=== PATIENT | female | born 1980 | race Caucasian/White ===

== ENCOUNTER 2017-03-21 09:41 | Inpatient (IN) | payer OTHER ==
[~2017-03-21] VITALS: Ht 165.1 cm; Wt 98.9 kg
[2017-03-21] VITALS (15 sets, daily range): BP systolic 80–113; BP diastolic 53–75; PULSE 73–106; TEMP 36.6–37.2; O2SAT 98–100; Ht 165.1 cm; Wt 98.9 kg
[2017-03-21] MEDS ORDERED: SODIUM CHLORIDE 0.9% 1000ML 1,000 ML IV STA (10:09)
--- NOTE | 2017-03-21 10:10 | EMERGENCY ROOM VISIT NOTE ---
History Report prepared by Jareth: Sharri Hardy Under the Supervision of: Dr. Carroll Jackson M.D. First contact with patient: 09:55 Chief Complaint: DIZZY Stated Complaint: SEVERE DIZZINESS, MENSES X 9 DAYS, CUTS Nursing Triage Summary: pt reports hx of dizziness X 1 year has had "crystals put in ear to help this " but over last week has become worse , pt reports " usually after standing and waiting it will pass then I cont with walking I am unable to do this now" History of Present Illness The patient is a 36 year old white female with a past medical history of anemia , iron deficiency, bipolar disorder, and gastric bypass. She presents to the ED with a cc of intermittent dizziness beginning 2 days ago. Pt states that she has had a history of dizziness over the last year but in the last week it has become increasingly worse. She notes that her dizziness is worse with standing and while she is usually able to continue walking after her dizziness resolves, she is no longer able to do this. She states that she almost fell forward today after an episode of dizziness before deciding to come in to the ED. Positive lightheadedness, diaphoresis and shortness of breath. Negative chest pain, urinary symptoms, chills, fever. Pt notes she has had her menses for 9 days and has been changing her pad every 45 minutes. Pt previously had prolonged menstrual bleeding and had a dirk to control it that has since been taken out. She notes that she changes her pad every 45 minutes and is frequently passing clots. Source of History: patient Onset: 2 days ago Position: other (global) Quality: other (dizziness) Timing: intermittent Modifying Factors (Worsening): other (standing) Associated Symptoms: + diaphoresis, + SOB Note: Positive prolonged menstrual bleeding and lightheadedness. Negative chest pain, urinary symptoms, chills, fever Review of Systems See HPI for pertinent positives and negatives. A total of ten systems were reviewed and were otherwise negative. Past Medical & Surgical Medical Problems: (1) Bipolar disorder (2) Leukemia (3) Symptomatic anemia Surgical Problems: (1) H/O gastric bypass Family History No pertinent family history stated. Social History Smoking Status: Never Smoker Marital Status: Housing Status: lives with family Occupation Status: employed Current/Historical Medications Scheduled Fluticasone Propionate (Nasal) (Flonase Allergy Relief), 1 SPRAY RODRICK BID Levothyroxine Sodium (Tirosint), 350 MCG PO QAM Norethindrone Acetate (Norethindrone Acetate), 5 MG PO Q6 Sertraline (Zoloft), 50 MG PO DAILY Allergies Coded Allergies: Diclofenac (Unverified Allergy, Unknown, ALTERED MENTAL STATUS, 03/25/17) Ketorolac Tromethamine (Unverified Allergy, Unknown, ALTERED MENTAL STATUS , 03/25/17) Latex (Unverified Allergy, Unknown, RASH, 03/25/17) Sulfa Antibiotics (Unverified Allergy, Unknown, HIVES, 03/25/17) Uncoded Allergies: ANTIBIOTICS (Allergy, Unknown, ANAPHYLAXIS, 03/21/17) ALLERGIC TO ALL ANTIBIOTICS EXCEPT KEFLEX, CIPRO IV ONLY, LEVOFLOXACIN, AND FLAGYL Physical Exam Vital Signs Date Time Temp Pulse Resp B/P (MAP) Pulse Ox O2 Delivery O2 Flow Rate FiO2 03/21/17 13:22 87 18 113/65 99 03/21/17 13:10 99 Room Air 03/21/17 13:03 37.0 83 20 99/60 99 03/21/17 12:49 37.1 74 20 107/69 100 03/21/17 11:19 82 18 103/61 100 Room Air 03/21/17 10:15 83 03/21/17 10:08 94 Room Air 03/21/17 10:08 81 94/56 93 117/61 107 92/59 03/21/17 09:52 36.7 90 20 114/64 100 Room Air Physical Exam GENERAL: Awake, alert, well-appearing, pale, NAD HENT: Normocephalic, atraumatic. EYES: Normal conjunctiva. Sclera non-icteric. NECK: Supple. No nuchal rigidity. FROM. RESPIRATORY: CTAB, no rhonchi, wheezing, crackles CARDIAC: RRR, no MRG ABDOMEN: Soft, NTND, BS+ MSK: No chest wall TTP, no LE edema NEURO: GCS 15, CN 2-12 intact, moves all 4s on command SKIN: Pale. No rash or jaundice noted. Scar in right upper chest consistent with port. Trace areas of small bruising over the anterior shins, no petechiae noted. PELVIC: Fluid within the vault. Large blood clot noted which was removed. Enlarged cervix, mildly irritated cervical os which appears open. No tenderness to palpation, no CNT no adnexal tenderness to palpation. Medical Decision & Procedures ER Provider Diagnostic Interpretation: Radiology results as stated below per my review and radiologist interpretation: PELVIC ULTRASOUND, TRANSABDOMINAL AND TRANSVAGINAL FINDINGS: Uterus: 9.3 x 5.2 x 5.6 cm. No masses. A few small nabothian cysts. Endometrial stripe: 5 mm. Right ovary: Normal in size and demonstrates normal color flow. A few small follicles/cysts. Left ovary: Normal in size and demonstrates normal color flow. A few small follicles/cysts. Miscellaneous:Trace pelvic free fluid. IMPRESSION: Trace pelvic free fluid which is likely physiologic. The uterus and ovaries are within normal limits. Electronically signed by: Dinh Sandy M.D. 03/21/2017 12:14 PM Dictated Date/Time: 03/21/2017 12:12 PM Laboratory Results Test 03/21/17 10:20 03/21/17 10:35 Immature Granulocyte % (Auto) 0.2 % White Blood Count 5.48 K/uL (4.8-10.8) Red Blood Count 1.42 M/uL (4.2-5.4) Hemoglobin 4.7 g/dL (12.0-16.0) Hematocrit 14.1 % (37-47) Mean Corpuscular Volume 99.3 fL (80-100) Mean Corpuscular Hemoglobin 33.1 pg (25-34) Mean Corpuscular Hemoglobin Concent 33.3 g/dl (32-36) Platelet Count 263 K/uL (130-400) Mean Platelet Volume 9.2 fL (7.4-10.4) Neutrophils (%) (Auto) 73.8 % Lymphocytes (%) (Auto) 19.5 % Monocytes (%) (Auto) 4.9 % Eosinophils (%) (Auto) 0.5 % Basophils (%) (Auto) 1.1 % Neutrophils # (Auto) 4.04 K/uL (1.4-6.5) Lymphocytes # (Auto) 1.07 K/uL (1.2-3.4) Monocytes # (Auto) 0.27 K/uL (0.11-0.59) Eosinophils # (Auto) 0.03 K/uL (0-0.5) Basophils # (Auto) 0.06 K/uL (0-0.2) Immature Granulocyte # (Auto) 0.01 K/uL (0.00-0.02) Red Blood Cell Morphology Unremarkable Prothrombin Time 11.2 SECONDS (9.0-12.0) Prothromb Time International Ratio 1.0 (0.9-1.1) Activated Partial Thromboplast Time 26.1 SECONDS (21.0-31.0) Partial Thromboplastin Ratio 1.0 Direct Bilirubin < 0.1 mg/dl (0-0.2) Urine Color RED Urine Appearance TURBID (CLEAR) Urine pH 6.5 (4.5-7.5) Urine Specific [place] >= 1.030 (1.000-1.030) Urine Protein 3+ (NEG) Urine Glucose (UA) TRACE (NEG) Urine Ketones NEG (NEG) Urine Occult Blood 2+ (NEG) Urine Nitrite NEG (NEG) Urine Bilirubin NEG (NEG) Urine Urobilinogen NEG (NEG) Urine Leukocyte Esterase NEG (NEG) Urine RBC >30 /hpf (0-4) Urine WBC >30 /hpf (0-5) Urine Epithelial Cells 0-5 /lpf (0-5) Urine Bacteria NEG (NEG) Urine Test NEG (NEG) Date/Time Source Procedure Growth Status 03/21/17 10:35 Urine , Clean Catch Urine Culture - Final MORE THAN THREE TYPES OF ORGANISMS WV... Complete Laboratory results reviewed by me Medications Administered Medications (Trade) Dose Ordered Sig/Bessy Route Start Time Stop Time Status Last Admin Dose Admin Sodium Chloride 1,000 ml @ 999 mls/hr Q1H1M STAT IV 03/21/17 10:09 03/21/17 11:09 DC 03/21/17 10:09 999 MLS/HR ECG Indication: SOB/dyspnea Rate (beats per minute): 80 Rhythm: normal sinus Findings: other (t wave flattening in inferior and lateral leads, normal [place] and QRS intervals, normal QTC) Comparison ECG Date: no prior available ED Course 0955: The patient was evaluated in room C9. A complete history and physical exam was performed. 1051: The patients hemoglobin is 4.0. 1054: I reevaluated and updated the patient. I performed a pelvic exam. 1223: I reevaluated the patient and updated her. 1227: I spoke to Dr. Simmons of [facility] he has agreed to evaluate the patient. 1230: Discussed the patient's case with Dr. Sandy of [facility]. The patient will be evaluated for further treatment and disposition. 1243: Upon reexamination, the patient was doing well. I discussed the test results and treatment plan with the patient. The patient will be evaluated for further management. Medical Decision Differential diagnosis includes blood loss anemia, iron deficiency, menorrhagia , blood clotting disorder, arrhythmia. The patient is a 36 year old white female with a past medical history of anemia , iron deficiency, bipolar disorder, and gastric bypass. She presents to the ED with a cc of intermittent dizziness beginning 2 days ago. Patient noted to have significant pallor on exam, and on lab results with a hemoglobin of less than 5. Patient is symptomatic as she has dizziness and lightheadedness that almost caused her to syncopized earlier today. Vaginal exam did show some dark clot as well as fluid within the vaginal vault but no active bleeding. 3 units of PRBCs were ordered patient was consented for transfusion. Of note patient did say that she had a negative heart cath several years ago. EKG did show some T-wave flattening. She changes and there were no other EKGs completed prior to compare. I spoke with the [facility] [employer] [facility] physician who evaluated the patient. Patient was discussed with the hospitalist who also agreed to admit the patient for further medical management and workup. Medication Reconcilliation Current Medication List: was personally reviewed by me Blood Pressure Screening Patient's blood pressure: Normal blood pressure Blood pressure disposition: Did not require urgent referral Consults Time Called: 1220 Consulting Physician: Dr. Simmons - [facility] Returned Call: [address] Simmons of [facility] he has agreed to evaluate the patient. Additional Consults: Time Called: 1225 Consulted Physician: Dr. Sandy - [facility] Returned Call: 1230 Additional Comments: Discussed the patient's case with Dr. Sandy of [facility]. The patient will be evaluated for further treatment and disposition. Impression Primary Impression: Menorrhagia Additional Impressions: Metrorrhagia Blood loss anemia Dizziness Lightheadedness Critical Care I have personally spent greater than 45 minutes of critical care time in the direct management of this patient. This includes bedside care, interpretation of diagnostic studies, and testing, discussion with consultants, patient, and family members, and other required patient management activities. This 45 minutes is in excess of all separately billable procedures. Scribe Attestation The scribe's documentation has been prepared under my direction and personally reviewed by me in its entirety. I confirm that the note above accurately reflects all work, treatment, procedures, and medical decision making performed by me. Departure Information Dispostion Being Evaluated By Hospitalist Prescriptions Norethindrone Acetate (Norethindrone Acetate) 5 Mg Tab 5 MG PO Q6, #50 TAB Prov: Kelli Vu M.D. 03/23/17 Referrals Soraya Richard D.O. (PCP) Patient Instructions My [facility] Problem Qualifiers
[2017-03-21] MEDS ORDERED: FLUT0.15 NAE (10:30)
[2017-03-21] MEDS ORDERED: LEVO150C2 PO (10:30)
[2017-03-21] MEDS ORDERED: SERT50TA PO (10:30)
[2017-03-21 10:44] LABS: PROTHROMBIN TIME (PATIENT) 11.2 SECONDS (9.0-12.0)
[2017-03-21 10:47] LABS: MANUAL MICROSCOPIC REQUIRED? YES; URINE APPEARANCE TURBID (CLEAR); URINE BILIRUBIN NEG (NEG); URINE COLOR RED; URINE NITRITE NEG (NEG); URINE PH 6.5 (4.5-7.5); URINE SPECIFIC GRAVITY >= 1.030 (1.000-1.030); UROBILINOGEN NEG (NEG)
[2017-03-21 10:48] LABS: ALT/SGPT 30 U/L (12-78); BLOOD UREA NITROGEN 11 mg/dl (7-18); BUN/CREATININE RATIO 9.9 (10-20); CALCIUM 7.8 mg/dl (8.5-10.1); CARBON DIOXIDE 28 mmol/L (21-32); CHLORIDE 111 mmol/L (98-107); GLUCOSE 83 mg/dl (70-99); POTASSIUM 3.5 mmol/L (3.5-5.1); SODIUM 143 mmol/L (136-145)
[2017-03-21 10:48] LABS: PREG INTERNAL NEGATIVE QC NEG CLEAR BACKGROUND; PREG INTERNAL POSITIVE QC POS CONTROL LINE
[2017-03-21 10:51] LABS: ALKALINE PHOSPHATASE 49 U/L (45-117); AST/SGOT 54 U/L (15-37)
[2017-03-21 10:51] LABS: URINE BACTERIA NEG (NEG); URINE RBC >30 /hpf (0-4); URINE WBC >30 /hpf (0-5)
[2017-03-21 10:52] LABS: REVIEW REQ? NO; ZZUR CULT IF INDIC CLEAN CATCH YES
[2017-03-21 11:13] LABS: HEMATOCRIT 14.1 % (37-47); MEAN CELL VOLUME 99.3 fL (80-100); MEAN CORPUSCULAR HEMOGLOBIN 33.1 pg (25-34); MEAN CORPUSCULAR HGB CONC 33.3 g/dl (32-36); MEAN PLATELET VOLUME 9.2 fL (7.4-10.4); PLATELET COUNT 263 K/uL (130-400); RED BLOOD COUNT 1.42 M/uL (4.2-5.4); WHITE BLOOD COUNT 5.48 K/uL (4.8-10.8)
[2017-03-21 11:14] LABS: BASO % 1.1 %; BASO ABS # 0.06 K/uL (0-0.2); COMPLETE YES; EOS % 0.5 %; IG% 0.2 %; LYMPH % 19.5 %; LYMPH ABS # 1.07 K/uL (1.2-3.4); MONO % 4.9 %; NEUT % 73.8 %
--- NOTE | 2017-03-21 12:15 | DIAGNOSTIC IMAGING REPORT ---
PELVIC ULTRASOUND, TRANSABDOMINAL AND TRANSVAGINAL HISTORY: prolonged vaginal bleeding COMPARISON: None. FINDINGS: Uterus: 9.3 x 5.2 x 5.6 cm. No masses. A few small nabothian cysts. Endometrial stripe: 5 mm. Right ovary: Normal in size and demonstrates normal color flow. A few small follicles/cysts. Left ovary: Normal in size and demonstrates normal color flow. A few small follicles/cysts. Miscellaneous:Trace pelvic free fluid. IMPRESSION: Trace pelvic free fluid which is likely physiologic. The uterus and ovaries are within normal limits. Electronically signed by: Dinh Sandy M.D. 03/21/2017 12:14 PM Dictated Date/Time: 03/21/2017 12:12 PM
--- NOTE | 2017-03-21 13:29 | GYNECOLOGICAL CONSULTATION ---
DATE OF CONSULTATION: 03/21/2017 HISTORY OF PRESENT ILLNESS: Margarita presented to the Emergency Room, she had previous [facility]ACH[facility] care in a different area. She came initially lightheaded and having heavy period, although she did state her period was tapering off. Her periods are normally heavy and in fact she has wished a hysterectomy for some time with her previous doctor. She has failed Mirena in the past and had her Mirena removed in July of 2016. Describes her periods occurring every month, lasting for 5-7 days, of which 3-4 days are extremely heavy with clot. Recently this period has lasted up to 9 days, as she mentioned is tapering down. Her periods are not overly painful. 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 Has no history of STDs or abnormal Paps, 1 prior vaginal delivery and 1 prior miscarriage. PAST MEDICAL HISTORY: She has a history of anemia related to bypass surgery in the past, this was 4 years ago and also a history of bipolar disease. She has also a history of hyperthyroidism. FAMILY HISTORY: Noncontributory. REVIEW OF SYSTEMS: Negative. PHYSICAL EXAMINATION: VITAL SIGNS: Stable. She is afebrile. ABDOMEN: Benign. No masses palpated. No hernias palpated. PELVIC: Done with nursing reveals normal external genitalia, vulva, vagina, urethra, urethral meatus, and anus. Cervix palpated, smooth and somewhat dilated. Uterus is to a degree enlarged and anteverted, I would say possibly 6 weeks to 5 weeks size. It is mobile. Adnexa are normal. IMPRESSION AND PLAN: Hemoglobin 4.7. The patient requires transfusion. She is not actively bleeding at this time and the blood noticed is dark. She will be admitted onto the hospitalist service and we will follow along. Discussed if her bleeding were to increase, we can consider IV Premarin to further stop the bleeding. At this stage, I think it is unnecessary, as her period is tapering off. We talked about long-term therapy including the possibility of hysterectomy, which would be set up as an outpatient basis. I reviewed her ultrasound which essentially reveals a normal sized uterus and no obvious fibroid. Adnexa within normal limits.
[2017-03-21] MEDS ORDERED: ACETAMINOPHEN 325 MG TAB PO PRN (13:30)
[2017-03-21] MEDS ORDERED: ZOLPIDEM TARTRATE 5 MG TAB PO PRN (13:30)
--- NOTE | 2017-03-21 15:00 | History and Physical ---
History & Physical Date & Time of Service: Mar 21, 2017 at 14:49 Chief Complaint: Blood Loss Anemia,Symptomatic Anemia Primary Care Physician: Soraya Richard D.O. History of Present Illness Source: patient The patient is a 26-year-old female with a past history significant for blood loss anemia, iron deficiency, bipolar disorder and gastric bypass, who presents to the emergency department with 2 days of intermittent dizziness, fatigue and shortness of breath. She reports that she presently has had her menses for 9 days with very heavy bleeding. She had a similar episode in 2013 requiring transfusions. She reports that she is frequently passing clots, and is changing her pad every 45 minutes. She was seen by Dr. Simmons, from [facility], who reviewed her pelvic ultrasound, which revealed a normal-size uterus and no obvious fibroids, with normal adnexa, and he felt the patient could be admitted for transfusions, and he did discuss long-term therapy with her including the possibility of hysterectomy, which she has been in favor of for a number of months to years. Past Medical/Surgical History Medical Problems: (1) Bipolar disorder Status: Chronic (2) Leukemia Status: Resolved Surgical Problems: (1) H/O gastric bypass Status: Chronic Family History Noncontributory Social History Smoking Status: Former Smoker Smokeless Tobacco Use: No Alcohol Use: none Drug Use: none Marital Status: Housing status: lives with significant other Occupational Status: employed Immunizations History of Influenza Vaccine: Unknown History of Tetanus Vaccine?: Unknown History of Pneumococcal: No History of Hepatitis B Vaccine: Unknown Multi-Drug Resistant Organisms History of MDRO: No Allergies Coded Allergies: Diclofenac (Unverified Allergy, Unknown, ALTERED MENTAL STATUS, 03/21/17) Ketorolac Tromethamine (Unverified Allergy, Unknown, ALTERED MENTAL STATUS , 03/21/17) Latex (Unverified Allergy, Unknown, RASH, 03/21/17) Sulfa Antibiotics (Unverified Allergy, Unknown, HIVES, 03/21/17) Uncoded Allergies: ANTIBIOTICS (Allergy, Unknown, ANAPHYLAXIS, 03/21/17) ALLERGIC TO ALL ANTIBIOTICS EXCEPT KEFLEX, CIPRO IV ONLY, LEVOFLOXACIN, AND FLAGYL Home Medications Scheduled Fluticasone Propionate (Nasal) (Flonase Allergy Relief), 1 SPRAY RODRICK BID Levothyroxine Sodium (Tirosint), 350 MCG PO QAM Sertraline (Zoloft), 50 MG PO DAILY Review of Systems The patient denies chest pain, palpitations, shortness of breath, cough, lower extremity swelling, vision change, hearing change, sore throat, fevers, chills, sweats, nausea, vomiting, abdominal pain, blood in urine or stool, dysuria, urinary frequency or urgency, headache, memory loss, rash, abnormal bruising , imbalance, focal or generalized weakness, numbness or tingling in arms or legs, arthralgias or myalgias, back or neck pain, night sweats, or allergy symptoms. The review of systems is otherwise negative other than for that already noted above, and at least 10 systems have been reviewed. Physical Exam Vital Signs Date Time Temp Pulse Resp B/P (MAP) Pulse Ox O2 Delivery O2 Flow Rate FiO2 03/21/17 14:24 36.7 91 17 91/57 100 03/21/17 13:49 93 20 110/75 100 03/21/17 13:22 87 18 113/65 99 03/21/17 13:10 99 Room Air 03/21/17 13:03 37.0 83 20 99/60 99 03/21/17 12:49 37.1 74 20 107/69 100 03/21/17 11:19 82 18 103/61 100 Room Air 03/21/17 10:15 83 03/21/17 10:08 94 Room Air 03/21/17 10:08 81 94/56 93 117/61 107 92/59 03/21/17 09:52 36.7 90 20 114/64 100 Room Air The patient is awake, alert and oriented 3, normocephalic and atraumatic, looks very pale, lying in bed and in no acute distress. HEENT--PERRL, EOMI, mucous membranes and oropharynx dry. Neck--supple, no JVD or bruits, thyroid normal, trachea midline, no adenopathy. Heart--normal S1 and S2, no extra beats, no murmurs, rubs or gallops. Lungs--clear bilaterally with good air movement, no respiratory distress, no accessory muscle use. Abdomen--normal bowel sounds and soft, nontender and nondistended, no hernias or masses, no organomegaly. Extremities--no cyanosis, clubbing or edema. There are good distal pulses b/l. Dermatologic--normal skin turgor, very pale, warm and dry, no abnormal lymph nodes, no rash. Neurologic--cranial nerves II through XII grossly intact, motor and sensory examination normal. Rheumatologic--normal range of motion, nontender, muscles and joints. Psychiatric--normal affect. Diagnostics Laboratory Results Results Past 24 Hours Test 03/21/17 10:20 03/21/17 10:35 Range/Units White Blood Count 5.48 4.8-10.8 K/uL Red Blood Count 1.42 4.2-5.4 M/uL Hemoglobin 4.7 12.0-16.0 g/dL Hematocrit 14.1 37-47 % Mean Corpuscular Volume 99.3 80-100 fL Mean Corpuscular Hemoglobin 33.1 25-34 pg Mean Corpuscular Hemoglobin Concent 33.3 32-36 g/dl Platelet Count 263 130-400 K/uL Mean Platelet Volume 9.2 7.4-10.4 fL Neutrophils (%) (Auto) 73.8 % Lymphocytes (%) (Auto) 19.5 % Monocytes (%) (Auto) 4.9 % Eosinophils (%) (Auto) 0.5 % Basophils (%) (Auto) 1.1 % Neutrophils # (Auto) 4.04 1.4-6.5 K/uL Lymphocytes # (Auto) 1.07 1.2-3.4 K/uL Monocytes # (Auto) 0.27 0.11-0.59 K/uL Eosinophils # (Auto) 0.03 0-0.5 K/uL Basophils # (Auto) 0.06 0-0.2 K/uL RDW Standard Deviation 52.8 36.4-46.3 fL RDW Coefficient of Variation 15.3 11.5-14.5 % Immature Granulocyte % (Auto) 0.2 % Immature Granulocyte # (Auto) 0.01 0.00-0.02 K/uL Red Blood Cell Morphology Unremarkable Prothrombin Time 11.2 9.0-12.0 SECONDS Prothromb Time International Ratio 1.0 0.9-1.1 Activated Partial Thromboplast Time 26.1 21.0-31.0 SECONDS Partial Thromboplastin Ratio 1.0 Sodium Level 143 136-145 mmol/L Potassium Level 3.5 3.5-5.1 mmol/L Chloride Level 111 98-107 mmol/L Carbon Dioxide Level 28 21-32 mmol/L Anion Gap 4.0 3-11 mmol/L Blood Urea Nitrogen 11 7-18 mg/dl Creatinine 1.10 0.60-1.20 mg/dl Est Creatinine Clear Calc Drug Dose 81.1 ml/min Estimated GFR () 74.3 Estimated GFR (Non- 64.1 BUN/Creatinine Ratio 9.9 10-20 Random Glucose 83 70-99 mg/dl Calcium Level 7.8 8.5-10.1 mg/dl Total Bilirubin 0.2 0.2-1 mg/dl Direct Bilirubin < 0.1 0-0.2 mg/dl Aspartate Amino Transf (AST/SGOT) 54 15-37 U/L Alanine Aminotransferase (ALT/SGPT) 30 12-78 U/L Alkaline Phosphatase 49 45-117 U/L Total Protein 5.7 6.4-8.2 gm/dl Albumin 3.2 3.4-5.0 gm/dl Urine Color RED Urine Appearance TURBID CLEAR Urine pH 6.5 4.5-7.5 Urine Specific [place] >= 1.030 1.000-1.030 Urine Protein 3+ NEG Urine Glucose (UA) TRACE NEG Urine Ketones NEG NEG Urine Occult Blood 2+ NEG Urine Nitrite NEG NEG Urine Bilirubin NEG NEG Urine Urobilinogen NEG NEG Urine Leukocyte Esterase NEG NEG Urine RBC >30 0-4 /hpf Urine WBC >30 0-5 /hpf Urine Epithelial Cells 0-5 0-5 /lpf Urine Bacteria NEG NEG Urine Test NEG NEG Microbiology Results 03/21/17 Urine Culture, Received Pending Diagnostic Radiology Patient Name: RAHEEM LITTLE Unit Number: [id number] Dictated: 03/21/171211 Transcribed: 03/21/171211 [employer] Printed Date/Time: [~ rep prt dt]/[~ rep prt tm] [~ rep ct labl] - [~ rep ct ivnm] [facility] [place] [address] Dictated: 03/21/171211 Transcribed: 03/21/171211 PA Printed Date/Time: [~ rep prt dt]/[~ rep prt tm] [~ rep ct labl] - [~ rep ct ivnm] [~ rep ct add3]] PELVIC ULTRASOUND, TRANSABDOMINAL AND TRANSVAGINAL HISTORY: prolonged vaginal bleeding COMPARISON: None. FINDINGS: Uterus: 9.3 x 5.2 x 5.6 cm. No masses. A few small nabothian cysts. Endometrial stripe: 5 mm. Right ovary: Normal in size and demonstrates normal color flow. A few small follicles/cysts. Left ovary: Normal in size and demonstrates normal color flow. A few small follicles/cysts. Miscellaneous:Trace pelvic free fluid. IMPRESSION: Trace pelvic free fluid which is likely physiologic. The uterus and ovaries are within normal limits. Electronically signed by: Dinh Sandy M.D. 03/21/2017 12:14 PM Dictated Date/Time: 03/21/2017 12:12 PM The status of this report is Signed. Draft = Not yet reviewed or approved by Radiologist. Signed = Reviewed and approved by Radiologist. <AttendingPhy></AttendingPhy> <FamilyPhy>Soraya Richard D.O.</FamilyPhy> < PrimaryPhy>Soraya Richard D.O.</PrimaryPhy> <UnitNumber>[id number]</UnitNumber> <VisitNumber>[id number]</VisitNumber> <PatientName>RAHEEM LITTLE</PatientName > <DateOfBirth>1980</DateOfBirth> <Location>[facility]</Location> <ServiceDate> 03/21/17</ServiceDate> <MNE>ESINDI</MNE> <OrderingPhy>Carroll Jackson M.D.</ OrderingPhy> <OrderingPhyMNE>f rep ord dr bowens</OrderingPhyMNE> <DictatingPhyMNE> f rep dict dr bowens</DictatingPhyMNE> <CCListMNE>f rep ct ramanae</CCListMNE> < AdmittingPhyMNE>f pt admit dr bowens</AdmittingPhyMNE> <AttendingPhyMNE>f pt attend dr bowens</AttendingPhyMNE> <ConsultingPhyMNE>f pt consult dr bowens</ConsultingPhyMNE> <FamilyPhyMNE>f pt fam dr bowens</FamilyPhyMNE> <OtherPhyMNE>f pt other dr bowens</OtherPhyMNE> < PrimaryPhyMNE>f pt prim care dr bowens</PrimaryPhyMNE> <ReferringPhyMNE>f pt referring dr bowens</ReferringPhyMNE> Impression Assessment and Plan Symptomatic anemia secondary to excessive vaginal bleeding--the patient will be admitted to the telemetry unit for close monitoring while getting transfusions. The patient is presently receiving her first unit of PRBCs in the ED, and will receive 2 additional units by my orders, and we'll get an H&H after that. We'll consult Dr. Simmons from [facility], who was already seen the patient in the emergency department. Hypothyroidism--continue levothyroxine at 350 g every morning. Added TSH to the ED labs. The patient reports that she can only take the brand Tirosint, and she has been informed by staff that she'll need to bring her own meds in from home. Bipolar disorder--continue sertraline 50 mg by mouth daily. Seasonal allergy--continue Flonase 1 spray to nostril twice a day. Level of Care Telemetry Advanced Directives Existing Advance Directive: No Existing Living Will: Yes Existing Power of Study Assistant: Yes Resuscitation Status FULL RESUSCITATION VTE Prophylaxis VTE Risk Assessment Done? Y/N: Yes Risk Level: Moderate Given or contraindicated: SCD's Social Service Consult None Apply
[2017-03-21] MEDS: [UNRECOGNIZED DRUG - REMARK] SCH ×2 (16:00→20:51)
[2017-03-21] MEDS: NSS + 20MEQ KCL 1000ML 1,000 ML IV SCH (20:50)
[2017-03-21] MEDS: FLUTICASONE PROPIONATE NA SPR 16 GM BTL NAE SCH (20:50)
[2017-03-21 21:04] LABS: HEMATOCRIT 22.6 % (37-47)
[2017-03-22] VITALS (19 sets, daily range): BP systolic 83–149; BP diastolic 57–88; PULSE 74–94; TEMP 36.7–37.1; O2SAT 96–100
[2017-03-22] MEDS: NSS + 20MEQ KCL 1000ML 1,000 ML IV SCH (03:30)
[2017-03-22] MEDS: SERTRALINE HCL 50 MG TAB PO SCH (07:41)
[2017-03-22] MEDS: FLUTICASONE PROPIONATE NA SPR 16 GM BTL NAE SCH ×2 (07:41→20:14)
--- NOTE | 2017-03-22 07:54 | Progress Note ---
Progress Note Date of Service Mar 22, 2017. Progress Note Received sig transfusion, Hb still low, however improved. Bleeding had been better in the ER, but seems to be still occurying. Still passing a few clots. Will Start IV premarin to stabilize lining. LUIS ARMANDO
[2017-03-22 08:19] LABS: HEMATOCRIT 21.1 % (37-47); MEAN CELL VOLUME 91.3 fL (80-100); MEAN CORPUSCULAR HEMOGLOBIN 30.7 pg (25-34); MEAN CORPUSCULAR HGB CONC 33.6 g/dl (32-36); MEAN PLATELET VOLUME 9.4 fL (7.4-10.4); PLATELET COUNT 239 K/uL (130-400); RED BLOOD COUNT 2.31 M/uL (4.2-5.4); WHITE BLOOD COUNT 4.88 K/uL (4.8-10.8)
[2017-03-22] MEDS: ESTROGENS, CONJUGATED INJ 25 MG in SYRINGE 0 ML IV SCH ×4 (08:22→20:14)
[2017-03-22 08:49] LABS: BUN/CREATININE RATIO 8.8 (10-20); CALCIUM 7.6 mg/dl (8.5-10.1); CREATININE 1.1 mg/dl (0.60-1.20); POTASSIUM 3.7 mmol/L (3.5-5.1)
--- NOTE | 2017-03-22 12:31 | Hospitalist Progress Note ---
Hospitalist Progress Note Date of Service Mar 22, 2017. Subjective Pt evaluation today including: conversation w/ patient, physical exam, chart review, lab review, review of studies, review of inpatient medication list Patient seen and evaluated. Hgb improved to 7.1 from 4.7 but will transfuse 1 unit PRBC today. Patient reports marked improvement but states she still has some weakness but no lightheadedness/dizziness. Reports her BP normally runs low. She states her menses normally last 7 days and is commonly heavy. Still reporting continued vaginal bleeding with significant clots. Denies abdominal pain or cramping. She recently moved from [facility] so is just now getting established in the area. She is scheduled to see [facility] PCP in March. She was previously on Mirena but was D/C'd after she had her GB removed. She reports she does not need contraceptives for prevention as she is in a homosexual relationship. She would like to pursue hysterectomy but reports her previous [facility] doctor didn' t want to do that. Constitutional: + fatigue (improving), No fever, No chills Respiratory: No cough, No shortness of breath Cardiovascular: No chest pain, No palpitations Abdomen: No pain, No nausea, No vomiting, No diarrhea, No constipation, No GI bleeding Musculoskeletal: No swelling, No calf pain Female : + abnormal vaginal bleeding (heavy; prolonged; associated large clots), No dysuria Medications Current Inpatient Medications Medications (Trade) Dose Ordered Sig/Bessy Route Start Time Stop Time Status Last Admin Dose Admin Potassium Chloride/Sodium Chloride 1,000 ml @ 80 mls/hr [id number] IV 03/21/17 15:00 04/20/17 13:23 03/21/17 20:50 80 MLS/HR Acetaminophen (Tylenol Tab) 650 mg Q4H PRN PO 03/21/17 13:30 04/20/17 13:29 Zolpidem Tartrate (Ambien Tab) 5 mg HSZ PRN PO 03/21/17 13:30 04/20/17 13:29 Fluticasone Propionate (Flonase Nasal [place]) 1 sprays BID RODRICK 03/21/17 21:00 04/20/17 20:59 03/22/17 07:41 1 SPRAYS Sertraline HCl (Zoloft Tab) 50 mg DAILY PO 03/22/17 09:00 04/21/17 08:59 03/22/17 07:41 50 MG Miscellaneous Information (Order Awaiting Action) 1 ea QS N/A 03/21/17 16:00 04/20/17 15:59 Heparin Sodium (Porcine) (Heparin 100 Unit/ml 5ml Flush) 5 ml PRN PRN IV 03/22/17 00:45 04/21/17 00:44 Estrogens Conjugated 25 mg/ Syringe 5 ml @ 1 mls/min Q4 IV 03/22/17 08:00 04/21/17 07:59 03/22/17 08:22 1 MLS/MIN Norethindrone Acetate (Aygestin Tab) 5 mg Q6 PO 03/22/17 12:00 04/21/17 11:59 UNV Objective Vital Signs Date Time Temp Pulse Resp B/P (MAP) Pulse Ox O2 Delivery O2 Flow Rate FiO2 03/22/17 11:44 36.9 74 18 104/76 (85) 100 Room Air 03/22/17 11:05 36.9 84 16 95/61 99 03/22/17 10:35 36.9 83 16 99/65 99 03/22/17 10:20 37.0 94 16 98/66 99 03/22/17 10:05 36.7 94 96/64 98 03/22/17 08:04 36.8 84 18 90/64 (73) 100 Room Air 03/22/17 08:00 Room Air 03/22/17 04:00 Room Air 03/22/17 04:00 36.7 90 18 149/88 (108) 96 03/21/17 23:59 Room Air 03/21/17 23:53 37.0 77 18 91/59 (70) 99 Room Air 03/21/17 20:00 Room Air 03/21/17 19:10 37.2 80 20 80/57 (65) 98 Room Air 03/21/17 18:50 36.8 91 18 80/53 99 03/21/17 17:50 36.8 86 17 86/56 100 03/21/17 17:20 37.0 87 17 90/54 100 03/21/17 16:03 36.6 73 17 96/60 100 03/21/17 16:00 98 Room Air 03/21/17 15:33 36.9 106 17 98/66 99 03/21/17 14:58 36.8 73 16 92/64 100 03/21/17 14:24 36.7 91 17 91/57 100 03/21/17 13:49 93 20 110/75 100 03/21/17 13:22 87 18 113/65 99 03/21/17 13:10 99 Room Air 03/21/17 13:03 37.0 83 20 99/60 99 03/21/17 12:49 37.1 74 20 107/69 100 Physical Exam General Appearance: WD/WN, no apparent distress Eyes: sclerae normal ENT: hearing grossly normal Neck: supple, no JVD, trachea midline Respiratory/Chest: lungs clear, normal breath sounds, no respiratory distress, no accessory muscle use, + pertinent finding (R upper chest port) Cardiovascular: regular rate, rhythm, no gallop, no murmur Abdomen: normal bowel sounds, non tender, soft Extremities: no pedal edema, no calf tenderness Neurologic/Psychiatric: alert, oriented x 3, + pertinent finding (gait steady) Skin: normal color, warm/dry Laboratory Results Last 24 Hours Test 03/21/17 16:23 03/21/17 20:27 03/21/17 20:40 03/22/17 07:33 Bedside Glucose 96 mg/dl 87 mg/dl Hemoglobin 7.5 g/dL 7.1 g/dL Hematocrit 22.6 % 21.1 % White Blood Count 4.88 K/uL Red Blood Count 2.31 M/uL Mean Corpuscular Volume 91.3 fL Mean Corpuscular Hemoglobin 30.7 pg Mean Corpuscular Hemoglobin Concent 33.6 g/dl RDW Standard Deviation 60.2 fL RDW Coefficient of Variation 18.6 % Platelet Count 239 K/uL Mean Platelet Volume 9.4 fL Sodium Level 144 mmol/L Potassium Level 3.7 mmol/L Chloride Level 110 mmol/L Carbon Dioxide Level 27 mmol/L Anion Gap 7.0 mmol/L Blood Urea Nitrogen 10 mg/dl Creatinine 1.10 mg/dl Est Creatinine Clear Calc Drug Dose 81.5 ml/min Estimated GFR () 74.3 Estimated GFR (Non- 64.1 BUN/Creatinine Ratio 8.8 Random Glucose 80 mg/dl Calcium Level 7.6 mg/dl Assessment and Plan Symptomatic Anemia/Acute Blood Loss Anemia 2/2 Menorrhagia: - Transfused 3 units on 03/21 and 1 unit PRBCs this AM - Hgb improved from 4.7 to 7.1 - await repeat after today's transfusion - NSS + 20 mEq at 80 mL/hr - 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 will repeat TSH in AM and recommend follow-up with PCP for monitoring Bipolar Disorder: - Sertraline 50 mg daily DVT Prophylaxis: SCDs; no chemical means due to bleeding Code Status: FULL RESUSCITATION Disposition: - Await blood counts and any intervention by [facility] - possible D/C tomorrow - Will need outpatient follow-up with PCP in 7-10 days - will follow with [facility] PCP Continued [facility] stay due to: multiple IV medications needed Discharge planning: home
[2017-03-22] MEDS: NORETHINDRONE ACETATE 5 MG TAB PO SCH ×2 (14:15→20:16)
[2017-03-22 14:36] LABS: HEMATOCRIT 22.3 % (37-47); MEAN CELL VOLUME 90.7 fL (80-100); MEAN CORPUSCULAR HEMOGLOBIN 30.1 pg (25-34); MEAN PLATELET VOLUME 9.2 fL (7.4-10.4); PLATELET COUNT 237 K/uL (130-400); RED BLOOD COUNT 2.46 M/uL (4.2-5.4); WHITE BLOOD COUNT 6.29 K/uL (4.8-10.8)
[2017-03-22] MEDS ORDERED: ONDANSETRON INJ 2 MG/ML 2 ML VIAL ONE (14:39)
[2017-03-22] MEDS ORDERED: ONDANSETRON INJ 2 MG/ML 2 ML VIAL IV PRN (14:45)
[2017-03-22] MEDS ORDERED: NURSING VERBAL MED ORDER ONE (14:45)
[2017-03-22 14:47] LABS: MEAN CORPUSCULAR HGB CONC 33.2 g/dl (32-36)
[2017-03-22] MEDS: [UNRECOGNIZED DRUG - REMARK] SCH (15:13)
[2017-03-22 22:49] LABS: HEMATOCRIT 24.1 % (37-47); MEAN CELL VOLUME 88.3 fL (80-100); MEAN CORPUSCULAR HEMOGLOBIN 28.9 pg (25-34); MEAN CORPUSCULAR HGB CONC 32.8 g/dl (32-36); PLATELET COUNT 202 K/uL (130-400); RED BLOOD COUNT 2.73 M/uL (4.2-5.4); WHITE BLOOD COUNT 6.83 K/uL (4.8-10.8)
[2017-03-23] VITALS (17 sets, daily range): BP systolic 84–111; BP diastolic 50–72; PULSE 56–91; TEMP 36.8–37.2; O2SAT 98–100
[2017-03-23] MEDS: [UNRECOGNIZED DRUG - REMARK] SCH
[2017-03-23] MEDS: ESTROGENS, CONJUGATED INJ 25 MG in SYRINGE 0 ML IV SCH ×2 (00:03→04:16)
[2017-03-23] MEDS: NORETHINDRONE ACETATE 5 MG TAB PO SCH ×3 (00:03→11:54)
[2017-03-23 04:41] LABS: HEMATOCRIT 23.4 % (37-47); MEAN CELL VOLUME 88.3 fL (80-100); MEAN CORPUSCULAR HEMOGLOBIN 30.2 pg (25-34); MEAN CORPUSCULAR HGB CONC 34.2 g/dl (32-36); MEAN PLATELET VOLUME 9.2 fL (7.4-10.4); PLATELET COUNT 198 K/uL (130-400); RED BLOOD COUNT 2.65 M/uL (4.2-5.4); WHITE BLOOD COUNT 7.44 K/uL (4.8-10.8)
[2017-03-23 04:58] LABS: BUN/CREATININE RATIO 11.8 (10-20); CALCIUM 7.1 mg/dl (8.5-10.1); CREATININE 1.1 mg/dl (0.60-1.20); POTASSIUM 3.5 mmol/L (3.5-5.1)
--- NOTE | 2017-03-23 08:23 | OB/GYN Progress Note ---
BRANDS EDITOR Progress Note Date of Service Mar 23, 2017. Subjective conversation w/ patient Voiding: no voiding problems Passing Gas: Yes Diet Tolerance: Regular Diet Notes: bleeding has now down to a light flow with much smaller clotty episodes. feels better and less fatigued. Review of Systems Constitutional: No fever, No chills, No sweats, No weight loss, No weakness, No fatigue, No problem reported Respiratory: No cough, No sputum, No wheezing, No shortness of breath, No dyspnea on exertion, No dyspnea at rest, No hemoptysis, No problem reported Abdomen: No pain, No nausea, No vomiting, No diarrhea, No constipation, No GI bleeding, No problem reported Female : + see HPI Objective Vital Signs Date Time Temp Pulse Resp B/P (MAP) Pulse Ox O2 Delivery O2 Flow Rate FiO2 03/23/17 07:45 37.0 83 18 106/68 (81) 100 Room Air 03/23/17 04:40 36.9 79 16 87/54 (65) 100 Room Air 03/23/17 04:00 Room Air 03/23/17 00:14 36.8 56 18 84/50 (61) 99 Room Air 03/22/17 23:59 Room Air 03/22/17 21:27 37.1 77 17 87/58 98 03/22/17 20:27 37.1 75 17 91/66 97 03/22/17 20:00 97 Room Air 03/22/17 19:37 37.0 82 19 93/62 (72) 99 Room Air 03/22/17 19:27 37.1 80 17 83/59 98 03/22/17 18:57 37.0 84 18 94/59 100 03/22/17 17:20 36.8 80 17 100/61 99 03/22/17 16:20 37.1 84 18 90/57 100 03/22/17 16:00 97 Room Air 03/22/17 15:50 36.9 91 17 102/67 97 03/22/17 12:35 36.7 84 16 107/70 99 03/22/17 12:00 Room Air 03/22/17 11:44 36.9 74 18 104/76 (85) 100 Room Air 03/22/17 11:35 36.7 83 16 116/70 99 03/22/17 11:05 36.9 84 16 95/61 99 03/22/17 10:35 36.9 83 16 99/65 99 03/22/17 10:20 37.0 94 16 98/66 99 03/22/17 10:05 36.7 94 96/64 98 Physical Exam General Appearance: WELL-APPEARING, NO APPARENT DISTRESS Laboratory Results Last 24 Hours Test 03/22/17 14:05 03/22/17 16:34 03/22/17 22:33 03/23/17 04:31 White Blood Count 6.29 K/uL 6.83 K/uL 7.44 K/uL Red Blood Count 2.46 M/uL 2.73 M/uL 2.65 M/uL Hemoglobin 7.4 g/dL 7.9 g/dL 8.0 g/dL Hematocrit 22.3 % 24.1 % 23.4 % Mean Corpuscular Volume 90.7 fL 88.3 fL 88.3 fL Mean Corpuscular Hemoglobin 30.1 pg 28.9 pg 30.2 pg Mean Corpuscular Hemoglobin Concent 33.2 g/dl 32.8 g/dl 34.2 g/dl RDW Standard Deviation 58.6 fL 53.8 fL 54.5 fL RDW Coefficient of Variation 18.3 % 17.4 % 17.6 % Platelet Count 237 K/uL 202 K/uL 198 K/uL Mean Platelet Volume 9.2 fL 9.0 fL 9.2 fL Bedside Glucose 120 mg/dl Sodium Level 144 mmol/L Potassium Level 3.5 mmol/L Chloride Level 112 mmol/L Carbon Dioxide Level 28 mmol/L Anion Gap 4.0 mmol/L Blood Urea Nitrogen 13 mg/dl Creatinine 1.10 mg/dl Est Creatinine Clear Calc Drug Dose 81.5 ml/min Estimated GFR () 74.3 Estimated GFR (Non- 64.1 BUN/Creatinine Ratio 11.8 Random Glucose 83 mg/dl Calcium Level 7.1 mg/dl Thyroid Stimulating Hormone (TSH) 349.000 uIu/ml Assessment and Plan Day Number: 1 Continue Routine Care: bleeding has slowed dramatically at this time. would continue aygestin taper , I will write script for this med .We will attempt to taper to 5mg Aygestin daily & maintain this regimen until surgery can be done. I would recommend hematology follow up for possible iron infusions in preparation for surgery. Our office will call her to set up follow up appointment to discuss surgery and monitor the bleeding. 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
[2017-03-23] MEDS ORDERED: AYG5 PO (08:25)
[2017-03-23] MEDS: SERTRALINE HCL 50 MG TAB PO SCH (08:26)
[2017-03-23] MEDS: FLUTICASONE PROPIONATE NA SPR 16 GM BTL NAE SCH (08:26)
--- NOTE | 2017-03-23 16:23 | Discharge Instructions ---
Discharge Instructions Date of Service Mar 23, 2017. Admission Reason for Admission: Blood Loss Anemia,Symptomatic Anemia Discharge Discharge Diagnosis / Problem: Menorrhagia, symptomatic anemia Discharge Goals Goal(s): Improve function, Diagnostic testing (CBC on 03/25), Therapeutic intervention (hysterectomy) Activity Recommendations Activity Limitations: resume your previous activity Lifting Limitations: none Exercise/Sports Limitations: as tolerated May Resume Sexual Activity: after follow-up appointment Shower/Bathe: no limitations Driving or Machine Use: no limitations . Instructions / Follow-Up Instructions / Follow-Up Medications: - Norethindrone: take as prescribed by gynecology Anemia: transfused 7 units total, Hb up to 9.0, want to repeat CBC on 03/25, take script to front of hospital (main entrance) and they will page me with results and I will call you Menorrhagia: follow up with Dr. Mcdowell as scheduled FOLLOW UP - new PCP on 03/31 as previously scheduled - gynecology as scheduled, plan for hysterectomy in several weeks after taking Norethindrone Current Hospital Diet Patient's current hospital diet: Diabetes Type 2 Diet Discharge Diet Recommended Diet: Diabetes Type 2 Diet Pending Studies Studies pending at discharge: no Medical Emergencies . Who to Call and When: Medical Emergencies: If at any time you feel your situation is an emergency, please call 911 immediately. . Non-Emergent Contact Non-Emergency issues call your: Primary Care Provider, Supervisor Sulfuric Acid Plant Call Non-Emergent contact if: you have any medication questions . . "Provider Documentation" section prepared by Quinton Chen. . VTE Core Measure Inpt VTE Proph given/why not?: SCD's [place] Drug Monitoring Program Search Results: no issues identified
[2017-03-23 17:47] LABS: HEMATOCRIT 25.4 % (37-47)
[2017-03-23 18:11] LABS: BUN/CREATININE RATIO 10.9 (10-20); CALCIUM 7.3 mg/dl (8.5-10.1); CREATININE 1.4 mg/dl (0.60-1.20); POTASSIUM 3.6 mmol/L (3.5-5.1)
[2017-03-23 18:13] LABS: ALB/GLOB RATIO 1.2 (0.9-2)
--- NOTE | 2017-03-24 09:20 | Discharge Summary ---
Discharge Summary Date of Service Mar 24, 2017. Discharge Summary Admission Date: Mar 21, 2017 at 13:24 Discharge Date: Mar 23, 2017 Discharge Disposition: Home Principal Diagnosis: Acute blood loss anemia Problems/Secondary Diagnoses: Menorrhagia Iron deficiency Hypothyroidism Immunizations: Have You Had Influenza Vaccine: Unknown History of Tetanus Vaccine?: Unknown History of Pneumococcal: No History of Hepatitis B Vaccine: Unknown Procedures: none Consultations: Gynecology Medication Reconciliation New Medications: Norethindrone Acetate (Norethindrone Acetate) 5 Mg Tab 5 MG PO Q6, #50 TAB Continued Medications: Fluticasone Propionate (Nasal) (Flonase Allergy Relief) 50 Mcg/Act Spr 1 SPRAY RODRICK BID Levothyroxine Sodium (Tirosint) 150 Mcg Cap 350 MCG PO QAM Sertraline (Zoloft) 50 Mg Tab 50 MG PO DAILY, TAB Discharge Exam Patient feeling much better, BP in the 90's systolic and 100's, she states that this is normal for her. No dyspnea, no fatigue. Says she feels a lot better compared to admission. She has far less bleeding, minimal clots on day of discharge. discussed plans for follow up with gynecology, going to have surgery with Dr. Dubois in several weeks once her bleeding resolves, hemoglobin improves and her insurance issues are figured out. Hb was 8.0 in the morning, explained that she would need an additional unit of PRBC. repeat Hb was 8.8 and she was d/c to home. planned for her to have repeat H/H on 03/25 and plan for INFeD infusion at the [facility]. Review of Systems: Constitutional: No fever, No chills, No sweats, No weight loss, No weakness , No fatigue, No problem reported Eyes: No worsening of vision, No eye pain, No redness, No discharge, No diplopia, No problem reported ENT: No hearing loss, No unusual epistaxis, No nasal symptoms, No sore throat, No tinnitus, No dental problems, No trouble swallowing, No problem reported Respiratory: No cough, No sputum, No wheezing, No shortness of breath, No dyspnea on exertion, No dyspnea at rest, No hemoptysis, No problem reported Cardiovascular: No chest pain, No orthopnea, No PND, No edema, No claudication, No palpitations, No problem reported Abdomen: No pain, No nausea, No vomiting, No diarrhea, No constipation, No GI bleeding, No problem reported Musculoskeletal: No joint pain, No muscle pain, No swelling, No calf pain, No problem reported Genitourinary - Female: + menorrhagia (much less bleeding, really just passing some small clots), No dysuria, No urinary frequency, No urinary urgency , No urinary incontinence, No urinary retention, No hematuria Neurologic: No memory loss, No paralysis, No weakness, No numbness/tingling , No vertigo, No balance problems, No problem reported Psychiatric: No depression symptoms, No anhedonism, No anxiety, No insomnia , No substance abuse, No problem reported Endocrine: No fatigue, No excessive thirst, No excessive urination, No problem reported Hematologic / Lymphatic: No abnormal bleeding/bruising, No clotting problems , No swollen lymph nodes, No night sweats, No problem reported Integumentary: No rash, No itch, No new/changing skin lesions, No color change, No bleeding, No problem reported Physical Exam: General Appearance: no apparent distress, + obese Eyes: normal inspection, EOMI, sclerae normal ENT: normal ENT inspection, hearing grossly normal, pharynx normal Neck: supple, no adenopathy, no JVD, trachea midline Respiratory/Chest: chest non-tender, lungs clear, normal breath sounds, no respiratory distress, no accessory muscle use Cardiovascular: regular rate, rhythm, no edema, no gallop, no JVD, no murmur , normal peripheral pulses Abdomen / GI: normal bowel sounds, non tender, soft, no organomegaly Extremities: normal inspection, no calf tenderness, normal capillary refill , no pedal edema, normal range of motion, pelvis stable Neurologic/Psychiatric: 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 tested, no motor/sensory deficits , alert, normal mood/affect, normal reflexes, oriented x 3 Skin: normal color, warm/dry, no rash, + pertinent finding (hirsuitism) Lymphatic: no adenopathy Hospital Course Symptomatic Anemia/Acute Blood Loss Anemia 2/2 Menorrhagia: - Transfused a total of 7 units of PRBC during admission, Hb up to 8.8 and has been trending upward - BP in the 90-100's systolic which is normal for her, no dizziness, no light headedness, no dyspnea - 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 Dubois for hysterectomy in several weeks once bleeding stopped, several weeks on Norethindrone will repeat H/H on 03/[address] Chen since she does not have a PCP yet H/o iron deficiency: Ferritin was not checked on admission and would have been inaccurate due to multiple infusions will arrange for [facility]D infusion [facility]mg at the [facility] can follow up with new PCP in the [facility] Hypothyroidism: - Can only take Tirosint - will allow to take her own medication - TSH in the 300's, she says this is typical for her, has been in the 800's before - denies any hypothyroid symptoms although she does have obesity, tongue slightly enlarged, hirsutism - needs to establish care with radiator specialist in the area now that she is living here, can be arranged through PCP Bipolar Disorder: - Sertraline 50 mg daily DVT Prophylaxis: SCDs; no chemical means due to bleeding Code Status: FULL RESUSCITATION Disposition: d/c to home - repeat H/H on 03/25 - INFeD infusion within the next week - follow up with Dr. Dubois in several weeks - follow up with Dr. Richard on 03/31 as previously scheduled Total Time Spent: Greater than 30 minutes This includes examination of the patient, discharge planning, medication reconciliation, and communication with other providers. Discharge Instructions Please refer to the electronic Patient Visit Report (Discharge Instructions) for additional information. Follow-Up Dr. Richard on 03/31 Dr. Dubois in several weeks, discuss plans for hysterectomy Additional Copies To Soraya Richard D.O.; Debi Dubois MD
[2017-04-21] MEDS ORDERED: LEVO100C2 PO (12:03)
[2017-04-21] MEDS ORDERED: LEVO50CA2 PO (12:03)
[2017-04-21] MEDS ORDERED: NORE5TAB5 PO (12:03)
[2017-05-04] MEDS ORDERED: OXYC-57 PO (07:30)
== END 2017-03-23 19:03 | disposition home or self-care (01) | DRG 760 ==
LOC: C.EDB 09:46 → C.2T 13:24 → ENRESERV 13:42
PROVIDERS: ADMIT Hospitalist; ATTEND Internal Medicine
DX: N92.0 Excessive and frequent menstruation with regular cycle (principal); D62 Acute posthemorrhagic anemia; I95.9 Hypotension, unspecified; E03.9 Hypothyroidism, unspecified; J30.2 Other seasonal allergic rhinitis; F31.9 Bipolar disorder, unspecified; Z98.84 Bariatric surgery status; Z87.891 Personal history of nicotine dependence; Z79.899 Other long term (current) drug therapy

== ENCOUNTER → 2017-03-25 | Outpatient (CLI) | payer OTHER ==
[~2017-03-25] MED LIST: AYG5 PO; FLUT0.15 NAE; LEVO100C2 PO; LEVO150C2 PO; LEVO50CA2 PO; NORE5TAB5 PO; OXYC-57 PO; SERT50TA PO
[2017-03-25 12:15] LABS: HEMATOCRIT 25.8 % (37-47)
--- NOTE | 2017-04-15 10:42 | CODING QUERY NO DIAGNOSIS ---
TREATMENT RENDERED WITHOUT A DIAGNOSIS To promote full compliance with coding requirements relating to patient care, physician participation is requested in all cases of section weaver uncertainty. Please assist us with providing a diagnosis/symptom for the test(s) below: A diagnosis/symptom was not documented on your Order. A valid diagnosis/symptom is required to bill all insurances. Please remember that we are unable to code a diagnosis of rule out, probable, possible, questionable, or suspected. Tests that require a diagnosis from 03/25/17: * H&H DIAGNOSIS: Provider Signature: Date: Thank you Jana Zaman Oppten Information Management Once completed, please kindly fax back to [phone] For questions please call [phone]
== END ==
LOC: C.LAB 11:39
PROVIDERS: ATTEND Internal Medicine
DX: D64.9 Anemia, unspecified (principal)

== ENCOUNTER → 2017-04-08 | Outpatient (CLI) | payer OTHER ==
[2017-04-08 18:00] LABS: HEMATOCRIT 30.4 % (37-47)
== END | disposition home or self-care (01) ==
LOC: C.LAB 16:23 → EDSTATUS 04-23 12:03
PROVIDERS: ATTEND Student in an Organized Health Care Education/Training Program
DX: D64.9 Anemia, unspecified (principal)

== ENCOUNTER 2017-05-03 09:49 | Observation (INO) | payer OTHER ==
[2017-04-21 12:04] VITALS: BMI 36.0
--- NOTE | 2017-04-28 10:06 | PAT Medication Instructions ---
Service Date Apr 28, 2017. Current Home Medication List Fluticasone Propionate (Nasal) (Flonase Allergy Relief), 1 SPRAY RODRICK BID Levothyroxine Sodium (Tirosint), 50 MCG PO HS Levothyroxine Sodium (Tirosint), 100 MCG PO HS Norethindrone (Aygestin), 5 MG PO BID Sertraline (Zoloft), 50 MG PO HS Medication Instructions For Your Scheduled Surgery - Check with surgeon for instructions: Norethindrone (Aygestin), 5 MG PO BID - Take the following medications the morning of surgery with a sip of water: Fluticasone Propionate (Nasal) (Flonase Allergy Relief), 1 SPRAY RODRICK BID - Take the following medications as scheduled the night before surgery: Levothyroxine Sodium (Tirosint), 50 MCG PO HS Levothyroxine Sodium (Tirosint), 100 MCG PO HS Sertraline (Zoloft), 50 MG PO HS Fluticasone Propionate (Nasal) (Flonase Allergy Relief), 1 SPRAY RODRICK BID If you have any questions please call us at [phone] or [phone] or [phone]
[2017-04-28 10:51] LABS: BASO ABS # 0.08 K/uL (0-0.2); COMPLETE YES; EOS % 1.2 %; HEMATOCRIT 31.5 % (37-47); IG% 0.2 %; LYMPH % 30.6 %; LYMPH ABS # 1.25 K/uL (1.2-3.4); MEAN CELL VOLUME 95.7 fL (80-100); MEAN CORPUSCULAR HEMOGLOBIN 31.6 pg (25-34); MEAN PLATELET VOLUME 9.7 fL (7.4-10.4); MONO % 5.6 %; NEUT % 60.4 %; PLATELET COUNT 235 K/uL (130-400); RED BLOOD COUNT 3.29 M/uL (4.2-5.4); WHITE BLOOD COUNT 4.09 K/uL (4.8-10.8)
[2017-04-28 11:22] LABS: BUN/CREATININE RATIO 14.8 (10-20); CALCIUM 8.6 mg/dl (8.5-10.1); CREATININE 0.83 mg/dl (0.60-1.20); POTASSIUM 3.9 mmol/L (3.5-5.1)
[~2017-05-03] VITALS: Ht 165.1 cm; Wt 100.0 kg
[~2017-05-03 09:49] MED LIST changes: -AYG5 PO; +CIPROFLOXACIN / D5W 400 MG IV SCH; +LACTATED RINGER'S 1000ML 1,000 ML IV SCH; -LEVO150C2 PO; +METRONIDAZOLE / NSS 500 MG in PREMIXED NSS 100 ML IV SCH; -OXYC-57 PO
[2017-05-03 10:25] VITALS: Ht 165.1 cm; Wt 100.0 kg
[2017-05-03] MEDS ORDERED: NURSING VERBAL MED ORDER ONE (11:30)
[2017-05-03] MEDS ORDERED: ROCURONIUM BROMIDE 10 MG/ML 5 ML VIAL IV ONE (11:55)
[2017-05-03] MEDS ORDERED: FENTANYL CITRATE INJ 50 MCG/1 ML 2 ML VIAL ONE ×2 (11:55→14:58)
[2017-05-03] MEDS ORDERED: PROPOFOL IV EMULSION 10 MG/ML 20 ML VIAL IV ONE (11:55)
[2017-05-03] MEDS ORDERED: LIDOCAINE HCL 2% 2 ML VIAL (20MG/ML) ONE (11:55)
[2017-05-03] MEDS ORDERED: MIDAZOLAM HCL 1 MG/ML 2ML VIAL ONE (11:55)
--- NOTE | 2017-05-03 12:29 | History & Physical Bridge Note ---
H&P Re-Evaluation Bridge Note: I have examined the patient, reviewed the History & Physical and in the interval since the performance of the History & Physical I have noted the following changes of clinical significance: No changes noted
[2017-05-03] MEDS ORDERED: METHYLENE BLUE 0.5% 10 ML VIAL ONE (12:39)
[2017-05-03] MEDS ORDERED: BUPIVACAINE 0.5 % 5 MG/1 ML MPF 30ML VIAL ONE (12:39)
[2017-05-03] MEDS ORDERED: ATROPINE SULFATE 0.1 MG/ML 5ML SYR IV PRN (12:45)
[2017-05-03] MEDS ORDERED: LABETALOL HCL IV 5 MG/ML 20ML IV PRN (12:45)
[2017-05-03] MEDS ORDERED: EpHEDrine SULFATE INJ 50 MG/ML AMP IV PRN (12:45)
[2017-05-03] MEDS ORDERED: ONDANSETRON INJ 2 MG/ML 2 ML VIAL IV PRN ×2 (12:45→15:15)
[2017-05-03] MEDS ORDERED: MEPERIDINE HCL 25 MG/ML CARP IV PRN (12:45)
[2017-05-03 13:32] LABS: HEMATOCRIT 30.4 % (37-47); MEAN CORPUSCULAR HEMOGLOBIN 31.9 pg (25-34); MEAN CORPUSCULAR HGB CONC 33.6 g/dl (32-36); MEAN PLATELET VOLUME 9.8 fL (7.4-10.4); PLATELET COUNT 214 K/uL (130-400); WHITE BLOOD COUNT 4.62 K/uL (4.8-10.8)
[2017-05-03] MEDS ORDERED: ONDANSETRON INJ 2 MG/ML 2 ML VIAL ONE ×2 (13:49→14:48)
[2017-05-03] MEDS ORDERED: DEXAMETHASONE SOD INJ 4 MG/ML VIAL ONE (13:49)
[2017-05-03] MEDS ORDERED: NEOSTIGMINE METHYLSULFATE 5 MG/5 ML SYR ONE (14:48)
[2017-05-03] MEDS ORDERED: EpHEDrine SULFATE INJ 50 MG/ML AMP ONE (14:48)
[2017-05-03] MEDS ORDERED: GLYCOPYRROLATE INJ 0.2 MG/ML VIAL ONE (14:48)
[2017-05-03] MEDS ORDERED: TISSEEL FIBRIN SEALANT 4ML TOP ONE (15:00)
[2017-05-03] MEDS ORDERED: LACTATED RINGER'S 1000ML 1,000 ML IV SCH (15:14)
[2017-05-03] MEDS ORDERED: OXYCODONE/ACETAMINOPHEN 5-325 TAB PO PRN (15:15)
[2017-05-03] MEDS ORDERED: BISACODYL 10 MG SUPP PR PRN (15:15)
[2017-05-03] MEDS ORDERED: MEPERIDINE HCL 50 MG/ML CARP IV PRN ×2 (15:15)
[2017-05-03] MEDS ORDERED: PROMETHAZINE HCL INJ 25 MG in SODIUM CHLORIDE 0.9% 50ML 50 ML IV PRN (15:15)
[2017-05-03] MEDS ORDERED: SIMETHICONE 80 MG CHEW PO PRN (15:15)
[2017-05-03] MEDS ORDERED: ZOLPIDEM TARTRATE 5 MG TAB PO PRN (15:15)
[2017-05-03] MEDS ORDERED: MAGNESIUM HYDROXIDE SUSP 30 ML UDC PO PRN (15:15)
[2017-05-03] MEDS ORDERED: ACETAMINOPHEN 325 MG TAB PO PRN (15:15)
[2017-05-03] MEDS ORDERED: PROMETHAZINE HCL INJ 12.5 MG in SODIUM CHLORIDE 0.9% 50ML 50 ML IV PRN (15:15)
--- NOTE | 2017-05-03 15:17 | [facility] Post Operative Brief Note ---
Immediate Operative Summary Operative Date May 03, 2017. Pre-Operative Diagnosis Anemia; Menorrhagia Post-Operative Diagnosis Same as preop Procedure(s) Performed Robot-Assisted Total Laparoscopic Hysterectomy Bilateral Salpingectomy; Cystoscopy Surgeon Dr. Simmons Bakery Demonstrator Surgeon(s) Dr. Dubois Estimated Blood Loss 10ml Findings Normal anatomy Specimens A. Cervix, Uterus, Bilateral Fallopian Tubes Drains Goode Anesthesia General Complication(s) None Disposition Recovery Room / PACU
--- NOTE | 2017-05-03 15:18 | Discharge Instructions ---
Discharge Instructions Date of Service May 03, 2017. Admission Reason for Admission: Menorrhagia, Anemia Discharge Discharge Diagnosis / Problem: menorrhagia Discharge Goals Goal(s): Routine recovery after surgery Activity Recommendations Activity Limitations: per Instructions/Follow-up section . Instructions / Follow-Up Instructions / Follow-Up POST OPERATIVE: BOWEL FUNCTION/MEDICATIONS: 1. Constipation pain and discomfort are the most common complaints 5-7 days after surgery. Points 2-6 address the things that can help. 2. Chewing gum can help stimulate the gut and help improve digestion and motility. 3. Milk of Magnesia 1-2 times per day until return of bowel function. 4. Colace is a stool softener that helps. Taking this 2-3 times per day until bowel function returns to normal is highly recommended. 5. Dulcolax is a laxative that may be used if several days have passed without a bowel movement. Alternatively Miralax may be used daily instead. 6. Drink plenty of fluids as this will also reduce constipation. 7. Narcotic pain medications will be prescribed by your physician. They are safe to use and we encourage you to use them. If you are not allergic, ibuprofen will also be prescribed. Many patients will be able to transition off of the narcotic medications to ibuprofen by postoperative day 3. ACTIVITY RECOMMENDATIONS: 1. Get plenty of rest and listen to your body. If you are tired, take a nap. 2. You may shower, but do not take a tub bath until you see your doctor at the 2 week post operative visit. 3. Absolutely NO intercourse and nothing in the vagina until you are examined by your doctor at the 6 week visit. At that visit it will be determined when such activities can be resumed. This can range from 6-12 weeks after your surgery depending on healing time. 4. The main physical activity in the first week should be walking. By the second week you can slowly increase activity. There are no limits on walking up and down stairs. 5. Do not lift more than 5-10 lbs for 4 weeks. Remember the "one-handed rule", i.e. if you can lift something with only one hand it's likely okay. 6. Minimize dub room engineer like vacuuming and exercising for 4 weeks. "Overdoing it" can lead to incisions not healing, pain and vaginal bleeding , so again, listen to your body. 7. Driving can be resumed when you feel able. Do not drive within 24 hours of taking a narcotic medication. EXPECTATIONS: 1. Vaginal spotting, bleeding and discharge are common after surgery. There may even be an odor to the discharge which is often related to sutures used in the vagina. If you experience heavy vaginal bleeding, call the office number day or night [phone]. 2. Bladder discomfort is common after surgery from the catheter. This usually resolves in 1-2 weeks. 3. By the end of the 3rd or 4th week you should be feeling much better. It may take up to 6 weeks for your energy levels to return to normal. 4. Narcotic medications have side effects such as: dizziness, headache, nausea and/or vomiting. If you suspect your pain medication is causing problems, call our office and we may be able to prescribe an alternate medication. 5. The skin incisions are often covered with a liquid bandage. This will gradually peel off over time. CALL THE OFFICE IF YOU HAVE ANY OF THE FOLLOWIN. Temperature of 101 degrees or higher. 2. Severe abdominal or pelvic pain not relieved by pain medication. 3. Persistent nausea or vomiting. 4. Increased pain with urination or difficulty urinating. 5. Bright red bleeding that soaks more than 1 pad per hour. CONTACT PHONE NUMBERS: Main Office: [phone] Surgical Nurse: [phone] extension [phone] Avoid all tobacco products. If you need help to stop smoking, call [place]'s FREE QUITLINE at . This is a free call. Current Hospital Diet Patient's current hospital diet: Discharge Diet Recommended Diet: Regular Diet Procedures Procedures Performed: Robot-Assisted Total Laparoscopic Hysterectomy Bilateral Salpingectomy; Cystoscopy Pending Studies Studies pending at discharge: no Medical Emergencies . Who to Call and When: Medical Emergencies: If at any time you feel your situation is an emergency, please call 911 immediately. . Non-Emergent Contact Non-Emergency issues call your: Refrigeration Tech . . "Provider Documentation" section prepared by Dweayne Simmons. . VTE Core Measure Inpt VTE Proph given/why not?: Clifton Eaton, MEETA's
[2017-05-03] MEDS: FENTANYL CITRATE INJ 50 MCG/1 ML 2 ML VIAL IV PRN ×4 (15:29→15:45)
[2017-05-03] MEDS ORDERED: IV FLUIDS COMPLETED PRN (15:30)
[2017-05-03] MEDS: HYDROmorphone INJ 1 MG/ML SYR IV PRN ×2 (15:51→15:56)
--- NOTE | 2017-05-03 16:02 | Anesthesiology Progress Note ---
Anesthesia Post Op Note Date & Time May 03, 2017 at 16:02 Vital Signs Pain Intensity: 4 Vital Signs Past 12 Hours Date Time Temp Pulse Resp B/P (MAP) Pulse Ox O2 Delivery O2 Flow Rate FiO2 05/03/17 15:50 55 16 108/66 100 Oxymask 5 05/03/17 15:40 65 16 108/74 100 Oxymask 5 05/03/17 15:30 64 16 107/52 100 Oxymask 5 05/03/17 15:23 36.4 74 16 118/50 100 Oxymask 10 Notes Mental Status: alert / awake / arousable, participated in evaluation Pt Amnestic to Procedure: Yes Nausea / Vomiting: adequately controlled Pain: adequately controlled Airway Patency, RR, SpO2: stable & adequate BP & HR: stable & adequate Hydration State: stable & adequate Anesthetic Complications: no major complications apparent
[2017-05-03 16:25] VITALS: BP 100/66; PULSE 58; TEMP 36.5; O2SAT 100; O2SAT 99
[2017-05-03 16:55] VITALS: BP 90/45; PULSE 67; TEMP 36.4; O2SAT 97
[2017-05-03 17:25] VITALS: BP 103/70; PULSE 89; TEMP 36.3; O2SAT 100
[2017-05-03] MEDS: OXYCODONE/ACETAMINOPHEN 5-325 TAB PO PRN (18:18)
[2017-05-03 19:25] VITALS: BP 99/66; PULSE 67; TEMP 36.5; O2SAT 100
[2017-05-03] MEDS ORDERED: COUGH DROP (SUGAR FREE) LOZ 24 LOZ/1 BOX ONE (19:36)
[2017-05-03 20:36] LABS: HEMATOCRIT 31.4 % (37-47)
[2017-05-03] MEDS: DOCUSATE SODIUM 100 MG CAP PO SCH (21:00)
[2017-05-03 23:45] VITALS: BP 99/55; PULSE 63; TEMP 37; O2SAT 100
[2017-05-04] MEDS: OXYCODONE/ACETAMINOPHEN 5-325 TAB PO PRN (01:29)
[2017-05-04 04:25] VITALS: BP 106/63; PULSE 66; TEMP 37.1
[2017-05-04 06:13] LABS: BASO % 0.3 %; BASO ABS # 0.02 K/uL (0-0.2); COMPLETE YES; HEMATOCRIT 30.7 % (37-47); IG% 0.1 %; LYMPH ABS # 0.96 K/uL (1.2-3.4); MEAN CELL VOLUME 95.3 fL (80-100); MEAN CORPUSCULAR HEMOGLOBIN 31.1 pg (25-34); MEAN CORPUSCULAR HGB CONC 32.6 g/dl (32-36); MEAN PLATELET VOLUME 9.9 fL (7.4-10.4); MONO % 5.1 %; NEUT % 81.5 %; PLATELET COUNT 225 K/uL (130-400); RED BLOOD COUNT 3.22 M/uL (4.2-5.4); WHITE BLOOD COUNT 7.39 K/uL (4.8-10.8)
[2017-05-04] MEDS ORDERED: OXYC-57 PO (07:30)
--- NOTE | 2017-05-04 07:50 | Progress Note ---
Progress Note Date of Service May 04, 2017. Progress Note Postop day #1 Patient well ambulating tolerating oral diet no vaginal bleeding no extremity pain pain well controlled Physical exam vital signs stable afebrile chest clear abdomen soft nontender incisions clean dry and intact stromata exam negative Impression and plan postop day #1 Meets criteria discharged home prescriptions given discharge instructions reviewed
[2017-05-04 08:00] VITALS: BP 98/61; PULSE 54; TEMP 37.2; O2SAT 100
--- NOTE | 2017-05-04 08:50 | Anesthesiology Progress Note ---
Anesthesia Post Op Note Date & Time May 04, 2017 at 08:50 Vital Signs Pain Intensity: 0.0 Vital Signs Past 12 Hours Date Time Temp Pulse Resp B/P (MAP) Pulse Ox O2 Delivery O2 Flow Rate FiO2 05/04/17 08:00 100 Room Air 05/04/17 08:00 37.2 54 18 98/61 (73) 100 Room Air 05/04/17 04:25 37.1 66 18 106/63 (77) Room Air 05/03/17 23:45 Room Air 05/03/17 23:45 37.0 63 18 99/55 (70) 100 Room Air Notes Mental Status: alert / awake / arousable, participated in evaluation Pt Amnestic to Procedure: Yes Nausea / Vomiting: adequately controlled Pain: adequately controlled Airway Patency, RR, SpO2: stable & adequate BP & HR: stable & adequate Hydration State: stable & adequate Anesthetic Complications: no major complications apparent
[2017-05-04] MEDS: DOCUSATE SODIUM 100 MG CAP PO SCH (09:31)
[2017-05-04 13:15] VITALS: BP 96/61; PULSE 72; TEMP 37; O2SAT 98
[2017-05-04 15:00] VITALS: BP 96/61; PULSE 72; TEMP 37; O2SAT 98
--- NOTE | 2017-05-07 08:46 | DISCHARGE SUMMARY ---
HOSPITAL COURSE: Margarita had a total laparoscopic hysterectomy on 05/03/2017. Operative note dictated. The procedure was uncomplicated. Postop day #1, she met criteria. At that time, she was ambulating, passing flatus, voiding well, pain was well controlled, tolerating an oral diet, and had no extremity pain. PHYSICAL EXAMINATION: VITAL SIGNS: Stable. She was afebrile. CHEST: Clear. ABDOMEN: Benign. Bowel sounds positive, nontender. IMPRESSION AND PLAN: Hemoglobin 10.0. She had been 10.2 preoperatively. The patient discharged home on appropriate pain medication and discharge instructions carefully reviewed. Told to follow up in the office.
--- NOTE | 2017-05-10 09:05 | OPERATIVE REPORT ---
DATE OF OPERATION: 05/03/2017 PREOPERATIVE DIAGNOSES: Severe menorrhagia and anemia. POSTOPERATIVE DIAGNOSES: Same. PROCEDURE: Robotically assisted total laparoscopic hysterectomy and bilateral salpingectomy and cystoscopy. SURGEON: Dr. Simmons. NEWBORN HEARING SCREENER: Dr. Dubois. ESTIMATED BLOOD LOSS: 10 mL. FINDINGS: Normal anatomy. SPECIMENS: Cervix, uterus and bilateral fallopian tubes. DRAINS: Goode catheter. ANESTHETIC: General. COMPLICATIONS: None. DISPOSITION: Recovery. DESCRIPTION OF PROCEDURE: The patient was given a general anesthetic, prepped and draped in dorsal [facility]ine [facility] and IV antibiotics were given. Goode catheter inserted into her bladder and VCare attached to her cervix in the usual fashion. Gloves changed and a supraumbilical incision was made with scalpel dissecting down through open Narinder technique, we did a cut down entering the peritoneal cavity without difficulty. Blunt-tipped Narinder trocar then placed. Balloon inflated to secure the trocar port and CO2 gas to insufflate the abdomen. FINDINGS: Upper abdomen normal, no sign of visceral organ injury. Deep Trendelenburg position obtained. Uterus appeared normal as did the adnexa. Two robotic ports, 1 on the left, 1 on the right placed. Arm #1 was monopolar rosalie. Arm #2 was bipolar [place]. The left upper quadrant accessory 11 mm bladeless placed under direct visualization. This was accessory port. The procedure was begun by identifying the course of the ureters which seemed to follow normal patterns. The VCare was used to manipulate the uterus, I was able to access the left side, identified the fallopian tube removed this and then removed it through the accessory port. Blood supply distal to the left ovary was then coagulated with the bipolar [place] and then cut with monopolar rosalie. Same process with the round ligament. Uterine vessels skeletonized. Bladder flap sharply dissected away, identified the ureter was well away from the site and then coagulated uterine artery and vein with the bipolar [place] cut with monopolar rosalie. Same exact process on the right side where we fully able to dissect away the bladder flap and then made an anterior colpotomy with the monopolar rosalie. Colpotomy was then completed, staying medial of our uterine vessel ligations. Uterus was pulled into the vagina and removed and sponge and a glove were placed for adequate pneumoperitoneum maintenance. Instruments were exchanged, arm #1 became the cesilia needle local flatbed driver, arm #2 the cobra grasper. Methylene blue was given by anesthesia at this time. The cuff was then closed using a 2-0 V-Loc 90 day suture closing the cuff from left to right back right to left ensuring at least 1 cm full thickness bites of vaginal mucosa. Suture was then cut so there was no tail and needle removed through the accessory port. After generous irrigation and suction, we did apply Tisseel to the pedicles and hemostasis was excellent. Cystoscopy was performed by removing the Goode catheter. Bladder appeared normal. Good strong jets of bluish dye from both left and right ureter openings. No sutures seen and no other problems. Cystoscope removed and a new Goode catheter placed. The sponge had been removed within the glove from the vagina. Arms removed. Robot undocked, and posterior removed, gas allowed to escape. Incisions injected with 0.5% Marcaine. Fascia closed with 0 Vicryl. Several [id number] sutures and then same process with the left upper quadrant port incisions closed with 4-0 subcuticular Monocryl and Dermabond applied. Sponge and instrument counts correct. Urine clearish blue at the end of the procedure. I attest to the content of the Intraoperative Record and any orders documented therein. Any exception s are noted below.
== END 2017-05-04 15:41 | disposition home or self-care (01) ==
LOC: C.ACU 09:49 → C.MS4N 15:16
PROVIDERS: ADMIT Obstetrics & Gynecology; ATTEND Obstetrics & Gynecology
DX: N92.0 Excessive and frequent menstruation with regular cycle (principal); D64.9 Anemia, unspecified
CPT/HCPCS: 58571; S2900

== ENCOUNTER → 2017-06-02 | Outpatient (CLI) | payer OTHER ==
[~2017-06-02] MED LIST changes: -CIPROFLOXACIN / D5W 400 MG IV SCH; -LACTATED RINGER'S 1000ML 1,000 ML IV SCH; -METRONIDAZOLE / NSS 500 MG in PREMIXED NSS 100 ML IV SCH; +OXYC-57 PO
[2017-06-02 09:38] LABS: HEMATOCRIT 33.5 % (37-47); MEAN CELL VOLUME 95.4 fL (80-100); MEAN CORPUSCULAR HEMOGLOBIN 31.3 pg (25-34); MEAN PLATELET VOLUME 9.9 fL (7.4-10.4); PLATELET COUNT 214 K/uL (130-400); RED BLOOD COUNT 3.51 M/uL (4.2-5.4); WHITE BLOOD COUNT 4.22 K/uL (4.8-10.8)
[2017-06-02 09:45] LABS: MEAN CORPUSCULAR HGB CONC 32.8 g/dl (32-36)
[2017-06-02 10:03] LABS: CREATININE 1.49 mg/dl (0.60-1.20)
== END | disposition home or self-care (01) ==
LOC: C.LAB1850 09:14
PROVIDERS: ATTEND Obstetrics & Gynecology
DX: N93.9 Abnormal uterine and vaginal bleeding, unspecified (principal)

== ENCOUNTER → 2017-06-02 | Outpatient (CLI) | payer OTHER ==
[~2017-06-02] MED LIST changes: +OPTIRAY 320 IV PRN
--- NOTE | 2017-06-02 16:01 | DIAGNOSTIC IMAGING REPORT ---
ABD/PELVIS COMBO HISTORY: 36 years-old Female N93.[address] Sanchez shields the hematuria protoco acute vaginal bleeding COMPARISON: Pelvic ultrasound 03/21/2017 TECHNIQUE: Multiple axial CT images of the abdomen and pelvis were obtained both with and without the use of 119 mL Optiray 320 utilizing hematuria protocol with delayed images. A dose lowering technique was used consistent with the principals of BREANNA. FINDINGS: Minimal dependent bibasilar atelectasis. No pneumoperitoneum. Small pericardial effusion is noted measuring up to 10 mm posteriorly. Prior cholecystectomy. The liver, spleen, pancreas and adrenal glands are within normal limits. Noncontrast scan demonstrates no renal or ureteral calculi. No focal filling defects identified within the collecting systems. Ureters are normal in caliber. Urinary bladder is partially collapsed and demonstrates wall thickening. Prior hysterectomy. No focal mass or other focal abnormality seen within the vaginal cuff. There is mild stranding within the region of the vaginal cuff. The distal left ureter is not well seen secondary to decreased opacification. No adnexal mass lesions identified. The abdominal aorta is normal in both course and caliber. No bulky retroperitoneal adenopathy. Postsurgical changes compatible with prior Yazmin-en-Y gastric bypass are noted. There is no bowel obstruction. There are a few scattered colonic diverticula without CT evidence of acute diverticulitis. The appendix appears normal. There is a lobular peripherally enhancing 2.5 x 1.57 m collection to the right of the umbilicus near area of prior postsurgical change. Soft tissues are otherwise unremarkable. Bones appear to be intact. IMPRESSION: 1. No renal calculi or hydronephrosis. 2. Prior hysterectomy with mild nonspecific stranding seen in the vaginal cuff, likely expected postsurgical findings without abnormal enhancement or other focal abnormality to explain patient's vaginal bleeding. 3. Mild wall thickening of the urinary bladder is likely secondary to partial distention, correlate with urinalysis. 4. Lobulated peripherally enhancing collection to the right of the umbilical surgical scar. Differential considerations would include seroma, hematoma or abscess. 5. Prior Yazmin-en-Y gastric bypass. No bowel obstruction. The above report was generated using voice recognition software. It may contain grammatical, syntax or spelling errors. Electronically signed by: Kulwinder Chaudhry M.D. 06/02/2017 4:00 PM Dictated Date/Time: 06/02/2017 3:52 PM
== END | disposition home or self-care (01) ==
LOC: C.CTS 15:12
PROVIDERS: ATTEND Obstetrics & Gynecology
DX: N93.9 Abnormal uterine and vaginal bleeding, unspecified (principal)

== ENCOUNTER → 2017-06-23 | Outpatient (CLI) | payer OTHER ==
[~2017-06-23] MED LIST changes: -OPTIRAY 320 IV PRN
[2017-06-23 15:50] LABS: BLOOD UREA NITROGEN 14 mg/dl (7-18); BUN/CREATININE RATIO 14.5 (10-20); CALCIUM 8.4 mg/dl (8.5-10.1); CARBON DIOXIDE 28 mmol/L (21-32); CHLORIDE 108 mmol/L (98-107); CREATININE 0.94 mg/dl (0.60-1.20); GLUCOSE 84 mg/dl (70-99); SODIUM 140 mmol/L (136-145)
== END | disposition home or self-care (01) ==
LOC: C.LAB1850 14:26
PROVIDERS: ATTEND Internal Medicine Endocrinology, Diabetes & Metabolism
DX: E03.9 Hypothyroidism, unspecified (principal)

== ENCOUNTER → 2017-11-29 | Outpatient (CLI) | payer OTHER | END | disposition home or self-care (01) | LOC: C.LAB1850 09:44 | PROVIDERS: ATTEND Internal Medicine Endocrinology, Diabetes & Metabolism | DX: E60 Dietary zinc deficiency (principal) ==

== ENCOUNTER 2019-01-28 23:48 | Inpatient (IN) ==
--- OUTSIDE RECORDS SUMMARY | 2019-01-28 23:52 | External Medical Summary | Continuity of Care Document ---
:1980 Author Name Marium Escalera, Provider Address Unavailable Unavailable , Care Team Providers Name Role Phone Re Blair DO Unavailable [email or web address] Gustavo Escalera, Jerri Unavailable [email or web address] MILO BUTLER Unavailable Unavailable Unavailable Unavailable Unavailable Problems Vitamin D deficiency (268.9) (E55.9) Hypothyroidism (244.9) (E03.9) Status post gastric bypass for obesity (V45.86) (Z98.84) Intestinal malabsorption (579.9) (K90.9) BMI 35.0-35.9,adult (V85.35) (Z68.35) Vagina bleeding (623.8) (N93.9) Hypoglycemia (251.2) (E16.2) Acute kidney injury (584.9) (N17.9) History of diabetes mellitus, type II (V12.29) (Z86.39) Severe obesity (BMI 35.0-35.9 with comorbidity) (278.01) (E6 6.01) Zinc deficiency (269.3) (E60) Anemia (285.9) (D64.9) Post-operative state (V45.89) (Z98.890) Obesity (278.00) (E66.9) Iron deficiency anemia (280.9) (D50.9) Allergies and Adverse Reactions Amoxicillin TABS (Allergy) Reaction: Ora phylaxis Avelox TABS (Allergy) Benadryl TABS (Allergy) Reaction: Hives Cipro TABS (Allergy) fentanyl (Allergy) Keflex TABS (Allergy) Status: Denied Latex Exam Gloves MISC (Allergy) Reactio n: Hives Levaquin TABS (Allergy) Status: Denied Penicillins (Allergy) Reaction: Anaphyla xis Sulfa Drugs (Allergy) Reaction: Rash Toradol Oral TABS (Allergy) Reaction: Hi ves tramadol (Allergy) Reaction: Hives Voltaren (Allergy) Zithromax Z-Avila TABS (Allergy) Reaction: Anaphylaxis Medications Vitamin D (Ergocalciferol) 41753 UNIT Oral Capsule; TA KE 1 CAPSULE WEEKLY. Jw Chen Start: 30-Sep-2017 Quantity: 14 Refills: 1 Levoxyl 200 MCG Oral Tablet; Take 2 tabs daily Jw Chen Start: 11-May-2017 Quantity: 60 Refills: 11 Zoloft 25 MG Oral Tablet Refills: 0 Flonase 50 MCG/ACT SUSP Refills: 0 Calcium 500 MG Oral Tablet Chewable; Take 1 tablet daily Start: 28-Oct-2017 Refills: 0 LaMICtal 25 MG Oral Tablet; TAKE 1 TABLET AT BEDTIME. Start: 23-Jun-2017 Refills: 0 Zinc 50 MG Oral Tablet; TAKE 1 TABLET DAILY. Start: 28-Oct-2017 Refills: 0 Vitamin B-12 5000 MCG Oral Tablet Disintegrating; Take 1 tab let daily Start: 28-Oct-2017 Refills: 0 Procedures History of gastric bypass surgery Status : Completed History of hysterectomy Status: Complete d History of cholecystectomy Status: Compl eted History of wisdom tooth extraction Statu s: Completed Immunizations Immunizations not documented Social History - Smoking Status Never smoker Plan of Treatment Planned Observations Planned Goals not documented Results No Known Results Results not documented Encounters Appointment; Re Blair DO 09-Feb-2018 13:00 Encounter Diagnosis: Problem not documented Appointment; Jerri Chen M.D. 27-Dec-2017 15:30 Encounter Diagnosis: Problem not documented Appointment; Re Blair DO 28-Oct-2017 13:40 Encounter Diagnosis: Problem not documented Appointment; Jerri Chen M.D. 27-Sep-2017 15:40 Encounter Diagnosis: Problem not documented Appointment; Regina Simmons M.D. 31-Aug-2017 16:00 Encounter Diagnosis: Problem not documented Appointment; Jerri Chen M.D. 23-Jun-2017 13:50 Encounter Diagnosis: Problem not documented Appointment; OBGYN SC2, Ultrasound 02-Jun-2017 8:45 Encounter Diagnosis: Problem not documented Appointment; Regina Simmons M.D. 02-Jun-2017 8:30 Encounter Diagnosis: Problem not documented Appointment; Regina Simmons M.D. 20-May-2017 9:00 Encounter Diagnosis: Problem not documented Appointment; Regina Simmons M.D. 14-May-2017 8:20 Encounter Diagnosis: Problem not documented Appointment; Jerri Chen M.D. 11-May-2017 13:00 Encounter Diagnosis: Problem not documented Appointment; Regina Simmons M.D. 03-May-2017 11:30 Encounter Diagnosis: Problem not documented Appointment; Regina Simmons M.D. 14-Apr-2017 14:15 Encounter Diagnosis: Problem not documented Appointment; Re Blair DO 05-Apr-2018 8:40 Encounter Diagnosis: Problem not documented
[2019-01-29 00:59] LABS: Basophils # (auto) 0.07 K/uL (0-0.2); Basophils % (auto) 1.3 %; Eosinophils # (auto) 0.11 K/uL (0-0.5); Eosinophils % (auto) 2.1 %; Hemoglobin 10.4 g/dL (12.0-16.0); Immature Granulocytes # (auto) 0.01 K/uL (0.00-0.02); Immature Granulocytes % (auto) 0.2 %; Lymphocytes # (auto) 1.73 K/uL (1.2-3.4); Lymphocytes % (auto) 32.3 %; Mean Corpuscular Hgb Conc 33.5 g/dL (32-36); Mean Corpuscular Volume 96.3 fL (80-100); Mean Platelet Volume 9.6 fL (7.4-10.4); Monocytes # (auto) 0.21 K/uL (0.11-0.59); Monocytes % (auto) 3.9 %; Neutrophils # (auto) 3.22 K/uL (1.4-6.5); Neutrophils % (auto) 60.2 %; Platelet Count 264 K/uL (130-400); RDW Coefficient of Variation 14.4 % (11.5-14.5); RDW Standard Deviation 51.5 fL (36.4-46.3); Red Blood Count 3.22 M/uL (4.2-5.4); White Blood Count 5.35 K/uL (4.8-10.8)
[2019-01-29 01:19] LABS: Albumin Level 4.1 gm/dl (3.4-5.0); BUN Creatinine Ratio 11.1 (10-20); Calcium 8.3 mg/dl (8.5-10.1); Creatinine Clr Calc Pharmacy 77.5 ml/min; Est GFR (Non-African American) 58.7; Potassium 3.3 mmol/L (3.5-5.1)
[2019-01-29 01:22] LABS: Acetaminophen < 2 ug/ml (10-30); Salicylate < 1.7 mg/dl (2.8-20)
[2019-01-29 01:31] LABS: Appearance Urine Clear (Clear); Bilirubin Urine Negative (Negative); Blood Urine Negative (Negative); Color Urine Yellow; Glucose Urine UA Negative (Negative); Ketones Urine Negative (Negative); Leukocyte Esterase Urine Negative (Negative); Nitrite Urine Negative (Negative); Protein Urine Negative (Negative); Urobilinogen Urine Negative (Negative); pH Urine 6.5 (4.5-7.5)
[2019-01-29 01:48] LABS: Amphetamines+Metham, Urine Neg (Neg); Barbiturates, Urine Neg (Neg); Benzodiazepine, Urine Neg (Neg); Cocaine, Urine Neg (Neg); MDMA (Ecstacy), Urine Neg (Neg); Methadone, Urine Neg (Neg); Opiate, Urine Neg (Neg); Phencyclidine, Urine Neg (Neg)
[2019-01-29 02:19] LABS: Albumin Globulin Ratio 1.2 (0.9-2); Bilirubin,Total 0.7 mg/dl (0.2-1); Globulin 3.3 gm/dl (2.5-4.0); T4 Free Thyroxine 0.12 ng/dl (0.8-1.6); Total Protein 7.4 gm/dl (6.4-8.2)
--- NOTE | 2019-01-29 02:51 | Emergency Department Note ---
Entered by Alli Lemus acting as a scribe for ED Provider Note Name: Margarita Mancini Age: 38, female Arrives Via: Walk in Informant: Patient CC: Suicidal ideations HPI: The patient is a 38 year old female who presents to the emergency departm ent with complaints of an episode of suicidal ideations beginning yesterday. The patient states that she has a history of diabetes, bipolar, anemia, and hypothyroidism. She notes that she has not had her medication in the last three months because she does not have any insurance. She reports that her grandfather three months ago and she states that she had a breakdown and just wants to be with him. She notes that she had thoughts of crashing her car but she reports that she did not try to hurt herself tonight. The patient states that she has a history of a hysterectomy and cholecystectomy. She notes that she does not drink alcohol, use drugs, and smoke cigarettes. ROS: See above HPI for pertinent positives & negatives. A total of 10 systems reviewed and were otherwise negative. Past Medical History: Diabetes, bipolar, anemia, hypothyroidism, leukemia Past Surgical History: Gastric bypass, cholecystectomy, hysterectomy Family History: None Social History: Employed, does not drink alcohol, does not use drugs, does not smoke cigarettes. Home Medications: Flonase, Levothyroxine sodium, Lurasidone Allergies: Please see allergy list. Physical: Vitals: BP 101/72, Pulse 73, Resp 18, Temp 98.1 F, O2 Sat 98 Exam: GENERAL: Patient is depressed appearing and in mild distress. EYES: No scleral icterus, unremarkable pupils. ENT: Mucous membranes moist, no nasal congestion. NECK: No masses appreciated, no meningismus, trachea is midline. RESPIRATORY: No dyspnea. Clear to auscultation and equal bilaterally. No wheeze, no rhonchi. CARDIOVASCULAR: Regular rate and rhythm. No murmurs, rubs, gallops appreciated. GASTROINTESTINAL: Abdomen soft, non-tender, no peritonitis. Bowel sounds positive. No masses appreciated. BACK: No midline tenderness, no CVA tenderness EXTREMITIES: Normal motion all extremities, no cyanosis, no edema. NEUROLOGIC: Alert and oriented, no acute motor or sensory deficits, no focal weakness, cranial nerves grossly intact. SKIN: No rash, no jaundice, no diaphoresis. PSYCH: Admits depression, admits suicidal ideation, denies homicidal ideation ED Course: Prior Medical Record, Triage/Nursing Notes, Medications, Allergies reviewed by Me 0014: The patient was evaluated in room A4. A complete history and physical exam was performed. 0305: I reevaluated and updated the patient. She does not feel as though she needs to be admitted. She states that her suicidal thoughts were vague and that she has no plan to kill herself. I reviewed the 302 warrant by [employer] which specifically states that the patient has a plan with location to complete plan. The warrant shows high concern for her wellbeing. 0630: The patient was admitted to [address] [place] [address]. Vital Signs: reviewed and remarkable for wnl Labs: Reviewed and remarkable for high tsh, low T4 consistent with not taking her medications Interventions: levothyroxine at dose that is documented in her chart Blood pressure: Normal. No Referral necessary Disposition: Admitted to [address] [place] [address] Differentials: Differential diagnosis includes: psychiatric disorder, infection, hypoglycemia, electrolyte abnormalities, cardiac sources, intracerebral event, toxicological process, neurologic disorder, as well as others were entertained. Medical Decision Makin yr old female with long history of depression and previous mental health evaluations arrives with active thoughts of harming self. Per [facility] she told them she was going [place] [address] She is not intoxicated. No attempt at this time to harm self but has clearly defined plan. Labs unremarkable other than thyroid. TSH quite high though review it is always high and likely is secondary to med non-compliance/not having her medications. T4 is low as expected. While hypothyroid may cause depression I do not feel his is primary issue today and she does not require inpatient medical treatment for her hypothyroid state which is chronic. What she does need is inpatient psychiatric treatment for acute worsening of depression, suicidal thoughts with specific plan. She is off her medications, and has multiple stressors at this time. I will note patient makes clear she does not feel she is threat to herself. Furthermore she states that [facility] lead her to say that she was going to kill self and gave her the plan. She does not wish to be admitted. Given clear warrant by [facility] which documents her plan in setting of patient admitting worsening depression, not taking meds, I see no option but to continue with 302 as she has exhibited evidence of high risk of self harm. I will note that chart had 350mcg Levoxyl on her chart as dose, which is what she also says she is on. I felt that this was a reasonable dose to start her on. Did discuss with [facility] staff that med consult would be reasonable to see if smaller dose might be more appropriate (and possibly would be her actual dose). Impression: Suicidal ideation, medication noncompliance, hypothyroid Miguel Deshpande MD The scribe's documentation has been prepared under my direction and personally reviewed by me in its entirety. I confirm that the note above accurately reflects all work, treatment, procedures, and medical decision making performed by me. Impression & Plan Suicidal ideations, Noncompliance with medications, Hypothyroid Past Med/Surg History Medical History H/O: hysterectomy Anemia Bipolar affect, depressed Diabetes Leukemia Menorrhagia Thyroid disease Surgical History Hx of cholecystectomy History of gastric bypass Family History Other No significant family history Social History marital status: Single current occupational status: employed Feels Safe at Home: Yes Smoking Status: Never smoker Hx Alcohol Use: No Hx Substance Use: No Results & Data Vital Signs Vital Signs - 24 hr 01/28/19 23:57 01/29/19 02:02 01/29/19 06:37 Temperature 36.7 C Temperature Source Oral Sepsis Recent Fever Within 48 Hours No Sepsis New/Unexplained Change in Mental Status No Sepsis Action Taken by Nursing No Action Required Pulse Rate 73 Pulse Rate [Left Finger] 70 75 Pulse Rhythm [Left Finger] Regular Pulse Strength [Left Finger] Normal Respiratory Rate 18 16 16 Respiratory Effort / Characteristics Non-Labored Respiratory Depth Normal Respiratory Pattern Regular Blood Pressure 101/72 Blood Pressure [Right Arm] 134/87 115/66 Blood Pressure Mean 81 Blood Pressure Mean [Right Arm] 102 82 Blood Pressure Position [Right Arm] Sitting Sitting Pulse Oximetry 98 99 100 Oxygen Delivery Method Room Air Room Air Room Air Home Medications Current Medication List: was personally reviewed by me Laboratory Data Attestation: I reviewed the patient's lab results. Result diagrams: 01/29/19 00:43 01/29/19 00:43 Lab Results 01/29/19 01/29/19 01/29/19 Range/Units 00:43 00:43 00:43 WBC 5.35 (4.8-10.8) K/uL RBC 3.22 L (4.2-5.4) M/uL Hgb 10.4 L (12.0-16.0) g/dL Hct 31.0 L (37-47) % MCV 96.3 (80-100) fL MCH 32.3 (25-34) pg MCHC 33.5 (32-36) g/dL RDW Std Deviation 51.5 H (36.4-46.3) fL RDW Coeff of Jignesh 14.4 (11.5-14.5) % Plt Count 264 (130-400) K/uL MPV 9.6 (7.4-10.4) fL Immature Gran % (Auto) 0.2 % Neut % (Auto) 60.2 % Lymph % (Auto) 32.3 % Mora % (Auto) 3.9 % Eos % (Auto) 2.1 % Baso % (Auto) 1.3 % Immature Gran # (Auto) 0.01 (0.00-0.02) K/uL Neut # (Auto) 3.22 (1.4-6.5) K/uL Lymph # (Auto) 1.73 (1.2-3.4) K/uL Mora # (Auto) 0.21 (0.11-0.59) K/uL Eos # (Auto) 0.11 (0-0.5) K/uL Baso # (Auto) 0.07 (0-0.2) K/uL Sodium 138 (136-145) mmol/L Potassium 3.3 L (3.5-5.1) mmol/L Chloride 105 (98-107) mmol/L Carbon Dioxide 26 (21-32) mmol/L Anion Gap 7.0 (3-11) BUN 13 (7-18) mg/dl Creatinine 1.17 (0.6-1.2) mg/dl Est Cr Clr Drug Dosing 77.5 ml/min Est GFR ( Amer) 68.0 Est GFR (Non-Af Amer) 58.7 BUN/Creatinine Ratio 11.1 (10-20) Glucose 94 (70-99) mg/dl Calcium 8.3 L (8.5-10.1) mg/dl Total Bilirubin 0.7 (0.2-1) mg/dl AST 71 H (15-37) U/L ALT 73 (12-78) U/L Alkaline Phosphatase 57 (45-117) U/L Total Protein 7.4 (6.4-8.2) gm/dl Albumin 4.1 (3.4-5.0) gm/dl Globulin 3.3 (2.5-4.0) gm/dl Albumin/Globulin Ratio 1.2 (0.9-2) TSH 359.000 H (0.300-4.500) uIu/ml Free T4 0.12 L (0.8-1.6) ng/dl Urine Color Urine Appearance (Clear) Urine pH (4.5-7.5) Ur Specific [place] (1.000-1.030) Urine Protein (Negative) Urine Glucose (UA) (Negative) Urine Ketones (Negative) Urine Blood (Negative) Urine Nitrite (Negative) Urine Bilirubin (Negative) Urine Urobilinogen (Negative) Ur Leukocyte Esterase (Negative) Salicylates < 1.7 L (2.8-20) mg/dl Urine Opiates Screen (Neg) Ur Methadone, Qual (Neg) Acetaminophen < 2 L (10-30) ug/ml Urine Barbiturates (Neg) Ur Phencyclidine (PCP) (Neg) U Amphetamin/Meth Scrn (Neg) MDMA (Ecstasy) Screen (Neg) U Benzodiazepines Scrn (Neg) Ur Cocaine Metabolite (Neg) U Marijuana (THC) Screen (Neg) Ethyl Alcohol mg/dL (0-3) mg/dl 01/29/19 01/29/19 01/29/19 Range/Units 00:43 01:15 01:15 WBC (4.8-10.8) K/uL RBC (4.2-5.4) M/uL Hgb (12.0-16.0) g/dL Hct (37-47) % MCV (80-100) fL MCH (25-34) pg MCHC (32-36) g/dL RDW Std Deviation (36.4-46.3) fL RDW Coeff of Jignesh (11.5-14.5) % Plt Count (130-400) K/uL MPV (7.4-10.4) fL Immature Gran % (Auto) % Neut % (Auto) % Lymph % (Auto) % Mora % (Auto) % Eos % (Auto) % Baso % (Auto) % Immature Gran # (Auto) (0.00-0.02) K/uL Neut # (Auto) (1.4-6.5) K/uL Lymph # (Auto) (1.2-3.4) K/uL Mora # (Auto) (0.11-0.59) K/uL Eos # (Auto) (0-0.5) K/uL Baso # (Auto) (0-0.2) K/uL Sodium (136-145) mmol/L Potassium (3.5-5.1) mmol/L Chloride (98-107) mmol/L Carbon Dioxide (21-32) mmol/L Anion Gap (3-11) BUN (7-18) mg/dl Creatinine (0.6-1.2) mg/dl Est Cr Clr Drug Dosing ml/min Est GFR ( Amer) Est GFR (Non-Af Amer) BUN/Creatinine Ratio (10-20) Glucose (70-99) mg/dl Calcium (8.5-10.1) mg/dl Total Bilirubin (0.2-1) mg/dl AST (15-37) U/L ALT (12-78) U/L Alkaline Phosphatase (45-117) U/L Total Protein (6.4-8.2) gm/dl Albumin (3.4-5.0) gm/dl Globulin (2.5-4.0) gm/dl Albumin/Globulin Ratio (0.9-2) TSH (0.300-4.500) uIu/ml Free T4 (0.8-1.6) ng/dl Urine Color Yellow Urine Appearance Clear (Clear) Urine pH 6.5 (4.5-7.5) Ur Specific [place] 1.020 (1.000-1.030) Urine Protein Negative (Negative) Urine Glucose (UA) Negative (Negative) Urine Ketones Negative (Negative) Urine Blood Negative (Negative) Urine Nitrite Negative (Negative) Urine Bilirubin Negative (Negative) Urine Urobilinogen Negative (Negative) Ur Leukocyte Esterase Negative (Negative) Salicylates (2.8-20) mg/dl Urine Opiates Screen Neg (Neg) Ur Methadone, Qual Neg (Neg) Acetaminophen (10-30) ug/ml Urine Barbiturates Neg (Neg) Ur Phencyclidine (PCP) Neg (Neg) U Amphetamin/Meth Scrn Neg (Neg) MDMA (Ecstasy) Screen Neg (Neg) U Benzodiazepines Scrn Neg (Neg) Ur Cocaine Metabolite Neg (Neg) U Marijuana (THC) Screen Neg (Neg) Ethyl Alcohol mg/dL < 3.0 (0-3) mg/dl Administered Medications Discontinued Medications Heparin Sodium (Porcine) (Heparin Sod 100 Unit/Ml Flush) Confirm Administered Dose 5 ml .ROUTE .STK-MED ONE Stop: 01/29/19 03:50 Last Admin: 01/29/19 03:59 Dose: 5 ml Documented by: [id number] Levothyroxine Sodium (Synthroid) 350 mcg PO NOW STA Stop: 01/29/19 04:05 Last Admin: 01/29/19 04:49 Dose: 350 mcg Documented by: [id number] Miscellaneous (Nursing Heparin Flush Order) 1 ea N/A ONE ONE Stop: 01/29/19 03:46 Last Admin: 01/29/19 03:59 Dose: Not Given Documented by: [id number] Discharge Plan Visit Data Chief Complaint: Mental Health Evaluation Stated Complaint: EVAL ED Provider: Miguel Deshpande Discharge Problem: Suicidal ideations, Noncompliance with medications, Hypothyroid Patient Disposition: Still a Patient Discharge Instructions Interventions: ED Discharge Assessment Last Done: 01/29/19 06:38 Forms Stand Alone Forms: My [facility] [employer] Prescriptions Prescriptions: No Action Latuda 40 mg Tablet 40 mg PO DAILY RF: 0 Tirosint 112 mcg capsule RF: 0 Referrals Referrals: Soraya Richard DO [Primary Care Provider] - Discharge Problem: Hypothyroid Qualifiers: Hypothyroidism type: unspecified Qualified Code(s): E03.9 - Hypothyroidism, unspecified The scribe's documentation has been prepared under my direction and personally reviewed by me in its entirety. I confirm that the note above accurately reflects all work, treatment, procedures, and medical decision making performed by me.
[2019-01-29] MEDS ORDERED: LEVOTHYROXINE SODIUM 200 MCG TABLET PO STA (03:48)
[2019-01-29] MEDS ORDERED: HEPARIN 100 UNIT/ML 5ML FLUSH ONE (03:49)
[2019-01-29] MEDS ORDERED: LEVOTHYROXINE SODIUM 175 MCG TABLET PO STA (04:04)
[2019-01-29] MEDS ORDERED: MAGNESIUM HYDROXIDE SUSP 30 ML UDC PO PRN (07:06)
[2019-01-29] MEDS ORDERED: BISMUTH SUBSALICYLATE PER ML OMNICELL CHARGE PO PRN (07:06)
[2019-01-29] MEDS ORDERED: SODIUM CHLORIDE 0.65% NA SOLN 45 ML (OCEAN) PRN (07:06)
[2019-01-29] MEDS ORDERED: ALUMINUM/MAGNESIUM SUSP 30 ML UDC PO PRN (07:06)
[2019-01-29] MEDS ORDERED: ACETAMINOPHEN 325 MG TAB PO PRN (07:06)
[2019-01-29] MEDS ORDERED: CYANOCOBALAMIN 1000 MCG/ML VIAL IM STA (13:41)
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
[2019-01-29] MEDS: LURASIDONE HCL 40 MG TAB PO SCH (17:18)
[2019-01-30 07:50] LABS: Glucose Fasting 75 mg/dl (70-99)
[2019-01-30 07:56] LABS: Chol HDL Ratio 2; Cholesterol 267 mg/dl (0-200); HDL Cholesterol 117 mg/dl; LDL Cholesterol Calculated 139 mg/dl; Triglycerides 57 mg/dl (0-150); VLDL Cholesterol 11 mg/dl
[2019-01-30] MEDS: LEVOTHYROXINE SODIUM 100 MCG TABLET PO SCH (09:30)
--- NOTE | 2019-01-30 10:23 | Psychiatric Progress Note ---
Date of Service January 30, 2019 Impression / Recommendations Impression Pt reports ongoing frustration related to her being admitted. Reviewed need to ensure appropriate aftercare and safety planning prior to discharge, which includes referrals and family meetings. Pt is scheduled for a meeting with her girlfriend by phone today. Lack of insurance coverage has been a large stressor for her, and we are attempting to explore cost of continuing on Latuda without active insurance. Fortunately, patient states her copay for Latuda with her previous insurance coverage was $3. Pt reports concern about switching medications, wishing to continue with lurasidone regardless. Labs drawn this morning were reviewed. Fasting glucose was 75. Total cholesterol is elevated at 267, other values of fasting lipid panel are wnl. Vitamin D level is deficient at 25.2 and will offer patient 2,000 IU of supplementation, with recommendation to continue on outpatient basis with recheck with PCP. Folate wnl. Inpatient psychiatric admission remains medically necessary due to SI on admission, recent loss of grandfather, and no clear aftercare or medication plan at discharge. Pt remains at high risk of harm to self if discharged prematurely without adequate safety and discharge planning. 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 family meeting to be arranged for tomorrow 01/30 - Continue Latuda at 40mg daily with food - reports copay of $3 while insured; will explore cost without coverage to ensure continuing the medication is feasible - Family meeting with girlfriend scheduled today by phone - Fasting labs reviewed with patient - fasting glucose wnl; total cholesterol is elevated at 267, while other values of lipid panel are wnl (3) Hypothyroidism: 01/30 - Resumed on 300mg of levothyroxine - recommending outpatient follow-up with PCP for further management (4) Vitamin D deficiency: 01/30 - Vitamin D deficiency with value of 25.2; will initiate supplementation of 2,000IU daily - patient encouraged to continue supplementation and management on an outpatient basis Inventory Assets Strengths: seeking meds, seeking therapy, supportive relationship Needs: resumption of meds, resumption of appts with psychiatric provider, otbaining outpt psychotherapist Risk Factors Assessment Male: No : Yes Do You Have Access To A Gun?: No (hunting guns in house but locked up and pt does not have access to ) Health Problems: Yes Mental Health Diagnoses: Yes Substance Use Disorders: No Previous Attempt: No Previous Psychiatric Hospitalization: No Protective Factors Assessment Employed: Yes ([employer]) Interval History Identifying Information RAHEEM GOVEA is a 38-year-old F who currently lives with girlfriend and 14 year old son, has a history of bipolar II disorder and PTSD, and was admitted on 01/29/19 06:14 on a 302 involuntary commitment for suicidality concerns in the context of worsening bipolar disorder symptoms and bereavement concerns. Chief Complaint "Well they lied. I didn't want to come here." Review of Systems Notes Constitutional: denied Cardiovascular: denied Respiratory: denied Gastrointestinal: denied Neurological: denied Psychiatric: denies symptoms other than stated above Total of at least 10 systems reviewed, pertinent positives as above and in HPI. Sleep Information Total Hours of Sleep: 6.5 Sleep Comments: pt NPO during the night. pt on q-15 minute checks Meal Information Percent Meal Consumed - Breakfast: 100 Percent Meal Consumed - Lunch: 100 Percent Meal Consumed - Dinner: 100 Subjective Subjective Patient was seen & assessed and interval progress reviewed with Treatment Team. Staff reports the patient has been participating in groups. She is scheduled for a phone meeting with her girlfriend today via phone. Pt was seen today to assess progress since admission. Pt states she is still frustrated, and explains to this provider how she came to be admitted. Pt states continues to reiterate that she was "looking for resources, I had no insurance and all the options [psychiatric providers/offices] I tried didn't work." Explained to patient our concerns that there has been limited progress in the way of ensuring she has aftercare and necessary follow-up. Also expressed concern about her continuing Latuda given the cost of the medication. Pt states that when she had been previously insured, the medication cost $3 a month. She is unsure what the cost will be uninsured, but was willing to allow us to look into barker options. Pt states she is not interested in exploring a less expensive medication, as she had completed genetic testing and feels the medication is working well when she takes it. Pt denies SI today, and states that she did not have an active plan prior to admission. This provider reiterated concern that not much has changed since her admission in the way of aftercare and safety planning. Despite this, patient remains fixed on discharge. Pt denies other needs or concerns presently. Physical Exam Psychiatric Orientation: alert, oriented x 3 and cooperative Apperance: appropriately dressed (in sweatshirt and scrub pants), appropriately groomed and appeared stated age Eye Contact: good eye contact Motor Behavior: steady gait and station and no abnormal motor movements Speech: normal rate/rhythm/volume of speech Affect: + blunted affect and + irritable affect (when reviewing admission events and discussing length of stay) Mood: + anxious mood ("I'm just not sure why I'm here, I need to be at work, I can't miss more") Thought Process: goal directed thought process and clear/coherent thought process Thought Content: reality based without delusions Suicidal Thoughts: denies suicidal thoughts and denies suicidal plan Homicidal Thoughts: denies homicidal thoughts Hallucinations: no auditory hallucinations and no visual hallucinations Cognition: remote memory grossly intact, attention grossly intact and language grossly intact Estimated Intelligence: consistent with education level Insight: + fair insight Judgement: + fair judgement Vital Signs (Past 24 Hours) Last Vital Signs Temp 36.6 C 01/30/19 06:50 Pulse 73 01/30/19 06:51 Resp 18 01/30/19 06:50 BP 95/65 L 01/30/19 06:51 Pulse Ox 100 01/29/19 06:37 Results & Data Laboratory Results Laboratory Results - last 24 hr 01/29/19 01/29/19 01/29/19 13:46 17:14 20:29 POC Glucose 81 77 78 Fasting Glucose Triglycerides Cholesterol LDL Cholesterol, Calc VLDL Cholesterol, Calc HDL Cholesterol Cholesterol/HDL Ratio 25-OH Vitamin D Total Folate 01/30/19 01/30/19 01/30/19 07:02 07:02 07:02 POC Glucose Fasting Glucose 75 Triglycerides 57 Cholesterol 267 H LDL Cholesterol, Calc 139 VLDL Cholesterol, Calc 11 HDL Cholesterol 117 Cholesterol/HDL Ratio 2 25-OH Vitamin D Total 25.2 L Folate 9.96 01/30/19 01/30/19 08:53 08:57 POC Glucose 160 H 76 Fasting Glucose Triglycerides Cholesterol LDL Cholesterol, Calc VLDL Cholesterol, Calc HDL Cholesterol Cholesterol/HDL Ratio 25-OH Vitamin D Total Folate Current Inpatient Medications Current Inpatient Medications: Current Inpatient Medications Acetaminophen (Tylenol) 650 mg PO Q4H PRN PRN Reason: Headache or Minor Fever Stop: 02/28/19 07:05 Al Hydrox/Mg Hydrox/Simethicone (Maalox) 30 ml PO Q4H PRN PRN Reason: GI Upset Stop: 02/28/19 07:05 Bismuth Subsalicylate (Kaopectate) 15 ml PO PRN PRN PRN Reason: Loose Stool Stop: 02/28/19 07:05 Levothyroxine Sodium (Synthroid) 300 mcg PO DAILYBB JUSTINA Stop: 03/01/19 07:59 Last Admin: 01/30/19 09:30 Dose: 300 mcg Documented by: Lurasidone HCl (Latuda) 40 mg PO QDD [facility] Stop: 02/28/19 17:44 Last Admin: 01/29/19 17:18 Dose: 40 mg Documented by: Magnesium Hydroxide (Milk Of Magnesia) 30 ml PO DAILY PRN PRN Reason: Heartburn Stop: 02/28/19 07:05 Sodium Chloride ([place] Nasal) 1 - 2 sprays NA PRN PRN PRN Reason: Nasal Dryness/Congestion Stop: 02/28/19 07:05 Post Discharge Appointments Primary Care Physician Name Of Family Doctor: DO Tammy Philip [facility] Time of Appointment with PCP: Follow up as needed. Provider App[place]ment Comment[address] [place] [id number] Psychiatrist Name of Psychiatrist: Iman Raza Psychiat[facility] [address] [facility] [id number] The[facility] Name of Therapist: Mitch (couples and individual) Therapist's Therapy Appointment Comment: [id number] [place] [id number] [employer] Name of [employer] Magazine: declined. Contact Information Discharge Discharge Address: [address] [place] [address] [place], [place] [id number] CPT Code CPT Code 66118 (1) Hypothyroidism Hypothyroidism type: unspecified Qualified Code(s): E03.9 - Hypothyroidism, unspecified (2) Bipolar disorder Active/Remission status: currently active Current bipolar episode type: depressed
[2019-01-30] MEDS: LURASIDONE HCL 40 MG TAB PO SCH (17:11)
[2019-01-31] MEDS: LEVOTHYROXINE SODIUM 100 MCG TABLET PO SCH (08:12)
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
== END 2019-01-31 12:29 | disposition home or self-care (01) | DRG 885 ==
LOC: ED 23:48 → 3S 01-29 06:14

== ENCOUNTER 2019-06-18 11:04 | Observation (INO) ==
[2019-06-18 12:01] LABS: Basophils # (auto) 0.04 K/uL (0-0.2); Basophils % (auto) 0.5 %; Eosinophils # (auto) 0.05 K/uL (0-0.5); Eosinophils % (auto) 0.6 %; Hematocrit (blood only) 32.3 % (37-47); Hemoglobin 10.9 g/dL (12.0-16.0); Immature Granulocytes # (auto) 0.01 K/uL (0.00-0.02); Immature Granulocytes % (auto) 0.1 %; Lymphocytes # (auto) 1.25 K/uL (1.2-3.4); Lymphocytes % (auto) 15.5 %; Mean Corpuscular Hemoglobin 33.6 pg (25-34); Mean Corpuscular Hgb Conc 33.7 g/dL (32-36); Mean Corpuscular Volume 99.7 fL (80-100); Monocytes # (auto) 0.35 K/uL (0.11-0.59); Monocytes % (auto) 4.3 %; Neutrophils # (auto) 6.38 K/uL (1.4-6.5); Platelet Count 211 K/uL (130-400); RDW Coefficient of Variation 13.8 % (11.5-14.5); RDW Standard Deviation 50.8 fL (36.4-46.3); Red Blood Count 3.24 M/uL (4.2-5.4); White Blood Count 8.08 K/uL (4.8-10.8)
[2019-06-18] MEDS ORDERED: ONDANSETRON INJ 2 MG/ML 2 ML VIAL IV STA (12:14)
[2019-06-18] MEDS ORDERED: SODIUM CHLORIDE 0.9% 1000ML 1,000 ML IV ONE (12:14)
[2019-06-18] MEDS ORDERED: HYDROmorphone INJ 1 MG/ML SYRINGE IV STA ×2 (12:14→15:35)
[2019-06-18 12:15] LABS: Albumin Level 3.8 gm/dl (3.4-5.0); BUN Creatinine Ratio 19.8 (10-20); Calcium 8.4 mg/dl (8.5-10.1); Creatinine Clr Calc Pharmacy 99.5 ml/min; Est GFR (African American) 95.9; Est GFR (Non-African American) 82.8; Potassium 3.8 mmol/L (3.5-5.1)
[2019-06-18 12:18] LABS: Albumin Globulin Ratio 1.2 (0.9-2); Bilirubin,Total 0.8 mg/dl (0.2-1); Globulin 3.2 gm/dl (2.5-4.0)
--- NOTE | 2019-06-18 12:31 | Emergency Department Note ---
History of Present Illness General Chief Complaint: Abdominal Pain Stated Complaint: RIGHT LOWER STOMACH PAIN - NAUSEA History of Present Illness Maximum Pain Intensity: 9 This patient is a 38-year-old female who presents ambulatory to the emergency department for evaluation of right lower abdominal pain that occurred acutely when she woke up this morning. It is a sharp, stabbing sensation. She also feels nauseated with several episodes of vomiting. No coffee-ground emesis or hematemesis. She had a normal bowel movement this morning. She does report a small amount of dysuria. The patient had a hysterectomy 2 years ago. No fever. She has not taken anything [id number] for pain. Related Data Last Menstrual Period: pt. hx of JASVIR Patient Confirmed : No Home Medications Home Medications Medication Instructions Recorded Confirmed Type Latuda 60 mg PO DAILY 03/05/19 06/18/19 History levothyroxine 175 mcg PO DAILY 06/18/19 06/18/19 History oxycodone-acetaminophen [Percocet] 1 tab PO Q6H PRN #20 tab 06/19/19 Rx Allergies Allergy/AdvReac Type Severity Reaction Status Date / Time amoxicillin Allergy Severe ANAPHYLAXIS Verified 06/18/19 12:05 azithromycin Allergy Severe Anaphylaxis Verified 06/18/19 12:05 Penicillins Allergy Severe ANAPHYLAXIS Verified 06/18/19 12:05 diphenhydramine Allergy Intermediate HIVES Verified 06/18/19 12:05 tramadol Allergy Intermediate HIVES/RASH Verified 06/18/19 12:05 capsaicin Allergy Unknown ALTERED Verified 06/18/19 12:05 MENTAL STATUS Cipro Allergy Unknown RASH WITH Verified 05/03/17 10:22 ORAL CIPRO ONLY ciprofloxacin Allergy Unknown RASH WITH Verified 06/18/19 12:05 ORAL CIPRO ONLY diclofenac Allergy Unknown ALTERED Verified 06/18/19 12:05 MENTAL STATUS Diclopak Allergy Unknown ALTERED Verified 05/03/17 10:22 MENTAL STATUS ketorolac Allergy Unknown ALTERED Verified 06/18/19 12:05 MENTAL STATUS latex Allergy Unknown RASH Verified 06/18/19 12:05 Sulfa (Sulfonamide Allergy Unknown HIVES Verified 06/18/19 12:05 Antibiotics) fentanyl AdvReac ALTERED Verified 06/18/19 12:05 MENTAL STATUS - ANGRY Past Med/Surg History Medical History Morbid obesity Anemia Bipolar affect, depressed Diabetes H/O: hysterectomy Leukemia Menorrhagia Thyroid disease Surgical History History of gastric bypass Hx of cholecystectomy Family History Other No significant family history Social History Preferred Language: Japanese Communication Ability: Effective 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 Beliefs That Will Affect Care: None marital status: Single Current Living Situation: Family current occupational status: employed Feels Safe at Home: Yes Smoking Status: Former smoker Second Hand Exposure: Yes ; Hx Alcohol Use: Yes Alcohol type: beer, wine and hard liquor Hx Substance Use: No Review of Systems A total of 10 systems reviewed and were otherwise negative Physical Exam Vital Signs: Vital Signs - 24 hr 06/18/19 11:09 06/18/19 11:25 06/18/19 11:29 Temperature 36.5 C Temperature Source Oral Sepsis Recent Feve r Within 48 Hours No Sepsis New/Unexpla ined Change in Men magnus Status No Sepsis Action Take n by Nursing No Action Required Pulse Rate 71 61 63 Pulse Rate from Sp O2 Sensor 60 65 Respiratory Rate 20 14 12 Blood Pressure 110/75 96/63 L Blood Pressure Ivy n 86 74 Blood Pressure Pos ition Sitting Pulse Oximetry 100 99 100 06/18/19 11:30 06/18/19 12:00 06/18/19 12:01 Temperature Temperature Source Sepsis Recent Feve r Within 48 Hours Sepsis New/Unexpla ined Change in Men magnus Status Sepsis Action Take n by Nursing Pulse Rate 64 75 68 Pulse Rate from Sp O2 Sensor 63 75 67 Respiratory Rate 17 15 17 Blood Pressure 99/65 L 115/83 Blood Pressure Ivy n 76 93 Blood Pressure Pos ition Pulse Oximetry 98 99 06/18/19 12:30 06/18/19 13:20 06/18/19 13:21 Temperature Temperature Source Sepsis Recent Feve r Within 48 Hours Sepsis New/Unexpla ined Change in Men magnus Status Sepsis Action Take n by Nursing Pulse Rate 71 64 Pulse Rate from Sp O2 Sensor 73 75 66 Respiratory Rate 12 13 Blood Pressure 108/71 107/63 Blood Pressure Ivy n 83 77 Blood Pressure Pos ition Pulse Oximetry 95 97 100 06/18/19 13:30 06/18/19 14:00 Temperature Temperature Source Sepsis Recent Feve r Within 48 Hours Sepsis New/Unexpla ined Change in Men magnus Status Sepsis Action Take n by Nursing Pulse Rate 81 83 Pulse Rate from Sp O2 Sensor 81 77 Respiratory Rate 17 16 Blood Pressure 102/64 96/63 L Blood Pressure Ivy n 76 74 Blood Pressure Pos ition Pulse Oximetry 98 94 Constitutional: WD/WN, vitals as above Eyes: EOM intact bilaterally ENMT: external ear and nose normal, oropharynx normal Oral mucosa slightly dry Neck: trachea midline Respiratory: normal respiratory effort, lungs clear to auscultation Cardiovascular: RRR, no murmur, no edema Gastrointestinal (Abdomen): Bowel sounds hypoactive. Tenderness to palpation in the right lower quadrant without any guarding or rebound tenderness. Musculoskeletal: no cyanosis or clubbing, extremities motor strength 5/5 Skin: no rashes, warm and dry Neurologic: Alert and oriented x3. No focal motor deficits. Psychiatric: Acting appropriately Course Patient was seen and examined Vital signs including blood pressure were reviewed medications list was verified with patient Labs were obtained, and a saline lock was established The patient was ordered Zofran, Dilaudid and fluids Imaging was performed and reviewed Upon reevaluation, the patient's pain was coming back. She was ordered an additional dose of Dilaudid. We discussed her results. She voiced understanding. The case was discussed with POSTAGE MACHINE OPERATOR. Ultrasound was recommended. This was ordered and reviewed. The patient did require additional doses of Dilaudid. She was evaluated by the POSTAGE MACHINE OPERATOR team. She will go to the OR for further treatment Consultations Consultation #1: Dr. Jean Administered Medications Discontinued Medications Bupivacaine HCl (Marcaine 0.5% Mpf) Confirm Administered Dose 30 ml .ROUTE .ev-social- MED ONE Stop: 06/18/19 18:13 Last Admin: 06/18/19 20:01 Dose: 10 ml Documented by: [id number] Docusate Sodium (Colace) 100 mg PO BID JUSTINA Stop: 07/18/19 20:59 Last Admin: 06/19/19 08:26 Dose: 100 mg Documented by: [id number] Heparin Sodium (Porcine) (Heparin Sod 100 Unit/Ml Flush) 5 ml IV PRN PRN PRN Reason: Flush Stop: 07/18/19 23:14 Last Admin: 06/19/19 05:55 Dose: 5 ml Documented by: [id number] Admin: 06/18/19 21:15 Dose: 5 ml Documented by: [id number] Hydromorphone HCl (Dilaudid) 1 mg IV NOW STA Stop: 06/18/19 12:15 Last Admin: 06/18/19 12:26 Dose: 1 mg Documented by: [id number] Hydromorphone HCl (Dilaudid) 1 mg IV NOW STA Stop: 06/18/19 15:36 Last Admin: 06/18/19 15:50 Dose: 1 mg Documented by: [id number] Hydromorphone HCl (Dilaudid) 0.25 mg IV Q5M PRN PRN Reason: PACU Use Only-Pain Stop: 06/19/19 00:13 Last Admin: 06/18/19 20:42 Dose: 0.25 mg Documented by: [id number] Admin: 06/18/19 20:36 Dose: 0.25 mg Documented by: [id number] Admin: 06/18/19 20:31 Dose: 0.25 mg Documented by: [id number] Admin: 06/18/19 20:26 Dose: 0.25 mg Documented by: [id number] Sodium Chloride (Nss 1000ml) 1,000 mls @ 999 mls/hr IV .Q1H1M ONE Stop: 06/18/19 13:14 Last Infusion: 06/18/19 15:51 Dose: 0 mls/hr Documented by: [id number] Admin: 06/18/19 12:26 Dose: 999 mls/hr Documented by: [id number] Ioversol (Optiray 320 100ml) 94 ml IV ONCE PRN PRN Reason: Interaction Checking Stop: 06/22/19 14:34 Last Admin: 06/18/19 14:36 Dose: 94 ml Documented by: [id number] Ondansetron HCl (Zofran) 4 mg IV NOW STA Stop: 06/18/19 12:15 Last Admin: 06/18/19 12:26 Dose: 4 mg Documented by: [id number] Oxycodone/Acetaminophen (Percocet 5mg/325mg) 1 tab PO Q4H PRN PRN Reason: Pain Scale 1,2,3,4,5 Stop: 07/02/19 20:09 Last Admin: 06/19/19 05:04 Dose: 1 tab Documented by: [id number] Admin: 06/18/19 22:03 Dose: 1 tab Documented by: [id number] Simethicone (Mylicon) 80 mg PO TID PRN PRN Reason: Gas Stop: 07/18/19 20:09 Last Admin: 06/19/19 08:26 Dose: 80 mg Documented by: [id number] Medical Decision Making Laboratory Data Result diagrams: 06/19/19 05:58 06/18/19 11:39 Lab Results 06/18/19 06/18/19 06/18/19 Range/Units 11:39 11:39 13:20 WBC 8.08 (4.8-10.8) K/uL RBC 3.24 L (4.2-5.4) M/uL Hgb 10.9 L (12.0-16.0) g/dL Hct 32.3 L (37-47) % MCV 99.7 (80-100) fL MCH 33.6 (25-34) pg MCHC 33.7 (32-36) g/dL RDW Std Deviation 50.8 H (36.4-46.3) fL RDW Coeff of Jignesh 13.8 (11.5-14.5) % Plt Count 211 (130-400) K/uL MPV 10.0 (7.4-10.4) fL Immature Gran % (Auto) 0.1 % Neut % (Auto) 79.0 % Lymph % (Auto) 15.5 % [place] % (Auto) 4.3 % Eos % (Auto) 0.6 % Baso % (Auto) 0.5 % Immature Gran # (Auto) 0.01 (0.00-0.02) K/uL Neut # (Auto) 6.38 (1.4-6.5) K/uL Lymph # (Auto) 1.25 (1.2-3.4) K/uL [place] # (Auto) 0.35 (0.11-0.59) K/uL Eos # (Auto) 0.05 (0-0.5) K/uL Baso # (Auto) 0.04 (0-0.2) K/uL Sodium 138 (136-145) mmol/L Potassium 3.8 (3.5-5.1) mmol/L Chloride 107 (98-107) mmol/L Carbon Dioxide 26 (21-32) mmol/L Anion Gap 5.0 (3-11) BUN 17 (7-18) mg/dl Creatinine 0.88 (0.6-1.2) mg/dl Est Cr Clr Drug Dosing 99.5 ml/min Est GFR ( Amer) 95.9 Est GFR (Non-Af Amer) 82.8 BUN/Creatinine Ratio 19.8 (10-20) Glucose 102 H (70-99) mg/dl Calcium 8.4 L (8.5-10.1) mg/dl Total Bilirubin 0.8 (0.2-1) mg/dl AST 30 (15-37) U/L ALT 44 (12-78) U/L Alkaline Phosphatase 58 (45-117) U/L Total Protein 7.0 (6.4-8.2) gm/dl Albumin 3.8 (3.4-5.0) gm/dl Globulin 3.2 (2.5-4.0) gm/dl Albumin/Globulin Ratio 1.2 (0.9-2) Lipase 233 (73-393) U/L Urine Color Yellow Urine Appearance Clear (Clear) Urine pH 6.5 (4.5-7.5) Ur Specific Gravelly 1.022 (1.000-1.030) Urine Protein Negative (Negative) Urine Glucose (UA) Negative (Negative) Urine Ketones Negative (Negative) Urine Blood Negative (Negative) Urine Nitrite Negative (Negative) Urine Bilirubin Negative (Negative) Urine Urobilinogen Negative (Negative) Ur Leukocyte Esterase Negative (Negative) Imaging Data Attestation: I personally reviewed and interpreted this imaging study as follows: Radiologist's Impression: CT abdomen and pelvis with IV and oral contrast IMPRESSION: 1. The right ovary is enlarged, abnormal in appearance, and located superiorly within the right lower quadrant. This has changed position from prior examinations and there is mild surrounding inflammation/fluid. Findings are conc erning for ovarian torsion. Pelvic ultrasound could be considered for confirmation. 2. The appendix is well-visualized and normal. 3. Postoperative change is consistent with a history of Yazmin-en-Y gastric bypass surgery. There is no bowel obstruction. 4. There is a small pericardial effusion, unchanged from previous. Findings are discussed with Dr. Lopez in the emergency department at the time of interpretation. Electronically signed by: Osmel Briggs M.D. 06/18/2019 3:23 PM Dictated: 06/18/19 1513 Transcribed: 06/18/19 1516 pelvic US The right ovary appears mildly enlarged and there is only minimal color flow identified. This is significantly diminished as compared to the left. Doppler tracings were abnormal, with only faint venous flow identified. The findings are concerning for right ovarian torsion or possibly torsion/detorsion. Gynecology assessment is recommended. 2. Normal Doppler waveforms are shown in the left ovary. 3. The uterus is surgically absent. 4. There is trace free fluid around the right ovary and in the cul-de-sac. Electronically signed by: Osmel Briggs M.D. 06/18/2019 4:56 PM Dictated: 06/18/19 1646 Blood Pressure Blood Pressure Findings: Normal blood pressure MDM Narrative Differential diagnosis: UTI, ureteral stone, pyelonephritis, appendicitis, bowel obstruction, ovarian cyst, among others This patient is a 38-year-old female who presents the emergency department with abdominal pain. On exam, she did have tenderness with rebound. I was concerned about the above possibilities. There is no leukocytosis. H&H stable. She was afebrile. Imaging was concerning for ovarian torsion. Gynecology was consulted. They will take the patient to the OR for further work-up. Her vital signs remained stable. Impression & Plan Ovarian torsion Discharge Plan Visit Data *Final* Discharge Date/Time: 06/18/19 20:45 Chief Complaint: Abdominal Pain Stated Complaint: RIGHT LOWER STOMACH PAIN - NAUSEA ED Provider: Praful Lopez ED Midlevel Provider: Valentina Cordero Discharge Problem: Ovarian torsion Patient Disposition: Still a Patient Discharge Instructions Interventions: ED Discharge Assessment Last Done: 06/18/19 18:09
[2019-06-18 13:43] LABS: Appearance Urine Clear (Clear); Bilirubin Urine Negative (Negative); Blood Urine Negative (Negative); Color Urine Yellow; Glucose Urine UA Negative (Negative); Ketones Urine Negative (Negative); Leukocyte Esterase Urine Negative (Negative); Nitrite Urine Negative (Negative); Protein Urine Negative (Negative); Specific Gravity Urine 1.022 (1.000-1.030); Urobilinogen Urine Negative (Negative); pH Urine 6.5 (4.5-7.5)
[2019-06-18] MEDS ORDERED: IOVERSOL 100ml IV PRN (14:35)
--- NOTE | 2019-06-18 15:24 | CT Scan Report ---
CT SCAN OF THE ABDOMEN AND PELVIS WITH IV CONTRAST CLINICAL HISTORY: Right lower quadrant abdominal pain. COMPARISON STUDY: Abdominal CT dated 06/02/2017. TECHNIQUE: Following the IV administration of 94 cc of Optiray 320, CT scan of the abdomen and pelvi s is performed from the lung bases to the proximal femora. Images are reviewed in the axial, sagittal , and coronal planes. IV contrast was administered without complication. Oral contrast was utilized. A dose lowering technique was utilized adhering to the principles of ALARA. CT DOSE: 1060.54 mGy.cm FINDINGS: Lung bases: The heart is normal in size and there is a small pericardial effusion. This is similar to previous. The lung bases are clear. Liver: The contrast-enhanced liver is normal in size, contour, and attenuation. There is minimal cent ral intrahepatic biliary ductal dilatation. The hepatic veins and portal veins are patent. Gallbladder: Surgically absent noting clips in the gallbladder fossa. Spleen: Normal in size and attenuation. Pancreas: Unremarkable. Adrenal glands: Unremarkable. Kidneys: The contrast enhanced kidneys are normal in size and without hydronephrosis. The kidneys enh ance symmetrically. Abdominal vasculature: The abdominal aorta is normal in course and caliber. Stomach and bowel: Postoperative changes consistent with a history of Yazmin-en-Y gastric bypass surger y. No bowel obstruction is seen. There is mild colonic diverticulosis without CT evidence of acute di verticulitis. Fecal retention is noted in the right colon. The appendix is well-visualized and elizabeth l. Peritoneum: There is no intraperitoneal free air or abdominal ascites. Lymphadenopathy: None. Pelvic viscera: The bladder is normal as visualized. The uterus is surgically absent. The right ovary appears enlarged and heterogeneous and is located in the right lower quadrant on image #254. This me asures 4.9 x 3.6 cm and there is trace surrounding fluid. The left ovary is normal in appearance and there are small left ovarian follicles. There is trace free fluid in the cul-de-sac. Skeletal structures: No lytic or blastic lesions are seen. Mild sclerotic change is noted in the sacr oiliac joints. IMPRESSION: 1. The right ovary is enlarged, abnormal in appearance, and located superiorly within the right lower quadrant. This has changed position from prior examinations and there is mild surrounding inflammati on/fluid. Findings are concerning for ovarian torsion. Pelvic ultrasound could be considered for conf irmation. 2. The appendix is well-visualized and normal. 3. Postoperative change is consistent with a history of Yazmin-en-Y gastric bypass surgery. There is no bowel obstruction. 4. There is a small pericardial effusion, unchanged from previous. Findings are discussed with Dr. Lopez in the emergency department at the time of interpretation. Electronically signed by: Osmel Briggs M.D. 06/18/2019 3:23 PM
--- NOTE | 2019-06-18 16:59 | Ultrasound Report ---
ULTRASOUND OF THE PELVIS CLINICAL HISTORY: Right lower quadrant abdominal pain. Abnormal CT. COMPARISON STUDY: Pelvic CT dated 06/18/2019 TECHNIQUE: Real-time, grayscale, and color flow sonography of the pelvis is performed both transabdom inally and endovaginally. Images are reviewed in the transverse and longitudinal planes. The endovagi nal examination was performed for better assessment of the adnexa. FINDINGS: Uterus: The uterus is surgically absent Ovaries: The right ovary was only seen on the transabdominal imaging. The right ovary measures 4.5 x 3.4 x 4.9 cm and the left ovary measures 3.2 x 2.1 x 2.9 cm. There is only minimal color flow identif ied within the right ovary, and this is significantly diminished as compared to the left. Venous flow is suggested within the right ovary. This was difficult to obtain and maybe artifactual. Normal Dopp ler waveforms are shown within the left ovary. Simple and complex follicles are seen bilaterally. Pelvis: There is trace fluid around the right ovary and in the cul-de-sac. IMPRESSION: 1. The right ovary appears mildly enlarged and there is only minimal color flow identified. This is s ignificantly diminished as compared to the left. Doppler tracings were abnormal, with only faint veno us flow identified. The findings are concerning for right ovarian torsion or possibly torsion/detorsi on. Gynecology assessment is recommended. 2. Normal Doppler waveforms are shown in the left ovary. 3. The uterus is surgically absent. 4. There is trace free fluid around the right ovary and in the cul-de-sac. Electronically signed by: Osmel Briggs M.D. 06/18/2019 4:56 PM
--- NOTE | 2019-06-18 17:41 | OB/GYN Consultation ---
Date of Consultation June 18, 2019 Assessment & Plan (1) Ovarian torsion: Ultrasound images and report reviewed - strongly suspect right ovarian torsion. I discussed this with patient, reviewed recommendation for urgent surgical management. Will plan for diagnostic laparoscopy, with possible removal of right ovary. Reviewed risk of damage to surrounding tissue, bleeding, scarring, infection, blood clot, pneumonia, nonresolution of symptoms, conversion to open. She signed informed consent, questions answered. Will proceed to OR. History of Present Illness Reason for Consultation: Pelvic pain Requesting Physician: [facility] Attending Physician: Anat Jean DO History of Present Illness Patient is a 38-year-old -0-1-1 who presented to the emergency department today with complaint of severe sudden onset right lower quadrant pain. She has had off-and-on nausea and vomiting throughout the day, reports that the pain was 10 out of 10 upon arrival to the ER and is now 8 out of 10 after receiving IV pain medication. She describes the pain as sharp and stabbing. No problems with urinating or bowel movements. She has hypothyroidism, h/o leukemia and anemia. Surgically, has h/o gastric bypass, gallbladder, hysterectomy with ovarian preservation. Multiple allergies - see mywaves. Allergies Allergy/AdvReac Type Severity Reaction Status Date / Time amoxicillin Allergy Severe ANAPHYLAXIS Verified 06/18/19 12:05 azithromycin Allergy Severe Anaphylaxis Verified 06/18/19 12:05 Penicillins Allergy Severe ANAPHYLAXIS Verified 06/18/19 12:05 diphenhydramine Allergy Intermediate HIVES Verified 06/18/19 12:05 tramadol Allergy Intermediate HIVES/RASH Verified 06/18/19 12:05 capsaicin Allergy Unknown ALTERED Verified 06/18/19 12:05 MENTAL STATUS Cipro Allergy Unknown RASH WITH Verified 05/03/17 10:22 ORAL CIPRO ONLY ciprofloxacin Allergy Unknown RASH WITH Verified 06/18/19 12:05 ORAL CIPRO ONLY diclofenac Allergy Unknown ALTERED Verified 06/18/19 12:05 MENTAL STATUS Diclopak Allergy Unknown ALTERED Verified 05/03/17 10:22 MENTAL STATUS ketorolac Allergy Unknown ALTERED Verified 06/18/19 12:05 MENTAL STATUS latex Allergy Unknown RASH Verified 06/18/19 12:05 Sulfa (Sulfonamide Allergy Unknown HIVES Verified 06/18/19 12:05 Antibiotics) fentanyl AdvReac ALTERED Verified 06/18/19 12:05 MENTAL STATUS - ANGRY Home Medications Home Medications Medication Instructions Recorded Confirmed Type lurasidone [Latuda] 60 mg PO DAILY 03/05/19 06/18/19 History levothyroxine 175 mcg PO DAILY 06/18/19 06/18/19 History Patient History Medical History Anemia Bipolar affect, depressed Diabetes H/O: hysterectomy Leukemia Menorrhagia Thyroid disease Surgical History History of gastric bypass Hx of cholecystectomy Family History Other No significant family history Social History Preferred Language: Frisian Communication Ability: Effective Wagon Winder Required: No Beliefs That Will Affect Care: None marital status: Single current occupational status: employed Feels Safe at Home: Yes Smoking Status: Never smoker Hx Alcohol Use: No Hx Substance Use: No Review of Systems Review of Systems: All systems reviewed & are unremarkable except as noted in HPI & below Physical Exam Physical Exam: Constitutional: alert, in no acute distress, well nourished, well developed and healthy appearing. Skin: normal skin color and pigmentation, normal skin turgor and no rash. Neck: the appearance of the neck was normal, no neck mass was observed, the thyroid was not enlarged and there were no palpable thyroid nodules. Pulmonary: no respiratory distress, normal respiratory rhythm and effort and clear bilateral breath sounds. Cardiovascular: heart rate and rhythm were normal, normal S1 and S2 and no murmurs present. Abdomen: soft, non-tender, no abdominal mass palpated and no hepato- splenomegaly. No hernias were discovered. Genitourinary: defer to OR Neurological: The patient was oriented to person, place, and time. Mood and affect were appropriate. Extremities: No edema, no calf tenderness. Results & Data Vital Signs (Past 12 Hours) Vital Signs Temp Pulse Resp BP Pulse Ox 06/18/19 17:00 70 11 L 116/71 99 06/18/19 16:33 67 15 110/61 97 06/18/19 15:30 76 10 L 125/66 100 06/18/19 15:00 71 6 L 104/67 97 06/18/19 14:43 80 14 110/60 98 06/18/19 14:42 81 19 06/18/19 14:00 83 16 96/63 L 94 06/18/19 13:30 81 17 102/64 98 06/18/19 13:21 64 13 107/63 100 06/18/19 13:20 97 06/18/19 12:30 71 12 108/71 95 06/18/19 12:01 68 17 115/83 99 06/18/19 12:00 75 15 06/18/19 11:30 64 17 99/65 L 98 06/18/19 11:29 63 12 100 06/18/19 11:25 61 14 96/63 L 99 06/18/19 11:09 36.5 C 71 20 110/75 100 PG Care Time/CCT Total # of Minutes Spent Total Time Spent with Patient: Total time spent is greater than 50% in coordination of care (as documented) at patient's floor/unit and/or counseling patient:
--- NOTE | 2019-06-18 18:07 | History & Physical Report ---
Date of Service June 18, 2019 Assessment & Plan (1) Ovarian torsion: Ultrasound images and report reviewed - strongly suspect right ovarian torsion. I discussed this with patient, reviewed recommendation for urgent surgical management. Will plan for diagnostic laparoscopy, with possible removal of right ovary. Reviewed risk of damage to surrounding tissue, bleeding, scarring, infection, blood clot, pneumonia, nonresolution of symptoms, conversion to open. She signed informed consent, questions answered. Will proceed to OR. History of Present Illness Chief Complaint: ovarian torsion Primary Care Provider: Soraya Richard DO Patient is a 38-year-old -0-1-1 who presented to the emergency department today with complaint of severe sudden onset right lower quadrant pain. She has had off-and-on nausea and vomiting throughout the day, reports that the pain was 10 out of 10 upon arrival to the ER and is now 8 out of 10 after receiving IV pain medication. She describes the pain as sharp and stabbing. No problems with urinating or bowel movements. She has hypothyroidism, h/o leukemia and anemia. Surgically, has h/o gastric bypass, gallbladder, hysterectomy with ovarian preservation. Multiple allergies - see [employer]. Allergies Allergy/AdvReac Type Severity Reaction Status Date / Time amoxicillin Allergy Severe ANAPHYLAXIS Verified 06/18/19 12:05 azithromycin Allergy Severe Anaphylaxis Verified 06/18/19 12:05 Penicillins Allergy Severe ANAPHYLAXIS Verified 06/18/19 12:05 diphenhydramine Allergy Intermediate HIVES Verified 06/18/19 12:05 tramadol Allergy Intermediate HIVES/RASH Verified 06/18/19 12:05 capsaicin Allergy Unknown ALTERED Verified 06/18/19 12:05 MENTAL STATUS Cipro Allergy Unknown RASH WITH Verified 05/03/17 10:22 ORAL CIPRO ONLY ciprofloxacin Allergy Unknown RASH WITH Verified 06/18/19 12:05 ORAL CIPRO ONLY diclofenac Allergy Unknown ALTERED Verified 06/18/19 12:05 MENTAL STATUS Diclopak Allergy Unknown ALTERED Verified 05/03/17 10:22 MENTAL STATUS ketorolac Allergy Unknown ALTERED Verified 06/18/19 12:05 MENTAL STATUS latex Allergy Unknown RASH Verified 06/18/19 12:05 Sulfa (Sulfonamide Allergy Unknown HIVES Verified 06/18/19 12:05 Antibiotics) fentanyl AdvReac ALTERED Verified 06/18/19 12:05 MENTAL STATUS - ANGRY Home Medications Home Medications Medication Instructions Recorded Confirmed Type lurasidone [Latuda] 60 mg PO DAILY 03/05/19 06/18/19 History levothyroxine 175 mcg PO DAILY 06/18/19 06/18/19 History Patient History Medical History Anemia Bipolar affect, depressed Diabetes H/O: hysterectomy Leukemia Menorrhagia Thyroid disease Surgical History History of gastric bypass Hx of cholecystectomy Family History Other No significant family history Social History Preferred Language: Azeri Communication Ability: Effective 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 Skin: normal skin color and pigmentation, normal skin turgor and no rash. Neck: the appearance of the neck was normal, no neck mass was observed, the thyroid was not enlarged and there were no palpable thyroid nodules. Pulmonary: no respiratory distress, normal respiratory rhythm and effort and clear bilateral breath sounds. Cardiovascular: heart rate and rhythm were normal, normal S1 and S2 and no murmurs present. Abdomen: soft, non-tender, no abdominal mass palpated and no hepato- splenomegaly. No hernias were discovered. Genitourinary: defer to OR Neurological: The patient was oriented to person, place, and time. Mood and affect were appropriate. Extremities: No edema, no calf tenderness. Results & Data Vital Signs (Past 12 Hours) Vital Signs Temp Pulse Resp BP Pulse Ox 06/18/19 17:00 70 11 L 116/71 99 06/18/19 16:33 67 15 110/61 97 06/18/19 15:30 76 10 L 125/66 100 06/18/19 15:00 71 6 L 104/67 97 06/18/19 14:43 80 14 110/60 98 06/18/19 14:42 81 19 06/18/19 14:00 83 16 96/63 L 94 06/18/19 13:30 81 17 102/64 98 06/18/19 13:21 64 13 107/63 100 06/18/19 13:20 97 06/18/19 12:30 71 12 108/71 95 06/18/19 12:01 68 17 115/83 99 06/18/19 12:00 75 15 06/18/19 11:30 64 17 99/65 L 98 06/18/19 11:29 63 12 100 06/18/19 11:25 61 14 96/63 L 99 06/18/19 11:09 36.5 C 71 20 110/75 100
[2019-06-18] MEDS ORDERED: PROPOFOL IV EMULSION 10 MG/ML 20 ML VIAL IV ONE (18:12)
[2019-06-18] MEDS ORDERED: LIDOCAINE HCL 2% 2 ML VIAL/AMP(20MG/ML) INFIL ONE (18:12)
[2019-06-18] MEDS ORDERED: SUCCINYLCHOLINE CHLORIDE 20 MG/ML 10 ML VIAL ONE (18:12)
[2019-06-18] MEDS ORDERED: BUPIVACAINE 0.5 % 5 MG/1 ML MPF 30ML VIAL ONE (18:12)
[2019-06-18] MEDS ORDERED: fentaNYL citrate 100 MCG/2 ML VIAL ONE (18:12)
--- NOTE | 2019-06-18 18:22 | Anesthesiology Consultation ---
Date of Service June 18, 2019 Assessment & Plan (1) Encounter for pre-operative examination: Chart Review Chart Review: Acceptable Risk for Surgery Consults Requested none ASA [id number] Proposed Anesthesia Anesthesia Type: General Risk / Benefits Reviewed With: PT / POA / Parent / Guardian, Accepts Plan and Informed Consent Obtained History Surgery Operation Date: 06/18/19 18:30 Proposed Procedures p Laparoscopic Evaluation - Meenu Jean, Height/Weight Height: 5 ft 3 in Weight: 105 kg Allergies Allergy/AdvReac Type Severity Reaction Status Date / Time amoxicillin Allergy Severe ANAPHYLAXIS Verified 06/18/19 12:05 azithromycin Allergy Severe Anaphylaxis Verified 06/18/19 12:05 Penicillins Allergy Severe ANAPHYLAXIS Verified 06/18/19 12:05 diphenhydramine Allergy Intermediate HIVES Verified 06/18/19 12:05 tramadol Allergy Intermediate HIVES/RASH Verified 06/18/19 12:05 capsaicin Allergy Unknown ALTERED Verified 06/18/19 12:05 MENTAL STATUS Cipro Allergy Unknown RASH WITH Verified 05/03/17 10:22 ORAL CIPRO ONLY ciprofloxacin Allergy Unknown RASH WITH Verified 06/18/19 12:05 ORAL CIPRO ONLY diclofenac Allergy Unknown ALTERED Verified 06/18/19 12:05 MENTAL STATUS Diclopak Allergy Unknown ALTERED Verified 05/03/17 10:22 MENTAL STATUS ketorolac Allergy Unknown ALTERED Verified 06/18/19 12:05 MENTAL STATUS latex Allergy Unknown RASH Verified 06/18/19 12:05 Sulfa (Sulfonamide Allergy Unknown HIVES Verified 06/18/19 12:05 Antibiotics) fentanyl AdvReac ALTERED Verified 06/18/19 12:05 MENTAL STATUS - ANGRY Medications Home Medications Medication Instructions Recorded Confirmed Last Taken lurasidone [Latuda] 60 mg PO DAILY 03/05/19 06/18/19 03/05/19 levothyroxine 175 mcg PO DAILY 06/18/19 06/18/19 Unknown Active Medications Generic Name Dose Route Start Last Admin Trade Name Freq PRN Reason Stop Dose Admin Ioversol 94 ml 06/18/19 14:35 06/18/19 14:36 Optiray 320 100ml IV 06/22/19 14:34 94 ml ONCE PRN Administration Interaction Checking NPO Date Last Intake of Fluids: 06/18/19 Time Last Intake of Fluids: 14:30 Date Last Intake of Solids: 06/17/19 Time Last Intake of Solids: 18:00 Past Medical History Medical History Morbid obesity Anemia Bipolar affect, depressed Diabetes H/O: hysterectomy Leukemia Menorrhagia Thyroid disease Exercise / Class Metabolic Activity II 4-5 Yardwork/Stairs/Walk up hill Past Family History Family History Other No significant family history Past Surgical History Surgical History History of gastric bypass Hx of cholecystectomy Past Anesthesia History No Hx of Anesthesia Complications and No Family Hx of Anesthesia Complications History of PONV No Hx of PONV and No Hx of Motion Sickness Social History Smoking Status: Never smoker Hx Alcohol Use: No Hx Substance Use: No Physical Exam Vital Signs Last Vital Signs Temp 97.7 F 06/18/19 11:09 Pulse 70 06/18/19 17:00 Resp 11 L 06/18/19 17:00 BP 116/71 06/18/19 17:00 Pulse Ox 99 06/18/19 17:00 ENMT Mouth: no dentition abnormality Thyromental Distance: > or= 3.5 Finger Breadths Mallampati Class: II Neck normal visual inspection Respiratory normal respiratory effort Auscultation: lungs clear to auscultation bilaterally Cardiovascular Rate/Rhythm: regular rate and regular rhythm Testing Laboratory Results 06/18/19 11:39 06/18/19 11:39 Urine Color Yellow 06/18/19 13:20 Urine Appearance Clear (Clear) 06/18/19 13:20 Urine pH 6.5 (4.5-7.5) 06/18/19 13:20 Ur Specific [place] 1.022 (1.000-1.030) 06/18/19 13:20 Urine Protein Negative (Negative) 06/18/19 13:20 Urine Glucose (UA) Negative (Negative) 06/18/19 13:20 Urine Ketones Negative (Negative) 06/18/19 13:20 Urine Nitrite Negative (Negative) 06/18/19 13:20 Ur Leukocyte Esterase Negative (Negative) 06/18/19 13:20 Electrocardiogram Date: 06/18/19 Sinus rhythm with 1st degree AV block, rate 64 bpm Low voltage QRS Borderline ECG When compared with ECG of 23-MAR-2017 06:18, Nonspecific T wave abnormality, improved in Inferior leads Nonspecific T wave abnormality no longer evident in Anterolateral leads QT has lengthened Confirmed by Ty Edwards ([id number]) on 06/18/2019 5:32:34 PM
[2019-06-18] MEDS ORDERED: MIDAZOLAM HCL 1 MG/ML 2ML VIAL ONE (18:37)
[2019-06-18] MEDS ORDERED: ePHEDrine sulfate 50 MG/ML AMP IV PRN (19:12)
[2019-06-18] MEDS ORDERED: ONDANSETRON INJ 2 MG/ML 2 ML VIAL IV PRN ×2 (19:12→20:10)
[2019-06-18] MEDS ORDERED: ATROPINE SULFATE 0.1 MG/ML 10ML SYR IV PRN (19:12)
[2019-06-18] MEDS ORDERED: ROCURONIUM BROMIDE 10 MG/ML 5 ML VIAL ONE (19:46)
[2019-06-18] MEDS ORDERED: ONDANSETRON INJ 2 MG/ML 2 ML VIAL ONE (19:48)
[2019-06-18] MEDS ORDERED: PROMETHAZINE HCL 12.5 MG in SODIUM CHLORIDE 0.9% 50 ML IV PRN (20:10)
[2019-06-18] MEDS ORDERED: OXYCODONE/ACETAMINOPHEN 5mg/325mg TAB PO PRN (20:10)
[2019-06-18] MEDS ORDERED: SIMETHICONE 80 MG CHEW PO PRN (20:10)
--- NOTE | 2019-06-18 20:10 | Post Operative Brief Note ---
PG Immediate Post Op with CF Date of Surgery June 18, 2019 Pre & Post Diagnosis Operation Date: 06/18/19 18:30 Pre-Op Diagnosis: Ovarian Torsion Post-Op Diagnosis: Ovarian Torsion I identified the patient and participated in the time-out.: Yes Procedure Operation Date: 06/18/19 18:30 Actual Procedures p Laparoscopic Right Oophorectomy(Not Applicable) - Meenu Jean DO Surgeon Meenu Jean DO Development Administrator Foster Olson RN Estimated Blood Loss 10 Findings Consistent with Post-Op Diagnosis Specimens Specimen Description: Permanent A: Right Ovary Drains Goode Catheter (Removed at end of case) Anesthesia Type General Regional Complications none Disposition Accompanied Patient To Recovery: No Disposition: Recovery Room
[2019-06-18] MEDS ORDERED: HYDROmorphone INJ 1 MG/ML SYRINGE ONE (20:24)
[2019-06-18] MEDS: HYDROmorphone INJ 1 MG/ML SYRINGE IV PRN ×4 (20:26→20:42)
--- NOTE | 2019-06-18 20:30 | Anesthesiology Progress Note ---
Date of Service June 18, 2019 Anesthesia Post Procedure Vital Signs Vital Signs: Temp Pulse Resp BP Pulse Ox 06/18/19 17:00 70 11 L 116/71 99 06/18/19 16:33 67 15 110/61 97 06/18/19 15:30 76 10 L 125/66 100 06/18/19 15:00 71 6 L 104/67 97 06/18/19 14:43 80 14 110/60 98 06/18/19 14:42 81 19 06/18/19 14:00 83 16 96/63 L 94 06/18/19 13:30 81 17 102/64 98 06/18/19 13:21 64 13 107/63 100 06/18/19 13:20 97 06/18/19 12:30 71 12 108/71 95 06/18/19 12:01 68 17 115/83 99 06/18/19 12:00 75 15 06/18/19 11:30 64 17 99/65 L 98 06/18/19 11:29 63 12 100 06/18/19 11:25 61 14 96/63 L 99 06/18/19 11:09 97.7 F 71 20 110/75 100 Transfer of Care Handoff Completed per policy Notes Mental Status: alert / awake / arousable and participated in evaluation Patient Amnestic to Procedure: Yes Nausea / Vomiting: adequately controlled Pain: adequately controlled Airway Patency, RR, SpO2: stable & adequate BP & HR: stable & adequate Hydration State: stable & adequate Anesthetic Complications: no major complications apparent and Pt Satisfied with anesthetic care
[2019-06-18] MEDS ORDERED: DOCUSATE SODIUM 100 MG CAP PO SCH (21:00)
[2019-06-18] MEDS: HEPARIN 100 UNIT/ML 5ML FLUSH IV PRN (21:15)
--- NOTE | 2019-06-18 21:26 | Operative Report ---
PG Post Operative Report Pre & Post Diagnosis Operation Date: 06/18/19 18:30 Pre-Op Diagnosis: Ovarian Torsion Post-Op Diagnosis: Ovarian Torsion I identified the patient and participated in the time-out.: Yes Procedure Operation Date: 06/18/19 18:30 Actual Procedures p Laparoscopic Right Oophorectomy(Not Applicable) - Meenu Jean DO Surgeon Meenu Jean DO Project Manager Foster Olson RN Estimated Blood Loss 10 Findings Consistent with Post-Op Diagnosis Specimens Right ovary Drains Goode catheter, removed the conclusion the case. Clear yellow urine 200 mL. Anesthesia Type General Complications none Disposition Accompanied Patient To Recovery: No Disposition: Recovery Room Indications 38-year-old -0-1-1 who presented to the emergency department with acute onset sudden right lower quadrant severe pain. Ultrasound showed diminished blood flow to it and enlarged right ovary. She was taken to the operating room for suspicion of right ovarian torsion. Description of Procedure Patient was seen in the emergency department, where risks benefits and alternatives to surgery were reviewed. Consent was obtained. Questions were answered. She was taken to the operating room, general anesthesia was administered. She was prepared and draped in the usual sterile fashion in the dorsolithotomy position with feet in yellowfin stirrups. Timeout was confirmed. A Goode catheter was placed in the bladder with yellow urine return. A sponge stick was placed in the vagina for manipulation if needed. Gloves were changed and attention was then turned to the abdomen. Using the open Ingram technique, the supraumbilical 10 mm trocar was placed, intra-abdominal placement was confirmed, and the laproscopic camera was inserted. Patient was placed in steep Trendelenburg position. The pelvis and abdomen were viewed, and the right ovary was visualized. It was enlarged, purplish black, and obviously torsed around the infundibulopelvic ligament. Bilateral 5 mm trochars were placed under direct visualization. Bowel was gently swept away from the right pelvic sidewall. The right ureter was visualized peristalsing and the pelvic sidewall, far from the right IP ligament. Right ovary was returned to its normal anatomy by untwisting it once. Using a laparoscopic LigaSure device, the right IP ligament was coagulated multiple times, and then transected. Excellent hemostasis was observed at the IP ligament pedicle. The 10 mm camera was replaced with a 5 mm camera in a side-port, and the Endo Catch bag was inserted through the supraumbilical trocar. The ovary was scooped into this, the fascial incision at the supraumbilical site was extended enough to remove the Endo Catch bag, and the bag was removed. The ovary was sent to pathology with the specimen labeled right ovary. The abdomen was desufflated and trochars removed. The fascial incision at the supraumbilical trocar location was reapproximated using 0 Vicryl in a running stitch. Local injection of Marcaine was used at the trocar sites. The skin incisions were reapproximated using 4-0 Monocryl in a running subcu ticular stitch. Dermabond glue was applied at the incisions. Excellent hemostasis was observed. The patient was taken to the postoperative recovery area in stable and good condition. Patient had reported to me during her emergency department evaluation that was she was concerned about postoperative pain control, relating that this is been difficult in the past. I also like to check hemoglobin in the morning due to her preoperative anemia. Therefore I feel it is medically necessary to keep her for the rest of the evening for observation with plan for discharge in the morning. I attest to the content of the Intraoperative Record and any orders documented therein. Any exceptions are noted below.
[2019-06-18] MEDS: OXYCODONE/ACETAMINOPHEN 5mg/325mg TAB PO PRN (22:03)
[2019-06-19] MEDS: OXYCODONE/ACETAMINOPHEN 5mg/325mg TAB PO PRN (05:04)
[2019-06-19] MEDS: HEPARIN 100 UNIT/ML 5ML FLUSH IV PRN (05:55)
[2019-06-19 06:22] LABS: Hematocrit (blood only) 30.8 % (37-47); Hemoglobin 10.4 g/dL (12.0-16.0)
--- NOTE | 2019-06-19 07:25 | Gynecologic Progress Note ---
Date of Service June 19, 2019 Assessment & Plan (1) Ovarian torsion: Hgb stable after surgery, patient is doing well. Pain controlled. Discussed discharge instructions, she will need to be seen in approx 2-3 weeks in office. Rx Percocet. Subjective Doing well this morning. Awake, tolerating PO. Pain controlled. Passing gas, no bowel movement at this time. Review of Systems Review of Systems: All systems reviewed & are unremarkable except as noted in HPI & below Physical Exam Physical Exam: Gen: AAOx3 NAD CV: [id number] L: CTAB Abd: soft, nontender to palpation. Incisions CDI Ext: no edema Results & Data Vital Signs (Past 12 Hours) Vital Signs Temp Pulse Pulse Pulse Pulse Resp BP 06/19/19 06:25 75 92/65 L 06/19/19 04:40 37.1 C 61 16 06/19/19 00:55 37.0 C 56 L 16 06/18/19 23:50 37.1 C 60 16 93/62 L 06/18/19 23:00 36.7 C 66 16 84/55 L 06/18/19 22:35 36.7 C 76 20 100/66 06/18/19 22:00 36.6 C 67 20 93/67 L 06/18/19 21:45 36.6 C 58 L 20 91/64 L 06/18/19 21:30 36.6 C 63 16 96/67 L 06/18/19 21:15 36.6 C 60 20 06/18/19 20:55 36.4 C L 65 13 06/18/19 20:45 70 13 06/18/19 20:35 77 14 06/18/19 20:25 79 12 06/18/19 20:19 36.4 C L 80 12 BP Pulse Ox 06/19/19 06:25 06/19/19 04:40 80/45 L 96 06/19/19 00:55 86/54 L 93 06/18/19 23:50 99 06/18/19 23:00 97 06/18/19 22:35 98 06/18/19 22:00 98 06/18/19 21:45 98 06/18/19 21:30 98 06/18/19 21:15 96/69 L 100 06/18/19 20:55 103/67 99 06/18/19 20:45 103/62 99 06/18/19 20:35 106/73 100 06/18/19 20:25 112/76 100 06/18/19 20:19 107/65 100
--- NOTE | 2019-06-19 07:35 | Discharge Summary ---
Date of Service June 19, 2019 Admission HPI Per Admitting Provider Patient is a 38-year-old -0-1-1 who presented to the emergency department today with complaint of severe sudden onset right lower quadrant pain. She has had off-and-on nausea and vomiting throughout the day, reports that the pain was 10 out of 10 upon arrival to the ER and is now 8 out of 10 after receiving IV pain medication. She describes the pain as sharp and stabbing. No problems with urinating or bowel movements. She has hypothyroidism, h/o leukemia and anemia. Surgically, has h/o gastric bypass, gallbladder, hysterectomy with ovarian preservation. Multiple allergies - see [employer]. Discharge Data Procedures Performed Operation Date: 06/18/19 18:30 Actual Procedures p Laparoscopic Right Oophorectomy(Right) - Meenu Jean DO Hospital Course (1) Ovarian torsion: Patient was seen in the ER, symptoms and ultrasound confirmed ovarian torsion. She was taken to OR, laparoscopic right oophorectomy performed. Patient was very concerned about postop pain control, and given this and her chronic anemia, she was kept for observation after surgery and repeat H/H was normal in the morning. Discharged to home, followup in office in 2 weeks.
== END 2019-06-19 09:45 | disposition home or self-care (01) ==
LOC: ED 11:04 → OR 18:09 → 4S2 18:09

== ENCOUNTER 2024-09-13 13:09 | Observation (INO) ==
[2024-09-13 13:56] LABS: Basophils # (auto) 0.04 K/uL (0.00-0.20); Basophils % (auto) 0.7 %; Eosinophils # (auto) 0.07 K/uL (0.00-0.50); Eosinophils % (auto) 1.2 %; Hematocrit (blood only) 34.1 % (37.0-47.0); Hemoglobin 11.2 g/dl (12.0-16.0); Immature Granulocytes # (auto) 0.02 K/uL (0.01-0.20); Immature Granulocytes % (auto) 0.3 %; Lymphocytes # (auto) 1.25 K/uL (1.20-3.40); Lymphocytes % (auto) 21.7 %; Mean Corpuscular Hemoglobin 33.3 pg (25.0-34.0); Mean Corpuscular Hgb Conc 32.8 g/dL (32.0-36.0); Mean Corpuscular Volume 101.5 fL (80.0-100.0); Mean Platelet Volume 10.1 fL (9.4-12.4); Monocytes # (auto) 0.23 K/uL (0.11-0.59); Neutrophils # (auto) 4.14 K/uL (1.40-6.50); Neutrophils % (auto) 72.1 %; Platelet Count 227 K/uL (130-400); RDW Coefficient of Variation 13.1 % (11.5-14.5); RDW Standard Deviation 48.8 fL (36.4-46.3); Red Blood Count 3.36 M/uL (4.20-5.40); White Blood Count 5.75 K/ul (4.8-10.8)
--- NOTE | 2024-09-13 14:01 | XRay Report ---
XR chest 1V not portable CLINICAL HISTORY: Chest pain, nonspecific COMPARISON STUDY: 06/13/2023 FINDINGS: Heart size and pulmonary vasculature are normal. No effusion, consolidation, or pneumothora x. No grossly displaced rib fracture seen. IMPRESSION: No acute findings. ACT 112: Negative or not required by law. Electronically signed by: Mono Jon M.D. 09/13/2024 1:59 PM
[2024-09-13 14:05] LABS: Alanine Aminotransferase 53 U/L (7-52); Albumin Globulin Ratio 1.7 (0.9-2); Albumin Level 4.2 gm/dl (3.4-5.0); Alkaline Phosphatase 58 U/L (34-104); Anion Gap 3 (3-11); Aspartate Aminotransferase 33 U/L (13-39); BUN Creatinine Ratio 11.6 (10-20); Bilirubin,Total 0.9 mg/dl (0.2-1.0); Blood Urea Nitrogen 15 mg/dl (6-23); Calcium 8.7 mg/dl (8.6-10.3); Carbon Dioxide 30 mmol/L (21-32); Chloride 106 mmol/L (98-107); Creatinine Clr Calc Pharmacy 63.4 ml/min; Globulin 2.5 gm/dl (2.5-4.0); Glucose 61 mg/dl (70-99(Fasting)); Potassium 3.8 mmol/L (3.5-5.1); Sodium 139 mmol/L (136-145); Total Protein 6.7 gm/dl (6.0-8.3)
[2024-09-13 14:10] LABS: Troponin I High Sensitivity < 2.3 pg/ml (0-14)
[2024-09-13 14:18] LABS: Partial Thromboplastin Ratio 1.1; Partial Thromboplastin Time 29 Seconds (21-31); Prothrombin Time 10.7 Seconds (9.0-12.0)
--- NOTE | 2024-09-13 15:14 | Electrocardiogram Report ---
Test Reason : Blood Pressure : */* mmHG Vent. Rate : 74 BPM Atrial Rate : * BPM P-R Int : * ms QRS Dur : 78 ms QT Int : 378 ms P-R-T Axes : * 18 49 degrees QTcB Int : 419 ms Normal sinus rhythm Low voltage QRS Nonspecific T wave abnormality Abnormal ECG When compared with ECG of 13-Jun-2023 21:16, Nonspecific T wave abnormality now evident in Lateral leads Confirmed by Devonte Verdin ([id number]) on 09/13/2024 3:13:17 PM Referred By: Confirmed By: Devonte Verdin
--- NOTE | 2024-09-13 16:22 | History & Physical Report ---
Date of Service September 13, 2024 Assessment & Plan (1) Chest pain: Plan: Patient is 44 year old male with PMH bipolar disorder, anxiety, RLS, hypothyroidism, chronic left hip pain, obesity, history gastric bypass, chronic anemia, presented to ER with c/o intermittent CP and abnormal outpatient troponin lab. Outpatient 09/12/24 Troponin T HS: 19 (<14 reference) Today in ER Troponin is negative. EKG sinus rhythm, nonspecific T wave changes per my interpretation CXR: no acute findings Vitals stable Denies current CP R/O ACS Repeat EKG in am Will trend troponin Echo Lipid panel in am NPO [facility] consult, pt prefers [facility] team (2) Bipolar disorder: Plan: Follows with Psychiatry Continue home medications (3) Hypothyroidism: Plan: Follows with endocrinology Continue home levothyroxine solution TSH in am (4) Chronic pain: Plan: Continue hydrocodone prn (5) Elevated LFTs: Plan: Patient with history of chronic elevation LFTs and chronic elevation, chronic CPK 09/12/24 CPK: 442 (has been elevated since 11/2023) Today T. bili: 0.9, AST: 33, ALT: 53, alk phos: 58, (improved from AST 40, ALT: 71 in 07/24/2024) Following with GI/hepatology DVT Prophylaxis SCDs for now Admit med tele Follows with Sammie Valverde PA-C for routine care Pt was seen and care coordinated with Dr Malik. See addendum I spent a total of 65 minutes reviewing notes, outpatient records, labs, m edication, coordinating, documenting and providing care for this patient excluding time spent in the performance of separately billed services and excluding time spent by another provider/QHP. History of Present Illness Chief Complaint: Intermittent CP Primary Care Provider: Sammie Valverde PA-C Patient is 44 year old male with PMH bipolar disorder, anxiety, RLS, hypothyroidism, chronic left hip pain, obesity, history gastric bypass, chronic anemia, presented to ER with c/o intermittent CP and abnormal outpatient troponin lab. Patient reports intermittent chest tightness x months and seems to be occurring more frequently past couple of weeks and occurs on almost daily basis. Can occur at rest or ambulation. States seems to resolve within a couple of minutes. Describes as chest tightness and sometimes has dizziness with it. Denies arm pain, neck pain, palpitations, diaphoresis, nausea or vomiting. She initially thought was anxiety. Has anxiety and states wasn't feeling overly anxious at times of chest tightness so she never took her as needed Ativan. Per outpatient PCP note on 09/07/24 and had reported some intermittent CP and CPK and troponin was ordered. Patient had labs on 09/12/24 and Troponin T HS: 19 (<14 r eference), CPK: 442. She has chronically elevated CPK and LFTs and has followed with GI/hepatology and has history liver biopsy which was suggestive of drug effects. She reports also follows with rheumatology. Denies fever/chills, diaphoresis, N/V/D/C, DEE, syncope, vision changes, neck pain, SOB, orthopnea, palpitations, cough, rhinorrhea, abdominal pain, paresthesias, weakness, extremity edema, rashes, urinary symptoms. Allergies Allergy/AdvReac Type Severity Reaction Status Date / Time amoxicillin Allergy Severe ANAPHYLAXIS Verified 03/16/24 10:00 azithromycin Allergy Severe Anaphylaxis Verified 03/16/24 10:00 Penicillins Allergy Severe ANAPHYLAXIS Verified 03/16/24 10:00 diphenhydramine Allergy Intermediate HIVES Verified 03/16/24 10:00 Sulfa (Sulfonamide Allergy Intermediate HIVES Verified 03/16/24 10:00 Antibiotics) tramadol Allergy Intermediate HIVES/RASH Verified 03/16/24 10:00 ciprofloxacin Allergy Mild RASH WITH Verified 03/16/24 10:00 ORAL CIPRO ONLY latex Allergy Mild RASH Verified 03/16/24 10:00 capsaicin AdvReac Intermediate ALTERED Verified 03/16/24 10:00 MENTAL STATUS diclofenac AdvReac Intermediate ALTERED Verified 03/16/24 10:00 MENTAL STATUS fentanyl AdvReac Intermediate ALTERED Verified 03/16/24 10:00 MENTAL STATUS - ANGRY ketorolac AdvReac Intermediate ALTERED Verified 03/16/24 10:00 MENTAL STATUS Home Medications Medication Instructions Recorded Confirmed Type cyanocobalamin (vitamin B-12) 1,000 mcg IM .[id number] 10/29/22 09/13/24 History 1,000 mcg/mL injection solution ergocalciferol (vitamin D2) 1,250 1,250 mcg PO WK 10/29/22 09/13/24 History mcg (50,000 unit) capsule (Vitamin D2) ketoconazole 2 % shampoo 1 applic topical 3XWK 10/29/22 09/13/24 History lorazepam 0.5 mg tablet 0.5 mg PO DAILY PRN Anxiety 10/29/22 09/13/24 History modafinil 100 mg tablet 150 mg PO DAILY PRN excessive 10/29/22 09/13/24 History daytime sleepiness calcium polycarbophil 625 mg tablet 1,250 mg PO DAILY 06/04/23 09/13/24 History levothyroxine 200 mcg/mL oral 500 mcg PO UD 06/04/23 09/13/24 History solution fluticasone propionate 50 2 spray intranasal BID PRN Other 09/13/24 09/13/24 History mcg/actuation nasal spray,suspension guanfacine 1 mg tablet 1 mg PO DAILY 09/13/24 09/13/24 History guanfacine 2 mg tablet 2 mg PO UD 09/13/24 09/13/24 History hydrocodone 10 mg-acetaminophen 1 tab PO Q6H PRN Pain 09/13/24 09/13/24 History 325 mg tablet lurasidone 120 mg tablet 120 mg PO DAILY 09/13/24 09/13/24 History tirzepatide 7.5 mg/0.5 mL 7.5 mg subcut WK 09/13/24 09/13/24 History subcutaneous pen injector (Michael) Past Med/Surg History Problem List (Updated 09/13/24 @ 18:34 by Jayla Longo PA-C) Elevated LFTs Chronic pain Chest pain Cervical myofascial pain syndrome Sacroiliitis Pelvic pain Weight gain following gastric bypass surgery Bipolar disorder (Chronic) H/O gastric bypass (Chronic) Anemia Menorrhagia Symptomatic anemia Suicidal ideations (Acute) Hypothyroidism (Acute) Vitamin D deficiency Ovarian cyst Medical History GERD (gastroesophageal reflux disease) Idiopathic thrombocytopenia Sleep apnea hx of prior to gastric bypass Morbid obesity BMI 41 Thyroid disease Anemia Menorrhagia Bipolar affect, depressed Leukemia diagnosed 1986 Surgical History History of arthroscopy of left knee History of wisdom tooth extraction History of removal of Port-a-Cath Hx of cholecystectomy H/O: hysterectomy History of gastric bypass Family History Grandfather (Maternal) Coronary heart disease CAD, initially dx age 60 Other No family history of adverse response to anesthesia Social History Smoking Status: Former smoker Second Hand Exposure: No; Do You Dip or Chew Tobacco: No; Hx Alcohol Use: Yes Alcohol type: beer, wine and hard liquor Hx Substance Use: No Preferred Language: Occitan Communication Ability: Effective 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 Beliefs That Will Affect Care: None marital status: Current Living Situation: Spouse Current Living Situation Comment: lives at home with current occupational status: employed Other Information That Helps Us Care for You: No Feels Safe at Home: Yes Safety Concerns: Feels Safe At This Time Assistive Devices: Glasses and Hospital Bed Review of Systems Review of Systems: All systems reviewed & are unremarkable except as noted in HPI & below Physical Exam Physical Exam: General: no distress, overweight female Head: normocephalic, atraumatic Eyes: conjunctiva non-injected, anicteric ENT: normal inspection external ears, nose, mucous membranes moist Neck: supple, trachea midline Lungs: clear, no respiratory distress, no wheezing/rhonchi/rales CV: RRR, no murmur, no pretibial edema. Chest wall without tenderness to palpation Abd: normal BS, soft, non-tender Ext: no cyanosis, no calf tenderness Neuro: A&O x 3, no focal deficits noted, normal affect Skin: warm, dry Results & Data Results & Data Vital Signs (Past 12 Hours) Vital Signs Temp Pulse Pulse Resp BP BP Pulse Ox 09/13/24 16:02 72 18 100/66 98 09/13/24 15:55 76 09/13/24 14:28 09/13/24 14:28 75 20 93/61 L 98 09/13/24 14:28 09/13/24 13:13 36.1 C L 74 16 101/66 99 O2 Del Method 09/13/24 16:02 Room Air 09/13/24 15:55 09/13/24 14:28 Room Air 09/13/24 14:28 Room Air 09/13/24 14:28 Room Air 09/13/24 13:13 Room Air Laboratory Results Short CBC 09/13/24 Range/Units 13:29 WBC 5.75 (4.8-10.8) K/ul Hgb 11.2 L (12.0-16.0) g/dl Hct 34.1 L (37.0-47.0) % Plt Count 227 (130-400) K/uL BMP 09/13/24 13:29 Sodium 139 Potassium 3.8 Chloride 106 Carbon Dioxide 30 BUN 15 Creatinine 1.29 H Glucose 61 L Calcium 8.7 Liver Function 09/13/24 Range/Units 13:29 Total Bilirubin 0.9 (0.2-1.0) mg/dl AST 33 (13-39) U/L ALT 53 H (7-52) U/L Alkaline Phosphatase 58 (34-104) U/L Albumin 4.2 (3.4-5.0) gm/dl Diagnostic Findings Chest X-Ray 09/13/24 13:17 XR chest 1V not portable CLINICAL HISTORY: Chest pain, nonspecific COMPARISON STUDY: 06/13/2023 FINDINGS: Heart size and pulmonary vasculature are normal. No effusion, consolidation, or pneumothorax. No grossly displaced rib fracture seen. IMPRESSION: No acute findings. ACT 112: Negative or not required by law. Electronically signed by: Mono Jon M.D. 09/13/2024 1:59 PM ECG Additional Comments: Sinus rhythm, rate 74, nonspecific T wave changes lateral leads per my interpretation Supervising Physician Co-Signing Physician Notes Patient seen and examined independently. Discussed with above provider. Patient was referred for admission by her primary care doctor after she was found to have slightly elevated troponin as outpatient. She reports history of intermittent chest pain. Her high sensitive troponin was negative here. EKG showed normal sinus rhythm with low voltage QRS complex. Patient admitted to the hospital for to undergo cardiac workup. Will obtain echocardiogram. [facility] cardiology consulted as per patient's wishes for possible stress test tomorrow. N.p.o. from midnight. I have reviewed the advanced practitioner's documentation, and I agree with, and take responsibility for the plan of care I spent a total of 30 minutes coordinating, documenting, and providing care for this patient excluding time spent in the performance of separately billed services. All of the aforementioned completed while collaborating with the assigned advanced practitioner for a full treatment plan (2) Bipolar disorder Active/Remission status: remission status unspecified Qualified Code(s): F31.9 - Bipolar disorder, unspecified (3) Hypothyroidism Hypothyroidism type: unspecified Qualified Code(s): E03.9 - Hypothyroidism, unspecified
[2024-09-13] MEDS ORDERED: ACETAMINOPHEN 325 MG TAB PO PRN (17:44)
[2024-09-13] MEDS ORDERED: POLYETHYLENE (MIRALAX) 17 GM PACK PO PRN (17:44)
[2024-09-13] MEDS ORDERED: LORazepam 0.5 MG TAB PO PRN (18:23)
[2024-09-13] MEDS ORDERED: HYDROcodone/ACETAMINOPHEN 10/325 TAB PO PRN (18:23)
--- NOTE | 2024-09-13 20:08 | Emergency Department Note ---
History of Present Illness General Chief Complaint: Chest Pain Stated Complaint: CHEST PAIN, ABN BLOOD WORK Time Seen by Provider: 09/13/24 14:09 History of Present Illness Provider Complaint: chest pain Onset (ago): month(s) 2 Duration: intermittent Onset: during rest Pain Location: substernal Severity: mild Maximum Pain Intensity: 2 Current Pain Intensity: 0 Quality: + tightness and + heaviness Relieved By: + nothing Exacerbated By: + nothing Context: + other (Patient states she thinks her chest pain is related to her anxiety.); no recent illness, no recent surgery, no recent immobilization, no recent travel, no trauma/injury, no new medications or no history of DVT/PE Associated symptoms: + dyspnea; no nausea, no vomiting, no diaphoresis, no palpitations, no fever, no cough or no leg swelling Patient states that she saw her PCP yesterday about her chest pain who ordered outpatient blood work and then called her and told her to come to the emergency department because she had an elevated troponin. Home Medications Medication Instructions Recorded Confirmed Type cyanocobalamin (vitamin B-12) 1,000 mcg IM .[id number] 10/29/22 09/13/24 History 1,000 mcg/mL injection solution ergocalciferol (vitamin D2) 1,250 1,250 mcg PO WK 10/29/22 09/13/24 History mcg (50,000 unit) capsule (Vitamin D2) ketoconazole 2 % shampoo 1 applic topical 3XWK 10/29/22 09/13/24 History lorazepam 0.5 mg tablet 0.5 mg PO DAILY PRN Anxiety 10/29/22 09/13/24 History modafinil 100 mg tablet 150 mg PO DAILY PRN excessive 10/29/22 09/13/24 History daytime sleepiness calcium polycarbophil 625 mg tablet 1,250 mg PO DAILY 06/04/23 09/13/24 History levothyroxine 200 mcg/mL oral 500 mcg PO UD 06/04/23 09/13/24 History solution fluticasone propionate 50 2 spray intranasal BID PRN Other 09/13/24 09/13/24 History mcg/actuation nasal spray,suspension guanfacine 1 mg tablet 1 mg PO DAILY 09/13/24 09/13/24 History guanfacine 2 mg tablet 2 mg PO UD 09/13/24 09/13/24 History hydrocodone 10 mg-acetaminophen 1 tab PO Q6H PRN Pain 09/13/24 09/13/24 History 325 mg tablet lurasidone 120 mg tablet 120 mg PO DAILY 09/13/24 09/13/24 History tirzepatide 7.5 mg/0.5 mL 7.5 mg subcut WK 09/13/24 09/13/24 History subcutaneous pen injector (Mounjaro) Allergies Allergy/AdvReac Type Severity Reaction Status Date / Time amoxicillin Allergy Severe ANAPHYLAXIS Verified 03/16/24 10:00 azithromycin Allergy Severe Anaphylaxis Verified 03/16/24 10:00 Penicillins Allergy Severe ANAPHYLAXIS Verified 03/16/24 10:00 diphenhydramine Allergy Intermediate HIVES Verified 03/16/24 10:00 Sulfa (Sulfonamide Allergy Intermediate HIVES Verified 03/16/24 10:00 Antibiotics) tramadol Allergy Intermediate HIVES/RASH Verified 03/16/24 10:00 ciprofloxacin Allergy Mild RASH WITH Verified 03/16/24 10:00 ORAL CIPRO ONLY latex Allergy Mild RASH Verified 03/16/24 10:00 capsaicin AdvReac Intermediate ALTERED Verified 03/16/24 10:00 MENTAL STATUS diclofenac AdvReac Intermediate ALTERED Verified 03/16/24 10:00 MENTAL STATUS fentanyl AdvReac Intermediate ALTERED Verified 03/16/24 10:00 MENTAL STATUS - ANGRY ketorolac AdvReac Intermediate ALTERED Verified 03/16/24 10:00 MENTAL STATUS Past Med/Surg History Problem List (Updated 09/13/24 @ 20:08 by Ilia Bird MD) Elevated LFTs Chronic pain Chest pain (Acute) Cervical myofascial pain syndrome Sacroiliitis Pelvic pain Weight gain following gastric bypass surgery Bipolar disorder (Chronic) H/O gastric bypass (Chronic) Anemia Menorrhagia Symptomatic anemia Suicidal ideations (Acute) Hypothyroidism (Acute) Vitamin D deficiency Ovarian cyst Medical History GERD (gastroesophageal reflux disease) Idiopathic thrombocytopenia Sleep apnea hx of prior to gastric bypass Morbid obesity BMI 41 Thyroid disease Anemia Menorrhagia Bipolar affect, depressed Leukemia diagnosed 1986 Surgical History History of arthroscopy of left knee History of wisdom tooth extraction History of removal of Port-a-Cath Hx of cholecystectomy H/O: hysterectomy History of gastric bypass Family History Grandfather (Maternal) Coronary heart disease CAD, initially dx age 60 Other No family history of adverse response to anesthesia Social History Smoking Status: Former smoker Second Hand Exposure: No; Do You Dip or Chew Tobacco: No; Hx Alcohol Use: Yes Alcohol type: beer, wine and hard liquor Hx Substance Use: No Preferred Language: Croatian Communication Ability: Effective 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 Beliefs That Will Affect Care: None marital status: Current Living Situation: Spouse Current Living Situation Comment: lives at home with current occupational status: employed Other Information That Helps Us Care for You: No Feels Safe at Home: Yes Safety Concerns: Feels Safe At This Time Assistive Devices: Glasses and Hospital Bed Physical Exam Vital Signs Vital Signs - 24 hr 09/13/24 13:13 09/13/24 14:28 09/13/24 14:28 Temperature 36.1 C L Temperature Source Temporal Artery Scan Pulse Rate 74 Pulse Rate [Apical] 75 Pulse Rhythm [Apical] Pulse Strength Normal Pulse Strength [Apical] Respiratory Rate 16 20 Respiratory Effort / Characteristics Non-Labored Spontaneous Respiratory Depth Normal Respiratory Pattern Regular Blood Pressure 101/66 Blood Pressure [Right Arm] 93/61 L Blood Pressure Mean 77 Blood Pressure Mean [Right Arm] 71 Blood Pressure Position Sitting Blood Pressure Position [Right Arm] Pulse Oximetry 99 98 Oxygen Delivery Method Room Air Room Air Room Air Sepsis Recent Fever Within 48 Hours No Sepsis New/Unexplained Change in Mental Status No Sepsis Action Taken by Nursing No Action Required 09/13/24 14:28 09/13/24 15:55 09/13/24 16:02 Temperature Temperature Source Pulse Rate 76 Pulse Rate [Apical] 72 Pulse Rhythm [Apical] Regular Pulse Strength Pulse Strength [Apical] Normal Respiratory Rate 18 Respiratory Effort / Characteristics Non-Labored Spontaneous Respiratory Depth Normal Respiratory Pattern Regular Blood Pressure Blood Pressure [Right Arm] 100/66 Blood Pressure Mean Blood Pressure Mean [Right Arm] 77 Blood Pressure Position Blood Pressure Position [Right Arm] Sitting Pulse Oximetry 98 Oxygen Delivery Method Room Air Room Air Sepsis Recent Fever Within 48 Hours Sepsis New/Unexplained Change in Mental Status Sepsis Action Taken by Nursing Physical Exam GENERAL: oriented to person, place, and time. appears well-developed and well- nourished. HENT: Exam performed. - Head: Normocephalic and atraumatic. EYES: Conjunctivae and EOM are normal. Right eye exhibits no discharge. Left eye exhibits no discharge. No scleral icterus. NECK: Normal range of motion. Neck supple. No JVD present. CV: Normal rate, regular rhythm, normal heart sounds and intact distal pulses. There is no peripheral edema. Palpable radial pulses bue. PULM/CHEST: Effort normal and breath sounds normal. No respiratory distress. No stridor. no wheezes. no rales. ABD: The abdomen is soft. There is no tenderness. NEURO: Motor and sensation grossly intact. SKIN: Skin is warm and dry. He is not diaphoretic. Course Course 1409: The patient was evaluated in room A11. A complete history and physical exam was performed Cardiac monitoring: An order was placed for continuous cardiac monitoring. The monitor shows a rate of 70 with sinus rhythm interpreted by me 1600: Vital signs stable. Labs are unremarkable including a negative high- sensitivity troponin. Patient will be admitted for chest pain rule out ACS. Medical Decision Making Medical Records Attestation: I reviewed the patient's medical records. Medical records narrative: External medical records reviewed from the [facility] system by [facility] care case manager. High-sensitivity troponin conducted yesterday outpatient showed a high-sensitivity troponin of 19 Laboratory Data Attestation: I reviewed the patient's lab results. 09/13/24 13:29 09/13/24 13:29 Labs: Lab Results 09/13/24 Range/Units 13:29 WBC 5.75 (4.8-10.8) K/ul RBC 3.36 L (4.20-5.40) M/uL Hgb 11.2 L (12.0-16.0) g/dl Hct 34.1 L (37.0-47.0) % MCV 101.5 H (80.0-100.0) fL MCH 33.3 (25.0-34.0) pg MCHC 32.8 (32.0-36.0) g/dL RDW Std Deviation 48.8 H (36.4-46.3) fL RDW Coeff of Jignesh 13.1 (11.5-14.5) % Plt Count 227 (130-400) K/uL MPV 10.1 (9.4-12.4) fL Immature Gran % (Auto) 0.3 % Neut % (Auto) 72.1 % Lymph % (Auto) 21.7 % [place] % (Auto) 4.0 % Eos % (Auto) 1.2 % Baso % (Auto) 0.7 % Neut # (Auto) 4.14 (1.40-6.50) K/uL Lymph # (Auto) 1.25 (1.20-3.40) K/uL [place] # (Auto) 0.23 (0.11-0.59) K/uL Eos # (Auto) 0.07 (0.00-0.50) K/uL Baso # (Auto) 0.04 (0.00-0.20) K/uL Immature Gran # (Auto) 0.02 (0.01-0.20) K/uL PT 10.7 (9.0-12.0) Seconds INR 1.0 (0.9-1.1) APTT 29 (21-31) Seconds PTT Ratio 1.1 Sodium 139 (136-145) mmol/L Potassium 3.8 (3.5-5.1) mmol/L Chloride 106 (98-107) mmol/L Carbon Dioxide 30 (21-32) mmol/L Anion Gap 3 (3-11) BUN 15 (6-23) mg/dl Creatinine 1.29 H (0.6-1.2) mg/dl Est Cr Clr Drug Dosing 63.4 ml/min eGFR 52.16 BUN/Creatinine Ratio 11.6 (10-20) Glucose 61 L (70-99(Fasting)) mg/dl Calcium 8.7 (8.6-10.3) mg/dl Total Bilirubin 0.9 (0.2-1.0) mg/dl AST 33 (13-39) U/L ALT 53 H (7-52) U/L Alkaline Phosphatase 58 (34-104) U/L Troponin I High Sens < 2.3 (0-14) pg/ml Total Protein 6.7 (6.0-8.3) gm/dl Albumin 4.2 (3.4-5.0) gm/dl Globulin 2.5 (2.5-4.0) gm/dl Albumin/Globulin Ratio 1.7 (0.9-2) Imaging Data Chest x-ray: Attestation: I personally reviewed and interpreted this imaging study as follows: My impression: Chest x-ray negative. Airway clear. No pneumothorax. No consolidation. No cardiomegaly or cephalization.. No free air under the diaphragm. No fractures of the skeletal structures. Radiologist's impression: Chest X-Ray 09/13/24 13:17 XR chest 1V not portable CLINICAL HISTORY: Chest pain, nonspecific COMPARISON STUDY: 06/13/2023 FINDINGS: Heart size and pulmonary vasculature are normal. No effusion, consolidation, or pneumothorax. No grossly displaced rib fracture seen. IMPRESSION: No acute findings. ACT 112: Negative or not required by law. Electronically signed by: Mono Jon M.D. 09/13/2024 1:59 PM ECG Data Attestation: I personally reviewed and interpreted this ECG as follows: Rate (beats per minute): 70 Rhythm: normal sinus Findings: no ST depression, no ST elevation or no prolonged QT Additional Comments: QRS 70 MDM Narrative 1409: The patient was evaluated in room A11. A complete history and physical exam was performed Cardiac monitoring: An order was placed for continuous cardiac monitoring. The monitor shows a rate of 70 with sinus rhythm interpreted by me 1600: Vital signs stable. Labs are unremarkable including a negative high- sensitivity troponin. Patient will be admitted for chest pain rule out ACS. Impression & Plan Chest pain Discharge Plan Visit Data Chief Complaint: Chest Pain Stated Complaint: CHEST PAIN, ABN BLOOD WORK ED Provider: Ilia Bird Discharge Problem: Chest pain Patient Disposition: Admitted As Inpatient Discharge Instructions Interventions: ED Discharge Assessment Last Done: 09/13/24 17:25 Discharge Problem: Chest pain Qualifiers: Chest pain type: unspecified Qualified Code(s): R07.9 - Chest pain, unspecified
--- OUTSIDE RECORDS SUMMARY | 2024-09-13 20:31 | External Medical Summary | Summary of Care ---
Author Name Unknown Organization [facility] Address [address] [address] Phone [phone] Care Team Providers Care Emt P Name Role Phone Sammie Valverde PA-C Primary Care Provider [phone] Reason for Referral * Precert (Diagnostic Medical) (Within 10 days (routine)) - Authorized Specialty Diagnoses / Procedures Referred By Contyashira t Referred To Contact Cardiac Studies Diagnoses Chest tightness Elevated CK Procedures ECHO, COMPLETE (2D), TRANS-THORACIC Sammie Valverde PA-C [address] [place] [address] Phone: tel: fax: Referral ID Status Reason Start Date Expiration Date V isits Requested Visits Authorized [id number] Authorized Precert 09/07/2024 999 999 Reason for Visit * Reason Comments Acute Patient is here toda y to discuss lab work. Encounter Details Date Type Department Care Team (Late st Contact Info) Description 09/07/2024 9:40 AM EST Office Visit Akbar Kunz [address] [place] [phone] Sammie Valverde PA-C [address] [address] Vaccine for viral hepatitis*; Bipolar disorder, in partial remission, most recent episode depressed (HCC); Body mass index (BMI) of 40.0 to 44.9 in adult (HCC); Chest tightness; Elevated CK; Inflammation of sacroiliac joint (HCC) Allergies Active Allergy Reactions Criticality Noted Date Comments Amoxicillin Anaphylaxis High 05/05/2017 Aspirin 04/28/2021 Other reaction(s): Gastric bypass Ciprofloxacin Hcl Rash 05/05/2017 PO Only Can do the IV form Diphenhydramine Hcl Hives 06/14/2018 Erythromycin Hives 05/05/2017 Fentanyl Psych complications High 05/05/2017 Very Mean Ketorolac Tromethamine 06/14/2018 Latex Rash 05/05/2017 Penicillin G Anaphylaxis High 05/05/2017 Sulfa Antibiotics Rash 05/05/2017 Tramadol Rash 05/05/2017 Diclofenac Sodium Rash 05/05/2017 documented as of this encounter (statuses as of 09/08/2024) Medications Glucose 15 GM/32ML GELIndications:H ypoglycemia Use as needed for hypoglycemia 32 mL 5 01/17/20 20 Active LORazepam 0.5 MG Oral Tablet (Ativan) 12/04/19 21 Active OneTouch Delica Lancets 30G To test blood sugars twice a day. 100 Each 5 07/29/20 22 Active Dexcom G7 Marketing Budget Analyst Device Use as directed. 11/10/19 23 Active Dexcom G7 Sensor Use as directed. 0 23 Active Modafinil 100 MG Oral Tablet (Provigil) Take 1.5 tablets by mouth daily for excessive daytime sleepiness 135 Tablet 3 11:03 AM EDT 03/18/20 23 Active Tirosint-WILLIAM 200 MCG/ML Oral Solution (Levothyroxine Sodium) 500 mcg daily (2 vials of 200 mcg +1 vial of 100 mcg) 180 mL 11 05/18/20 23 Active Tirosint-WILLIAM 100 MCG/ML Oral Solution (Levothyroxine Sodium) take 500 mcg by mouth daily (2 vials of 200 mcg +1 vial of 100 mcg) 90 mL 11 3 8:13 AM EDT 05/18/20 23 Active Cyclobenzaprine HCl 10 MG Oral Tablet (Flexeril)Indica tions:Chronic tension-type headache, not intractable Take 1 Tablet by mouth 2 times a day as needed (headache). 30 Tablet 3 10/01/19 24 Active Ketoconazole 2 % External Shampoo (Nizoral)Indicat ions:Seborrheic dermatitis of scalp Shampoo to scalp two to three times a week 120 mL 11 4 3:23 PM EDT 11/09/19 24 Active Clobetasol Propionate 0.05 % External SolutionIndicati ons:Seborrheic dermatitis of scalp Apply several drops to scalp as needed for itch 50 mL 5 4 3:23 PM EDT 11/09/19 24 Active Vitamin D3 50 MCG (1999 UT) Oral Capsule Take 2 Capsules by mouth daily for 30 days, THEN 1 Capsule daily. 120 Capsule 3 12/13/19 24 025 Active Chlorhexidine Gluconate 4 % External Solution (Hibiclens) wash 2-3 times a week and have on the skin for 3-5 minutes prior to rinse 237 mL 4 10:44 AM EDT 02/23/20 24 Active guanFACINE HCl 1 MG Oral Tablet (Tenex) take 1 tablet by mouth every night 90 Tablet 4 12:36 PM EDT 04/28/20 24 Active Additional Information Patient taking differently: 2 mg, Reported on 09/07/2024 Dexcom G7 SensorIndication s:Reactive hypoglycemia USE DIRECTED, CHANGE EVERY 10 DAYS 9 Each 3 4 5:16 PM EST 05/02/20 24 025 Active Mounjaro 7.5 MG/0.5ML Subcutaneous Solution Auto-injector (Tirzepatide) inject 7.5mg under the skin once a week 2 mL 1 4 8:45 AM EST 07/06/20 24 Active Lurasidone HCl 120 MG Oral Tablet (Latuda) Take 1 Tablet by mouth daily with 350 calories 30 Tablet 5 10:56 AM EST 08/25/19 25 Active HYDROcodone-Acet aminophen 10-325 MG Oral TabletIndication s:Inflammation of sacroiliac joint (HCC) Take 1 Tablet by mouth every 6 hours as needed for Severe Pain 12 Tablet 5 11:43 AM EST 09/07/19 25 Active Latuda 80 MG Oral Tablet 100 mg. Per pt, now taking 100mg daily. 03/18/20 20 025 Discontin ued(Medic ation List Clean Up) Modafinil 100 MG Oral Tablet (Provigil) 09/22/19 23 025 Discontin ued(Medic ation List Clean Up) LORazepam 0.5 MG Oral Tablet (Ativan) take 1 tablet by mouth twice daily as needed for anxiety or panic attack (max 15 tablets per month) 15 Tablet 3 10:39 AM EST 07/07/20 23 025 Discontin ued(Medic ation List Clean Up) Lurasidone HCl 20 MG Oral Tablet (Latuda) Take one tablet by mouth daily with 350 calories in addition to 80mg tablet 90 Tablet 09/15/19 24 025 Discontin ued(Medic ation List Clean Up) Lurasidone HCl 80 MG Oral Tablet (Latuda) Take one tablet by mouth every day with 350 calorie meal 90 Tablet 4 8:49 AM EST 09/15/19 24 025 Discontin ued(Medic ation List Clean Up) Lurasidone HCl 20 MG Oral Tablet (Latuda) Take 1 tablet by mouth daily with 350 calories in addition to 80mg 90 Tablet 4 1:22 PM EDT 12/20/19 24 025 Discontin ued(Medic ation List Clean Up) Lurasidone HCl 20 MG Oral Tablet (Latuda) take 1 tablet by mouth daily with 350 calories in addition to 80mg 90 Tablet 4 1:28 PM EDT 03/13/20 24 025 Discontin ued(Medic ation List Clean Up) Lurasidone HCl 40 MG Oral Tablet (Latuda) take 1 tablet by mouth every day with 350 anamaria meal (this is in addition to 80 mg pill pt currently has)(total of 120mg/day) 30 Tablet 4 10:43 AM EDT 06/06/20 24 025 Discontin ued(Medic ation List Clean Up) predniSONE 10 MG Oral Tablet (Deltasone)Indic ations:Inflammat ion of sacroiliac joint (HCC) Take 5 tabs by mouth for 2 days, 4 tabs for 2 days, 3 tabs for 2 days, 2 tabs for 2 days 1 tab for 2 days 30 Tablet 08/04/20 24 025 Discontin ued(Medic ation List Clean Up) predniSONE 10 MG Oral Tablet (Deltasone) take 4 tab(s) by mouth for 3 days with food 12 Tablet 5 12:38 PM EST 08/22/19 25 025 Discontin ued(Medic ation List Clean Up) Pregabalin 50 MG Oral Capsule (Lyrica)Indicati ons:Sciatica of right side Take 1 Capsule by mouth at bedtime. In 1 week increase to twice a day 60 Capsule 2 5 12:38 PM EST 08/23/19 25 025 Discontin ued(Medic ation List Clean Up) LORazepam 0.5 MG Oral Tablet (Ativan) take 1 tablet by mouth up to three times a day as needed for anxiety/panic attack 10 Tablet 5 12:38 PM EST 08/25/19 25 025 Discontin ued(Medic ation List Clean Up) documented as of this encounter (statuses as of 09/08/2024) Active Problems Problem Noted Date Diagnosed Date Bipolar disorder, in partial remission, most recent episode depressed 09/07/2024 Body mass index (BMI) of 40.0 to 44.9 in adult 0 09/07/2024 Restless leg syndrome 05/17/2024 Myelopathy 01/18/2024 Type 2 diabetes mellitus without complication Numbness and tingling in both hands 03/26/2023 Ovarian cyst 03/25/2023 Suicidal ideations 03/25/2023 Chronic migraine w/o aura w/ o status migrainosus, not intractable 03/25/2023 Whole body pain 11/23/2022 Chronic tension-type headache, not intractable 0 11/17/2022 Cervicalgia 11/17/2022 Positional sleep apnea 07/15/2021 Overview (07/15/2021): 06/2021-Mild when supine associated with hypoxemia History of iron deficiency anemia 05/29/2021 Hypersomnolence 04/22/2021 Adrenal mass, left 01/24/2021 Intestinal postoperative nonabsorption Adrenal insufficiency 09/13/2019 Vitamin D deficiency 09/06/2019 B12 deficiency 02/11/2018 Iron deficiency anemia 06/08/2017 History of gastric bypass 05/05/2017 Hypothyroidism 05/05/2017 S/P laparoscopic cholecystectomy 08/25/2016 Major depressive disorder, recurrent episode Headache 10/08/2007 documented as of this encounter (statuses as of 09/08/2024) Resolved Problems Problem Noted Date Diagnosed Date Resolved Date Food insecurity 09/29/2021 10/28/2022 Overview: Per [facility] Protocol Restless legs syndrome 04/22/202111/23 Subclavian vein obstruction, left 01/24/2021 11/17/2022 Body mass index (BMI) of 40. 0 to 44.9 in adult 06/26/2019 06/14/2023 Overview: Per Obesity protocol Hypoglycemia 05/29/2019 01/24/2021 Gastric bypass status for obesity 06/08/2017 01/24/2021 Bipolar 2 disorder 05/05/2017 Iron deficiency anemia due t o chronic blood loss 05/05/2017 10/26/2017 documented as of this encounter (statuses as of 09/08/2024) Immunizations Name Administration Dates Next Due Covid-19 Ad26, Single Dose (Sae/J&J) 021 HEPATITIS B VACCINE, RECOMB, 20 MCG/ML, ADULT (HEPLISAV-B) 09/07/2024 PPD 09/03/2020,07/29/2017 Seasonal Influenza, PF, 6 M & above, IM , (FluLaval or Fluzone) 06/07/2023,06/18/2022 Seasonal Influenza, Quadrivalent, No Preserve, I M 06/12/2021 Seasonal Influenza, Trivalent, (IIV3), PF, (Fluz one) 06/21/2024 TDAP (age 10 and older)(Boostrix) 07/20/2017 documented as of this encounter Social History Tobacco Use Types Packs/Day Years Used Date Smoking Tobacco: Former Smokeless Tobacco: Former Quit: 2002 Alcohol Use Standard Drinks/Week Comments No 0 (1 standard drink = 0.6 oz pur e alcohol) Rare-twice yearly PHQ-2 Answer Date Recorded PHQ Adult Total Score 16 12/09/2020 Hunger Vital Sign Answer Date Recorded Within the past 12 months, y ou worried that your food would run out before you got the money to buy more. Never true 12/13/19 24 Within the past 12 months, t he food you bought just didn't last and you didn't have money to get more. Never true 12/13/2023 Childcare Answer Date Recorded Do you feel overwhelmed with taking care of a child, family member or friend? No 12/13/2023 Does your family need help f inding childcare? (Household - for ages 0-17 years) Not on file 12/13/2023 Clothing Answer Date Recorded Have you been unable to get clothing when it was really needed? No 12/13/2023 Is your family able to get c lothes or diapers when needed? (Household - for ages 0-17 years) Not on file 12/13/2023 Personal Safety Answer Date Recorded Do you feel unsafe or have concerns for your saf ety? No 12/13/2023 Do you have concerns for you r family's safety? (Household - for ages 0-17 years) Not on file 12/13/2023 Utilities Answer Date Recorded Do you have trouble paying y our heating, water, or electric bill? No 12/13/2023 Is your family able to pay t he heat, water, or electric bill? (Household - for ages 0-17 years) Not on file 12/13/2023 Does your family have access to good internet? (Household - for ages 0-17 years) Not on file 12/13/2023 Employment Status Answer Date Recorded Are you unemployed or without regular income? No 12/13/2023 [facility] the [facility] have a [facility] income? (Household - for ages 0-17 years) Not on file 12/13/2023 Social Connections Answer Date Recorded How often do you feel lonely or isolated from th ose around you? Never 12/13/2023 Financial Resource Strain Answer Date R ecorded Do you have any trouble payi ng for your medications, or do you think you might in the future? No 12/13/2023 Does your family have troubl e paying for medicine? (Household - for ages 0-17 years) Not on file 12/13/2023 Transportation Needs Answer Date Record ed READ ONLY Do you have troubl e getting a ride to medical visits or work? Never True 12/13/2023 Does your family have a hard time getting a ride to doctors visits? (Household - for ages 0-17 years) Not on file 12/13/2023 Has lack of transportation k ept you from medical appointments, meetings, work, or from getting things needed for daily living? Check all that apply. (Adult - for ages 18 years and over) Not on file 12/13/2023 Do you (or your family) have trouble finding or paying for a ride (transportation)? (Household - for ages 0-17 years) Not on file 12/13/2023 Housing Stability Answer Date Recorded Do you currently live in a s helter or have no steady place to sleep at night? No 12/13/2023 READ ONLY Do you think you a re at risk of becoming homeless? No 12/13/2023 Does your family worry about paying for your home or becoming homeless? (Household - for ages 0-17 years) Not on file 0 12/13/2023 Are you homeless or worried that you might be in the future? (Adult - for ages 18 years and over) Not on file Are you (or your family) mykel eless or worried that you might be in the future? (Household - for ages 0-17 years) Not on file Food Insecurity Answer Date Recorded Do you need food for this week? No 12/13/2023 Are you able to get enough f ood for your family? (Household - for ages 0-17 years) Not on file 12/13/2023 Does your family need food t his week? (Household - for ages 0-17 years) Not on file 12/13/2023 Do you always have enough fo od for your family? (Household - for ages 0-17 years) Not on file 12/13/2023 Comments No Sex and Gender Information Value Date Recorded Sex Assigned at Female 11/24/2018 6:22 PM EDT Legal Sex Female 10:38 AM EDT Gender Identity Female 11/24/2018 6:22 PM EDT Sexual Orientation Lesbian 05/12/2021 9: 21 PM EDT documented as of this encounter Last Filed Vital Signs Vital Sign Reading Time Taken Comments Blood Pressure 104/78 09/07/2024 9:36 AM EST Pulse 77 09/07/2024 9:36 AM EST Temperature 36.4 C (97.5 F) 09/07/2024 9:36 AM ES T Respiratory Rate 16 09/07/2024 9:36 AM EST Oxygen Saturation 98% 09/07/2024 9:36 AM EST Inhaled Oxygen Concentration - - Weight 96.8 kg (213 lb 8 oz) 09/07/2024 9:36 AM EST Height 165.1 cm (5' 5") 09/07/2024 9:36 AM EST Body Mass Index 35.53 09/07/2024 9:36 AM EST documented in this encounter Patient Instructions * Patient Instructions* Moraima Otero LPN - 09/07/2024 9:38 AM EST Vaccination is the best way to protect against hepatitis B. Depending on age and vaccine used most patients get 2 or 3 doses of hepatitis B vaccine. If you miss a dose or get behind schedule, get the next dose as soon as you can. There is no need to start over. Age for Hepatitis B Vaccine: INFANTS: *Infants whose mother HAS hepatitis B virus: #1 dose- at 2 month visit #2 dose- 1 month after dose #1 #3 dose- 7 months of age (at least 5 months after dose #1) *Infants whose mother does NOT have hepatitis B virus: #1 dose- - 2 months of age #2 dose- 1-4 months of age (at least 1 month after dose #1) #3 dose- 6-18 months of age ( at least 2 months after dose #2) *Adults at recommended age to receive Hepatitis B vaccine may receive 2 or 3 doses depending on thetype of vaccine administered: #1 dose- Now #2 dose- 1-2 months after dose #1 #3 dose- (if needed)- 4-6 months after dose #1 WHAT ARE THE RISKS FROM HEPATITIS B VACCINE? Hepatitis B vaccine is one of the safest vaccines. Getting the disease is much more likely to causeserious illness than getting the vaccine. MILD PROBLEMS: - soreness where the shot was given. - mild to moderate fever Acetaminophen or Ibuprofen (not aspirin) may be used to reduce fever and pain. SEVERE PROBLEMS: - serious allergic reaction is very rare. WHAT TO DO IF THERE IS A SERIOUS REACTION: - Call a doctor or get the person to a doctor right away. - Ask your doctor, nurse, or health department to file a Vaccine Adverse Event Report form. To filea report yourself you can call: (toll-free) LET YOUR DOCTOR KNOW IMMEDIATELY IF YOU HAVE DIFFICULTY BREATHING OR SWALLOWING, EXPERIENCE ITCHING OF FEET OR HANDS, HAVE SWELLING OF EYES, FACE OR INSIDE OF NOSE. documented in this encounter Progress Notes * Moraima Otero LPN - 09/07/2024 10:21 AM EST Pre-Administration Time Out Procedure Performed: Yes Patient Identified (Ask Name/Date of ): Yes Does the patient have a fever greater than 101 degrees today? No Patient allergic to latex? No Has the patient ever fainted after receiving an injection? No C Stock: No Immunization(s) verified: Yes, Immunization Name: Heplisav-B (Hepatitis B Vaccine Adult), VIS Sheet(s) given: Yes Verified Side and Site: Yes Verified Shot(s) with Parent(s)/Patient: Yes * Sammie Valverde PA-C - 09/07/2024 9:49 AM EST Images from the original note were not included. History of Present Illness Margarita ManciniTammyJuan Pablo is a 44 year old female that presents for Acute (Patient is here today to discuss lab work. ) Here for discussion about ck She has been seeing hepatology for her elevated lft They are concerned it could be her latuda They are working that up. She aches all the time When she lays down to sleep, her hips go numb She is seeing pain mgmt , they do not understand why this is happening. Neuropathy is getting worse. She does get small tinges of light chest pain Not to where it scares her No radiation A tightness No strong cardiac family history Recently took pred Makes not difference Taking lyrica. Once she started the am dose, she had to back off as it gave her headaches. It helps her sleep at night but feels no different. Sees [facility] for her injections Has one coming up soon. Results for orders placed or performed in visit on 07/24/24 T4, FREE Result Value Ref Range T4, Free 0.1 (L) 0.9 - 1.7 ng/dL LIPASE Result Value Ref Range Lipase 52 13 - 60 U/L CK Result Value Ref Range CK 387 (H) 26 - 192 U/L HEPATITIS A ANTIBODIES IGG AND IGM Result Value Ref Range Hepatitis A Antibodies IgG and IgM Negative Negative HEPATITIS B SURFACE ANTIBODY Result Value Ref Range Hepatitis B Surface Antibody, Quantitative 14.3 mIU/mL Hepatitis B Surface Antibody, Qualitative Positive Hepatitis B Surface Antibody, Interpretation Immune to Hepatitis B Virus CERULOPLASMIN Result Value Ref Range Ceruloplasmin 18 14 - 48 mg/dL FERRITIN Result Value Ref Range Ferritin 217 (H) 13 - 150 ng/mL IRON SCREEN, INCLUDING TIBC Result Value Ref Range Iron 85 33 - 151 ug/dL Iron Binding Capacity 256 250 - 425 ug/dL Transferrin Saturation Percent 33 15 - 55 % HEPATIC FUNCTION PANEL Result Value Ref Range Albumin 4.4 3.8 - 5.0 g/dL AST 40 (H) 10 - 35 U/L Alkaline Phosphatase 73 35 - 130 U/L ALT 71 (H) 10 - 35 U/L Bilirubin, Total 0.6 <=1.2 mg/dL Bilirubin, Direct 0.2 0.0 - 0.3 mg/dL Protein 6.6 6.0 - 8.3 g/dL CBC Result Value Ref Range WBC 5.24 4.00 - 10.80 K/uL RBC 3.32 3.85 - 5.15 M/uL HGB 11.4 (L) 12.0 - 15.3 g/dL HCT 35.3 (L) 36.0 - 45.2 % MCV 106.3 81.5 - 97.5 fL MCH 34.3 27.0 - 34.0 pg MCHC 32.3 32.0 - 36.0 g/dL RDW 13.2 11.5 - 15.5 % PLT 226 140 - 400 K/uL MPV 10.4 6.6 - 11.1 fL nRBCs 0 <=0 /100 WBCs DIFFERENTIAL, AUTOMATED Result Value Ref Range WBC 5.24 4.00 - 10.80 K/uL Neutrophils % 63.6 40.0 - 75.0 % Lymphocytes % 28.8 18.0 - 42.0 % Monocytes % 5.5 1.0 - 11.0 % Eosinophils % 0.6 0.0 - 6.0 % Basophils % 1.1 0.0 - 2.0 % Immature Granulocytes % 0.4 0.0 - 2.0 % Absolute Neutrophils 3.33 1.80 - 7.70 K/uL Absolute Lymphocytes 1.51 1.00 - 4.80 K/ul Absolute Monocytes 0.29 0.00 - 1.10 K/uL Absolute Eosinophils 0.03 0.00 - 0.70 K/uL Absolute Basophils 0.06 0.00 - 0.20 K/uL Absolute Immature Granulocytes 0.02 0.00 - 0.20 K/uL MYCODE SST1 Result Value Ref Range MyCode Specimen Freezing of extracted DNA, whole blood and/or serum. MYCODE SST2 Result Value Ref Range MyCode Specimen Freezing of extracted DNA, whole blood and/or serum. HEMOGLOBIN A1C Result Value Ref Range Hemoglobin A1C 4.7 4.0 - 5.6 % Estimated Average Glucose 88 <126 mg/dL *Note: Due to a large number of results and/or encounters for the requested time period, some results have not been displayed. A complete set of results can be found in Results Review. Physical Exam Vitals: 09/07/24 0936 Temp: 97.5 F (36.4 C) Pulse: 77 Resp: 16 SpO2: 98% BP: 104/78 BMI: 35.53 BP Readings from Last 3 Encounters: 09/07/24 104/78 08/23/24 94/64 06/12/24 92/63 Wt Readings from Last 3 Encounters: 09/07/24 213 lb 8 oz (96.8 kg) 08/23/24 204 lb 12.8 oz (92.9 kg) 05/11/24 201 lb (91.2 kg) BMI Readings from Last 3 Encounters: 09/07/24 35.53 kg/m 08/23/24 34.08 kg/m 05/11/24 33.45 kg/m Ht Readings from Last 3 Encounters: 09/07/24 5' 5" (1.651 m) 01/27/24 5' 5" (1.651 m) 07/22/23 5' 5" (1.651 m) General: alert, healthy, and no distress Head: Normocephalic, No masses, lesions, tenderness or abnormalities Heart: regular rate & rhythm, no murmur, no gallops, S-1 normal, and S-2 normal Lungs: chest symmetric with normal AP diameter, no chest deformities noted, no chest wall tenderness, lungs clear to auscultation Extremities: less than 2 second capillary refill, no joint deformities, effusion, or inflammation Skin: skin color, texture, turgor are normal, no rashes or significant lesions Assessment and Plan Vaccine for viral hepatitis (Primary) - HEP B VACC ADULT, 2 DOSE (HEPLISAV) IM - HEP B VACC ADULT, 2 DOSE (HEPLISAV) IM; Standing Bipolar disorder, in partial remission, most recent episode depressed (HCC) - sees psych, we discuss interaction with psych meds of narcotics, should be RARE use I have reviewed the patients controlled substance dispensing history in the Prescription Drug Monitoring Program in compliance with the [facility] regulations before prescribing a controlled substance. Last Tox Screen Results: No results found. However, due to the size of the patient record, not all encounters were searched.Please check Results Review for a complete set of results. Body mass index (BMI) of 40.0 to 44.9 in adult (HCC) Discuss weight loss Chest tightness - TROPONIN T, HIGH SENSITIVITY; Future; Expected date: 09/07/2024 - CK; Standing - CRP, HIGH SENSITIVITY (CARDIOVASCULAR RISK); Future; Expected date: 09/07/2024 - ECHO, COMPLETE (2D), TRANS-THORACIC; Future; Expected date: 09/07/2024 Elevated CK - TROPONIN T, HIGH SENSITIVITY; Future; Expected date: 09/07/2024 - CK; Standing - COMPREHENSIVE METABOLIC PANEL; Future; Expected date: 09/07/2024 - ERYTHROCYTE SEDIMENTATION RATE (ESR); Future; Expected date: 09/07/2024 - CRP, HIGH SENSITIVITY (CARDIOVASCULAR RISK); Future; Expected date: 09/07/2024 - CRP (INFLAMMATORY MARKER); Future; Expected date: 09/07/2024 - ECHO, COMPLETE (2D), TRANS-THORACIC; Future; Expected date: 09/07/2024 Inflammation of sacroiliac joint (HCC) - HYDROcodone-Acetaminophen 10-325 MG Oral Tablet; Take 1 Tablet by mouth every 6 hours as needed for Pain, Severe. Check-out note: Follow-up 1 month HepB nurse appt Wrap-Up Check-out note: Follow-up 1 month HepB nurse appt [place] for 3 days She is aware we cannot do medicare insurance specialist Would need radha Will interfere with her meds for her mental health issues if used regularly. Consider pred if k coming down - stronger longer taper Pt is in agreement with plan Rev algorithm for ck elevation management on utd Time: I spent a total of 40-54 minutes (exact time 45 mins) on the date of service in preparation, delivery, and documentation of the care provided to Margarita ManciniTammyJuan Pablo excluding any time spent in the performance of separately billed services. Sammie Valverde PA-C 09/07/2024 1:14 PM documented in this encounter Nursing Notes * Moraima Otero LPN - 09/07/2024 9:44 AM EST The patient has been properly identified by confirmation of name and date of . Chief Complaint Patient presents with Acute Patient is here today to discuss lab work. documented in this encounter Miscellaneous Notes * Addendum Note - Danielle Sánchez LPN - 09/08/2024 9:37 AM ESTAddended by: DANIELLE SÁNCHEZ on: 09/08/2024 09:37 AM Modules accepted: Orders documented in this encounter Plan of Treatment Upcoming Encounters Date Type Department Care Team (Late st Contact Info) Description 09/29/2024 8:45 AM EST Cardiac Studies [address] [place] [id number] 10/02/2024 1:00 PM EST Laboratory Laboratory [facility] [place] [address] [place], [place] [phone] Hod[facility] [address] [place], [place] [address] 10/02/2024 2:00 PM EST Office Visit Hematology/Oncology [facility] [place] [address] [place] [phone] Elliott Monique MD [address] [place] [id number] 11/08/2024 8:40 AM EDT Office Visit [facility] [address] [place] [phone] Sammie Valverde PA-C [address] [place] [address] 03/02/2025 9:45 AM EDT Office Visit Dermatology [facility] [place] [address] [facility] [address] [place], [place] [address] Ajit Deshpande MD [address] [facility] [address] [place], [place] [address] Scheduled Orders Name Type Priority Associated Diagnoses Order Schedule TROPONIN T, HIGH SENSITIVITY Lab Routine Chest tightness Elevated CK Expected: 09/07/2024 (Approximate), Expires: 09/07/2025 CK Lab Routine Chest tightness Elevated CK 4 Occurrences starting 09/07/2024 until 09/07/2025 COMPREHENSIVE METABOLIC PANEL Lab Routine Elevated CK Expected: 09/07/2024 (Approximate), Expires: 09/07/2025 ERYTHROCYTE SEDIMENTATION RATE (ESR) Lab Routine Elevated CK Expected: 09/07/2024 (Approximate), Expires: 09/07/2025 CRP, HIGH SENSITIVITY (CARDIOVASCULAR RISK) Lab Routine Chest tightness Elevated CK Expected: 09/07/2024 (Approximate), Expires: 09/07/2025 CRP (INFLAMMATORY MARKER) Lab Routine Elevated CK Expected: 09/07/2024 (Approximate), Expires: 09/07/2025 ECHO, COMPLETE (2D), TRANS-THORACIC Echocardiology Routine Chest tightness Elevated CK Expected: 09/07/2024, Expires: 10/08/2026 Health Maintenance Due Date Last Done Comments HIV Screening 1994 Pneumococcal Vaccine: Pediatrics (0 to 5 Years) and At-Risk Patients (6 to 18 Years and 19+ Years) (1 of 2 - PCV) 1998 Depression Monitoring 12/09/2021 12/09/2020 COVID-19 Vaccine (2 - season) 2024 10/27/2020 Cologuard 2024 Fecal Occult Blood Test 2024 Sigmoidoscopy 2024 Hepatitis B Vaccine (2 of 2 - CpG 2-dose series) 10/05/2024 09/07/2024 Mammogram 01/06/2025 01/07/2024, 12/15, 01/04/2023, Additional history exists HbA1c 01/22/2025 07/24/2024, 12/15, 05/10/2023, Additional history exists Diabetic Foot Exam 02/03/2025 02/04/2024 GFR 03/27/2025 03/27/2024, 04, 11/19/2023, Additional history exists TSH 03/27/2025 03/27/2024, 2 01/2024, 05/10/2023, Additional history exists Diabetic Eye Exam 06/16/2025 06/16/2024, , 06/16/2024 Albumin/Creatinine Ratio 07/24/2025 07/24/2024 DTap/Tdap Vaccines (3 - Td or Tdap) 07/20/2027 07/20/2017, 12/03/2009 Lipid Panel 01/06/2029 01/07/2024, 04/17, 04/03/2022, Additional history exists Colonoscopy 01/29/2033 01/29/2023, 01/29/2023 Colorectal Cancer Screening 01/29/2033 Pap Smear Discontinued 09/23/2017 (Not indicated), 05/05/2017 (Not indicated) Hepatitis C Screening Completed 01/07/2024 Influenza Vaccine (FLU shot) Completed 06/21/2024, 06/21/2024, 06/07/2023, Additional history exists HPV (Gardasil) Vaccine Aged Out No lo nger eligible based on patient's age to complete this topic MENINGOCOCCAL (MENACTRA/MENVEO) Aged Out No longer eligible based on patient's age to complete this topic documented as of this encounter Medical Devices Not on filedocumented as of this encounter Visit Diagnoses Diagnosis Vaccine for viral hepatitis- Primary Need for prophylactic vaccination and inoculation against viral hepatitis Bipolar disorder, in partial remission, most recent episode depressed (HCC) Bipolar I disorder, most recent episode (or current) depressed, in partial or unspecified remission Body mass index (BMI) of 40.0 to 44.9 in adult (HCC) Chest tightness Other chest pain Elevated CK Other nonspecific abnormal serum enzyme levels Inflammation of sacroiliac joint (HCC) Sacroiliitis, not elsewhere classified documented in this encounter Care Teams Emt P Relationship Specialty Start Date End Date Sammie Valverde PA-C PCP - General Physician Air Brake Man 08/27/23 documented as of this encounter
--- OUTSIDE RECORDS SUMMARY | 2024-09-13 20:31 | External Medical Summary | Summary of Care ---
Author Name Unknown Organization [facility] Address [address] [facility] [place] [address] Phone [phone] Care Team Providers Care Lipcoat Sprayer Name Role Phone Sammie Valverde PA-C Primary Care Provider [phone] Reason for Visit * Reason Onset Date Comments Advice 09/08/2024 Encounter Details Date Type Department Care Team (Late st Contact Info) Description 09/08/2024 [facility] [address] [place] [phone] Sammie Valverde PA-C [address] [facility] [place] [address] Advice Allergies Active Allergy Reactions Criticality Noted Date [...] as needed for hypoglycemia 32 mL 5 0 Active LORazepam 0.5 MG Oral Tablet (Ativan) 1 Active OneTouch Delica Lancets 30G To test blood sugars twice a day. 100 Each 5 2 Active Dexcom G7 It Infrastructure Engineer Device Use as directed. 11/10/19 2 3 Active Dexcom G7 Sensor Use as directed. 02 3 Active Modafinil 100 MG Oral Tablet (Provigil) Take 1.5 tablets by mouth daily for excessive daytime sleepiness 135 Tablet 04/03/2023 11:03 AM EDT 3 Active Tirosint-WILLIAM 200 MCG/ML Oral Solution (Levothyroxine Sodium) 500 mcg daily (2 vials of 200 mcg +1 vial of 100 mcg) 180 mL 11 3 Active Tirosint-WILLIAM 100 MCG/ML Oral Solution (Levothyroxine Sodium) take 500 mcg by mouth daily (2 vials of 200 mcg +1 vial of 100 mcg) 90 mL 11 06/01/2023 8:13 AM EDT 3 Active Cyclobenzaprine HCl 10 MG Oral Tablet (Flexeril)Indica tions:Chronic tension-type headache, not intractable Take 1 Tablet by mouth 2 times a day as needed (headache). 30 Tablet 3 4 Active Ketoconazole 2 % External Shampoo (Nizoral)Indicat ions:Seborrheic dermatitis of scalp Shampoo to scalp two to three times a week 120 mL 11 11/10/2023 3:23 PM EDT 4 Active Clobetasol Propionate 0.05 % External SolutionIndicati ons:Seborrheic dermatitis of scalp Apply several drops to scalp as needed for itch 50 mL 5 11/10/2023 3:23 PM EDT 4 Active Vitamin D3 50 MCG (1999 UT) Oral Capsule Take 2 Capsules by mouth daily for 30 days, THEN 1 Capsule daily. 120 Capsule 3 4 025 Active Chlorhexidine Gluconate 4 % External Solution (Hibiclens) wash 2-3 times a week and have on the skin for 3-5 minutes prior to rinse 237 mL 02/26/2024 10:44 AM EDT 4 Active guanFACINE HCl 1 MG Oral Tablet (Tenex) take 1 tablet by mouth every night 90 Tablet 04/29/2024 12:36 PM EDT 4 Active Additional Information Patient taking differently: 2 mg, Reported on 09/07/2024 Dexcom G7 SensorIndication s:Reactive hypoglycemia USE DIRECTED, CHANGE EVERY 10 DAYS 9 Each 3 07/31/2024 5:16 PM EST 4 025 Active Mounjaro 7.5 MG/0.5ML Subcutaneous Solution Auto-injector (Tirzepatide) inject 7.5mg under the skin once a week 2 mL 1 07/10/2024 8:45 AM EST 4 Active Lurasidone HCl 120 MG Oral Tablet (Latuda) Take 1 Tablet by mouth daily with 350 calories 30 Tablet 08/30/2024 10:56 AM EST 5 Active HYDROcodone-Acet aminophen 10-325 MG Oral TabletIndication s:Inflammation of sacroiliac joint (HCC) Take 1 Tablet by mouth every 6 hours as needed for Severe Pain 12 Tablet 5 Active documented as of this encounter (statuses as [...] No 12/13/2023 Does the household have a re gular source of income? (Household - for ages [...] PM EDT documented as of this encounter Miscellaneous Notes * Telephone Encounter - Yanni Llanos PHARM Tech - 09/08/2024 9:23 AM EST Transferred pt to [facility] Thank you, Yanni Llanos [facility] Art Therapist II Centralized Clinical Pharmacy Services([facility]PS) 09/08/2024,9:24 AM documented in this encounter Plan of Treatment Upcoming Encounters Date Type Department Care Team (Late st Contact Info) Description 09/29/2024 8:45 AM EST Cardiac Studies Cardiac Studies, [address] [place] [phone] 10/02/2024 1:00 PM EST Laboratory Laboratory [facility] [address] [place] [phone] [place], Lab [place] [address] [address] [facility] [place] [address] 10/02/2024 2:00 PM EST Office Visit Hematology/Oncology [facility] [address] [place] [address] Elliott Monique MD [address] [place] [address] 11/08/2024 8:40 AM EDT Office Visit Family Practice, Akbar Paez [address] [place] [phone] Sammie Valverde PA-C [address] [place] [address] 03/02/2025 9:45 AM EDT Office Visit Dermatology [facility] [address] [place], [place] [address] Ajit Deshpande MD [address] [place], [place] [address] Health Maintenance Due Date Last Done Comments HIV Screening 1994 Pneumococcal Vaccine: Pediatrics (0 to 5 Years) and At-Risk Patients (6 to 18 Years and 19+ Years) (1 of 2 - PCV) 1998 Depression Monitoring 12/09/2021 12/09/2020 COVID-19 Vaccine (2 - 2023- season) 2024 10/27/2020 Cologuard 2024 Fecal Occult Blood Test 2024 Sigmoidoscopy 2024 Hepatitis B Vaccine (2 of 2 - CpG 2-dose series) 10/05/2024 09/07/2024 Mammogram 01/06/2025 01/07/2024, 12/15, 01/04/2023, Additional history exists HbA1c 01/22/2025 07/24/2024, 12/15, 05/10/2023, Additional history exists Diabetic Foot Exam 02/03/2025 02/04/2024 GFR 03/27/2025 03/27/2024, 04, 11/19/2023, Additional history exists TSH 03/27/2025 03/27/2024, 11/15, 05/10/2023, Additional history exists Diabetic Eye Exam [...] Not on filedocumented as of this encounter Care Teams Lipcoat Sprayer Relationship Specialty Start Date End Date Sammie Valverde PA-C PCP - General Physician Correctional Manager 08/27/23 documented as of this encounter
--- OUTSIDE RECORDS SUMMARY | 2024-09-13 20:31 | External Medical Summary | Summary of Care ---
Author Name Unknown Organization [facility] Address [address] [facility] [place] [address] Phone [phone] Care Team Providers Care Cartoon Animator Name Role Phone Sammie Valverde PA-C Primary Care Provider [phone] Reason for Visit * Reason Onset Date Comments Advice 09/08/2024 Encounter Details Date Type Department Care Team (Late st Contact Info) Description 09/08/2024 [facility]phone [facility] [address] [place] [address] Sammie Valverde PA-C 226 [facility] [place] [address] Advice Allergies Active Allergy [...] 100 Each 5 2 Active Dexcom G7 Cable Tool Driller Device Use as directed. 11/10/19 2 3 [...] as needed for Severe Pain 12 Tablet 09/08/2024 11:43 AM EST 5 Active documented as of this encounter [...] encounter Miscellaneous Notes * Telephone Encounter - Lupis Hayden CRNP - 09/08/2024 2:09 PM EST Inboxologist note: This prescription can not be addressed by the Inboxology team as it is either a controlled substance or patient has outstanding factors that would keep the prescription from being refilled at this time. Prescription will be deferred to listed PCP or clinic that this clinician as attach to. Can wait for pcp review * Telephone Encounter - Danielle Martinez LPN - 09/08/2024 9:38 AM EST Patient needs refills on Guanfacine and ativan. Called in accusing nurse from visit yesterday of deleting medications from her med list and states it is a medication error. Medications are still on patients med list, they just have no refills available. Used foul language while speaking to nurse on the phone and generally unpleasant/rude. * Telephone Encounter - Yanni Llanos PHARM Tech - 09/08/2024 9:23 AM EST Transferred pt to [facility] Thank you, Yanni Llanos CPhT Mail Processing Machine Operator II [facility] Pharm[facility] Services([facility]) 09/08/2024,9:24 AM documented in this encounter Plan of Treatment Upcoming Encounters Date Type Department Care Team (Late st Contact Info) Description 09/29/2024 8:45 AM EST Cardiac Studies Cardiac Studies, [address] [place] [address] 10/02/2024 1:00 PM EST Laboratory Laboratory [facility] [place] [address] [facility] [place], [place] [phone] HodanRuby [facility] [address] [facility] [place] [address] 10/02/2024 2:00 PM EST Office Visit Hematology/Oncology [facility] [place] [address] [facility] [place] [phone] Elliott Monique MD 200 [facility] [place] [address] 11/08/2024 8:40 AM EDT Office Visit [facility] [address] [place] [phone] Sammie Valverde PA-C [address] [place] [address] 03/02/2025 9:45 AM EDT Office Visit Dermatology [facility] [place] [address] [facility] [place] [address] Ajit Deshpande MD [address] [facility] [place], [place] [address] Health Maintenance Due Date Last Done Comments [...] Foot Exam 02/03/2025 02/04/2024 GFR 03/27/2025 03/27/2024, 04/1 , 11/19/2023, Additional history exists TSH 03/27/2025 03/27/2024, [...] filedocumented as of this encounter Care Teams Cartoon Animator Relationship Specialty Start Date End Date Sammie Valverde PA-C PCP - General Physician Diesel Engine Inspector 08/27/23 documented as of this encounter
--- OUTSIDE RECORDS SUMMARY | 2024-09-13 20:31 | External Medical Summary | Summary of Care ---
Author Name Unknown Organization [facility] Address [address] [facility] [place] [address] Phone [phone] Care Team Providers Care Biological Engineer Name Role Phone Sammie Valverde PA-C Primary Care Provider [phone] [phone] Reason for Visit * Reason Onset Date Comments Advice 09/08/2024 Encounter Details Date Type Department Care Team (Late st Contact Info) Description 09/08/2024 [facility] [address] [place] [phone] Sammie Valverde PA-C 226 [facility] [place] [address] Advice Allergies Active [...] 100 Each 5 2 Active Dexcom G7 Automation Technologist Device Use as directed. 11/10/19 2 3 [...] encounter Miscellaneous Notes * Telephone Encounter - Danielle Martinez LPN [...] 09/08/2024 9:23 AM EST Transferred pt to [facility] Thank you, Yanni Llanos [facility] Film Splicer II [facility] Clinical Pharmacy Services([facility]) 09/08/2024,9:24 AM documented in this encounter Plan of Treatment Upcoming Encounters Date Type Department Care Team (Late st Contact Info) Description 09/29/2024 8:45 AM EST Cardiac Studies Cardiac Studies, [address] [place] [phone] 10/02/2024 1:00 PM EST Laboratory Laboratory [facility] [place] Jorge Pettit [address] [place] [phone] Ruby [facility] [address] [place] [address] 10/02/2024 2:00 PM EST Office [facility] [place]aur [address] [place] [phone] Elliott Monique MD [address] [place] [address] 11/08/2024 8:40 AM EDT Office Visit Family [facility] [place] Isha Philippe [address] [place] [phone] Sammie Valverde PA-C [address] [place] [address] 03/02/2025 9:45 AM EDT Office Visit Dermatology [place] Pettit [place] [address] [facility] [place] [address] Ajit Deshpande MD [address] [facility] [place] [address] Health Maintenance Due Date Last Done Comments [...] Foot Exam 02/03/2025 02/04/2024 GFR 03/27/2025 03/27/2024, 11/14, 11/19/2023, Additional history exists TSH 03/27/2025 03/27/2024, [...] filedocumented as of this encounter Care Teams Biological Engineer Relationship Specialty Start Date End Date Sammie Valverde PA-C PCP - General Physician Critical Care Nurse 08/27/23 documented as of this encounter
--- OUTSIDE RECORDS SUMMARY | 2024-09-13 20:31 | External Medical Summary | Summary of Care ---
Author Name Unknown Organization [facility] Address [address] [facility] [address] Phone [phone] Care Team Providers Care Qualitative Field Coordinator Name Role Phone Sammie Valverde PA-C Primary Care Provider [phone] Reason for Referral * Precert (Diagnostic Medical) (Within 10 days (routine)) - Authorized Specialty Diagnoses / Procedures Referred By Contyashira t Referred To Contact Cardiac Studies Diagnoses Chest tightness Elevated CK Procedures ECHO, COMPLETE (2D), TRANS-THORACIC Sammie Valverde PA-C [address] [place] [address] Phone: tel: fax: Referral ID Status Reason Start Date Expiration Date V isits Requested Visits Authorized [id number] Authorized Precert 09/07/2024 999 [id number] Reason for Visit * Reason Comments Acute Patient is here toda y to discuss lab work. Encounter Details Date Type Department Care Team (Late st Contact Info) Description 09/07/2024 9:40 AM EST Office Visit Akbar [address] [place] [phone] Sammie Valverde PA-C [address] [place] [address] Vaccine for viral hepatitis*; Bipolar disorder, in [...] as of this encounter (statuses as of 09/07/2024) Medications Glucose 15 GM/32ML GELIndications:H ypoglycemia Use as needed for hypoglycemia 32 mL 5 01/17/20 20 Active LORazepam 0.5 MG Oral Tablet (Ativan) 12/04/19 21 Active OneTouch Delica Lancets 30G To test blood sugars twice a day. 100 Each 5 07/29/20 22 Active Dexcom G7 Silver Miner Device Use as directed. 11/10/19 23 Active [...] as needed for Severe Pain 12 Tablet 09/07/19 25 Active Latuda 80 MG Oral [...] as of this encounter (statuses as of 09/07/2024) Active Problems Problem Noted Date Diagnosed Date [...] as of this encounter (statuses as of 09/07/2024) Resolved Problems Problem Noted Date Diagnosed Date [...] as of this encounter (statuses as of 09/07/2024) Immunizations Name Administration Dates Next Due Covid-19 [...] ever fainted after receiving an injection? No VFC Stock: No Immunization(s) verified: Yes, Immunization Name: Heplisav-B (Hepatitis B Vaccine Adult), VIS Sheet(s) given: Yes Verified Side and Site: Yes Verified Shot(s) with Parent(s)/Patient: Yes * Sammie Valverde PA-C - 09/07/2024 9:49 AM EST Images from the original note were not included. History of Present Illness Margarita Shah is a 44 year old female that [...] Drug Monitoring Program in compliance with the [facility] regulations before prescribing a controlled substance. Last [...] note: Follow-up 1 month HepB nurse appt [place] for 3 days She is aware we cannot do skilled nursing Would need radha Will interfere with her [...] documentation of the care provided to Margarita Edd Shah excluding any time spent in the performance [...] discuss lab work. documented in this encounter Plan of Treatment Upcoming Encounters Date Type Department Care Team (Late st Contact Info) Description 09/29/2024 8:45 AM EST Cardiac Studies [facility] [address] [facility] [place] [phone] 10/02/2024 1:00 PM EST Laboratory Laboratory [place] [address] [place] [address] [phone] Ruby Pettit [facility] [address] [place] [address] 10/02/2024 2:00 PM EST Office Visit Hematology/Oncology [place] Theodore [address] [place] [address] Elliott Monique MD 200 [facility] [place] [address] 11/08/2024 8:40 AM EDT Office Visit [facility] [phone] Sammie Valverde PA-C 226 [place] [address] 03/02/2025 9:45 AM EDT Office Visit Dermatology [facility] 200 [facility] [place] [address] Ajit Deshpande MD 200 [facility] [place] [address] Scheduled Orders Name Type Priority Associated Diagnoses [...] classified documented in this encounter Care Teams Qualitative Field Coordinator Relationship Specialty Start Date End Date Sammie Valverde PA-C PCP - General Physician District Engineer 08/27/23 documented as of this encounter
--- OUTSIDE RECORDS SUMMARY | 2024-09-13 20:31 | External Medical Summary | Summary of Care ---
Author Name Unknown Organization [facility] Address [address] [facility] [address] Phone [phone] Care Team Providers Care Psychological Operations Specialist Name Role Phone Sammie Valverde PA-C Primary Care Provider [phone] [phone] Reason for Referral * Precert (Diagnostic Medical) (Within 10 days (routine)) - Authorized Specialty Diagnoses / Procedures Referred By Contyashira t Referred To Contact Cardiac Studies Diagnoses Chest tightness Elevated CK Procedures ECHO, COMPLETE (2D), TRANS-THORACIC Sammie Valverde PA-C [address] [place] [address] Phone: tel: fax: Referral ID Status Reason Start Date Expiration Date V isits Requested Visits Authorized [id number] Authorized Precert 09/07/2024 999 [id number] Reason for Visit * Reason Comments Acute Patient is here toda y to discuss lab work. Encounter Details Date Type Department Care Team (Late st Contact Info) Description 09/07/2024 9:40 AM EST Office Visit Akbar [address] [place] [phone] Sammie Valverde PA-C [address] [place] [address] Vaccine for viral hepatitis*; Bipolar disorder, in [...] Each 5 07/29/20 22 Active Dexcom G7 Relay Tester Device Use as directed. 11/10/19 23 Active [...] Monitoring Program in compliance with the [facility] regulations before prescribing a controlled substance. [...] note: Follow-up 1 month HepB nurse appt [place] for 3 days She is aware we cannot do half-way Would need radha Will interfere with her [...] documentation of the care provided to Margarita Puga Pablo excluding any time spent in the [...] Studies, [address] [place] [address] 10/02/2024 1:00 PM EST Laboratory Laboratory [facility] [address] [place], [place] [address] Campbell [facility] 200 [facility] [place], [place] [address] 10/02/2024 2:00 PM EST Office Visit Hematology/Oncology [facility] [address] [place], [place] [address] Elliott Monique MD [address] [place], [place] [address] 11/08/2024 8:40 AM EDT Office Visit [facility] 226 [place] [phone] Sammie Valverde PA-C 226 [place] [address] 03/02/2025 9:45 AM EDT Office Visit Dermatology [facility] [place] [address] [place], [place] [address] Ajit Deshpande MD 200 [facility] [place], [place] [address] Scheduled Orders Name Type Priority Associated Diagnoses [...] classified documented in this encounter Care Teams Psychological Operations Specialist Relationship Specialty Start Date End Date Sammie Valverde PA-C PCP - General Physician Hand Dry Cleaner 08/27/23 documented as of this encounter
--- OUTSIDE RECORDS SUMMARY | 2024-09-13 20:32 | External Medical Summary | Summary of Care ---
Author Name Unknown Organization [facility] Address [address] [facility] [place] [address] Phone [phone] Care Team Providers Care Nipple Maker Name Role Phone Sammie Valverde PA-C Primary Care Provider [phone] [phone] Reason for Visit * Reason Comments Acute Encounter Details Date Type Department Care Team (Latest Contact Info) Description 08/23/2024 9:20 AM EST Office Visit General Internal Medicine [facility] [place] [address] [place] [address] Jessica Kimball MD 200 [facility] [place] [address] Sciatica of right side*; Type 2 diabetes mellitus without complication, unspecified whether long-term insulin use (HCC); Episode of recurrent major depressive disorder, unspecified depression episode severity (HCC); History of gastric bypass; Adrenal insufficiency (HCC); Myelopathy ([facility]) Allergies Active Allergy Reactions Criticality Noted Date [...] as of this encounter (statuses as of 08/23/2024) Medications Glucose 15 GM/32ML GELIndications:H ypoglycemia Use as needed for hypoglycemia 32 mL 5 01/17/20 20 Active Latuda 80 MG Oral Tablet 100 mg. Per pt, now taking 100mg daily. 03/18/20 20 Active LORazepam 0.5 MG Oral Tablet (Ativan) 12/04/19 21 Active OneTouch Delica Lancets 30G To test blood sugars twice a day. 100 Each 5 07/29/20 22 Active Modafinil 100 MG Oral Tablet (Provigil) 09/22/19 23 Active Dexcom G7 Branch Account Manager Device Use as directed. 11/10/19 23 Active [...] 3 8:13 AM EDT 05/18/20 23 Active LORazepam 0.5 MG Oral Tablet (Ativan) take 1 tablet by mouth twice daily as needed for anxiety or panic attack (max 15 tablets per month) 15 Tablet 3 10:39 AM EST 07/07/20 23 Active Lurasidone HCl 20 MG Oral Tablet (Latuda) Take one tablet by mouth daily with 350 calories in addition to 80mg tablet 90 Tablet 09/15/19 24 Active Lurasidone HCl 80 MG Oral Tablet (Latuda) Take one tablet by mouth every day with 350 calorie meal 90 Tablet 4 8:49 AM EST 09/15/19 24 Active Cyclobenzaprine HCl 10 MG Oral Tablet [...] 120 Capsule 3 12/13/19 24 025 Active Lurasidone HCl 20 MG Oral Tablet (Latuda) Take 1 tablet by mouth daily with 350 calories in addition to 80mg 90 Tablet 4 1:22 PM EDT 12/20/19 24 Active Chlorhexidine Gluconate 4 % External Solution (Hibiclens) wash 2-3 times a week and have on the skin for 3-5 minutes prior to rinse 237 mL 4 10:44 AM EDT 02/23/20 24 Active Lurasidone HCl 20 MG Oral Tablet (Latuda) take 1 tablet by mouth daily with 350 calories in addition to 80mg 90 Tablet 4 1:28 PM EDT 03/13/20 24 Active guanFACINE HCl 1 MG Oral Tablet (Tenex) take 1 tablet by mouth every night 90 Tablet 4 12:36 PM EDT 04/28/20 24 Active Additional Information Patient taking differently: 2 mg, Reported on 08/23/2024 Dexcom G7 SensorIndication s:Reactive hypoglycemia USE DIRECTED, CHANGE EVERY 10 DAYS 9 Each 3 4 5:16 PM EST 05/02/20 24 025 Active Lurasidone HCl 40 MG Oral Tablet (Latuda) take 1 tablet by mouth every day with 350 anamaria meal (this is in addition to 80 mg pill pt currently has)(total of 120mg/day) 30 Tablet 4 10:43 AM EDT 06/06/20 24 Active Mounjaro 7.5 MG/0.5ML Subcutaneous Solution Auto-injector (Tirzepatide) inject 7.5mg under the skin once a week 2 mL 1 4 8:45 AM EST 07/06/20 24 Active predniSONE 10 MG Oral Tablet (Deltasone)Indic ations:Inflammat ion of sacroiliac joint (HCC) Take 5 tabs by mouth for 2 days, 4 tabs for 2 days, 3 tabs for 2 days, 2 tabs for 2 days 1 tab for 2 days 30 Tablet 08/04/20 24 Active predniSONE 10 MG Oral Tablet (Deltasone) take 4 tab(s) by mouth for 3 days with food 12 Tablet 08/22/19 25 Active Pregabalin 50 MG Oral Capsule (Lyrica)Indicati ons:Sciatica of right side Take 1 Capsule by mouth at bedtime. In 1 week increase to twice a day 60 Capsule 2 08/23/19 25 Active Methocarbamol 500 MG Oral Tablet (Robamol) take 1 to 2 tablets orally at bedtime; 30 Tablet 4 12:07 PM EDT 11/19/19 24 025 Discontin ued(Medic ation List Clean Up) Mounjaro 2.5 MG/0.5ML Subcutaneous Solution Pen-injector (Tirzepatide) Inject 2.5 mg under the skin once a week 2 mL 4 10:44 AM EDT 02/23/20 24 025 Discontin ued(Medic ation List Clean Up) LORazepam 0.5 MG Oral Tablet (Ativan) take 1 tablet by mouth up to three times a day as needed for anxiety/panic attack 30 Tablet 4 1:28 PM EDT 03/13/20 24 025 Discontin ued(Medic ation List Clean Up) Mounjaro 7.5 MG/0.5ML Subcutaneous Solution Pen-injector (Tirzepatide) inject 7.5mg under the skin once weekly 2 mL 1 4 11:28 AM EDT 04/19/20 24 025 Discontin ued(Medic ation List Clean Up) Magnesium Chloride 64 MG Oral Tablet Take 2 Tablets by mouth. 025 Discontin ued(Medic ation List Clean Up) documented as of this encounter (statuses as of 08/23/2024) Active Problems Problem Noted Date Diagnosed Date Restless leg syndrome 05/17/2024 Myelopathy 01/18/2024 Type [...] as of this encounter (statuses as of 08/23/2024) Resolved Problems Problem Noted Date Diagnosed Date [...] as of this encounter (statuses as of 08/23/2024) Immunizations Name Administration Dates Next Due Covid-19 Ad26, Single Dose (Sae/J&J) 021 PPD 09/03/2020,07/29/2017 Seasonal Influenza, PF, 6 M [...] Sign Reading Time Taken Comments Blood Pressure 94/64 08/23/2024 9:44 AM EST Pulse 88 08/23/2024 9:44 AM EST Temperature 36.2 C (97.2 F) 08/23/2024 9:44 AM ES T Respiratory Rate - - Oxygen Saturation 97% 08/23/2024 9:44 AM EST Inhaled Oxygen Concentration - - Weight 92.9 kg (204 lb 12.8 oz) 08/23/2024 9:44 AM EST Height - - Body Mass Index 34.08 01/27/2024 10:58 AM EDT documented in this encounter Progress Notes * Jessica Kimball MD - 08/23/2024 9:48 AM EST Images from the original note were not included. History of Present Illness Margarita Puga Pablo is a 44 year old female that presents for Acute She also went to ER yesterday where prednisone was given and 1 Vicodin was sent which really helped- ER note reviewed Intolerance to gabapentin before. Patient is diabetic also has adrenal insufficiency in the problemlist Lower Extremity Pain The pain is present in the right hip (Pain in the right higher buttock area). This is a new problem. The current episode started 1 to 4 weeks ago (3 weeks). The quality of the pain is described as burning and sharp. The pain is at a severity of 6/10. The pain is moderate. Associated symptoms include numbness, stiffness and tingling. Pertinent negatives include no fever, inability to bear weight or joint swelling. Associated symptoms comments: Numbness and tingling in the right buttock also radiates down back of the leg to be lack of knee. The symptoms are aggravated by lying down and activity. She has tried acetaminophen and NSAIDS (Gets injection from pain clinic every 3 months which helpsbut not until next injection.) for the symptoms. The treatment provided mild relief. Family historydoes not include rheumatoid arthritis. Her past medical history is significant for osteoarthritis. Bulging disc Physical Exam Vitals: 08/23/24 0944 Temp: 97.2 F (36.2 C) Pulse: 88 SpO2: 97% BP: 94/64 Physical Exam Constitutional: General: She is not in acute distress. Appearance: Normal appearance. She is normal weight. She is not ill-appearing. Cardiovascular: Rate and Rhythm: Normal rate and regular rhythm. Heart sounds: No murmur heard. Musculoskeletal: General: Tenderness (In right gluteal area with positive SLR on right side at 30 degree) present. No swelling or deformity. Cervical back: No rigidity or tenderness. Right lower leg: No edema. Left lower leg: No edema. Skin: General: Skin is warm. Findings: No lesion or rash. Neurological: Mental Status: She is alert. I have reviewed the following results: CMP Assessment and Plan Sciatica of right side I have reviewed the patients controlled substance dispensing history in the Prescription Drug Monitoring Program in compliance with the [facility] regulations before prescribing a controlled substance. - Pregabalin 50 MG Oral Capsule (Lyrica); Take 1 Capsule by mouth at bedtime. In 1 week increase totwice a day Take Flexeril at night as needed Type 2 diabetes mellitus without complication, unspecified whether long-term insulin use (HCC) Episode of recurrent major depressive disorder, unspecified depression episode severity (HCC) History of gastric bypass Adrenal insufficiency (HCC) Myelopathy (HCC) Wrap-Up Time: I spent a total of 30-39 minutes (exact time 32 mins) on the date of service in preparation, delivery, and documentation of the care provided to Margarita Shah excluding any time spent in the performance of separately billed services. documented in this encounter Nursing Notes * Jes Guerin CCMA - 08/23/2024 9:40 AM EST Pt is here today for right hip pain it started about 3 weeks ago pt has tried everything over the counter but its not working pt stated the pain is there all day but more at night time when she goes to lay down. Pt was in [facility] ER last night for the hip pain documented in this encounter Plan of Treatment Upcoming Encounters Date Type Department Care Team (Late st Contact Info) Description 10/02/2024 1:00 PM EST Laboratory Laboratory [facility] [place] [address] [facility] [place] [phone] [address] [place] [address] 10/02/2024 2:00 PM EST Office Visit Hematology/Oncology [facility] [place] [phone] Elliott Monique MD 200 [facility] [place] [address] 11/08/2024 8:40 AM EDT Office Visit [facility] [address] [facility] [facility] [place] [phone] Sammie Valverde PA-C [address] [place] [address] 03/02/2025 9:45 AM EDT Office Visit Dermatology [facility] [place] [address] [facility] [place] [address] Ajit Deshpande MD 200 [facility] [place] [address] Health Maintenance Due Date Last Done Comments HIV Screening 1994 Hepatitis B Vaccine (1 of 3 - 19+ 3-dose series) 1998 Pneumococcal Vaccine: Pediatrics (0 to 5 Years) and At-Risk Patients (6 to 18 Years and 19+ Years) (1 of 2 - PCV) 1998 Depression Monitoring 12/09/2021 12/09/2020 COVID-19 Vaccine ( - season) 2024 10/27/2020 Cologuard 2024 Fecal Occult Blood Test 2024 Sigmoidoscopy 2024 Mammogram 01/06/2025 01/07/2024, 12/15, 01/04/2023, Additional history [...] as of this encounter Visit Diagnoses Diagnosis Sciatica of right side- Primary Sciatica Type 2 diabetes mellitus without complication, unspecified whether long-term insulin use (HCC) Episode of recurrent major depressive disorder, unspecified depression episode severity (HCC) History of gastric bypass Bariatric surgery status Adrenal insufficiency (HCC) Glucocorticoid deficiency Myelopathy (HCC) Unspecified disease of spinal cord documented in this encounter Care Teams Nipple Maker Relationship Specialty Start Date End Date Sammie Valverde PA-C PCP - General Physician Claims Service Representative 08/27/23 documented as of this encounter
--- OUTSIDE RECORDS SUMMARY | 2024-09-13 20:32 | External Medical Summary | Summary of Care ---
Author Name Unknown Organization [facility] Address [address] [facility] [place] [address] Phone [phone] Care Team Providers Care Information Security Specialist Name Role Phone Sammie Valverde PA-C Primary Care Provider [phone] Reason for Visit * Reason Onset Date Comments Advice 09/04/2024 Encounter Details Date Type Department Care Team (Late st Contact Info) Description 09/04/2024 [facility] [address] [facility] [place] [phone] Sammie Valverde PA-C [address] [facility] [place] [address] Advice Allergies Active [...] as of this encounter (statuses as of 09/05/2024) Medications Glucose 15 GM/32ML GELIndications:H ypoglycemia Use as needed for hypoglycemia 32 mL 5 0 Active Latuda 80 MG Oral Tablet 100 mg. Per pt, now taking 100mg daily. 0 Active LORazepam 0.5 MG Oral Tablet (Ativan) 1 Active OneTouch Delica Lancets 30G To test blood sugars twice a day. 100 Each 5 2 Active Modafinil 100 MG Oral Tablet (Provigil) 3 Active Dexcom G7 Plaster Whittler Device Use as directed. 11/10/19 2 3 [...] 11 06/01/2023 8:13 AM EDT 3 Active LORazepam 0.5 MG Oral Tablet (Ativan) take 1 tablet by mouth twice daily as needed for anxiety or panic attack (max 15 tablets per month) 15 Tablet 07/10/2023 10:39 AM EST 3 Active Lurasidone HCl 20 MG Oral Tablet (Latuda) Take one tablet by mouth daily with 350 calories in addition to 80mg tablet 90 Tablet 4 Active Lurasidone HCl 80 MG Oral Tablet (Latuda) Take one tablet by mouth every day with 350 calorie meal 90 Tablet 09/17/2023 8:49 AM EST 4 Active Cyclobenzaprine HCl 10 MG Oral Tablet [...] daily. 120 Capsule 3 4 025 Active Lurasidone HCl 20 MG Oral Tablet (Latuda) Take 1 tablet by mouth daily with 350 calories in addition to 80mg 90 Tablet 12/22/2023 1:22 PM EDT 4 Active Chlorhexidine Gluconate 4 % External Solution (Hibiclens) wash 2-3 times a week and have on the skin for 3-5 minutes prior to rinse 237 mL 02/26/2024 10:44 AM EDT 4 Active Lurasidone HCl 20 MG Oral Tablet (Latuda) take 1 tablet by mouth daily with 350 calories in addition to 80mg 90 Tablet 03/14/2024 1:28 PM EDT 4 Active guanFACINE HCl 1 MG Oral Tablet (Tenex) take 1 tablet by mouth every night 90 Tablet 04/29/2024 12:36 PM EDT 4 Active Additional Information Patient taking differently: 2 mg, Reported on 08/23/2024 Dexcom G7 SensorIndication s:Reactive hypoglycemia USE DIRECTED, CHANGE EVERY 10 DAYS 9 Each 3 07/31/2024 5:16 PM EST 4 025 Active Lurasidone HCl 40 MG Oral Tablet (Latuda) take 1 tablet by mouth every day with 350 anamaria meal (this is in addition to 80 mg pill pt currently has)(total of 120mg/day) 30 Tablet 06/16/2024 10:43 AM EDT 4 Active Mounjaro 7.5 MG/0.5ML Subcutaneous Solution Auto-injector (Tirzepatide) inject 7.5mg under the skin once a week 2 mL 1 07/10/2024 8:45 AM EST 4 Active predniSONE 10 MG Oral Tablet (Deltasone)Indic ations:Inflammat ion of sacroiliac joint (HCC) Take 5 tabs by mouth for 2 days, 4 tabs for 2 days, 3 tabs for 2 days, 2 tabs for 2 days 1 tab for 2 days 30 Tablet 4 Active predniSONE 10 MG Oral Tablet (Deltasone) take 4 tab(s) by mouth for 3 days with food 12 Tablet 08/25/2024 12:38 PM EST 5 Active Pregabalin 50 MG Oral Capsule (Lyrica)Indicati ons:Sciatica of right side Take 1 Capsule by mouth at bedtime. In 1 week increase to twice a day 60 Capsule 2 08/25/2024 12:38 PM EST 5 Active LORazepam 0.5 MG Oral Tablet (Ativan) take 1 tablet by mouth up to three times a day as needed for anxiety/panic attack 10 Tablet 08/25/2024 12:38 PM EST 5 Active Lurasidone HCl 120 MG Oral Tablet (Latuda) Take 1 Tablet by mouth daily with 350 calories 30 Tablet 08/30/2024 10:56 AM EST 5 Active documented as of this encounter (statuses as of 09/05/2024) Active Problems Problem Noted Date Diagnosed Date [...] as of this encounter (statuses as of 09/05/2024) Resolved Problems Problem Noted Date Diagnosed Date [...] as of this encounter (statuses as of 09/05/2024) Immunizations Name Administration Dates Next Due Covid-19 [...] encounter Miscellaneous Notes * Telephone Encounter - Antwon Kay OSA - 09/05/2024 11:05 AM EST LMOM 09/05 * Telephone Encounter - Jack Christian OSA - 09/04/2024 3:37 PM EST No Appointments Available What Visit Type is needed? Acute Were surrounding clinics offered? Yes Call Details are required. Please review Patient declined available appointment(s)?: Yes, explain: Patent requesting Sammie Valverde PA-C Were other providers in the clinic offered? Yes documented in this encounter Plan of Treatment Upcoming Encounters Date Type Department Care Team (Late st Contact Info) Description 10/02/2024 1:00 PM EST Laboratory Laboratory [address] [place] [phone] [place] [facility] 10/02/2024 2:00 PM EST Office Visit Hematology/Oncology [facility] [address] [place] [phone] Elliott Monique MD [address] [place] [address] [place] [address] 11/08/2024 8:40 AM EDT Office Visit [facility] [address] [facility] [place] [phone] Sammie Valverde PA-C 226 [facility] [place] [address] 03/02/2025 9:45 AM EDT Office Visit Dermatology [facility] [place] 200 [facility] [place] [address] Ajit Deshpande MD [address] [place] [address] [place] [address] Health Maintenance Due Date Last Done Comments [...] filedocumented as of this encounter Care Teams Information Security Specialist Relationship Specialty Start Date End Date Sammie Valverde PA-C PCP - General Physician Coal Picker 08/27/23 documented as of this encounter
--- OUTSIDE RECORDS SUMMARY | 2024-09-13 20:32 | External Medical Summary | Summary of Care ---
Author Name Unknown Organization [facility] Address [address] [facility] [place] [address] Phone [phone] Care Team Providers Care Commissary Clerk Name Role Phone Sammie Valverde PA-C Primary Care Provider [phone] Reason for Visit * Reason Onset Date Comments Advice 09/04/2024 Encounter Details Date Type Department Care Team (Late st Contact Info) Description 09/04/2024 [facility] [address] [place] [phone] Sammie [...] as of this encounter (statuses as of 09/06/2024) Medications Glucose 15 GM/32ML GELIndications:H ypoglycemia Use [...] Oral Tablet (Provigil) 3 Active Dexcom G7 Vending Machine Attendant Device Use as directed. 11/10/19 2 3 [...] as of this encounter (statuses as of 09/06/2024) Active Problems Problem Noted Date Diagnosed Date [...] as of this encounter (statuses as of 09/06/2024) Resolved Problems Problem Noted Date Diagnosed Date [...] as of this encounter (statuses as of 09/06/2024) Immunizations Name Administration Dates Next Due Covid-19 [...] encounter Miscellaneous Notes * Telephone Encounter - Keon, Shelly, DANNIELLE - 09/06/2024 10:34 AM EST MyG sent. 09/06/2024 * Telephone Encounter - Antwon Kay OSA [...] Description 09/07/2024 9:40 AM EST Office Visit [facility] 226 [facility] [place] [phone] Sammie Valverde PA-C 226 [facility] [place] [address] 10/02/2024 1:00 PM EST Laboratory Laboratory [facility] [place] [address] [place] [phone] [facility] [address] [place] [address] 10/02/2024 2:00 PM EST Office Visit Hematology/Oncology [facility] [place] [address] [place] [phone] Elliott Monique MD [address] [place] [address] 11/08/2024 8:40 AM EDT Office Visit [facility] [place] [address] [place] [phone] Sammie Valverde PA-C [address] [place] [address] 03/02/2025 9:45 AM EDT Office Visit Dermatology [facility] [place] 200 [facility] [place] [address] Ajit Deshpande MD 200 [facility] [place] [address] Health Maintenance Due Date Last Done Comments [...] filedocumented as of this encounter Care Teams Commissary Clerk Relationship Specialty Start Date End Date Sammie Valverde PA-C PCP - General Physician Disulfurizer Tender 08/27/23 documented as of this encounter
--- OUTSIDE RECORDS SUMMARY | 2024-09-13 20:32 | External Medical Summary | Summary of Care ---
Author Name Unknown Organization [facility] Address [address] [facility] [place] [address] Phone [phone] Care Team Providers Care Well Reactivator Operator Name Role Phone Sammie Valverde PA-C Primary Care Provider [phone] Encounter Details Date Type Department Care Team (Late st Contact Info) Description 09/06/2024 Population Health External Data Unspecified Department Allergies Active Allergy Reactions Criticality Noted Date [...] Oral Tablet (Provigil) 3 Active Dexcom G7 Director Of Retail Analytics Device Use as directed. 11/10/19 2 3 [...] EDT 4 Active Vitamin D3 50 MCG (2000 UT) Oral Capsule Take 2 Capsules by [...] No 12/13/2023 Does the household have a hel[facility] newberry joy hospitalr source of income? (Household - for ages [...] PM EDT documented as of this encounter Plan of Treatment Upcoming Encounters Date Type Department Care Team (Late st Contact Info) Description 09/07/2024 9:40 AM EST Office Visit Akbar Kunz [address] [place] [phone] Sammie Valverde PA-C [address] [place] [address] 10/02/2024 1:00 PM EST Laboratory Laboratory [facility] [place] 200 [facility] [place] [phone] Ruby Pettit [facility] 200 [facility] [place] [address] 10/02/2024 2:00 PM EST Office Visit Hematology/Oncology [facility] [place] [address] [facility] [address] [place] [phone] Elliott Monique MD 200 [facility] [place] [address] 11/08/2024 8:40 AM EDT Office Visit [facility] 226 [place] [phone] Sammie Valverde PA-C 226 [place] [address] 03/02/2025 9:45 AM EDT Office Visit Dermatology [facility] [place] 200 [facility] [place], [place] [address] Ajit Deshpande MD 200 [facility] [place], [place] [address] Health Maintenance Due Date Last Done Comments [...] filedocumented as of this encounter Care Teams Well Reactivator Operator Relationship Specialty Start Date End Date Samime Valverde PA-C PCP - General Physician Glass Novelty Maker 08/27/23 documented as of this encounter
--- OUTSIDE RECORDS SUMMARY | 2024-09-13 20:32 | External Medical Summary | Summary of Care ---
Author Name Unknown Organization [facility] Address [address] [facility] [place] [address] Phone [phone] Care Team Providers Care Industrial Hygiene Engineer Name Role Phone Sammie Valverde PA-C Primary Care Provider +1 [phone] Encounter Details Date Type Department Care Team (Late st Contact Info) Description 07/26/2024 Telephone Roger Townsend [address] [place] [address] Madhu Parra CRNP [address] [place] [address] Allergies Active Allergy Reactions Criticality Noted Date [...] as of this encounter (statuses as of 08/08/2024) Medications Glucose 15 GM/32ML GELIndications:H ypoglycemia Use as needed for hypoglycemia 32 mL 5 0 Active Latuda 80 MG Oral Tablet 100 mg. Per pt, now taking 100mg daily. 0 Active LORazepam 0.5 MG Oral Tablet (Ativan) 1 Active RobertTouch Delдмитрий Lancets 30G To test blood sugars twice a day. 100 Each 5 2 Active Modafinil 100 MG Oral Tablet (Provigil) 3 Active Dexcom G7 Superintendent Of Generation Device Use as directed. 11/10/19 2 3 [...] 5 11/10/2023 3:23 PM EDT 4 Active Methocarbamol 500 MG Oral Tablet (Robamol) take 1 to 2 tablets orally at bedtime; 30 Tablet 11/26/2023 12:07 PM EDT 4 Active Vitamin D3 50 [...] mL 02/26/2024 10:44 AM EDT 4 Active Mounjaro 2.5 MG/0.5ML Subcutaneous Solution Pen-injector (Tirzepatide) Inject 2.5 mg under the skin once a week 2 mL 02/26/2024 10:44 AM EDT 4 Active LORazepam 0.5 MG Oral Tablet (Ativan) take 1 tablet by mouth up to three times a day as needed for anxiety/panic attack 30 Tablet 03/14/2024 1:28 PM EDT 4 Active Lurasidone HCl 20 MG Oral Tablet (Latuda) take 1 tablet by mouth daily with 350 calories in addition to 80mg 90 Tablet 03/14/2024 1:28 PM EDT 4 Active Mounjaro 7.5 MG/0.5ML Subcutaneous Solution Pen-injector (Tirzepatide) inject 7.5mg under the skin once weekly 2 mL 1 05/31/2024 11:28 AM EDT 4 Active guanFACINE HCl 1 MG Oral Tablet (Tenex) take 1 tablet by mouth every night 90 Tablet 04/29/2024 12:36 PM EDT 4 Active Additional Information Patient taking differently: 2 mg, Reported on 05/23/2024 Dexcom G7 SensorIndication s:Reactive hypoglycemia USE DIRECTED, CHANGE EVERY 10 DAYS 9 Each 3 07/31/2024 5:16 PM EST 4 025 Active Magnesium Chloride 64 MG Oral Tablet Take 2 Tablets by mouth. Active Lurasidone HCl 40 MG Oral Tablet [...] 1 07/10/2024 8:45 AM EST 4 Active documented as of this encounter (statuses as of 08/08/2024) Active Problems Problem Noted Date Diagnosed Date [...] Adrenal mass, left 01/24/2021 Intestinal postoperative nonabsorption 1 Adrenal insufficiency 09/13/2019 Vitamin D deficiency 09/06/2019 B12 deficiency 02/11/2018 Iron deficiency anemia 06/08/2017 History of gastric bypass 05/05/2017 Hypothyroidism 05/05/2017 S/P laparoscopic cholecystectomy 08/25/2016 Major depressive disorder, recurrent episode Headache 10/08/2007 documented as of this encounter (statuses as of 08/08/2024) Resolved Problems Problem Noted Date Diagnosed Date [...] as of this encounter (statuses as of 08/08/2024) Immunizations Name Administration Dates Next Due Covid-19 [...] 12/13/2023 Does the household have a re lar source of income? (Household - for ages [...] encounter Miscellaneous Notes * Telephone Encounter - Martine Kelley LPN - 08/07/2024 10:55 AM EST Spoke to patient. She stated she takes Tirosint-WILLIAM 100 MCG/ML as prescribed, no misses doses. She stated she has a huge "stock" or supply as she was given a 6 month supply when she was on medical assistance and then mail order sent her refills. She stated she called to put a hold on the medicationas she has so much stock at home. She stated she uses [facility] mail order. Stated she does not feel well, very tired hair falling out and cold. Pt stated she can be reach through my to discuss care further. Inquiring if a US head and neck can be ordered, as she hasn't has one since she was 15, per pt Martine Kelley LPN 08/07/2024 10:57 AM * Telephone Encounter - Madhu Parra CRNP - 08/04/2024 10:29 AM EST Please check with patient if taking her Tirosint, any missed dosing. If so, what pharmacy is she obtaining it from. Thank you. * Telephone Encounter - Martine Kelley LPN - 2024 3:21 PM EST I spoke to both [facility] mail order and [facility] in [facility] as this is also on pts pharmacy list. [facility] mail last refill: 05/2023 Luli [facility]: 05/21/2023 Please let me know if you need me to contact the patient further. Martine Kelley LPN 2024 3:24 PM * Telephone Encounter - Madhu Parra CRNP - 07/26/2024 3:18 PM EST Patient with persistent low free T4 despite being on high dose of tirosint liquid (500 mcg daily). Per chart I do not see fills from [facility]. Can we contact them to see if/when patient may have filled these prescriptions? Latest Reference Range & Units 01/07/24 10:11 03/27/24 09:16 07/24/24 13:05 T4, Free 0.9 - 1.7 ng/dL 0.3 (L) <0.1 (L) 0.1 (L) (L): Data is abnormally low documented in this encounter Plan of Treatment Upcoming Encounters Date Type Department Care Team (Late st Contact Info) Description 10/02/2024 1:00 PM EST Laboratory Laboratory [facility] [address] [place] [phone] [place] [address] [place] [address] 10/02/2024 2:00 PM EST Office Visit Hematology/Oncology [facility] [address] [place] [phone] Elliott Monique MD [address] [place] [address] 03/02/2025 9:45 AM EDT Office Visit Dermatology [facility] [address] [place], [place] [address] Ajit Deshpande MD [address] [place] [address] Health Maintenance Due Date Last Done Comments HIV Screening 1994 Hepatitis B Vaccine (1 of 3 - 19+ 3-dose series) 1998 Pneumococcal Vaccine: Pediatrics (0 to 5 Years) and At-Risk Patients (6 to 64 Years) (1 of 2 - PCV) 1998 [...] filedocumented as of this encounter Care Teams Industrial Hygiene Engineer Relationship Specialty Start Date End Date Sammie Valverde PA-C PCP - General Physician Silk Spotter 08/27/23 documented as of this encounter
--- OUTSIDE RECORDS SUMMARY | 2024-09-13 20:32 | External Medical Summary | Summary of Care ---
Author Name Unknown Organization [facility] Address [address] [facility] [place] [address] Phone [phone] Care Team Providers Care Physical Director Name Role Phone Sammie Valverde PA-C Primary Care Provider [phone] [phone] Encounter Details Date Type Department Care Team [...] Oral Tablet (Provigil) 3 Active Dexcom G7 Electric Freight Car Operator Device Use as directed. 11/10/19 2 3 [...] [facility] and [facility] in [facility] as this is also on pts pharmacy list. [facility] mail last refill: 05/2023 Luli [facility]: 05/21/2023 Please let me know if you need me to contact the patient further. Martine Kelley LPN 2024 3:24 PM * Telephone Encounter - Madhu Parra CRNP - 07/26/2024 3:18 PM EST Patient with persistent low free T4 despite being on high dose of tirosint liquid (500 mcg daily). Per chart I do not see fills from [facility]. Can we contact them to [...] Description 10/02/2024 1:00 PM EST Laboratory Laboratory [facility] [address] [place] [address] [place] [address] [place] [address] 10/02/2024 2:00 PM EST Office Visit Hematology/Oncology [facility] [address] [facility] [place] [phone] Elliott Monique MD [address] [facility] [place] [address] 03/02/2025 9:45 AM EDT Office Visit Dermatology [facility] [address] [facility] [place], [place] [address] Ajit Deshpande MD [address] [facility] [place] [address] Health Maintenance Due Date Last Done Comments [...] filedocumented as of this encounter Care Teams Physical Director Relationship Specialty Start Date End Date Smamie Valverde PA-C PCP - General Physician Donation Worker 08/27/23 documented as of this encounter
--- OUTSIDE RECORDS SUMMARY | 2024-09-13 20:32 | External Medical Summary | Summary of Care ---
Author Name Unknown Organization [facility] Address [address] [facility] [place] [address] Phone [phone] Care Team Providers Care Cephalometric Tracer Name Role Phone Sammie Valverde PA-C Primary Care Provider [phone] [phone] Encounter Details Date Type Department Care Team [...] Oral Tablet (Provigil) 3 Active Dexcom G7 Dtp Operator Device Use as directed. 11/10/19 2 [...] tablet by mouth every day with 350 aanmaria meal (this is in addition to 80 [...] stock at home. She stated she uses [facility] mail order. Stated she does not feel [...] 3:21 PM EST I spoke to both [facility] mail order and [facility] in [facility] as this is also on pts pharmacy list. [facility] mail last refill: 05/2023 L[facility]: 05/21/2023 Please let me know if you need me to contact the patient further. Martine Kelley LPN 2024 3:24 PM * Telephone Encounter - Madhu Parra CRNP - 07/26/2024 3:18 PM EST Patient with persistent low free T4 despite being on high dose of tirosint liquid (500 mcg daily). Per chart I do not see fills from [facility]. Can we contact them to [...] Description 10/02/2024 1:00 PM EST Laboratory Laboratory [facility] [address] [place] [phone] [place] [address] [place] [address] 10/02/2024 2:00 PM EST Office Visit Hematology/Oncology [facility] [address] [place] [phone] Elliott Monique MD [address] [place] [address] 03/02/2025 9:45 AM EDT Office Visit Dermatology [facility] [address] [place], [place] [address] Ajit Deshpande MD [address] [place] [address] Health Maintenance Due Date Last Done Comments [...] filedocumented as of this encounter Care Teams Cephalometric Tracer Relationship Specialty Start Date End Date Sammie Valverde PA-C PCP - General Physician Manufacturing Advisor 08/27/23 documented as of this encounter
--- OUTSIDE RECORDS SUMMARY | 2024-09-13 20:32 | External Medical Summary | Summary of Care ---
Author Name Unknown Organization [facility] Address [address] [facility] [place] [address] Phone [phone] Care Team Providers Care Promotions Firm Accounts Manager Name Role Phone Sammie Valverde PA-C Primary Care Provider [phone] [phone] Encounter Details Date Type Department Care Team (Late st Contact Info) Description 07/26/2024 Telephone Roger Townsend [address] [place] [address] Meghna Figueroa CRNP [address] [place] [address] Allergies [...] as of this encounter (statuses as of 08/15/2024) Medications Glucose 15 GM/32ML GELIndications:H ypoglycemia Use [...] Oral Tablet (Provigil) 3 Active Dexcom G7 Marketing Strategy Analyst Device Use as directed. 11/10/19 2 3 [...] as of this encounter (statuses as of 08/15/2024) Active Problems Problem Noted Date Diagnosed Date [...] as of this encounter (statuses as of 08/15/2024) Resolved Problems Problem Noted Date Diagnosed Date [...] as of this encounter (statuses as of 08/15/2024) Immunizations Name Administration Dates Next Due Covid-19 [...] as of this encounter Miscellaneous Notes * Addendum Note - Meghna Figueroa CRNP - 08/15/2024 8:30 AM ESTAddended by: MEGHNA FIGUEROA on: 08/15/2024 08:30 AM Modules accepted: Orders * Telephone Encounter - Martine Kelley LPN [...] stock at home. She stated she uses [facility] mail order. Stated she does not feel well, very tired hair falling out and cold. Pt stated she can be reach through [facility] to discuss care further. Inquiring if a US head and neck can be ordered, as she hasn't has one since she was 15, per pt Martine Kelley LPN 08/07/2024 10:57 AM * Telephone Encounter - Meghna Figueroa CRNP - 08/04/2024 10:29 AM EST Please check with patient if taking her Tirosint, any missed dosing. If so, what pharmacy is she obtaining it from. Thank you. * Telephone Encounter - Martine Kelley LPN - 2024 3:21 PM EST I spoke to both [facility] mail order and [facility] as this is also on pts pharmacy list. [facility] mail last refill: 05/2023 L[facility]: 05/21/2023 Please let me know if you need me to contact the patient further. Martine Kelley LPN 2024 3:24 PM * Telephone Encounter - Meghna Figueroa CRNP - 07/26/2024 3:18 PM EST Patient with persistent low free T4 despite being on high dose of tirosint liquid (500 mcg daily). Per chart I do not see fills from [facility]. Can we contact them to see if/when [...] Description 10/02/2024 1:00 PM EST Laboratory Laboratory [facility] [address] [facility] [place] [address] [place] [address] 10/02/2024 2:00 PM EST Office Visit Hematology/Oncology [facility] [address] [facility] [place] [address] Elliott Monique MD [address] [place] [address] [place] [address] 03/02/2025 9:45 AM EDT Office Visit Dermatology [facility] [address] [facility] [place] [address] Ajit Deshpande MD [address] [place] [address] [place] [address] Scheduled Orders Name Type Priority Associated Diagnoses Orde r Schedule US HEAD AND NECK Medical Imaging Routine Acquired hypothyroidism Expected: 08/15/2024, Expires: 09/15/2025 Health Maintenance Due Date Last Done Comments [...] as of this encounter Visit Diagnoses Diagnosis Acquired hypothyroidism- Primary Unspecified hypothyroidism documented in this encounter Care Teams Promotions Firm Accounts Manager Relationship Specialty Start Date End Date Sammie Valverde PA-C PCP - General Physician Pta 08/27/23 documented as of this encounter
--- OUTSIDE RECORDS SUMMARY | 2024-09-13 20:32 | External Medical Summary | Summary of Care ---
Author Name Unknown Organization [facility] Address [address] [facility] [place] [address] Phone [phone] Care Team Providers Care Oracle Forms Developer Name Role Phone Sammie Valverde PA-C Primary Care Provider [phone] [phone] Encounter Details Date Type Department Care Team (Late st Contact Info) Description 07/26/2024 Telephone Roger Townsend [address] [place] [address] Madhu Parra CRNP [address] [...] as of this encounter (statuses as of 08/07/2024) Medications Glucose 15 GM/32ML GELIndications:H ypoglycemia Use [...] Oral Tablet (Provigil) 3 Active Dexcom G7 Packager Device Use as directed. 11/10/19 2 3 [...] as of this encounter (statuses as of 08/07/2024) Active Problems Problem Noted Date Diagnosed Date [...] as of this encounter (statuses as of 08/07/2024) Resolved Problems Problem Noted Date Diagnosed Date [...] as of this encounter (statuses as of 08/07/2024) Immunizations Name Administration Dates Next Due Covid-19 [...] stock at home. She stated she uses [facility] mail order. Stated she does not feel well, very tired hair falling out and cold. Pt stated she can be reach through my to discuss care further. Inquiring if a US head and neck can be ordered, as she hasn't has one since she was 15, per pt Martien Kelley LPN 08/07/2024 10:57 AM * Telephone Encounter - Madhu Parra CRNP - 08/04/2024 10:29 AM EST Please check with patient if taking her Tirosint, any missed dosing. If so, what pharmacy is she obtaining it from. Thank you. * Telephone Encounter - Martine Kelley LPN - 2024 3:21 PM EST I spoke to both [facility] mail order and [facility] in [facility] as this is also on pts pharmacy list. [facility] mail last refill: 05/2023 Luli [facility]: 05/21/2023 Please let me know if you need me to contact the patient further. Martine Kelley LPN 2024 3:24 PM * Telephone Encounter - Madhu Parra CRNP - 07/26/2024 3:18 PM EST Patient with persistent low free T4 despite being on high dose of tirosint liquid (500 mcg daily). Per chart I do not see fills from [facility]. Can we contact them to [...] Description 10/02/2024 1:00 PM EST Laboratory Laboratory [facility] [address] [facility] [address] [place] [address] [place] [address] [place] [address] 10/02/2024 2:00 PM EST Office Visit Hematology/Oncology [facility] [address] [facility] [place] [phone] Elliott Monique MD [address] [facility] [place] [address] 03/02/2025 9:45 AM EDT Office Visit Dermatology [facility] [address] [facility] [place], [place] [address] Ajit Deshpande MD [address] [facility] [place] [address] Health Maintenance Due Date Last Done Comments [...] filedocumented as of this encounter Care Teams Oracle Forms Developer Relationship Specialty Start Date End Date Sammie Valverde PA-C PCP - General Physician Enterprise Analyst 08/27/23 documented as of this encounter
--- OUTSIDE RECORDS SUMMARY | 2024-09-13 20:33 | External Medical Summary | Summary of Care ---
Author Name Unknown Organization [facility] Address [address] [facility] [place] [address] Phone [phone] Care Team Providers Care Senior Product Marketing Manager Name Role Phone Sammie Valverde PA-C Primary Care Provider +1 [phone] Encounter Details Date Type Department Care Team [...] as of this encounter (statuses as of 07/26/2024) Medications Glucose 15 GM/32ML GELIndications:H ypoglycemia Use [...] Oral Tablet (Provigil) 3 Active Dexcom G7 Info Specialist Device Use as directed. 11/10/19 2 3 [...] CHANGE EVERY 10 DAYS 9 Each 3 05/03/2024 10:45 AM EDT 4 025 Active Magnesium Chloride 64 MG [...] as of this encounter (statuses as of 07/26/2024) Active Problems Problem Noted Date Diagnosed Date [...] as of this encounter (statuses as of 07/26/2024) Resolved Problems Problem Noted Date Diagnosed Date [...] as of this encounter (statuses as of 07/26/2024) Immunizations Name Administration Dates Next Due Covid-19 [...] encounter Miscellaneous Notes * Telephone Encounter - Madhu Parra CRNP - 07/26/2024 3:18 PM EST Patient with persistent low free T4 despite being on high dose of tirosint liquid (500 mcg daily). Per chart I do not see fills from [facility]. Can we contact them to [...] Description 10/02/2024 1:00 PM EST Laboratory Laboratory [facility] [address] [facility] [place] [phone] [facility] [address] [facility] [place] [address] 10/02/2024 2:00 PM EST Office Visit Hematology/Oncology [facility] [address] [facility] [place] [address] Elliott Monique MD [address] [facility] [place] [address] 03/02/2025 9:45 AM EDT Office Visit Dermatology [facility] [place] [address] [facility] [place] [address] Ajit Deshpande MD [address] [facility] [place] [address] Health Maintenance Due Date Last Done Comments Pneumococcal Vaccine: Pediatrics (0 to 5 Years) and At-Risk Patients (6 to 64 Years) (1 of 2 - PCV) 1985 HIV Screening 1994 Hepatitis B Vaccine (1 of 3 - 19+ 3-dose series) 1998 Depression Monitoring 12/09/2021 12/09/2020 COVID-19 Vaccine (2 - 2023- season) 2024 10/27/2020 Mammogram 01/06/2025 01/07/2024, 12/15, 01/04/2023, Additional history [...] 01/06/2029 01/07/2024, 04/17, 04/03/2022, Additional history exists Pap Smear Discontinued 09/23/2017 (Not indicated), 05/05/2017 [...] filedocumented as of this encounter Care Teams Senior Product Marketing Manager Relationship Specialty Start Date End Date Sammie Valverde PA-C [address] [facility] [place] [address] PCP - General Physician Transport Pilot 08/27/23 documented as of this encounter
--- OUTSIDE RECORDS SUMMARY | 2024-09-13 20:33 | External Medical Summary ---
Author Name Unknown Address Unknown Organization K01:[facility]ATORY [facility] [place] - [address] [facility] [address] [facility] [address] Laboratory Report Ordering Provider Test Date Status EMMA WELLS 07/24/2024 13:05:40 Final Observation Date Value Abnormality Reference (Units ) Status Ferritin 07/24/2024 13:05:40 217 Above high normal 13 -150 (ng/mL) Final Postmenopausal women have hi gher ferritin levels than pre-menopausal women. The above reference interval is based on pre-menopausal women. Performing Location [facility] [address] [facility] [address]
--- OUTSIDE RECORDS SUMMARY | 2024-09-13 20:33 | External Medical Summary | Summary of Care ---
Author Name Unknown Organization [facility] Address [address] [facility] [place] [address] Phone [phone] Care Team Providers Care Resource Development Manager Name Role Phone Sammie Valverde PA-C Primary Care Provider [phone] [phone] Reason for Visit * Reason Comments Outpatient Testing Encounter Details Date Type Department Care Team (Late st Contact Info) Description 07/24/2024 12:40 PM EST Laboratory Laboratory, [facility] [address] [place] [phone] [facility] [address], [place] [phone] Acquired hypothyroidism; Elevated lipase; Myelopathy (HCC); Abnormal LFTs; Other iron deficiency anemia; MyCode Research Other*[id number] Allergies Active Allergy Reactions Criticality Noted Date [...] as of this encounter (statuses as of 07/24/2024) Medications Glucose 15 GM/32ML GELIndications:H ypoglycemia Use [...] Oral Tablet (Provigil) 3 Active Dexcom G7 Physiotherapy Assistant Device Use as directed. 11/10/19 2 3 [...] as of this encounter (statuses as of 07/24/2024) Active Problems Problem Noted Date Diagnosed Date [...] as of this encounter (statuses as of 07/24/2024) Resolved Problems Problem Noted Date Diagnosed Date [...] as of this encounter (statuses as of 07/24/2024) Immunizations Name Administration Dates Next Due Covid-19 [...] Description 10/02/2024 1:00 PM EST Laboratory Laboratory [facility] [place] [address] [place], [place] [phone] [place], Lab [facility] [address] [facility] [place], [place] [address] 10/02/2024 2:00 PM EST Office Visit Hematology/Oncology [facility] [place] [address] [place], [place] [phone] Elliott Monique MD [address] [place], [place] [address] 03/02/2025 9:45 AM EDT Office Visit Dermatology [facility] [place] [address] [place], [place] [address] Ajit Deshpande MD [address] [facility] [place], [place] [address] Pending Results Name Type Priority Associated Diagnoses Date /Time T4, FREE Lab Routine Acquired hypothyroidism 07/24/2024 1:05 PM EST LIPASE Lab Routine Elevated lipase 07/24/2024 1:05 PM EST CK Lab Routine Myelopathy (HCC) 07/24/2024 1:05 PM EST HEPATITIS A ANTIBODIES IGG AND IGM Lab Routine Abnormal LFTs 07/24/2024 1:05 PM EST HEPATITIS B SURFACE ANTIBODY Lab Routine Abnormal LFTs 07/24/2024 1:05 PM EST CERULOPLASMIN Lab Routine Abnormal LFTs 07/24/2024 1:05 PM EST PT INR Lab Routine Abnormal LFTs 07/24/2024 1:05 PM EST CBC WITH WBC DIFFERENTIAL Lab STAT Other iron deficiency anemia 07/24/2024 1:05 PM EST FERRITIN Lab Routine Other iron deficiency anemia 07/24/2024 1:05 PM EST IRON SCREEN, INCLUDING TIBC Lab Routine Other iron deficiency anemia 07/24/2024 1:05 PM EST HEPATIC FUNCTION PANEL Lab Routine Abnormal LFTs 07/24/2024 1:05 PM EST MYCODE SUBSEQUENT ADULT Lab Routine MyCode Research Other*[id number] 07/24/2024 1:05 PM EST CBC Lab STAT Other iron deficiency anemia 07/24/2024 1:05 PM EST DIFFERENTIAL, AUTOMATED Lab STAT Other iron deficiency anemia 07/24/2024 1:05 PM EST MYCODE SST1 Lab Routine [employer] Research Other*[id number] 07/24/2024 1:05 PM EST MYCODE SST2 Lab Routine MyCode Research Other*[id number] 07/24/2024 1:05 PM EST Health Maintenance Due Date Last Done Comments Pneumococcal Vaccine: Pediatrics (0 to 5 Years) and At-Risk Patients (6 to 64 Years) (1 of 2 - PCV) 1985 HIV Screening 1994 Albumin/Creatinine Ratio 1997 Hepatitis B Vaccine (1 of 3 - 19+ 3-dose series) 1998 Depression Monitoring 12/09/2021 12/09/2020 COVID-19 Vaccine ( season) 2024 10/27/2020 HbA1c 07/09/2024 01/07/2024, 04/17, 12/21/2022, Additional history exists Mammogram 01/06/2025 01/07/2024, 12/15, 01/04/2023, Additional history exists Diabetic Foot Exam 02/03/2025 02/04/2024 GFR 03/27/2025 03/27/2024, 04, 11/19/2023, Additional history exists TSH 03/27/2025 03/27/2024, 11/15, 05/10/2023, Additional history exists Diabetic Eye Exam 06/16/2025 06/16/2024, , 06/16/2024 DTap/Tdap Vaccines (3 - Td or Tdap) [...] of this encounter Visit Diagnoses Diagnosis Acquired hypothyroidism Unspecified hypothyroidism Elevated lipase Other nonspecific abnormal serum enzyme levels Myelopathy (HCC) Unspecified disease of spinal cord Abnormal LFTs Other abnormal blood chemistry Other iron deficiency anemia MyCode Research Other*[id number] documented in this encounter Care Teams Resource Development Manager Relationship Specialty Start Date End Date Sammie Valverde PA-C [address] [facility] [place] [address] PCP - General Physician Warehouse Clerk 08/27/23 documented as of this encounter
--- OUTSIDE RECORDS SUMMARY | 2024-09-13 20:33 | External Medical Summary ---
Author Name Unknown Address Unknown Organization K01[place] [place] [address] [place] [address] Laboratory Report Ordering Provider Test Date Status CAROLINA COFFMAN 07/24/2024 13:05:40 Final Observation Date Value Abnormality Reference (Units ) Status T4, Free 07/24/2024 13:05:40 0.1 Below low normal 0.9 -1.7 (ng/dL) Final Performing Location [facility]ATORY [facility] - [address] [place] [address]
--- OUTSIDE RECORDS SUMMARY | 2024-09-13 20:33 | External Medical Summary ---
Author Name Unknown Address Unknown Organization K01:[facility] [place] [address] [place] [address] Laboratory Report Ordering Provider Test Date Status JAVY SAHU 07/24/2024 13:05:40 Final Observation Date Value Abnormality Reference (Units ) Status MYCODE SPECIMEN-SST 07/24/2024 13:05:40 Freezing of extracted DNA, whole blood and/or serum. Final Performing Location [facility] [place] [address] [place] [address]
--- OUTSIDE RECORDS SUMMARY | 2024-09-13 20:33 | External Medical Summary ---
Author Name Unknown Address Unknown Organization K01[place] [place] [address] [facility] [place] [address] Laboratory Report Ordering Provider Test Date Status ROSLYN HORN 07/24/2024 13:05:40 Final Observation Date Value Abnormality Reference (Units ) Status Hep A, IgG and/or IgM 07/24/2024 13:05:40 Negative Negative Final Performing Location LABORATORY [facility] - [address] [place] [address]
--- OUTSIDE RECORDS SUMMARY | 2024-09-13 20:33 | External Medical Summary | Summary of Care ---
Author Name Unknown Organization [facility] Address [address] [facility] [address] Phone [phone] Care Team Providers Care Gis Manager Name Role Phone Sammie Valverde PA-C Primary Care Provider [phone] Encounter Details Date Type Department Care Team [...] as of this encounter (statuses as of 2024) Medications Glucose 15 GM/32ML GELIndications:H ypoglycemia Use [...] Oral Tablet (Provigil) 3 Active Dexcom G7 Shop Worker Device Use as directed. 11/10/19 2 3 [...] as of this encounter (statuses as of 2024) Active Problems Problem Noted Date Diagnosed Date [...] as of this encounter (statuses as of 2024) Resolved Problems Problem Noted Date Diagnosed Date [...] as of this encounter (statuses as of 2024) Immunizations Name Administration Dates Next Due Covid-19 [...] [facility] and [facility] in [facility] as this is also on pts pharmacy list. [facility] mail last refill: 05/2023 [facility]: 05/21/2023 Please let me know if you need me to contact the patient further. Martine Kelley LPN 2024 3:24 PM * Telephone Encounter - Madhu Parra CRNP - 07/26/2024 3:18 PM EST Patient with persistent low free T4 despite being on high dose of tirosint liquid (500 mcg daily). Per chart I do not see fills from [facility]. Can we contact them to [...] Description 10/02/2024 1:00 PM EST Laboratory Laboratory [facility] [place] [address] [place] [phone] [place] [address] [address] [facility] [place] [address] 10/02/2024 2:00 PM EST Office Visit Hematology/Oncology [facility] [place] [address] [place] [phone] Elliott Monique MD [address] [facility] [place] [address] 03/02/2025 9:45 AM EDT Office Visit Dermatology [facility] [place] [address] [place] [address] Ajit Deshpande MD [address] [place] [address] Health Maintenance Due Date Last Done Comments [...] filedocumented as of this encounter Care Teams Gis Manager Relationship Specialty Start Date End Date Sammie Valverde PA-C PCP - General Physician Fire Protection Designer 08/27/23 documented as of this encounter
--- OUTSIDE RECORDS SUMMARY | 2024-09-13 20:33 | External Medical Summary ---
Author Name Unknown Address Unknown Organization : Laboratory Report Ordering Provider Test Date Status ROSLYN HORN 07/24/2024 13:05:40 Final Observation Date Value Abnormality Reference (Units ) Status Ceruloplasmin 07/24/2024 13:05:40 18 14-48 (mg/dL) Final Test Performed at:
[facility]
[address] [facility]
[place] [address]
Dinh Bah M.D., Ph.D.,Director of Laboratories Performing Location
--- OUTSIDE RECORDS SUMMARY | 2024-09-13 20:33 | External Medical Summary | Summary of Care ---
Author Name Unknown Organization [facility] Address [address] [facility] [place] [address] Phone [phone] Care Team Providers Care Senior Stack Engineer Name Role Phone Sammie Valverde PA-C Primary Care Provider [phone] Reason for Visit * Reason Comments Outpatient Testing Encounter Details Date Type Department Care Team (Late st Contact Info) Description 07/24/2024 12:40 PM EST Laboratory Laboratory, [facility] [address] [place] [phone] [facility] [address] [place], [place] [phone] Acquired hypothyroidism; Elevated lipase; Myelopathy (HCC); Abnormal LFTs; Other iron deficiency anemia; MyCode Research Other*[id number] Allergies Active Allergy Reactions Criticality Noted Date [...] Oral Tablet (Provigil) 3 Active Dexcom G7 Algorithm Developer Device Use as directed. 11/10/19 2 3 [...] Description 10/02/2024 1:00 PM EST Laboratory [facility] [address] [place], [place] [phone] [place], Lab [facility] [address] [facility] [place], [place] [address] 10/02/2024 2:00 PM EST Office Visit Hematology/Oncology [facility] [place] [address] [place], [place] [phone] Elliott Monique MD [address] [place], [place] [address] 03/02/2025 9:45 AM EDT Office Visit Dermatology [facility] [place] [address] [place], [place] [address] Ajit Deshpande MD [address] [facility] [place], [place] [address] Pending Results Name Type Priority Associated Diagnoses [...] MYCODE SUBSEQUENT ADULT Lab Routine MyCode Research Other*[id number] 07/24/2024 1:05 PM EST CBC Lab STAT Other iron deficiency anemia 07/24/2024 1:05 PM EST DIFFERENTIAL, AUTOMATED Lab STAT Other iron deficiency anemia 07/24/2024 1:05 PM EST MYCODE SST1 Lab Routine MyCode Research Other*[id number] 07/24/2024 1:05 PM EST MYCODE SST2 Lab Routine MyCode Research Other*[id number] 07/24/2024 1:05 PM EST Health Maintenance Due [...] Foot Exam 02/03/2025 02/04/2024 GFR 03/27/2025 03/27/2024, 04/, 11/19/2023, Additional history exists TSH 03/27/2025 03/27/2024, [...] chemistry Other iron deficiency anemia MyCode Research Other*[id number] documented in this encounter Care Teams Senior Stack Engineer Relationship Specialty Start Date End Date Sammie Valverde PA-C [address] [place] [address] PCP - General Physician Assembler Hydraulic Backhoe 08/27/23 documented as of this encounter
--- OUTSIDE RECORDS SUMMARY | 2024-09-13 20:33 | External Medical Summary ---
Author Name Unknown Address Unknown Organization K01:[facility] [place] [address] [place] [address] Laboratory Report Ordering Provider Test Date Status EMMA WELLS 07/24/2024 13:05:40 Final Observation Date Value Abnormality Reference (Units ) Status Iron 07/24/2024 13:05:40 85 33-151 (ug /dL) Final Iron-binding capacity 07/24/2024 13:05:40 256 250-425 (ug/dL) Final Transferrin Sat % 07/24/2024 13:05:40 33 15 -55 (%) Final Performing Location [facility] [place] [address] [place] [address]
--- OUTSIDE RECORDS SUMMARY | 2024-09-13 20:33 | External Medical Summary ---
Author Name Unknown Address Unknown Organization K01:[facility] [place] [address] [facility] [place] [address] Laboratory Report Ordering Provider Test Date Status EMMA WELLS 07/24/2024 13:05:40 Final Observation Date Value Abnormality Reference (Units ) Status SYNC LEUKOCYTES IN BLOOD BY AUTOMATED COUNT 07/24/2024 13:05:40 5.24 4.00-10.80 (K/uL) Final Segs 07/24/2024 13:05:40 63.6 40.0-75.0 (%) Final Lymphs % 07/24/2024 13:05:40 28.8 18.0-42.0 (%) Final Monos 07/24/2024 13:05:40 5.5 1.0-11.0 (%) Final Eosinophils 07/24/2024 13:05:40 0.6 0.0-6.0 (%) Final Basos 07/24/2024 13:05:40 1.1 0.0-2.0 (%) Final Immature Granulocyte, Percent 07/24/2024 13:05:40 0.4 0.0-2.0 (%) Final Absolute Segs 07/24/2024 13:05:40 3.33 1.80-7.70 (K/uL) Final Lymphs, absolute 07/24/2024 13:05:40 1.51 1.00-4.80 (K/ul) Final Monos, Abs 07/24/2024 13:05:40 0.29 0.00-1.10 (K/uL) Final Eos, Abs 07/24/2024 13:05:40 0.03 0.00-0.70 (K/uL) Final Basos, Abs 07/24/2024 13:05:40 0.06 0.00-0.20 (K/uL) Final Immature Granulocytes, Number 07/24/2024 13:05:40 0.02 0.00-0.20 (K/uL) Final Performing Location LAB[facility]ORY [facility] [place] - [address] [facility] [address]
--- OUTSIDE RECORDS SUMMARY | 2024-09-13 20:33 | External Medical Summary | Summary of Care ---
Author Name Unknown Organization [facility] Address [address] [facility] [place] [address] Phone [phone] Care Team Providers Care Sealer Dry Cell Name Role Phone Sammie Valverde PA-C Primary Care Provider [phone] Reason for Visit * Reason Comments Acute Encounter Details Date Type Department Care Team ([facility] Contact Info) Description 08/04/2024 8:20 AM EST Telemedicine [facility] [place], [facility] [address] [place] [address] Osmel Bynum PA-C [address] [place] [address] Inflammation of sacroiliac joint (HCC)* Allergies Active Allergy Reactions Criticality Noted Date [...] as of this encounter (statuses as of 08/04/2024) Medications Glucose 15 GM/32ML GELIndications:H ypoglycemia Use [...] Oral Tablet (Provigil) 3 Active Dexcom G7 Family Manager Device Use as directed. 11/10/19 2 3 [...] for 2 days 30 Tablet 4 Active documented as of this encounter (statuses as of 08/04/2024) Active Problems Problem Noted Date Diagnosed Date [...] as of this encounter (statuses as of 08/04/2024) Resolved Problems Problem Noted Date Diagnosed Date [...] as of this encounter (statuses as of 08/04/2024) Immunizations Name Administration Dates Next Due Covid-19 [...] PM EDT documented as of this encounter Progress Notes * Osmel Bynum PA-C - 08/04/2024 8:32 AM EST Patient location: HOME. I was in a hospital or clinic location. After connecting through [employer],patient was verified with two unique identifiers. Patient (or authorized legal b2b outside sales representative) was then informed that this was a Telemedicine visit and being conducted confidentially over secure lines. Methods to assure confidentiality were taken. Patient acknowledged consent and understanding of pr ivacy and security of the Telemedicine visit. The patient agreed to participate. History of Present Illness: Margarita Shah is a 44 year old year old female who is presenting to clinic today for an acute visit. She follows with pain management at the end of August - she follows with [facility]. She receives injections in her back and in her hip, gets trigger point injections into these areas for inflammatory pain. She had been receiving injections every 4-6 months. She is having pain whenever she sits and she cannot get comfortable. She has a band of pain across the SI joint and down into the upper part of the leg. She has a history of gastric bypass. She has tried to take hot baths without much relief. She recalls that Gabapentin "drove her crazy." She does have a migraine history, she is prescribed Flexeril for treatment of this. Patient Active Problem List Diagnosis History of gastric bypass Hypothyroidism Iron deficiency anemia B12 deficiency Vitamin D deficiency Adrenal insufficiency (HCC) Intestinal postoperative nonabsorption Adrenal mass, left ([facility]) Hypersomnolence History of iron deficiency anemia Positional sleep apnea Headache Major depressive disorder, recurrent episode ([facility]) S/P laparoscopic cholecystectomy Chronic tension-type headache, not intractable Cervicalgia Whole body pain Ovarian cyst Suicidal ideations Chronic migraine w/o aura w/o status migrainosus, not intractable Numbness and tingling in both hands Myelopathy ([facility]) Type 2 diabetes mellitus without complication ([facility]) Restless leg syndrome Current Outpatient Medications Medication Sig Dispense Refill Chlorhexidine Gluconate 4 % External Solution (Hibiclens) wash 2-3 times a week and have on the skin for 3-5 minutes prior to rinse 237 mL 0 Clobetasol Propionate 0.05 % External Solution Apply several drops to scalp as needed for itch 50 mL 5 Cyclobenzaprine HCl 10 MG Oral Tablet (Flexeril) Take 1 Tablet by mouth 2 times a day as needed (headache). 30 Tablet 3 Dexcom G7 Family Manager Device Use as directed. Dexcom G7 Sensor Use as directed. Dexcom G7 Sensor USE DIRECTED, CHANGE EVERY 10 DAYS 9 Each 3 Glucose 15 GM/32ML GEL Use as needed for hypoglycemia 32 mL 5 guanFACINE HCl 1 MG Oral Tablet (Tenex) take 1 tablet by mouth every night (Patient taking differently: 2 Tablets.) 90 Tablet 0 Ketoconazole 2 % External Shampoo (Nizoral) Shampoo to scalp two to three times a week 120 mL 11 Latuda 80 MG Oral Tablet 100 mg. Per pt, now taking 100mg daily. LORazepam 0.5 MG Oral Tablet (Ativan) LORazepam 0.5 MG Oral Tablet (Ativan) take 1 tablet by mouth twice daily as needed for anxiety or panic attack (max 15 tablets per month) 15 Tablet 0 LORazepam 0.5 MG Oral Tablet (Ativan) take 1 tablet by mouth up to three times a day as needed for anxiety/panic attack 30 Tablet 0 Lurasidone HCl 20 MG Oral Tablet (Latuda) Take one tablet by mouth daily with 350 calories in addition to 80mg tablet 90 Tablet 0 Lurasidone HCl 20 MG Oral Tablet (Latuda) Take 1 tablet by mouth daily with 350 calories in addition to 80mg 90 Tablet 0 Lurasidone HCl 20 MG Oral Tablet (Latuda) take 1 tablet by mouth daily with 350 calories in addition to 80mg 90 Tablet 0 Lurasidone HCl 40 MG Oral Tablet (Latuda) take 1 tablet by mouth every day with 350 anamaria meal (this is in addition to 80 mg pill pt currently has)(total of 120mg/day) 30 Tablet 0 Lurasidone HCl 80 MG Oral Tablet (Latuda) Take one tablet by mouth every day with 350 calorie meal 90 Tablet 0 Magnesium Chloride 64 MG Oral Tablet Take 2 Tablets by mouth. Methocarbamol 500 MG Oral Tablet (Robamol) take 1 to 2 tablets orally at bedtime; 30 Tablet 0 Modafinil 100 MG Oral Tablet (Provigil) Modafinil 100 MG Oral Tablet (Provigil) Take 1.5 tablets by mouth daily for excessive daytime sleepiness 135 Tablet 0 Mounjaro 2.5 MG/0.5ML Subcutaneous Solution Pen-injector (Tirzepatide) Inject 2.5 mg under the skinonce a week 2 mL 0 Mounjaro 7.5 MG/0.5ML Subcutaneous Solution Auto-injector (Tirzepatide) inject 7.5mg under the skinonce a week 2 mL 1 Mounjaro 7.5 MG/0.5ML Subcutaneous Solution Pen-injector (Tirzepatide) inject 7.5mg under the skin once weekly 2 mL 1 U4EA WirelessToConceptoMed Lancets 30G To test blood sugars twice a day. 100 Each 5 predniSONE 10 MG Oral Tablet (Deltasone) Take 5 tabs by mouth for 2 days, 4 tabs for 2 days, 3 tabsfor 2 days, 2 tabs for 2 days 1 tab for 2 days 30 Tablet 0 Tirosint-WILLIAM 100 MCG/ML Oral Solution (Levothyroxine Sodium) take 500 mcg by mouth daily (2 vials of 200 mcg +1 vial of 100 mcg) 90 mL 11 Tirosint-WILLIAM 200 MCG/ML Oral Solution (Levothyroxine Sodium) 500 mcg daily (2 vials of 200 mcg +1 vial of 100 mcg) 180 mL 11 Vitamin D3 50 MCG (2000 UT) Oral Capsule Take 2 Capsules by mouth daily for 30 days, THEN 1 Capsuledaily. 120 Capsule 3 No current facility-administered medications for this visit. Objective: Constitutional: 44 year old female who appears their stated age, in NAD Psych: Pleasant mood and affect I have reviewed available lab data in Epic and reviewed with the patient, specifically including: Imaging MRI L Spine 10/24/21: "IMPRESSION: 1. Transitional lumbar spine anatomy. 4 [id number] lumbar type vertebral bodies are again noted and corroborated counting down from C2 on localizer sequence. 12 rib-bearing thoracic type vertebral bodies were present on January [address] Lumbosacral transitional vertebra designated as L5 forthis study. L5 sacralization, with fully formed L5-S1 disc and bilateral L5 transverse process widening (Castellvi Ib). ATTENTION TO SPINE NUMBERING IS MANDATORY PRIOR TO PLANNED SPINAL SURGICAL/INTERVENTIONAL PROCEDURE. Of note, transitional anatomy was not discussed on March 2018 lumbar spine MRreport; numbering scheme is otherwise identical. 2. Stable lumbar spine degenerative changes and nerve root contact compared with March 2018 lumbarspine MR. 3. Nerve root contact at L3-L4, L4-L5, and L5-S1. Correlation with dermatomal symptom level recommended. 4. Multilevel neural foraminal narrowing, at worst moderate. 5. No lumbar spinal canal stenosis. 6. 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 7. Convex left thoracolumbar curvature. Weightbearing scoliosis x-ray could further assess. 8. L5-S1 posterior disc annular fissure. Annular fissures may be symptomatic." Assessment/Plan: 1. Inflammation of sacroiliac joint (HCC) - predniSONE 10 MG Oral Tablet (Deltasone); Take 5 tabs by mouth for 2 days, 4 tabs for 2 days, 3 tabs for 2 days, 2 tabs for 2 days 1 tab for 2 days Dispense: 30 Tablet; Refill: 0 - Acute flare of chronic lumbar and SI pain. Limited management options, avoid NSAIDs with gastric bypass history. Scheduled with pain management upcoming. Will send short taper of Prednisone for acute pain, discussed close follow-up with in person PCP if needed for ongoing pain Follow-Up: PRN. I spent a total of 10-19 minutes (exact time 14 mins) on the date of service in preparation, delivery, and documentation of the care provided to Margarita Edd Shah excluding any time spent in the performance of separately billed services. Osmel Bynum PA-C documented in this encounter Plan of Treatment Upcoming Encounters Date Type Department Care Team (Late st Contact Info) Description 10/02/2024 1:00 PM EST Laboratory Laboratory [facility] [place] [address] [facility] [place] [id number] Ruby Pettit [facility] [address] [place] [id number] 10/02/2024 2:00 PM EST Office Visit Hematology/Oncology [facility] Jorge Pettit [address] [place] [phone] Elliott Monique MD [address] [facility] [place] [address] 03/02/2025 9:45 AM EDT Office Visit Dermatology State Jorge Theodore [address] [facility] [place] [place] [address] Ajit Deshpande MD [address] [facility] [place] [address] Health Maintenance Due Date Last Done Comments HIV Screening 1994 Hepatitis B Vaccine (1 of 3 - 19+ 3-dose series) 1998 Pneumococcal Vaccine: Pediatrics (0 to 5 Years) and At-Risk Patients (6 to 64 Years) (1 of 2 - PCV) 1998 Depression Monitoring 12/09/2021 12/09/2020 COVID-19 Vaccine ( - 2023- season) 2024 10/27/2020 Cologuard 2024 [...] as of this encounter Visit Diagnoses Diagnosis Inflammation of sacroiliac joint (HCC)- Primary Sacroiliitis, not elsewhere classified documented in this encounter Care Teams Sealer Dry Cell Relationship Specialty Start Date End Date Sammie Valverde PA-C PCP - General Physician Technical Support Consultant 08/27/23 documented as of this encounter
--- OUTSIDE RECORDS SUMMARY | 2024-09-13 20:33 | External Medical Summary | Summary of Care ---
Author Name Unknown Organization [facility] Address [address] [facility] [place] [address] Phone [phone] Care Team Providers Care Weight Inspector Name Role Phone Sammie Valverde PA-C Primary Care Provider [phone] Encounter Details Date Type Department Care Team [...] Oral Tablet (Provigil) 3 Active Dexcom G7 Airplane Pilot Commercial Device Use as directed. 11/10/19 2 3 [...] chart I do not see fills from [facility]. Can we contact them to [...] Description 10/02/2024 1:00 PM EST Laboratory Laboratory [facility] [address] [facility] [place] [id number] [facility] [address] [facility] [place] [address] 10/02/2024 2:00 PM EST Office Visit Hematology/Oncology [facility] [address] [facility] [place] [phone] Elliott Monique MD [address] [facility] [place] [address] 03/02/2025 9:45 AM EDT Office Visit Dermatology [facility] [address] [facility] [place] [id number] Ajit Deshpande MD [address] [facility] [place] [id number] Health Maintenance Due Date Last Done Comments [...] filedocumented as of this encounter Care Teams Weight Inspector Relationship Specialty Start Date End Date Sammie Valverde PA-C [address] [facility] [place] [address] PCP - General Physician Auditor/Quality 08/27/23 documented as of this encounter
--- OUTSIDE RECORDS SUMMARY | 2024-09-13 20:33 | External Medical Summary ---
Author Name Unknown Address Unknown Organization K01:LABORATORY [facility] - [address] [facility] [address] Laboratory Report Ordering Provider Test Date Status EMMA WELLS 07/24/2024 13:05:40 Final Observation Date Value Abnormality Reference (Units ) Status WBC, Total 07/24/2024 13:05:40 5.24 4.00-10.80 (K/uL) Final RBC 07/24/2024 13:05:40 3.32 3.85-5.15 (M/uL) Final Hemoglobin 07/24/2024 13:05:40 11.4 Below low normal 12.0-15.3 (g/dL) Final HCT 07/24/2024 13:05:40 35.3 Below low normal 36.0-45.2 (%) Final MCV 07/24/2024 13:05:40 106.3 81.5-97.5 (fL) Final MCH 07/24/2024 13:05:40 34.3 27.0-34.0 (pg) Final MCHC 07/24/2024 13:05:40 32.3 32.0-36.0 (g/dL) Final RDW 07/24/2024 13:05:40 13.2 11.5-15.5 (%) Final Platelets 07/24/2024 13:05:40 226 140-400 (K/uL) Final MPV 07/24/2024 13:05:40 10.4 6.6-11.1 (fL) Final Nucleated erythrocytes/100 leukocytes [Ratio] in Blood by Automated count 07/24/2024 13:05:40 0 <=0 (/100 WBCs) Final Performing Location [facility] - [address] [place] [address]
--- OUTSIDE RECORDS SUMMARY | 2024-09-13 20:33 | External Medical Summary | Summary of Care ---
Author Name Unknown Organization [facility] Address [address] [facility] [place] [address] Phone [phone] Care Team Providers Care Cotton Roll Packer Name Role Phone Sammie Valverde PA-C Primary Care Provider [phone] Encounter Details Date Type Department Care Team (Late st Contact Info) Description 05/03/2024 10:30 AM EDT Telemedicine Endocrinology [address] [place] [phone] Madhu Parra CRNP [address] [place] [address] [address] Acquired hypothyroidism*; Reactive hypoglycemia; Body mass index (BMI) of 40.0 to 44.9 in adult (HCC) Allergies Active Allergy Reactions Criticality Noted [...] as of 07/26/2024) Medications Glucose 15 GM/32ML GELIndications:Hy poglycemia Use as needed for hypoglycemia 32 mL 5 Active Latuda 80 MG Oral Tablet 100 mg. Per pt, now taking 100mg daily. Active LORazepam 0.5 MG Oral Tablet (Ativan) Active OneTouch Delica Lancets 30G To test blood sugars twice a day. 100 Each 5 022 Active Modafinil 100 MG Oral Tablet (Provigil) 023 Active Dexcom G7 Construction Assistant Device Use as directed. Active Dexcom G7 Sensor Use as directed. 023 Active Modafinil 100 MG Oral Tablet (Provigil) Take 1.5 tablets by mouth daily for excessive daytime sleepiness 135 Tablet 04/03/20 23 11:03 AM EDT 023 Active Tirosint-WILLIAM 200 MCG/ML Oral Solution (Levothyroxine Sodium) 500 mcg daily (2 vials of 200 mcg +1 vial of 100 mcg) 180 mL 11 023 Active Tirosint-WILLIAM 100 MCG/ML Oral Solution (Levothyroxine Sodium) take 500 mcg by mouth daily (2 vials of 200 mcg +1 vial of 100 mcg) 90 mL 11 06/01/20 23 8:13 AM EDT 023 Active LORazepam 0.5 MG Oral Tablet (Ativan) take 1 tablet by mouth twice daily as needed for anxiety or panic attack (max 15 tablets per month) 15 Tablet 07/10/20 23 10:39 AM EST 023 Active Lurasidone HCl 20 MG Oral Tablet (Latuda) Take one tablet by mouth daily with 350 calories in addition to 80mg tablet 90 Tablet 024 Active Lurasidone HCl 80 MG Oral Tablet (Latuda) Take one tablet by mouth every day with 350 calorie meal 90 Tablet 09/17/19 24 8:49 AM EST 024 Active Cyclobenzaprine HCl 10 MG Oral Tablet (Flexeril)Indicat ions:Chronic tension-type headache, not intractable Take 1 Tablet by mouth 2 times a day as needed (headache). 30 Tablet 3 024 Active Ketoconazole 2 % External Shampoo (Nizoral)Indicati ons:Seborrheic dermatitis of scalp Shampoo to scalp two to three times a week 120 mL 11 11/10/19 24 3:23 PM EDT 024 Active Clobetasol Propionate 0.05 % External SolutionIndicatio ns:Seborrheic dermatitis of scalp Apply several drops to scalp as needed for itch 50 mL 5 11/10/19 24 3:23 PM EDT 024 Active Methocarbamol 500 MG Oral Tablet (Robamol) take 1 to 2 tablets orally at bedtime; 30 Tablet 11/26/19 24 12:07 PM EDT Active Vitamin D3 50 MCG (2000 UT) Oral Capsule Take 2 Capsules by mouth daily for 30 days, THEN 1 Capsule daily. 120 Capsule 3 024 2024 Active Lurasidone HCl 20 MG Oral Tablet (Latuda) Take 1 tablet by mouth daily with 350 calories in addition to 80mg 90 Tablet 12/22/19 24 1:22 PM EDT Active Chlorhexidine Gluconate 4 % External Solution (Hibiclens) wash 2-3 times a week and have on the skin for 3-5 minutes prior to rinse 237 mL 02/26/20 24 10:44 AM EDT Active Mounjaro 2.5 MG/0.5ML Subcutaneous Solution Pen-injector (Tirzepatide) Inject 2.5 mg under the skin once a week 2 mL 02/26/20 24 10:44 AM EDT 024 Active LORazepam 0.5 MG Oral Tablet (Ativan) take 1 tablet by mouth up to three times a day as needed for anxiety/panic attack 30 Tablet 03/14/20 24 1:28 PM EDT 024 Active Lurasidone HCl 20 MG Oral Tablet (Latuda) take 1 tablet by mouth daily with 350 calories in addition to 80mg 90 Tablet 03/14/20 24 1:28 PM EDT 024 Active Mounjaro 7.5 MG/0.5ML Subcutaneous Solution Pen-injector (Tirzepatide) inject 7.5mg under the skin once weekly 2 mL 1 05/31/20 24 11:28 AM EDT 024 Active guanFACINE HCl 1 MG Oral Tablet (Tenex) take 1 tablet by mouth every night 90 Tablet 04/29/20 24 12:36 PM EDT 024 Active Dexcom G7 SensorIndications :Reactive hypoglycemia USE DIRECTED, CHANGE EVERY 10 DAYS 9 Each 3 05/03/20 24 10:45 AM EDT 024 2024 Active Semaglutide (2 MG/DOSE) 8 MG/3ML Subcutaneous Solution Pen-injector (Ozempic) Inject 2 mg once a week. 023 2023 Discontinued(M edication List Clean Up) Ozempic (2 MG/DOSE) 8 MG/3ML Subcutaneous Solution Pen-injector (Semaglutide (2 MG/DOSE)) inject 2mg subcutaneous injection every 7 days 9 mL 1 023 2023 Discontinued(M edication List Clean Up) HYDROcodone-Aceta minophen 5-325 MG Oral Tablet Take 1 Tablet by mouth every 8 hours as needed for moderate Pain 20 Tablet 06/15/20 23 10:53 AM EDT 023 2023 Discontinued(M edication List Clean Up) Cyanocobalamin 1000 MCG/ML Injection Solution (Cyanocobalamin)I ndications:B12 deficiency INJECT 1000 MCG INTO A LARGE MUSCLE EVERY 30 DAYS 3 mL 4 06/25/20 23 8:25 AM EST 023 2023 Linzess 72 MCG Oral Capsule (linaCLOtide) Take 1 Capsule by mouth daily before breakfast. 2023 Discontinued oxyCODONE HCl 5 MG Oral Tablet (Oxy IR) take 1 tablet (5 mg) orally every 8 hours As Needed for pain 7 Tablet 09/29/19 24 10:06 AM EST 024 2023 Discontinued(M edication List Clean Up) Nortriptyline HCl 10 MG Oral Capsule (Pamelor)Indicati ons:Chronic tension-type headache, not intractable Take 2 Capsules by mouth at bedtime. 180 Capsule 1 024 2023 Discontinued(M edication List Clean Up) traMADol HCl 50 MG Oral Tablet (Ultram) take 1 tablet by mouth every 4-6 hours as needed. Not to exceed 5 tablets in a 24-hour period 10 Tablet 024 2023 Discontinued(M edication List Clean Up) Saccharomyces boulardii 250 MG Oral Capsule (Florastor)Indica tions:Elevated CK Take 1 Capsule by mouth in the morning and 1 Capsule before bedtime. 60 Capsule 1 12/14/19 24 12:53 PM EDT 024 2023 Discontinued Clindamycin HCl 300 MG Oral CapsuleIndication s:Elevated CK Take 1 Capsule by mouth in the morning and 1 Capsule at noon and 1 Capsule before bedtime. 20 Capsule 12/14/19 24 12:53 PM EDT 024 2023 Discontinued(M edication List Clean Up) Famotidine 20 MG Oral Tablet (Pepcid)Indicatio ns:Elevated CK take 1 tablet by mouth with antibiotic twice daily for 10 days 30 Tablet 12/14/19 24 12:53 PM EDT 024 2023 Discontinued Ondansetron 4 MG Oral Tablet Disintegrating (Zofran)Indicatio ns:Nausea Dissolve 1 Tablet on tongue every 8 hours as needed for Nausea. 20 Tablet 1 02/04/20 24 9:09 AM EDT 024 2023 Discontinued Lurasidone HCl 60 MG Oral Tablet (Latuda) take 2 tablets by mouth every day with 350 anamaria meal 60 Tablet 024 2023 Discontinued(E xternal Source Cancellation) documented as of this encounter (statuses as of 07/26/2024) Active Problems Problem Noted Date Diagnosed Date Myelopathy 01/18/2024 Type 2 diabetes mellitus without [...] Influenza, Quadrivalent, No Preserve, I M 06/12/2021 TDAP (age 10 and older)(Boostrix) 07/20/2017 documented [...] as of this encounter Progress Notes * Madhu Parra CRNP - 05/03/2024 10:28 AM EDT Images from the original note were not included. Patient location: HOME. I was in a hospital or clinic location. After connecting through televideo,patient was verified with two unique identifiers. Patient (or authorized legal medical claims representative) was then informed that this was a Telemedicine visit and being conducted confidentially over secure lines. Methods to assure confidentiality were taken. Patient acknowledged consent and understanding of pr ivacy and security of the Telemedicine visit. The patient agreed to participate. Margarita Edd Shah, is seen today for follow up of hypothyroidism -last visit with me was on - 12/17/23 -has seen multiple endocrinology providers in the past, last seen by Dr. Richardson 05/04/23 Dr. Richardson had seen this patient in the past and started on liquid thyroxine which is the only formworking for hypothyroidism "Hypoglycemia: She has both fasting and post-prandial hypoglycemia started in 2018. Per patient report, lowest BG was 46 after a meal. Associated with headache, sweating, tremor. She usually corrects by eating peanut butter sandwich. Frequency of hypoglycemia: 3-4 times/month. High carb diet tends to trigger it. Pertinent history: h/o Yazmin-En-Y gastric bypass surgery in 02/[address] Quinton Celestin in [facility] surgical associates and bariatrics. Lost 200 pounds within 1 year and recently regained 30 pounds. She had a history of type 2 diabetes before surgery and was on metformin. It was cured after gastric bypass surgery. Wore professional freestyle osmani 7 days only in 2019. No dietary log available to review with osmani download. The result showed low BG of < 70 but no BG <54. Low BG occured at anytime of the day including at/around 3 am. She mentioned that her last meal/snack of the day is around 10 pm. Saw dietitian in the past for weight management: small frequent meals/snack every 3-4 hours recommended and to avoid simple carbs and eat complex carbs with protein. She has been adhering to this diet. Denies drinking alcohol, renal or liver disease, recent sickness. She has bipolar disorder on Lurasidone. " Cosyntrophin stimulation test on 10/02/19 showed appropriate response (normal). Ref. Range 10/02/2019 10:10 10/02/2019 10:40 11/30/2019 10:01 ACTH Latest Ref Range: 0 - 46 pg/mL 11.3 CORTISOL Latest Ref Range: 2.5 - 19.5 ug/dL 22.9 (H) 26.4 (H) 9.2 Thyroid history: -hypothyroidism--severe, requiring high-dose liquid levothyroxine 600 mcg daily Her levels were uncontrolled with- multiple forms/brands of levothyroxine in the past- levels were uncontrolled with all Also tried injection -levels are not controlled Her hypothyroidism was only controlled with the liquid form History of radiation exposure: Denies Family history of thyroid disorders: "everybody in my family has thyroid issues: Present/interval history: Levothyroxine: 600 mcg/day Taking appropriately Compliant Ozempic through weight loss: Lost weight --> now taking mounjaro 7.5mg, tolerating Doing well with regards to hypoglycemia On Dexcom G7 Doing well with it, occasional low glucoses, typically if active and does not have snack prior --has had episodes where she would eat and 1 hour after she would have a bowel movement and will develop palpitation along with hypoglycemia -on reviewing the dietary history seems like she had salad with dressing before this episode Likely the dressing causing the above symptoms, possible dumping syndrome TSH Results: Lab Results Component Value Date/Time TSH - [facility] >100.00 (H) 03/27/2024 09:16 AM TSH - [facility] >100.00 (H) 12/10/2023 12:54 PM TSH - [facility] 99.80 (H) 05/10/2023 12:22 PM TSH - [facility] 0.94 08/05/2020 03:18 PM TSH - [facility] 93.30 (H) 06/11/2020 03:41 PM TSH - [facility] 27.90 (H) 02/13/2020 02:20 PM TSH - [facility] 134.000 (A) 11/29/2017 12:00 AM Latest Reference Range & Units 03/27/24 09:16 T4, Free 0.9 - 1.7 ng/dL <0.1 (L) (L): Data is abnormally low 12/21/2022: T4, Free 0.9 - 1.7 ng/dL 1.1 Hemoglobin AIC Results: Lab Results Component Value Date/Time HEMOGLOBIN A1C - [facility] 5.2 01/07/2024 10:11 AM HEMOGLOBIN A1C - [facility] 5.1 05/10/2023 12:25 PM HEMOGLOBIN A1C - [facility] 4.8 12/21/2022 11:21 AM HEMOGLOBIN A1C - [facility] 5.1 10/27/2019 11:25 AM HEMOGLOBIN A1C - [facility] 5.2 07/21/2018 08:50 AM HEMOGLOBIN A1C - [facility] 5.3 07/20/2017 08:43 AM MEDS Current Outpatient Medications Medication Sig Dispense Refill Glucose 15 GM/32ML GEL Use as needed for hypoglycemia 32 mL 5 Latuda 80 MG Oral Tablet 100 mg. Per pt, now taking 100mg daily. LORazepam 0.5 MG Oral Tablet (Ativan) OneTouch Delica Lancets 30G To test blood sugars twice a day. 100 Each 5 Modafinil 100 MG Oral Tablet (Provigil) Semaglutide (2 MG/DOSE) 8 MG/3ML Subcutaneous Solution Pen-injector (Ozempic) Inject 2 mg once a week. Dexcom G7 Construction Assistant Device Use as directed. Dexcom G7 Sensor Use as directed. Ozempic (2 MG/DOSE) 8 MG/3ML Subcutaneous Solution Pen-injector (Semaglutide (2 MG/DOSE)) inject 2mg subcutaneous injection every 7 days 9 mL 1 Modafinil 100 MG Oral Tablet (Provigil) Take 1.5 tablets by mouth daily for excessive daytime sleepiness 135 Tablet 0 Tirosint-WILLIAM 200 MCG/ML Oral Solution (Levothyroxine Sodium) 500 mcg daily (2 vials of 200 mcg +1 vial of 100 mcg) 180 mL 11 Tirosint-WILLIAM 100 MCG/ML Oral Solution (Levothyroxine Sodium) take 500 mcg by mouth daily (2 vials of 200 mcg +1 vial of 100 mcg) 90 mL 11 HYDROcodone-Acetaminophen 5-325 MG Oral Tablet Take 1 Tablet by mouth every 8 hours as needed for moderate Pain (Patient not taking: Reported on 02/04/2024) 20 Tablet 0 Cyanocobalamin 1000 MCG/ML Injection Solution (Cyanocobalamin) INJECT 1000 MCG INTO A LARGE MUSCLE EVERY 30 DAYS 3 mL 4 LORazepam 0.5 MG Oral Tablet (Ativan) take 1 tablet by mouth twice daily as needed for anxiety or panic attack (max 15 tablets per month) 15 Tablet 0 Linzess 72 MCG Oral Capsule (linaCLOtide) Take 1 Capsule by mouth daily before breakfast. (Patient not taking: Reported on 02/04/2024) Lurasidone HCl 20 MG Oral Tablet (Latuda) Take one tablet by mouth daily with 350 calories in addition to 80mg tablet 90 Tablet 0 Lurasidone HCl 80 MG Oral Tablet (Latuda) Take one tablet by mouth every day with 350 calorie meal 90 Tablet 0 oxyCODONE HCl 5 MG Oral Tablet (Oxy IR) take 1 tablet (5 mg) orally every 8 hours As Needed for pain 7 Tablet 0 Cyclobenzaprine HCl 10 MG Oral Tablet (Flexeril) Take 1 Tablet by mouth 2 times a day as needed (headache). 30 Tablet 3 Nortriptyline HCl 10 MG Oral Capsule (Pamelor) Take 2 Capsules by mouth at bedtime. (Patient not taking: Reported on 02/04/2024) 180 Capsule 1 traMADol HCl 50 MG Oral Tablet (Ultram) take 1 tablet by mouth every 4-6 hours as needed. Not to exceed 5 tablets in a 24-hour period (Patient not taking: Reported on 02/04/2024) 10 Tablet 0 Ketoconazole 2 % External Shampoo (Nizoral) Shampoo to scalp two to three times a week 120 mL 11 Clobetasol Propionate 0.05 % External Solution Apply several drops to scalp as needed for itch 50 mL 5 Methocarbamol 500 MG Oral Tablet (Robamol) take 1 to 2 tablets orally at bedtime; 30 Tablet 0 Vitamin D3 50 MCG (2000 UT) Oral Capsule Take 2 Capsules by mouth daily for 30 days, THEN 1 Capsuledaily. 120 Capsule 3 Saccharomyces boulardii 250 MG Oral Capsule (Florastor) Take 1 Capsule by mouth in the morning and 1 Capsule before bedtime. (Patient not taking: Reported on 02/04/2024) 60 Capsule 1 Clindamycin HCl 300 MG Oral Capsule Take 1 Capsule by mouth in the morning and 1 Capsule at noon and 1 Capsule before bedtime. (Patient not taking: Reported on 02/04/2024) 20 Capsule 0 Famotidine 20 MG Oral Tablet (Pepcid) take 1 tablet by mouth with antibiotic twice daily for 10 days (Patient not taking: Reported on 02/04/2024) 30 Tablet 0 Lurasidone HCl 20 MG Oral Tablet (Latuda) Take 1 tablet by mouth daily with 350 calories in addition to 80mg 90 Tablet 0 Ondansetron 4 MG Oral Tablet Disintegrating (Zofran) Dissolve 1 Tablet on tongue every 8 hours as needed for Nausea. 20 Tablet 1 Chlorhexidine Gluconate 4 % External Solution (Hibiclens) wash 2-3 times a week and have on the skin for 3-5 minutes prior to rinse 237 mL 0 Mounjaro 2.5 MG/0.5ML Subcutaneous Solution Pen-injector (Tirzepatide) Inject 2.5 mg under the skinonce a week 2 mL 0 LORazepam 0.5 MG Oral Tablet (Ativan) take 1 tablet by mouth up to three times a day as needed for anxiety/panic attack 30 Tablet 0 Lurasidone HCl 20 MG Oral Tablet (Latuda) take 1 tablet by mouth daily with 350 calories in addition to 80mg 90 Tablet 0 Mounjaro 7.5 MG/0.5ML Subcutaneous Solution Pen-injector (Tirzepatide) inject 7.5mg under the skin once weekly 2 mL 1 Lurasidone HCl 60 MG Oral Tablet (Latuda) take 2 tablets by mouth every day with 350 anamaria meal 60 Tablet 0 guanFACINE HCl 1 MG Oral Tablet (Tenex) take 1 tablet by mouth every night 90 Tablet 0 Dexcom G7 Sensor USE DIRECTED, CHANGE EVERY 10 DAYS 9 Each 3 No current facility-administered medications for this visit. Allergies Reviewed and updated in the appropriate section of the electronic health record PE General appearance: Well-developed, well-nourished, not in distress Eyes: Clear sclera, no irritation Neck: No visible goiter/mass Respiratory system: Not in distress, Normal breathing pattern Neurological: Awake alert and oriented x3 Psychiatric: Cooperative and appropriate mood RECORDS I reviewed the available medical records from pcp Impression/Plan 1. Hypothyroidism 2. Vit D def 3. Postprandial hypoglycemia 4. Gastric bypass surgery -with regards to hypothyroidism---only able to absorb levothyroxine as liquid form -pt reports taking 600mcg daily with occasional missed dosing, on empty stomach -with regards to postprandial hypoglycemia related to gastric bypass surgery doing well on low carbdiet, Mounjaro, continuous glucose monitoring -encourage her to keep a log and avoid stone both salad dressing to see whether it improves and advised to be cautious on artificial sweeteners -taking vitamin d supplement per PCP -hypoglycemia is life endangering and continuous glucose monitoring with hypoglycemic alert should be continued Repeat FT4 Q1-2 weeks to monitor for improvement -potential life endangering hypoglycemia is addressed, along with hypothyroidism I spent a total of 30-39 minutes (exact time 30 mins) on the date of service in preparation, delivery, and documentation of the care provided to Margarita Edd Shah excluding any time spent in the performance of separately billed services. ZAINAB Hernandez Endocrinology [address] [place] [address] documented in this encounter Plan of Treatment Upcoming Encounters Date Type Department Care Team (Late st Contact Info) Description 10/02/2024 1:00 PM EST Laboratory [facility] [place] [address] [place] [phone] [place] [address] 10/02/2024 2:00 PM EST Office Visit Hematology/[place] [address] [phone] Elliott Monique MD [address] [place] [address] 03/02/2025 9:45 AM EDT Office Visit Dermatology [facility] [address] [place] [address] Ajit Deshpande MD [address] [place] [address] Health Maintenance Due Date Last Done Comments Pneumococcal Vaccine: Pediatrics (0 to 5 Years) and At-Risk Patients (6 to 64 Years) (1 of 2 - PCV) 1985 HIV Screening 1994 Hepatitis B Vaccine (1 of 3 - 19+ 3-dose series) 1998 Depression Monitoring 12/09/2021 12/09/2020 COVID-19 Vaccine ( - season) 2024 10/27/2020 Mammogram 01/06/2025 01/07/2024, 12/15, [...] Diagnoses Diagnosis Acquired hypothyroidism- Primary Unspecified hypothyroidism Reactive hypoglycemia Hypoglycemia, unspecified Body mass index (BMI) of 40.0 to 44.9 in adult (HCC) documented in this encounter Care Teams Cotton Roll Packer Relationship Specialty Start Date End Date Sammie Valverde PA-C [address] [address] PCP - General Physician Office Machine Embossograph Operator 08/27/23 documented as of this encounter
--- OUTSIDE RECORDS SUMMARY | 2024-09-13 20:33 | External Medical Summary | Summary of Care ---
Author Name Unknown Organization [facility] Address [address] [place] [address] Phone [phone] Care Team Providers Care Regional Trainer Name Role Phone Sammie Valverde PA-C Primary Care Provider [phone] Encounter Details Date Type Department Care Team (Late st Contact Info) Description 07/24/2024 Telephone [facility] [place] [address], [place] [id number] Madhu Parra CRNP [address] [place] [address] Allergies Active Allergy Reactions Criticality Noted [...] 0.5 MG Oral Tablet (Ativan) 1 Active Quintinuch Alesia Lancets 30G To test blood sugars twice a day. 100 Each 5 2 Active Modafinil 100 MG Oral Tablet (Provigil) 3 Active Dexcom G7 Technical Services Consultant Device Use as directed. 11/10/19 2 3 [...] Telephone Encounter - Martine Kelley LPN - 07/24/2024 3:13 PM EST A1c added to existing specimen per pt request. Martine Kelley LPN 07/24/2024 3:14 PM documented in this encounter Plan of Treatment Upcoming Encounters Date Type Department Care Team (Late st Contact Info) Description 10/02/2024 1:00 PM EST Laboratory Laboratory [facility] [place] [address] [facility] [place] [phone] [place] [facility] [address] [facility] [place] [address] 10/02/2024 2:00 PM EST Office Visit Hematology/Oncology [facility] [place] [address] [place] [phone] Elliott Monique MD [address] [facility] [place] [address] 03/02/2025 9:45 AM EDT Office Visit Dermatology [facility] [place] [address] [facility] [place] [address] Ajit Deshpande MD [address] [facility] [place] [address] Scheduled Orders Name Type Priority Associated Diagnoses Orde r Schedule HEMOGLOBIN A1C Lab Routine Reactive hypoglycemia Expected: 07/24/2024 (Approximate), Expires: 07/24/2025 Health Maintenance Due Date Last Done Comments [...] as of this encounter Visit Diagnoses Diagnosis Reactive hypoglycemia- Primary Hypoglycemia, unspecified documented in this encounter Care Teams Regional Trainer Relationship Specialty Start Date End Date Sammie Valverde PA-C [address] [place] [facility] [place] [address] PCP - General Physician Window Cutter 08/27/23 documented as of this encounter
--- OUTSIDE RECORDS SUMMARY | 2024-09-13 20:33 | External Medical Summary ---
Author Name Unknown Address Unknown Organization K01:LABORATORY [facility] [place] - [address] [address] Laboratory Report Ordering Provider Test Date Status ROSLYN HORN 07/24/2024 13:05:40 Final Observation Date Value Abnormality Reference (Units ) Status Albumin 07/24/2024 13:05:40 4.4 3.8-5.0 (g/dL) Final AST (Aspartate aminotransferase) 07/24/2024 13:05:40 40 Above high normal 10-35 (U/L) Final Alk Phos 07/24/2024 13:05:40 73 35-130 (U/L) Final ALT (Alanine aminotransferase) 07/24/2024 13:05:40 71 Above high normal 10-35 (U/L) Final Bilirubin, Total 07/24/2024 13:05:40 0.6 <=1.2 (mg/dL) Final Bilirubin, Direct 07/24/2024 13:05:40 0.2 0.0-0.3 (mg/dL) Final Protein 07/24/2024 13:05:40 6.6 6.0-8.3 (g/dL) Final Performing Location [facility] [place] - [address] [place] [address]
--- OUTSIDE RECORDS SUMMARY | 2024-09-13 20:33 | External Medical Summary | Summary of Care ---
Author Name Unknown Organization [facility] Address [address] [facility] [address] Phone [phone] Care Team Providers Care Analytical Manager Name Role Phone Sammie Valverde PA-C Primary Care Provider [phone] Encounter Details Date Type Department Care Team [...] Oral Tablet (Provigil) 3 Active Dexcom G7 Medical Receptionist Medical Assistant Device Use as directed. 11/10/19 2 [...] 3:21 PM EST I spoke to both [facility] mail order and [facility] in [place] as this is also on pts pharmacy list. [facility] mail last refill: 05/2023 [facility] [place]: 05/21/2023 Please let me know if you need me to contact the patient further. Martine Kelley LPN 2024 3:24 PM * Telephone Encounter - Madhu Parra CRNP - 07/26/2024 3:18 PM EST Patient with persistent low free T4 despite being on high dose of tirosint liquid (500 mcg daily). Per chart [facility] Can we contact them to [...] Description 10/02/2024 1:00 PM EST Laboratory [facility] [place] [address] [place] [phone] [place] [facility] [address] [place] [address] 10/02/2024 2:00 PM EST Office Visit Hematology/Oncology [facility] [place] [address] [place] [phone] Elliott Monique MD [address] [place] [address] 03/02/2025 9:45 AM EDT Office Visit Dermatology [place] [address] [place], [place] [address] Ajit Deshpande MD [address] [facility] [place] [address] Health Maintenance Due Date Last Done Comments [...] filedocumented as of this encounter Care Teams Analytical Manager Relationship Specialty Start Date End Date Sammie Valverde PA-C PCP - General Physician Information Systems Consultant 08/27/23 documented as of this encounter
--- OUTSIDE RECORDS SUMMARY | 2024-09-13 20:34 | External Medical Summary ---
Author Name Unknown Address Unknown Organization K01:LABORATORY [facility] [place] - [address] [place] [address] Laboratory Report Ordering Provider Test Date Status JAVY SAHU 07/24/2024 13:05:40 Final Observation Date Value Abnormality Reference (Units ) Status MYCODE SPECIMEN-SST 07/24/2024 13:05:40 Freezing of extracted DNA, whole blood and/or serum. Final Performing Location LABORATORY [facility] [place] - [address] [place] [place] [address]
--- OUTSIDE RECORDS SUMMARY | 2024-09-13 20:34 | External Medical Summary | Summary of Care ---
Author Name Unknown Organization [facility] Address [address] [facility] [place] [address] Phone [phone] Care Team Providers Care Loom Stop Checker Name Role Phone Sammie Valverde PA-C Primary Care Provider [phone] Encounter Details Date Type Department Care Team (Late st Contact Info) Description 06/26/2024 10:20 AM EST Telemedicine Hepatology, [facility] [address] [place] [address] Brooke Elliott DO [address] [place] [address] Abnormal LFTs*; Drug-induced liver injury Allergies Active Allergy Reactions Criticality Noted Date [...] as of this encounter (statuses as of 06/26/2024) Medications Glucose 15 GM/32ML GELIndications:Hy poglycemia Use as needed for hypoglycemia 32 mL 5 Active Latuda 80 MG Oral Tablet 100 mg. Per pt, now taking 100mg daily. Active LORazepam 0.5 MG Oral Tablet (Ativan) 021 Active OneTouch Delica Lancets 30G To test blood sugars twice a day. 100 Each 5 022 Active Modafinil 100 MG Oral Tablet (Provigil) 023 Active Dexcom G7 Funeral Home Attendant Device Use as directed. 023 Active Dexcom G7 Sensor Use as directed. [...] 90 Tablet 12/22/19 24 1:22 PM EDT 024 Active Chlorhexidine Gluconate 4 % External Solution (Hibiclens) wash 2-3 times a week and have on the skin for 3-5 minutes prior to rinse 237 mL 02/26/20 24 10:44 AM EDT 024 Active Mounjaro 2.5 MG/0.5ML Subcutaneous Solution Pen-injector [...] mL 1 05/31/20 24 11:28 AM EDT 09/04/2 024 Active guanFACINE HCl 1 MG Oral Tablet (Tenex) take 1 tablet by mouth every night 90 Tablet 04/29/20 24 12:36 PM EDT Active Additional Information Patient taking differently: 2 mg, Reported on 05/23/2024 Dexcom G7 SensorIndications :Reactive hypoglycemia USE DIRECTED, CHANGE EVERY 10 DAYS 9 Each 3 05/03/20 24 10:45 AM EDT 2024 Active Magnesium Chloride 64 MG Oral Tablet Take 2 Tablets by mouth. Active Lurasidone HCl 40 MG Oral Tablet (Latuda) take 1 tablet by mouth every day with 350 anamaria meal (this is in addition to 80 mg pill pt currently has)(total of 120mg/day) 30 Tablet 06/16/20 24 10:43 AM EDT Active Linzess 72 MCG Oral Capsule (linaCLOtide) Take 1 Capsule by mouth daily before breakfast. 2023 Discontinued Saccharomyces boulardii 250 MG Oral Capsule (Florastor)Indica tions:Elevated CK Take 1 Capsule by mouth in the morning and 1 Capsule before bedtime. 60 Capsule 1 12/14/19 24 12:53 PM EDT 024 2023 Discontinued Famotidine 20 MG Oral Tablet (Pepcid)Indicatio ns:Elevated CK take 1 tablet by mouth with antibiotic twice daily for 10 days 30 Tablet 12/14/19 24 12:53 PM EDT 024 2023 Discontinued Ondansetron 4 MG Oral Tablet Disintegrating (Zofran)Indicatio ns:Nausea Dissolve 1 Tablet on tongue every 8 hours as needed for Nausea. 20 Tablet 1 02/04/20 24 9:09 AM EDT 024 2023 Discontinued Cephalexin 500 MG Oral Capsule (Keflex) take 1 capsule by mouth three times a day 30 Capsule 06/16/20 24 10:43 AM EDT 024 2023 Discontinued documented as of this encounter (statuses as of 06/26/2024) Active Problems Problem Noted Date Diagnosed Date [...] as of this encounter (statuses as of 06/26/2024) Resolved Problems Problem Noted Date Diagnosed Date [...] as of this encounter (statuses as of 06/26/2024) Immunizations Name Administration Dates Next Due Covid-19 [...] as of this encounter Progress Notes * Brooke Elliott, - 06/26/2024 10:28 AM EST Patient location: HOME. I was in a hospital or clinic location. After connecting through [employer],patient was verified with two unique identifiers. Patient (or authorized legal traveling representative) was then informed that this was a Telemedicine visit and being conducted confidentially over secure lines. Methods to assure confidentiality were taken. Patient acknowledged consent and understanding of pr ivacy and security of the Telemedicine visit. The patient agreed to participate. CC: Abnormal LFTs HPI: Margarita Shah is a 43 year old female originally referred by Sammie Valverde PA-C for further evaluation of abnormal LFTs. She has PMH notable for anemia, bipolar disorder, RLS, anxiety, DM2, gastric bypass surgery in 2012, obesity (BMI 34), hypothyroidism. Following with hematology (Dr. Monique) for MARIAM related to bypass surgery and receiving iron infusions in the past last in 2020. Currently just being monitored via blood work. She was seen by ZAINAB Orr in 08/2023 for chronic constipation and was prescribed Linzess. She had an abdominal US completed in 11/2023 for abnormal LFTs which was unremarkable and no mentionof hepatic steatosis. She has had an AST/ALT elevation with normal ALP and bilirubin since at [id number]. Acute hepatitis panel negative. She states she was not aware of any elevated LFTs until the past year. She was taking Ozempic but just recently switched to Mounjaro. She denies any new medications in the past 2 years other than starting Ozempic last year which she is no longer on and recently she had some IV iron infusions. She denies any history of any alcohol abuse. She states she currently does not drink any alcohol only very rarely. Denies any history of any drug use. Denies tobacco use she quit in 2002. She denies any herbal supplement use. Takes excedrin OTC PRN for headaches. Denies any family history of liver disease, HCC, or GI malignancy. States she has been on latuda for at least 3 years as well as tenex and provigil. She is following with endocrinology for her hypothyrodisim. This has been uncontrolled. Underwent a completely serological evaluation in March which was unremarkable for causes of abnormal LFTs. She then underwent an EUS guided liver biopsy which showed changes suggestive of drug effect/DILI. No fibrosis or inflammation seen. Most recent LFTs in March wit ALT 36, AST 57, ALP 55, total bilirubin 0.7. 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 Per pt, now taking 100mg daily. LORazepam 0.5 MG Oral Tablet (Ativan) OneTouch Delica Lancets 30G To test blood sugars twice a day. 100 Each 5 Modafinil 100 MG Oral Tablet (Provigil) Dexcom G7 Funeral Home Attendant Device Use as directed. Dexcom G7 Sensor Use as directed. Modafinil 100 MG Oral Tablet (Provigil) Take [...] vial of 100 mcg) 90 mL 11 LORazepam 0.5 MG Oral Tablet (Ativan) take 1 tablet by mouth twice daily as needed for anxiety or panic attack (max 15 tablets per month) 15 Tablet 0 Lurasidone HCl 20 MG Oral Tablet (Latuda) Take one tablet by mouth daily with 350 calories in addition to 80mg tablet 90 Tablet 0 Lurasidone HCl 80 MG Oral Tablet (Latuda) Take one tablet by mouth every day with 350 calorie meal 90 Tablet 0 Cyclobenzaprine HCl 10 MG Oral Tablet (Flexeril) Take 1 Tablet by mouth 2 times a day as needed (headache). 30 Tablet 3 Ketoconazole 2 % External Shampoo (Nizoral) Shampoo [...] days, THEN 1 Capsuledaily. 120 Capsule 3 Lurasidone HCl 20 MG Oral Tablet (Latuda) Take 1 tablet by mouth daily with 350 calories in addition to 80mg 90 Tablet 0 Chlorhexidine Gluconate 4 % External Solution (Hibiclens) [...] the skin once weekly 2 mL 1 guanFACINE HCl 1 MG Oral Tablet (Tenex) take 1 tablet by mouth every night (Patient taking differently: 2 Tablets.) 90 Tablet 0 Dexcom G7 Sensor USE DIRECTED, CHANGE EVERY 10 DAYS 9 Each 3 Magnesium Chloride 64 MG Oral Tablet Take 2 Tablets by mouth. Lurasidone HCl 40 MG Oral Tablet (Latuda) take 1 tablet by mouth every day with 350 anamaria meal (this is in addition to 80 mg pill pt currently has)(total of 120mg/day) 30 Tablet 0 No current facility-administered medications for this visit. Review of patient's allergies indicates: Allergen Reactions Amoxicillin Anaphylaxis Fentanyl Psych complications Very Mean Penicillin G Anaphylaxis Aspirin Other reaction(s): Gastric bypass Ciprofloxacin Hcl Rash PO Only Can do the IV form Diphenhydramine Hcl Hives Erythromycin Hives Ketorolac Tromethamine Latex Rash Sulfa Antibiotics Rash Tramadol Rash Voltaren [Diclofenac Sodium] Rash Social History Socioeconomic History Marital status: Spouse name: Not on file Number of children: Not on file Years of education: Not on file Highest education level: Not on file Occupational History Not on file Tobacco Use Smoking status: Former Smokeless tobacco: Former Quit date: 2002 Vaping Use Vaping status: Never Used Substance and Sexual Activity Alcohol use: No Comment: Rare-twice yearly Drug use: No Sexual activity: Not on file Other Topics Concern Not on file Social History Narrative Not on file Social Needs Financial Resource Strain: Low Risk (12/13/2023) Financial Resource Strain Do you have any trouble paying for your medications, or do you think you might in the future? (Adult - for ages 18 years and over): No Does your family have trouble paying for medicine? (Household - for ages 0-17 years): Not on file Food Insecurity: No Food Insecurity (12/13/2023) Food Insecurity Do you need food for this week? (Adult - for ages 18 years and over): No Are you able to get enough food for your family? (Household - for ages 0-17 years): Not on file Does your family need food this week? (Household - for ages 0-17 years): Not on file Do you always have enough food for your family? (Household - for ages 0-17 years): Not on file Transportation Needs: No Transportation Needs (12/13/2023) Transportation Needs Do you have trouble getting a ride to medical visits or work? (Adult - for ages 18 years and over):Never True Does your family have a hard time getting a ride to doctors visits? (Household - for ages 0-17 years): Not on file Has lack of transportation kept you from medical appointments, meetings, work, or from getting things needed for daily living? Check all that apply. (Adult - for ages 18 years and over): Not on file Do you (or your family) have trouble finding or paying for a ride (transportation)? (Household - for ages 0-17 years): Not on file Social Connections: Socially Integrated (12/13/2023) Social Connections How often do you feel lonely or isolated from those around you? (Adult - for ages 18 years and over): Never Housing Stability: Low Risk (12/13/2023) Housing Stability Do you currently live in a fci or have no steady place to sleep at night? (Adult - for ages 18 years and over): No Do you think you are at risk of becoming homeless? (Adult - for ages 18 years and over): No Does your family worry about paying for your home or becoming homeless? (Household - for ages 0-17 years): Not on file Are you homeless or worried that you might be in the future? (Adult - for ages 18 years and over): Not on file Are you (or your family) homeless or worried that you might be in the future? (Household - for ages0-17 years): Not on file Family History Problem Relation Name Age of Onset Lupus Mother Diabetes Mother Fibromyalgia Mother Hypertension Mother BRCA1 Positive Mother Ovarian cancer Mother Uterine cancer Mother Breast Cancer Mother 30 Other (Hypothyroidism) Mother Other (DDD) Mother Breast Cancer Grandmother (Maternal) 60 Cataracts Grandmother (Maternal) Coronary Artery disease Grandfather (Maternal) Hypertension Grandfather (Maternal) Heart failure Grandfather (Maternal) Alzheimer's disease Grandfather (Maternal) Other (DVT/PE) Grandfather (Maternal) Allergies Grandmother (Paternal) Hyperlipidemia Grandmother (Paternal) Osteoporosis Grandmother (Paternal) Other (Hypothyroidism) Grandmother (Paternal) Other (epilepsy) Son Autism Son Crohn's disease Cousin (Unspecified) Irritable Bowel Syndrome Cousin (Unspecified) Review of Systems: Constitutional: No report of fever, chills, night sweats. There have been no non-intentional weightchanges. Eyes: No recent changes in visual acuity or blurring of vision. ENT: No change in auditory acuity, sense of smell or taste. CV: No chest pain, palpitations, dyspnea on exertion. Respiratory: No wheezing, cough, sputum production. : No dysuria, polyuria, change in urinary frequency. GI: Per HPI, otherwise negative. Psychiatric: No chronic changes in mood, affect or sensorium. Musculoskeletal: No myalgias, arthralgias, or joint pains. Neurological: No change in gait, change in maintenance of balance, neurologic injuries. Physical Exam- no vitals obtained as this is a video visit Well developed, well nourished female in no apparent distress. Eyes: Conjunctivae and sclerae are clear and non-icteric. Pulm: No respiratory distress Psychiatric: The patient is alert and oriented in all four spheres. Mood is euthymic. Affect is appropriate for the situation. Neuro: AAOx3 Labs: Reviewed Component Latest Ref Rng 01/27/2023 05/10/2023 11/19/2023 11/24/2023 12/10/2023 BUN 6 - 20 mg/dL 12 14 13 CREATININE 0.5 - 1.0 mg/dL 0.9 1.1 (H) 1.1 (H) EGFR >=60 mL/min 78 62 61 SODIUM 135 - 146 mmol/L 141 140 140 POTASSIUM 3.5 - 5.1 mmol/L 3.8 3.8 3.4 (L) CHLORIDE 98 - 107 mmol/L 104 103 105 CO2 22 - 32 mmol/L 27 28 27 ANION GAP 7 - 15 mmol/L 10 9 8 GLUCOSE 70 - 120 mg/dL 83 86 73 Albumin 3.8 - 5.0 g/dL 4.1 4.5 4.1 4.2 4.5 AST 10 - 35 U/L 33 24 81 (H) 96 (H) 75 (H) Alkaline Phosphatase 35 - 130 U/L <5 (L) 80 65 66 65 Bilirubin, Total <=1.2 mg/dL <0.2 0.6 0.5 0.4 0.9 CALCIUM 8.4 - 10.2 mg/dL 8.8 8.9 8.6 Protein 6.0 - 8.3 g/dL 6.5 6.8 6.5 6.9 6.9 ALT 10 - 35 U/L 28 19 91 (H) 102 (H) 108 (H) Bilirubin, Direct 0.0 - 0.3 mg/dL <0.2 <0.2 Component Latest Ref Rng 01/07/2024 03/27/2024 BUN 6 - 20 mg/dL 15 CREATININE 0.5 - 1.0 mg/dL 1.2 (H) EGFR >=60 mL/min 58 (L) SODIUM 135 - 146 mmol/L 139 POTASSIUM 3.5 - 5.1 mmol/L 3.8 CHLORIDE 98 - 107 mmol/L 104 CO2 22 - 32 mmol/L 25 ANION GAP 7 - 15 mmol/L 10 GLUCOSE 70 - 120 mg/dL 77 Albumin 3.8 - 5.0 g/dL 4.2 4.1 AST 10 - 35 U/L 31 57 (H) Alkaline Phosphatase 35 - 130 U/L 65 55 Bilirubin, Total <=1.2 mg/dL 0.7 0.7 CALCIUM 8.4 - 10.2 mg/dL 8.8 Protein 6.0 - 8.3 g/dL 6.5 6.4 ALT 10 - 35 U/L 30 36 (H) Bilirubin, Direct 0.0 - 0.3 mg/dL <0.2 Imaging: Reviewed Abdominal US 12/03/2023: FINDINGS LIVER: Normal echogenicity. No focal lesion. BILE DUCTS: No intrahepatic or extrahepatic duct dilatation. The common bile duct measures 5 mm. GALLBLADDER: Cholecystectomy. PANCREAS: Visualized portions are unremarkable. RIGHT KIDNEY: 11.8 cm in length. No hydronephrosis, shadowing calculi, or focal lesion. OTHER: No ascites. IMPRESSION 1. No acute sonographic abnormality in the right upper quadrant. Procedures: Reviewed EUS guided liver biopsy 06/02/2024: Component Final Diagnosis A. Jejunum, biopsy: Small intestinal mucosa within normal limits. B. Liver, left lobe, needle biopsy: Secondary iron overload, mild sinusoidal dilatation, and centrilobular hepatocytes with cytoplasmicchanges (see comment). at 2000 Final Diagnosis Comment The liver biopsy shows mild cytoplasmic changes in the centrilobular hepatocytes, suggestive of drug effects. There is no chronic hepatitis, and no significant fibrosis is identified. Colonoscopy 01/29/2023: Impression: - The examined portion of the ileum was normal. - Diverticulosis in the sigmoid colon. - The examination was otherwise normal. - No specimens collected. EGD 01/29/2023: Impression: - Normal esophagus. - Gastric bypass with a normal-sized pouch. Gastrojejunal anastomosis characterized by healthy appearing mucosa. - Normal examined jejunum. - No specimens collected. ASSESSMENT: Margarita Shah is a 43 year old female referred by Sammie Valverde PA-C for further evaluation of abnormal LFTs. She has PMH notable for anemia, bipolar disorder, RLS, anxiety, DM2, gastric bypass surgery in 2012, obesity (BMI 34), hypothyroidism. Plan: 1. Elevated liver enzymes. Underwent a completely serological evaluation in March which was unremarkable for causes of abnormal LFTs. She then underwent an EUS guided liver biopsy which showed changes suggestive of drug effect/DILI. No fibrosis or inflammation seen. In clinical trials, modafinil and armodafinil were associated with a low rate of serum aminotransferase and alkaline phosphatase elevations (<1%). Furthermore, despite widescale use, there have not been reports of clinically apparent liver injury due to modafinil or armodafinil. The serum aminotransferase elevations that occuron lurasidone therapy are usually self-limited and often do not require dose modification or discontinuation. No instances of acute liver failure, chronic hepatitis or vanishing bile duct syndrome have been attributed to lurasidone. In the multiple clinical trials of guanfacine in adolescents and children with ADHD there were no reports of serum enzyme elevations or in instances of clinically apparent liver injury. Furthermore, despite widescale use of the agent for both hypertension and ADHD, there have been no reports of clinically apparent liver injury attributable to guanfacine. Will repeat LFTs now as It has been 3 months. If remain elevated will need to possibly adjust medications with her psychiatrist possibly switching latuda or Provigil as they could be causing DILI. 2. Colorectal cancer screening. Colonoscopy in 2022 normal. Recommend repeat again in 5 years. 3. The health risks imposed by heavy alcohol intake were discussed in detail. 4. Dietary counseling. 5. Follow up in 6 months Brooke Elliott DO Gastroenterology and Hepatology I spent a total of 25 minutes on the date of service in review of patient's record, and previously obtained information in person and appropriate medical visit, discussion and education of plan, withpatient and/or caregiver, placing orders for tests/referral/procedures as medically necessary and documentation of pertinent clinical information in patient's medical records for their visit today. documented in this encounter Plan of Treatment Upcoming Encounters Date Type Department Care Team (Late st Contact Info) Description 07/10/2024 10:30 AM EST Laboratory Laboratory [facility] [address] [place] [id number] [facility] [address] [facility] [place] [address] 10/02/2024 1:00 PM EST Laboratory Laboratory [facility] [address] [place], [place] [id number] [facility] [address] [facility] [place], [place] [address] 10/02/2024 2:00 PM EST Office Visit Hematology/Oncology [facility] [address] [place], [place] [id number] Elliott Monique MD [address] [facility] [place], [place] [address] 03/02/2025 9:45 AM EDT Office Visit Dermatology [facility] [address] [facility] [place], [place] [address] Ajit Deshpande MD [address] [facility] [place], [place] [address] Health Maintenance Due Date Last Done Comments Pneumococcal Vaccine: Pediatrics (0 to 5 Years) and At-Risk Patients (6 to 64 Years) (1 of 2 - PCV) 1985 HIV Screening 1994 Albumin/Creatinine Ratio 1997 Hepatitis B Vaccine (1 of 3 - 19+ 3-dose series) 1998 Depression Monitoring 12/09/2021 12/09/2020 COVID-19 Vaccine (2 - 2023- season) 2024 10/27/2020 HbA1c 07/09/2024 01/07/2024, 04/17, 12/21/2022, Additional history exists Mammogram 01/06/2025 01/07/2024, 12/15, 01/04/2023, Additional history exists Diabetic Foot Exam 02/03/2025 02/04/2024 GFR 03/27/2025 03/27/2024, 11/14, 11/19/2023, Additional history exists TSH 03/27/2025 03/27/2024, 11/15, 05/10/2023, Additional history exists Diabetic Eye Exam 06/16/2025 06/16/2024 DTap/Tdap Vaccines (3 - Td or Tdap) 07/20/2027 07/20/2017, 12/03/2009 Lipid Panel 01/06/2029 01/07/2024, 04/17, 04/03/2022, Additional history exists Pap Smear Discontinued 09/23/2017 (Not indicated), 05/05/2017 (Not indicated) Hepatitis C Screening Completed 01/07/2024 Influenza Vaccine (FLU shot) Completed 06/21/2024, 06/07/2023, 06/18/2022, Additional history exists HPV (Gardasil) Vaccine Aged Out No lo nger eligible based on patient's age to complete this topic MENINGOCOCCAL (MENACTRA/MENVEO) Aged Out No longer eligible based on patient's age to complete this topic documented as of this encounter Medical Devices Not on filedocumented as of this encounter Visit Diagnoses Diagnosis Abnormal LFTs- Primary Other abnormal blood chemistry Drug-induced liver injury documented in this encounter Care Teams Loom Stop Checker Relationship Specialty Start Date End Date Sammie Valverde PA-C [address] [facility] [place] [address] PCP - General Physician Chin Strap Cutter 08/27/23 documented as of this encounter
--- OUTSIDE RECORDS SUMMARY | 2024-09-13 20:34 | External Medical Summary ---
Author Name Unknown Address Unknown Organization K01:LABORATORY [place] [address] [facility] [place] [address] Laboratory Report Ordering Provider Test Date Status ROSLYN HORN 07/24/2024 13:05:40 Final Observation Date Value Abnormality Reference (Units) Status Hepatitis B virus surface Ab [Units/volume] in Serum or Plasma by Immunoassay 07/24/2024 13:05:40 14.3 (mIU/mL) Final Hepatitis B virus surface Ab [Presence] in Serum by Immunoassay 07/24/2024 13:05:40 Positive Final HEPATITIS B SURFACE ANTIBODY, INTERPRETATION 07/24/2024 13:05:40 Immune to Hepatitis B Virus Final POSITIVE: >=11.5 mIU/mL
INDETERMINATE: 8.5-<11.5 mIU/mL
NEGATIVE: <8.5 mIU/mL Performing Location [facility] [place] [address] [place] [address]
--- OUTSIDE RECORDS SUMMARY | 2024-09-13 20:34 | External Medical Summary | Summary of Care ---
Author Name Unknown Organization [facility] Address [address] [facility] [address] Phone [phone] Care Team Providers Care Fabricator Assembler Metal Products Name Role Phone Sammie Valverde PA-C Primary Care Provider [phone] Encounter Details Date Type Department Care Team (Late st Contact Info) Description 06/26/2024 Orders Only [facility] [address] [place] [address] Sammie Valverde PA-C [address] [place] [address] Allergies Active Allergy Reactions Criticality Noted Date [...] as of 06/26/2024) Medications Glucose 15 GM/32ML GELIndications:Hyp oglycemia Use as needed for hypoglycemia 32 mL [...] Tablet (Provigil) 09/22/19 23 Active Dexcom G7 Battery Tester And Repairer Device Use as directed. 11/10/19 23 Active [...] 3 10:39 AM EST 07/07/20 23 Active Linzess 72 MCG Oral Capsule (linaCLOtide) Take 1 Capsule by mouth daily before breakfast. Active Lurasidone HCl 20 MG Oral Tablet (Latuda) Take one tablet by mouth daily with 350 calories in addition to 80mg tablet 90 Tablet 09/15/19 24 Active Lurasidone HCl 80 MG Oral Tablet (Latuda) Take one tablet by mouth every day with 350 calorie meal 90 Tablet 4 8:49 AM EST 09/15/19 24 Active Cyclobenzaprine HCl 10 MG Oral Tablet (Flexeril)Indicati ons:Chronic tension-type headache, not intractable Take 1 Tablet by mouth 2 times a day as needed (headache). 30 Tablet 3 10/01/19 24 Active Ketoconazole 2 % External Shampoo (Nizoral)Indicatio ns:Seborrheic dermatitis of scalp Shampoo to scalp two to three times a week 120 mL 11 4 3:23 PM EDT 11/09/19 24 Active Clobetasol Propionate 0.05 % External SolutionIndication s:Seborrheic dermatitis of scalp Apply several drops to scalp as needed for itch 50 mL 5 4 3:23 PM EDT 11/09/19 24 Active Methocarbamol 500 MG Oral Tablet (Robamol) take 1 to 2 tablets orally at bedtime; 30 Tablet 4 12:07 PM EDT 11/19/19 24 Active Vitamin D3 50 MCG (2000 UT) Oral Capsule Take 2 Capsules by mouth daily for 30 days, THEN 1 Capsule daily. 120 Capsule 3 12/13/19 24 025 Active Saccharomyces boulardii 250 MG Oral Capsule (Florastor)Indicat ions:Elevated CK Take 1 Capsule by mouth in the morning and 1 Capsule before bedtime. 60 Capsule 1 4 12:53 PM EDT 12/13/19 24 Active Additional Information Patient not taking.Reported on 02/04/2024 Famotidine 20 MG Oral Tablet (Pepcid)Indication s:Elevated CK take 1 tablet by mouth with antibiotic twice daily for 10 days 30 Tablet 4 12:53 PM EDT 12/13/19 24 Active Additional Information Patient not taking.Reported on 02/04/2024 Lurasidone HCl 20 MG Oral Tablet (Latuda) Take 1 tablet by mouth daily with 350 calories in addition to 80mg 90 Tablet 4 1:22 PM EDT 12/20/19 24 Active Ondansetron 4 MG Oral Tablet Disintegrating (Zofran)Indication s:Nausea Dissolve 1 Tablet on tongue every 8 hours as needed for Nausea. 20 Tablet 1 4 9:09 AM EDT 01/27/20 24 Active Chlorhexidine Gluconate 4 % External Solution (Hibiclens) wash 2-3 times a week and have on the skin for 3-5 minutes prior to rinse 237 mL 4 10:44 AM EDT 02/23/20 24 Active Mounjaro 2.5 MG/0.5ML Subcutaneous Solution Pen-injector (Tirzepatide) Inject 2.5 mg under the skin once a week 2 mL 4 10:44 AM EDT 02/23/20 24 Active LORazepam 0.5 MG Oral Tablet (Ativan) take 1 tablet by mouth up to three times a day as needed for anxiety/panic attack 30 Tablet 4 1:28 PM EDT 03/13/20 24 Active Lurasidone HCl 20 MG Oral Tablet (Latuda) take 1 tablet by mouth daily with 350 calories in addition to 80mg 90 Tablet 4 1:28 PM EDT 03/13/20 24 Active Mounjaro 7.5 MG/0.5ML Subcutaneous Solution Pen-injector (Tirzepatide) inject 7.5mg under the skin once weekly 2 mL 1 4 11:28 AM EDT 04/19/20 24 Active guanFACINE HCl 1 MG Oral Tablet (Tenex) take 1 tablet by mouth every night 90 Tablet 4 12:36 PM EDT 04/28/20 Active Additional Information Patient taking differently: 2 mg, Reported on 05/23/2024 Dexcom G7 SensorIndications: Reactive hypoglycemia USE DIRECTED, CHANGE EVERY 10 DAYS 9 Each 3 4 10:45 AM EDT 05/02/20 24 025 Active Magnesium Chloride 64 MG Oral Tablet Take 2 Tablets by mouth. Active Lurasidone HCl 40 MG Oral Tablet (Latuda) take 1 tablet by mouth every day with 350 anamaria meal (this is in addition to 80 mg pill pt currently has)(total of 120mg/day) 30 Tablet 4 10:43 AM EDT 06/06/20 24 Active Cephalexin 500 MG Oral Capsule (Keflex) take 1 capsule by mouth three times a day 30 Capsule 4 10:43 AM EDT 06/06/20 24 Active documented as of this encounter (statuses [...] Description 06/26/2024 10:20 AM EST Telemedicine [facility], [facility] [address] [facility] [place] [address] Brooke Elliott DO [address] [place] [address] 07/10/2024 10:30 AM EST Laboratory Laboratory [facility] [place] [address] [place] [phone] [facility] [address] [place] [address] 10/02/2024 1:00 PM EST Laboratory Laboratory [facility] [place] [address] [place] [phone] [facility] [address] [place] [address] [address] 10/02/2024 2:00 PM EST Office Visit Hematology/Oncology [facility] [place] [address] [place] [phone] Elliott Monique MD [address] [place] [address] 03/02/2025 9:45 AM EDT Office Visit Dermatology [facility] [place] [address] [place] [address] Ajit Deshpande MD [address] [facility] [place] [address] Health Maintenance Due Date Last Done Comments Pneumococcal Vaccine: Pediatrics (0 to 5 Years) and At-Risk Patients (6 to 64 Years) (1 of 2 - PCV) 1985 HIV Screening 1994 Albumin/Creatinine Ratio 1997 Diabetic Eye Exam 1997 06/16/2024 Hepatitis B Vaccine (1 of 3 - 19+ 3-dose series) 1998 Depression Monitoring 12/09/2021 12/09/2020 COVID-19 Vaccine ( - season) 2024 10/27/2020 HbA1c 07/09/2024 01/07/2024, 04/17, 12/21/2022, Additional history exists Mammogram 01/06/2025 01/07/2024, 12/15, 01/04/2023, Additional history exists Diabetic Foot Exam 02/03/2025 02/04/2024 GFR 03/27/2025 03/27/2024, 04, 11/19/2023, Additional history exists TSH 03/27/2025 03/27/2024, 11/15, 05/10/2023, Additional history exists DTap/Tdap Vaccines (3 - Td or Tdap) [...] Not on filedocumented as of this encounter Procedures Procedure Name Priority Date/Time Associated Diagnosis Comments DIABETIC EYE EXAM Routine 06/16/2024 documented in this encounter Results * DIABETIC EYE EXAM (06/16/2024) 06/16/2024 us Debiдмитрий Giles OD OTHER Final Result OUTSIDE LAB (SEE SCANNED REPORT) documented in this encounter Care Teams Fabricator Assembler Metal Products Relationship Specialty Start Date End Date Sammie Valverde PA-C [address] [facility] [place] [address] PCP - General Physician Public Works Director 08/27/23 documented as of this encounter
--- OUTSIDE RECORDS SUMMARY | 2024-09-13 20:34 | External Medical Summary | Summary of Care ---
Author Name Unknown Organization [facility] Address [address] [facility] [place] [address] Phone [phone] Care Team Providers Care Application Developer Manager Name Role Phone Sammie Valverde PA-C Primary Care Provider [phone] Reason for Visit * Reason Onset Date Comments Medication Administration 06/21/2024 Flu an d/or Pneumo Inj Encounter Details Date Type Department Care Team (Late st Contact Info) Description 06/21/2024 9:00 AM EST Immunization Ancillary Department, [place] [address], [place] [id number] [place] [address] [place] [address] Need for prophylactic vaccination and inoculation against influenza* Allergies Active Allergy Reactions Criticality Noted Date [...] as of this encounter (statuses as of 06/21/2024) Medications Medication Sig Dispensed Refills Start Date End Date Status Glucose 15 GM/32ML GELIndications:Hypog lycemia Use as needed for hypoglycemia 32 mL 5 01/17/2020 Active Latuda 80 MG Oral Tablet 100 mg. Per pt, now taking 100mg daily. 03/18/2020 Active LORazepam 0.5 MG Oral Tablet (Ativan) 12/03/2020 Acti ve OneTouch Delica Lancets 30G To test blood sugars twice a day. 100 Each 5 07/29/2022 Active Modafinil 100 MG Oral Tablet (Provigil) 09/22/2022 Active Dexcom G7 Glassware Maker Demonstrator Device Use as directed. 11/09/2022 Active Dexcom G7 Sensor Use as directed. 11/09/2022 Ac tive Modafinil 100 MG Oral Tablet (Provigil) Take 1.5 tablets by mouth daily for excessive daytime sleepiness 135 Tablet 03/18/2023 Active Tirosint-WILLIAM 200 MCG/ML Oral Solution (Levothyroxine Sodium) 500 mcg daily (2 vials of 200 mcg +1 vial of 100 mcg) 180 mL 11 05/18/2023 Active Tirosint-WILLIAM 100 MCG/ML Oral Solution (Levothyroxine Sodium) take 500 mcg by mouth daily (2 vials of 200 mcg +1 vial of 100 mcg) 90 mL 11 05/18/2023 Active LORazepam 0.5 MG Oral Tablet (Ativan) take 1 tablet by mouth twice daily as needed for anxiety or panic attack (max 15 tablets per month) 15 Tablet 07/07/2023 Active Linzess 72 MCG Oral Capsule (linaCLOtide) Take 1 Capsule by mouth daily before breakfast. Active Lurasidone HCl 20 MG Oral Tablet (Latuda) Take one tablet by mouth daily with 350 calories in addition to 80mg tablet 90 Tablet 09/15/2023 Active Lurasidone HCl 80 MG Oral Tablet (Latuda) Take one tablet by mouth every day with 350 calorie meal 90 Tablet 09/15/2023 Active Cyclobenzaprine HCl 10 MG Oral Tablet (Flexeril)Indication s:Chronic tension-type headache, not intractable Take 1 Tablet by mouth 2 times a day as needed (headache). 30 Tablet 3 10/01/2023 Active Ketoconazole 2 % External Shampoo (Nizoral)Indications :Seborrheic dermatitis of scalp Shampoo to scalp two to three times a week 120 mL 11 11/09/2023 Active Clobetasol Propionate 0.05 % External SolutionIndications: Seborrheic dermatitis of scalp Apply several drops to scalp as needed for itch 50 mL 5 11/09/2023 Active Methocarbamol 500 MG Oral Tablet (Robamol) take 1 to 2 tablets orally at bedtime; 30 Tablet 11/19/2023 Active Vitamin D3 50 MCG (2000 UT) Oral Capsule Take 2 Capsules by mouth daily for 30 days, THEN 1 Capsule daily. 120 Capsule 3 12/13/2023 Active Saccharomyces boulardii 250 MG Oral Capsule (Florastor)Indicatio ns:Elevated CK Take 1 Capsule by mouth in the morning and 1 Capsule before bedtime. 60 Capsule 1 12/13/2023 Active Additional Information Patient not taking.Reported on 02/04/2024 Famotidine 20 MG Oral Tablet (Pepcid)Indications: Elevated CK take 1 tablet by mouth with antibiotic twice daily for 10 days 30 Tablet 12/13/2023 Active Additional Information Patient not taking.Reported on 02/04/2024 Lurasidone HCl 20 MG Oral Tablet (Latuda) Take 1 tablet by mouth daily with 350 calories in addition to 80mg 90 Tablet 12/20/2023 Active Ondansetron 4 MG Oral Tablet Disintegrating (Zofran)Indications: Nausea Dissolve 1 Tablet on tongue every 8 hours as needed for Nausea. 20 Tablet 1 01/27/2024 Active Chlorhexidine Gluconate 4 % External Solution (Hibiclens) wash 2-3 times a week and have on the skin for 3-5 minutes prior to rinse 237 mL 02/23/2024 Active Mounjaro 2.5 MG/0.5ML Subcutaneous Solution Pen-injector (Tirzepatide) Inject 2.5 mg under the skin once a week 2 mL 02/23/2024 Active LORazepam 0.5 MG Oral Tablet (Ativan) take 1 tablet by mouth up to three times a day as needed for anxiety/panic attack 30 Tablet 03/13/2024 Active Lurasidone HCl 20 MG Oral Tablet (Latuda) take 1 tablet by mouth daily with 350 calories in addition to 80mg 90 Tablet 03/13/2024 Active Mounjaro 7.5 MG/0.5ML Subcutaneous Solution Pen-injector (Tirzepatide) inject 7.5mg under the skin once weekly 2 mL 1 04/19/2024 Active guanFACINE HCl 1 MG Oral Tablet (Tenex) take 1 tablet by mouth every night 90 Tablet 04/28/2024 Active Additional Information Patient taking differently: 2 mg, Reported on 05/23/2024 Dexcom G7 SensorIndications:Re active hypoglycemia USE DIRECTED, CHANGE EVERY 10 DAYS 9 Each 3 05/02/2024 Active Magnesium Chloride 64 MG Oral Tablet Take 2 Tablets by mouth. Active Lurasidone HCl 40 MG Oral Tablet (Latuda) take 1 tablet by mouth every day with 350 anamaria meal (this is in addition to 80 mg pill pt currently has)(total of 120mg/day) 30 Tablet 06/06/2024 Active Cephalexin 500 MG Oral Capsule (Keflex) take 1 capsule by mouth three times a day 30 Capsule 06/06/2024 Active documented as of this encounter (statuses as of 06/21/2024) Active Problems Problem Noted Date Diagnosed Date Restless leg syndrome 05/17/2024 Myelopathy 01/18/2024 Type 2 diabetes mellitus without complication Numbness and tingling in both hands 03/26/2023 Ovarian cyst 03/25/2023 Suicidal ideations 03/25/2023 Chronic migraine w/o aura w/ o status migrainosus, not intractable 03/25/2023 Whole body pain 11/23/2022 Chronic tension-type headache, not intractable 0 11/17/2022 Cervicalgia 11/17/2022 Positional sleep apnea 07/15/2021 Overview: 06/2021-Mild when supine associated with hypoxemia History of iron deficiency anemia 05/29/2021 Hypersomnolence 04/22/2021 Adrenal mass, left 01/24/2021 Intestinal postoperative nonabsorption Adrenal insufficiency 09/13/2019 Vitamin D deficiency 09/06/2019 B12 deficiency 02/11/2018 Iron deficiency anemia 06/08/2017 History of gastric bypass 05/05/2017 Hypothyroidism 05/05/2017 S/P laparoscopic cholecystectomy 08/25/2016 Major depressive disorder, recurrent episode Headache 10/08/2007 documented as of this encounter (statuses as of 06/21/2024) Resolved Problems Problem Noted Date Diagnosed Date [...] as of this encounter (statuses as of 06/21/2024) Immunizations Name Administration Dates Next Due Covid-19 [...] No 12/13/2023 Does the household have a [facility] source [facility] income? (Household - for [...] ages 0-17 years) Not on file 12/13/2023 Sex and Gender Information Value Date Recorded Sex Assigned at Female 11/24/2018 6:22 PM EDT Gender Identity Female 11/24/2018 6:22 PM EDT Sexual Orientation Lesbian 05/12/2021 9: 21 PM EDT Job Start Date Occupation Industry Not on file Not on file Not on file documented as of this encounter Nursing Notes * Viri Gipson LPN - 06/21/2024 8:53 AM EST The patient has been properly identified by confirmation of name and date of . Chief Complaint Patient presents with Medication Administration Flu and/or Pneumo Inj Pre-Administration Time Out Procedure Performed: Yes Patient Identified (Ask Name/Date of ): Yes Does the patient have a fever greater than 101 degrees today? No Patient allergic to latex? No Has the patient ever fainted after receiving an injection? No VFC Stock: No Immunization(s) verified: Yes, Immunization Name: Flu, VIS Sheet(s) given: Yes Verified Side and Site: Yes Verified Shot(s) with Parent(s)/Patient: Yes documented in this encounter Plan of Treatment Upcoming Encounters Date Type Department Care Team (Late st Contact Info) Description 06/26/2024 10:20 AM EST Telemedicine Hepatology, [facility] [address] [place] [address] Brooke Elliott DO [address] [place] [address] 07/10/2024 10:30 AM EST Laboratory Laboratory [facility] [address] [place] [phone] [facility] [address] [place] [address] 10/02/2024 1:00 PM EST Laboratory Laboratory [facility] [place] [address] [place] [phone] [facility] [address] [place] [address] 10/02/2024 2:00 PM EST Office Visit Hematology/Oncology [facility] [place] [address] [place] [address] Elliott Monique MD [address] [place] [address] 03/02/2025 9:45 AM EDT Office Visit Dermatology [facility] [address] [place] [address] Ajit Deshpande MD [address] [facility] [place] [address] Health Maintenance Due Date Last Done Comments Pneumococcal Vaccine: Pediatrics (0 to 5 Years) and At-Risk Patients (6 to 64 Years) (1 of 2 - PCV) 1985 HIV Screening 1994 Albumin/Creatinine Ratio 1997 Diabetic Eye Exam 1997 Hepatitis B Vaccine (1 of 3 [...] as of this encounter Visit Diagnoses Diagnosis Need for prophylactic vaccination and inoculation against influenza- Primary documented in this encounter Care Teams Application Developer Manager Relationship Specialty Start Date End Date Sammie Valverde PA-C [address] [facility] [place] [address] PCP - General Physician Copy Preparer 08/27/23 documented as of this encounter
--- OUTSIDE RECORDS SUMMARY | 2024-09-13 20:34 | External Medical Summary | Summary of Care ---
Author Name Unknown Organization [facility] Address [address] [facility] [place] [address] Phone [phone] Care Team Providers Care Budget Record Clerk Name Role Phone Sammie Valverde PA-C Primary Care Provider [phone] Reason for Visit * Reason Comments IV Therapy Venofer 11/17 Encounter Details Date Type Department Care Team (Latest Contact Info) Description 06/12/2024 10:30 AM EDT Hem/Onc Treatment Hematology/Oncology Treatment, [address] [phone] [place], Chair [address] Hem Onc [address] [phone] Restless leg syndrome*; Other iron deficiency anemia Allergies Active Allergy Reactions Criticality Noted Date [...] as of this encounter (statuses as of 06/22/2024) Medications Medication Sig Dispensed Refills Start Date End Date Status Glucose 15 GM/32ML GELIndications:Hypo glycemia Use as needed for hypoglycemia 32 mL 5 01/17/2020 Active Latuda 80 MG Oral Tablet 100 mg. Per pt, now taking 100mg daily. 03/18/2020 Active LORazepam 0.5 MG Oral Tablet (Ativan) 12/03/2020 Active OneTouch Delica Lancets 30G To test blood sugars twice a day. 100 Each 5 07/29/2022 Active Modafinil 100 MG Oral Tablet (Provigil) 09/22/2022 Active Dexcom G7 Shot Core Drill Operator Helper Device Use as directed. 11/09/2022 Active Dexcom [...] Active Cyclobenzaprine HCl 10 MG Oral Tablet (Flexeril)Indicatio ns:Chronic tension-type headache, not intractable Take 1 Tablet by mouth 2 times a day as needed (headache). 30 Tablet 3 10/01/2023 Active Ketoconazole 2 % External Shampoo (Nizoral)Indication s:Seborrheic dermatitis of scalp Shampoo to scalp two to three times a week 120 mL 11 11/09/2023 Active Clobetasol Propionate 0.05 % External SolutionIndications :Seborrheic dermatitis of scalp Apply several drops to [...] Active Saccharomyces boulardii 250 MG Oral Capsule (Florastor)Indicati ons:Elevated CK Take 1 Capsule by mouth in the morning and 1 Capsule before bedtime. 60 Capsule 1 12/13/2023 Active Additional Information Patient not taking.Reported on 02/04/2024 Famotidine 20 MG Oral Tablet (Pepcid)Indications :Elevated CK take 1 tablet by mouth with antibiotic twice daily for 10 days 30 Tablet 12/13/2023 Active Additional Information Patient not taking.Reported on 02/04/2024 Lurasidone HCl 20 MG Oral Tablet (Latuda) Take 1 tablet by mouth daily with 350 calories in addition to 80mg 90 Tablet 12/20/2023 Active Ondansetron 4 MG Oral Tablet Disintegrating (Zofran)Indications :Nausea Dissolve 1 Tablet on tongue every 8 [...] 2 mg, Reported on 05/23/2024 Dexcom G7 SensorIndications:R eactive hypoglycemia USE DIRECTED, CHANGE EVERY 10 DAYS 9 Each 3 05/02/2024 5 Active Magnesium Chloride 64 MG Oral Tablet [...] times a day 30 Capsule 06/06/2024 Active Cyanocobalamin 1000 MCG/ML Injection Solution (Cyanocobalamin)Ind ications:B12 deficiency INJECT 1000 MCG INTO A LARGE MUSCLE EVERY 30 DAYS 3 mL 4 06/21/2023 4 documented as of this encounter (statuses as of 06/22/2024) Active Problems Problem Noted Date Diagnosed Date [...] as of this encounter (statuses as of 06/22/2024) Resolved Problems Problem Noted Date Diagnosed Date [...] as of this encounter (statuses as of 06/22/2024) Immunizations Name Administration Dates Next Due Covid-19 Ad26, Single Dose (Sae/J&J) 021 PPD 09/03/2020,07/29/2017 Seasonal Influenza, PF, 6 M & above, IM , (FluLaval or Fluzone) 06/07/2023,06/18/2022 Seasonal Influenza, Quadrivalent, No Preserve, I M 06/12/2021 TDAP (age 10 and older)(Boostrix) 07/20/2017 documented as of this encounter Social History Tobacco Use Types Packs/Day Years Used Date Smoking Tobacco: Former Smokeless Tobacco: Former Quit: 2002 Tobacco Cessation:Counseling Given: Not Answered Alcohol Use Standard Drinks/Week Comments No 0 [...] on file documented as of this encounter Last Filed Vital Signs Vital Sign Reading Time Taken Comments Blood Pressure 92/63 06/12/2024 10:54 AM EDT Pulse 72 06/12/2024 10:54 AM EDT Temperature 36.4 C (97.6 F) 06/12/2024 10:54 AM E DT Respiratory Rate 16 06/12/2024 10:54 AM EDT Oxygen Saturation 97% 06/12/2024 10:54 AM EDT Inhaled Oxygen Concentration - - Weight - - Height - - Body Mass Index - - documented in this encounter Nursing Notes * Lara Carrasquillo LPN - 06/12/2024 10:55 AM EDT Patient arrived Chair 10 for IV therapy Venofer. Vital signs are stable. IV access successful at the left antecubital vein; IV line flushed with ease; positive blood return; IV fluids connected and infusing. Call manuel within reach. Patient instructed on use of heat and massage functions where applicable. Patient shown how to operate the heat function of the chair and to alert nursing staff if the chair feels too warm. Patient instructed on the risk of potential mahoney while using the heat function. 1225 Patient completed IV therapy. IV access discontinued; site cleaned and bandaged. Patient discharged in stable condition and will return on 07/10 for labs. documented in this encounter Plan of Treatment Upcoming Encounters Date Type Department Care Team (Late st Contact Info) Description 06/26/2024 10:20 AM EST Telemedicine Hepatology, [facility] [address] [place] [address] Brooke Elliott DO [address] [place] [address] 07/10/2024 10:30 AM EST Laboratory Laboratory [facility] [place] [address] [place] [address] [phone] [facility] [place] [address] 10/02/2024 1:00 PM EST Laboratory Laboratory [facility] [place] [address] [place] [address] [phone] Ruby Pettit [address] [place] [address] 10/02/2024 2:00 PM EST Office Visit Hematology/Oncology [facility] [address] [place] [phone] Elliott Monique MD [address] [facility] [place] [address] 03/02/2025 9:45 AM EDT Office Visit Dermatology [facility] [address] [facility] [place] [address] Ajit Deshpande MD [address] [facility] [place] [address] Health Maintenance Due Date Last Done Comments Pneumococcal Vaccine: Pediatrics (0 to 5 Years) and At-Risk Patients (6 to 64 Years) (1 of 2 - PCV) 1985 HIV Screening 1994 Albumin/Creatinine Ratio 1997 Diabetic Eye Exam 1997 Hepatitis B Vaccine (1 of 3 - 19+ 3-dose series) 1998 Depression Monitoring 12/09/2021 12/09/2020 COVID-19 Vaccine (2 - season) 2024 10/27/2020 HbA1c 07/09/2024 01/07/2024, [...] as of this encounter Visit Diagnoses Diagnosis Restless leg syndrome- Primary Restless legs syndrome (RLS) Other iron deficiency anemia documented in this encounter Administered Medications Inactive Administered Medications - up to 3 most recent administrations Medication Order MAR Action Action Date Dose Rate Site Iron Sucrose (Venofer) 300 mg in NSS 250 mL ivpb 300 mg, IV Piggyback, ONCE, 1 dose, On Wed06/12/24 at 1215, Administer over 90 Minutes Start Infusion 06/12/2024 10:52 AM EDT 300 mg 180 mL/hr NSS infusion 500 mL, Intravenous, at 50 mL/hr, CONTINUOUS, Starting on Wed06/12/24 at 1145, Until Wed06/12/24 at 1654 Start Infusion 06/12/2024 10:50 AM EDT 500 mL 50 mL/hr documented in this encounter Care Teams Budget Record Clerk Relationship Specialty Start Date End Date Sammie Valverde PA-C [address] [place] [address] PCP - General Physician Photograph Editor 08/27/23 documented as of this encounter
--- OUTSIDE RECORDS SUMMARY | 2024-09-13 20:34 | External Medical Summary | Summary of Care ---
Author Name Unknown Organization [facility] Address [address] [facility] [place] [address] Phone [phone] Care Team Providers Care Lone Lead Lineman Name Role Phone Sammie Valverde PA-C Primary Care Provider [phone] [phone] Reason for Visit * Reason Onset Date Comments Test Results 06/16/2024 Encounter Details Date Type Department Care Team (Late st Contact Info) Description 06/16/2024 Telephone Hepatology, [facility] [address] [place] [address] Brooke Elliott DO [address] [place] [address] Test Results Allergies Active Allergy Reactions Criticality Noted Date [...] as of this encounter (statuses as of 06/29/2024) Medications Glucose 15 GM/32ML GELIndications:Hy poglycemia Use as needed for hypoglycemia 32 mL 5 Active Latuda 80 MG Oral Tablet 100 mg. Per pt, now taking 100mg daily. Active LORazepam 0.5 MG Oral Tablet (Ativan) 021 Active OneTouch Delica Lancets 30G To test blood sugars twice a day. 100 Each 5 022 Active Modafinil 100 MG Oral Tablet (Provigil) 023 Active Dexcom G7 Wood Last Maker Device Use as directed. 023 Active Dexcom [...] 24 10:45 AM EDT 024 2024 Active Magnesium Chloride 64 MG Oral Tablet Take 2 Tablets by mouth. Active Lurasidone HCl 40 MG Oral Tablet (Latuda) take 1 tablet by mouth every day with 350 anamaria meal (this is in addition to 80 mg pill pt currently has)(total of 120mg/day) 30 Tablet 06/16/20 24 10:43 AM EDT Active Cyanocobalamin 1000 MCG/ML Injection Solution (Cyanocobalamin)I ndications:B12 deficiency INJECT 1000 MCG INTO A LARGE MUSCLE EVERY 30 DAYS 3 mL 4 06/25/20 23 8:25 AM EST 2023 Linzess 72 MCG Oral Capsule (linaCLOtide) [...] as of this encounter (statuses as of 06/29/2024) Active Problems Problem Noted Date Diagnosed Date [...] as of this encounter (statuses as of 06/29/2024) Resolved Problems Problem Noted Date Diagnosed Date [...] as of this encounter (statuses as of 06/29/2024) Immunizations Name Administration Dates Next Due Covid-19 [...] encounter Miscellaneous Notes * Telephone Encounter - Linda Nichols CMA - 06/19/2024 8:52 AM EST LM for pt to call back RE: test results. * Telephone Encounter - Brooke Elliott DO - 06/16/2024 3:56 PM EDT Please let patient know that liver biopsy shows her abnormal LFTs are due to a medication effect. Bill not sure what medication may be causing this as she is on multiple medications which can affect LFTs. It could be related to Latuda but I would like to repeat LFTs and see where they are now. Brooke Elliott DO documented in this encounter Plan of Treatment Upcoming Encounters Date Type Department Care Team (Late st Contact Info) Description 07/10/2024 10:30 AM EST Laboratory [facility] [place] [address] [place] [phone] Ruby Pettit [address] [place] [address] 10/02/2024 1:00 PM EST Laboratory Laboratory [facility] [address] [facility] [address] [place], [place] [phone] [place], Lab [facility] [address] [facility] [place], [place] [address] 10/02/2024 2:00 PM EST Office Visit Hematology/Oncology [facility] [place] [address] [facility] [place] [phone] Elliott Monique MD [address] [facility] [address] [place] [address] 03/02/2025 9:45 AM EDT Office Visit Dermatology [facility] [place] [address] [facility] [address] [place] [address] Ajit Deshpande MD [address] [facility] [place] [address] Scheduled Orders Name Type Priority Associated Diagnoses Orde r Schedule HEPATIC FUNCTION PANEL Lab Routine Abnormal LFTs Expected: 06/16/2024, Expires: 06/16/2025 Health Maintenance Due Date Last Done Comments [...] Abnormal LFTs- Primary Other abnormal blood chemistry documented in this encounter Care Teams Lone Lead Lineman Relationship Specialty Start Date End Date Sammie Valverde PA-C [address] [facility] [place] [address] PCP - General Physician Envelope Sealing Machine Operator 08/27/23 documented as of this encounter
--- OUTSIDE RECORDS SUMMARY | 2024-09-13 20:34 | External Medical Summary | Summary of Care ---
Author Name Unknown Organization [facility] Address [address] [facility] [place] [address] Phone [phone] Care Team Providers Care Recruiter Manager Name Role Phone Sammie Valverde PA-C Primary Care Provider [phone] [phone] Reason for Visit * Reason Comments IV Therapy Venofer Encounter Details Date Type Department Care Team (Latest Contact Info) Description 05/22/2024 10:30 AM EDT Hem/Onc Treatment Hematology/Oncology Treatment, [address] [phone] [place], Chair [address] [phone] Restless leg syndrome*; Other iron deficiency anemia [...] Oral Tablet (Provigil) 023 Active Dexcom G7 Deputy Director Device Use as directed. 023 Active Dexcom [...] Tablet 04/29/20 24 12:36 PM EDT Active Dexcom G7 SensorIndications :Reactive hypoglycemia USE DIRECTED, CHANGE EVERY 10 DAYS 9 Each 3 05/03/20 24 10:45 AM EDT 024 2024 Active HYDROcodone-Aceta minophen 5-325 MG Oral Tablet Take [...] cholecystectomy 08/25/2016 Major depressive disorder, recurrent episode 02/ Headache 10/08/2007 documented as of this encounter [...] No 12/13/2023 Does the household have a [facility] source of income? (Household - for [...] Sign Reading Time Taken Comments Blood Pressure 93/63 05/22/2024 10:51 AM EDT Pulse 63 05/22/2024 10:51 AM EDT Temperature 36.6 C (97.8 F) 05/22/2024 10:51 AM E DT Respiratory Rate 16 05/22/2024 10:51 AM EDT Oxygen Saturation 98% 05/22/2024 10:51 AM EDT Inhaled Oxygen Concentration - - Weight - - Height - - Body Mass Index - - documented in this encounter Nursing Notes * Lara Carrasquillo LPN - 05/22/2024 10:51 AM EDT Patient arrived Chair 6 for IV therapy Venofer. Vital signs are stable. IV access successful at theleft antecubital vein. IV line flushed with ease; positive blood return; IV fluids connected and infusing. Call manuel within reach. 1217 Patient completed IV therapy. IV access discontinued; site cleaned and bandaged. Patient discharged in stable condition and will return in 1 week. documented in this encounter Plan of Treatment Upcoming Encounters Date Type Department Care Team (Late st Contact Info) Description 07/10/2024 10:30 AM EST Laboratory Laboratory [facility] [place] [address] [place] [phone] [place] [address] [place] [address] 10/02/2024 1:00 PM EST Laboratory Laboratory [facility] [place] [address] [place] [address] [phone] [place] Lab [facility] [address] [place] [address] 10/02/2024 2:00 PM EST Office Visit Hematology/Oncology [facility] [place] [address] [place] [address] [phone] Elliott Monique MD [address] [facility] [place] [address] 03/02/2025 9:45 AM EDT Office Visit Dermatology [facility] [place] [address] [place] [address] Ajit Deshpande MD [address] [facility] [place] [address] Health Maintenance Due Date Last Done Comments [...] mg, IV Piggyback, ONCE, 1 dose, On Wed05/22/24 at 1215, Administer over 90 MinutesIndications:Restles s leg syndrome,Other iron deficiency anemia Start Infusion 05/22/2024 10:47 AM EDT 300 mg 180 mL/hr NSS infusion 500 mL, Intravenous, at 50 mL/hr, CONTINUOUS, Starting on Wed05/22/24 at 1145, Until Wed05/22/24 at 1645Indications:Restless leg syndrome,Other iron deficiency anemia Start Infusion 05/22/2024 10:46 AM EDT 500 mL 50 mL/hr documented in this encounter Care Teams Recruiter Manager Relationship Specialty Start Date End Date Sammie Valverde PA-C [address] [facility] [place] [address] PCP - General Physician Nuclear Fuels Research Engineer 08/27/23 documented as of this encounter
--- OUTSIDE RECORDS SUMMARY | 2024-09-13 20:34 | External Medical Summary | Summary of Care ---
Author Name Unknown Organization [facility] Address [address] [facility] [place] [address] Phone [phone] Care Team Providers Care Ed Special Education Teacher Name Role Phone Sammie Valverde PA-C Primary Care Provider [phone] [phone] Reason for Visit * Reason Comments IV Therapy Venofer Encounter Details Date Type Department Care Team (Latest Contact Info) Description 05/29/2024 10:45 AM EDT Hem/Onc Treatment Hematology/Oncology Treatment, [address] [phone] [place], Chair [address] [phone] Restless leg syndrome*; Other iron deficiency anemia [...] as of this encounter (statuses as of 06/28/2024) Medications Glucose 15 GM/32ML GELIndications:Hy poglycemia Use as needed for hypoglycemia 32 mL 5 Active Latuda 80 MG Oral Tablet 100 mg. Per pt, now taking 100mg daily. Active LORazepam 0.5 MG Oral Tablet (Ativan) 021 Active OneTouch Delica Lancets 30G To test blood sugars twice a day. 100 Each 5 022 Active Modafinil 100 MG Oral Tablet (Provigil) 023 Active Dexcom G7 Diffusion Operator Device Use as directed. 023 Active Dexcom [...] 24 10:45 AM EDT 024 2024 Active Cyanocobalamin 1000 MCG/ML Injection Solution (Cyanocobalamin)I [...] day with 350 anamaria meal 60 Tablet 2023 Discontinued(E xternal Source Cancellation) documented as of this encounter (statuses as of 06/28/2024) Active Problems Problem Noted Date Diagnosed Date [...] as of this encounter (statuses as of 06/28/2024) Resolved Problems Problem Noted Date Diagnosed Date [...] as of this encounter (statuses as of 06/28/2024) Immunizations Name Administration Dates Next Due Covid-19 [...] Sign Reading Time Taken Comments Blood Pressure 94/66 05/29/2024 10:54 AM EDT Pulse 67 05/29/2024 10:54 AM EDT Temperature 36.1 C (97 F) 05/29/2024 10:54 AM EDT Respiratory Rate 18 05/29/2024 10:54 AM EDT Oxygen Saturation 96% 05/29/2024 10:54 AM EDT Inhaled Oxygen Concentration - - Weight - - Height - - Body Mass Index - - documented in this encounter Nursing Notes * Caren Casey RN - 05/29/2024 1:39 PM EDT Infusion complete. Patient tolerated well. No complaints IV site removed and dry dressing applied. Goals: Patient will remain free from injury. Possible barriers to meeting goals: IV pump/IV tubing Stability of the patient: Moderately stable - low risk of patient condition declining or worsening Summary regarding today's goals: Met: Patient remained free from harm/injury during treatment. Patient left facility in stable condition. * Caren Casey RN - 05/29/2024 10:54 AM EDT Chair 2. Patient here for venofer infusion. Patient with no complaints. IV started without difficulty, patient tolerated well. Safety and Risk for Injury Patient will remain free from injury. Ensure appropriate safety devices are available. Provide and maintain safe environment. Patient instructed on use of heat and massage functions where applicable. Patient shown how to operate the heat function of the chair and to alert nursing staff if the chair feels too warm. Patient instructed on the risk of potential mahoney while using the heat function. documented in this encounter Plan of Treatment Upcoming Encounters Date Type Department Care Team (Late st Contact Info) Description 07/10/2024 10:30 AM EST Laboratory Laboratory [facility] [place] [address] [place] [phone] [facility] [address] [facility] [place] [address] 10/02/2024 1:00 PM EST Laboratory Laboratory [facility] [place] [address] [place] [phone] [facility] [address] [facility] [place] [address] 10/02/2024 2:00 PM EST Office Visit Hematology/Oncology [facility] [place] [address] [place] [phone] Elliott Monique MD [address] [place] [address] 03/02/2025 9:45 AM EDT Office Visit Dermatology [facility] [place] [address] [place], [place] [address] Ajit Deshpande MD [address] [facility] [place], [place] [address] Health Maintenance Due Date Last Done Comments [...] mg, IV Piggyback, ONCE, 1 dose, On Wed05/29/24 at 1230, Administer over 90 MinutesIndications:Restles s leg syndrome,Other iron deficiency anemia Start Infusion 05/29/2024 11:03 AM EDT 300 mg 180 mL/hr NSS infusion 500 mL, Intravenous, at 50 mL/hr, CONTINUOUS, Starting on Wed05/29/24 at 1200, Until Wed05/29/24 at 2001Indications:Restless leg syndrome,Other iron deficiency anemia Start Infusion 05/29/2024 11:02 AM EDT 500 mL 50 mL/hr documented in this encounter Care Teams Ed Special Education Teacher Relationship Specialty Start Date End Date Sammie Valverde PA-C [address] [place] [address] PCP - General Physician Backend Tester 08/27/23 documented as of this encounter
--- OUTSIDE RECORDS SUMMARY | 2024-09-13 20:34 | External Medical Summary | Summary of Care ---
Author Name Unknown Organization [facility] Address [address] [facility] [place] [address] Phone [phone] Care Team Providers Care Residential Instructor Name Role Phone Sammie Valverde PA-C Primary Care Provider [phone] [phone] Encounter Details Date Type Department Care Team (Late st Contact Info) Description 07/10/2024 Orders Only Outcomes Research Department [address] [facility] [place] [phone] Amber Linder CHRA MyCode Research Other*[id number] Allergies Active Allergy Reactions Criticality Noted Date [...] as of this encounter (statuses as of 07/10/2024) Medications Glucose 15 GM/32ML GELIndications:H ypoglycemia Use as needed for hypoglycemia 32 mL 5 0 Active Latuda 80 MG Oral Tablet 100 mg. Per pt, now taking 100mg daily. 0 Active LORazepam 0.5 MG Oral Tablet (Ativan) 1 Active OneTouch Delдмитрий Lancets 30G To test blood sugars twice a day. 100 Each 5 2 Active Modafinil 100 MG Oral Tablet (Provigil) 3 Active Dexcom G7 Regional Account Executive Device Use as directed. 11/10/19 2 3 [...] once a week 2 mL 1 4 Active documented as of this encounter (statuses as of 07/10/2024) Active Problems Problem Noted Date Diagnosed Date [...] as of this encounter (statuses as of 07/10/2024) Resolved Problems Problem Noted Date Diagnosed Date [...] as of this encounter (statuses as of 07/10/2024) Immunizations Name Administration Dates Next Due Covid-19 [...] Description 07/10/2024 10:30 AM EST Laboratory Laboratory [place] [address] [place] [phone] Ruby [place] [address] [place] [address] [place] [address] 10/02/2024 1:00 PM EST Laboratory Laboratory [place] [address] [employer], [place] [phone] [place], Lab [facility] [address] [facility] [place], [place] [address] 10/02/2024 2:00 PM EST Office Visit Hematology/Oncology [facility] [place] [address] [facility] [place] [phone] Elliott Monique MD [address] [facility] [place] [address] 03/02/2025 9:45 AM EDT Office Visit Dermatology [facility] [place] [address] [facility] [place], [place] [address] Ajit Deshpande MD [address] [facility] [place], [place] [address] Scheduled Orders Name Type Priority Associated Diagnoses Orde r Schedule MYCODE SUBSEQUENT ADULT Lab Routine MyCode Research Other*[id number] Every 6 Months for 2 Occurrences starting 07/10/2024 until 07/30/2025 Health Maintenance Due Date Last Done Comments [...] as of this encounter Visit Diagnoses Diagnosis MyCode Research Other*[id number] documented in this encounter Care Teams Residential Instructor Relationship Specialty Start Date End Date Sammie Valverde PA-C [address] [facility] [place] [address] PCP - General Physician Flocculator Operator 08/27/23 documented as of this encounter
--- OUTSIDE RECORDS SUMMARY | 2024-09-13 20:34 | External Medical Summary ---
Author Name Unknown Address Unknown Organization K01:[facility] [address] [place] [address] Laboratory Report Ordering Provider Test Date Status JODY BARLOW 07/24/2024 13:05:40 Final Observation Date Value Abnormality Reference (Units ) Status CK 07/24/2024 13:05:40 387 Above high normal 26 -192 (U/L) Final Performing Location [facility] [address] [place] [address]
--- OUTSIDE RECORDS SUMMARY | 2024-09-13 20:34 | External Medical Summary | Summary of Care ---
Author Name Unknown Organization [facility] Address [address] [facility] [place] [address] Phone [phone] Care Team Providers Care Simulation Developer Name Role Phone Sammie Valverde PA-C Primary Care Provider +1 [phone] Reason for Visit * Reason Comments IV Therapy Venofer 3/4 Encounter Details Date Type Department Care Team (Latest Contact Info) Description 06/05/2024 10:30 AM EDT Hem/Onc Treatment Hematology/Oncology Treatment, [address] [phone] [place], Chair 4 Hem On[address] [phone] Restless leg syndrome*; Other iron deficiency anemia [...] as of this encounter (statuses as of 06/23/2024) Medications Medication Sig Dispensed Refills Start Date [...] Oral Tablet (Provigil) 3 Active Dexcom G7 Retail Custodial Associate Device Use as directed. 3 Active Dexcom G7 Sensor Use as directed. 3 Active Modafinil 100 MG Oral Tablet (Provigil) Take 1.5 tablets by mouth daily for excessive daytime sleepiness 135 Tablet 3 Active Tirosint-WILLIAM 200 MCG/ML Oral Solution (Levothyroxine Sodium) 500 mcg daily (2 vials of 200 mcg +1 vial of 100 mcg) 180 mL 11 3 Active Tirosint-WILLIAM 100 MCG/ML Oral Solution (Levothyroxine Sodium) take 500 mcg by mouth daily (2 vials of 200 mcg +1 vial of 100 mcg) 90 mL 11 3 Active LORazepam 0.5 MG Oral Tablet (Ativan) take 1 tablet by mouth twice daily as needed for anxiety or panic attack (max 15 tablets per month) 15 Tablet 3 Active Linzess 72 MCG Oral Capsule (linaCLOtide) Take 1 Capsule by mouth daily before breakfast. Active Lurasidone HCl 20 MG Oral Tablet (Latuda) Take one tablet by mouth daily with 350 calories in addition to 80mg tablet 90 Tablet 4 Active Lurasidone HCl 80 MG Oral Tablet (Latuda) Take one tablet by mouth every day with 350 calorie meal 90 Tablet 4 Active Cyclobenzaprine HCl 10 MG Oral Tablet (Flexeril)Indicatio ns:Chronic tension-type headache, not intractable Take 1 Tablet by mouth 2 times a day as needed (headache). 30 Tablet 3 4 Active Ketoconazole 2 % External Shampoo (Nizoral)Indication s:Seborrheic dermatitis of scalp Shampoo to scalp two to three times a week 120 mL 11 4 Active Clobetasol Propionate 0.05 % External SolutionIndications :Seborrheic dermatitis of scalp Apply several drops to scalp as needed for itch 50 mL 5 4 Active Methocarbamol 500 MG Oral Tablet (Robamol) take 1 to 2 tablets orally at bedtime; 30 Tablet 4 Active Vitamin D3 50 MCG (2000 UT) Oral Capsule Take 2 Capsules by mouth daily for 30 days, THEN 1 Capsule daily. 120 Capsule 3 4 12/13/19 25 Active Saccharomyces boulardii 250 MG Oral Capsule (Florastor)Indicati ons:Elevated CK Take 1 Capsule by mouth in the morning and 1 Capsule before bedtime. 60 Capsule 1 4 Active Additional Information Patient not taking.Reported on 02/04/2024 Famotidine 20 MG Oral Tablet (Pepcid)Indications :Elevated CK take 1 tablet by mouth with antibiotic twice daily for 10 days 30 Tablet 4 Active Additional Information Patient not taking.Reported on 02/04/2024 Lurasidone HCl 20 MG Oral Tablet (Latuda) Take 1 tablet by mouth daily with 350 calories in addition to 80mg 90 Tablet 4 Active Ondansetron 4 MG Oral Tablet Disintegrating (Zofran)Indications :Nausea Dissolve 1 Tablet on tongue every 8 hours as needed for Nausea. 20 Tablet 1 4 Active Chlorhexidine Gluconate 4 % External Solution (Hibiclens) wash 2-3 times a week and have on the skin for 3-5 minutes prior to rinse 237 mL 4 Active Mounjaro 2.5 MG/0.5ML Subcutaneous Solution Pen-injector (Tirzepatide) Inject 2.5 mg under the skin once a week 2 mL 4 Active LORazepam 0.5 MG Oral Tablet (Ativan) take 1 tablet by mouth up to three times a day as needed for anxiety/panic attack 30 Tablet 4 Active Lurasidone HCl 20 MG Oral Tablet (Latuda) take 1 tablet by mouth daily with 350 calories in addition to 80mg 90 Tablet 4 Active Mounjaro 7.5 MG/0.5ML Subcutaneous Solution Pen-injector (Tirzepatide) inject 7.5mg under the skin once weekly 2 mL 1 4 Active guanFACINE HCl 1 MG Oral Tablet (Tenex) take 1 tablet by mouth every night 90 Tablet 4 Active Additional Information Patient taking differently: 2 mg, Reported on 05/23/2024 Dexcom G7 SensorIndications:R eactive hypoglycemia USE DIRECTED, CHANGE EVERY 10 DAYS 9 Each 3 4 05/02/20 25 Active Magnesium Chloride 64 MG Oral Tablet Take 2 Tablets by mouth. Active Cyanocobalamin 1000 MCG/ML Injection Solution (Cyanocobalamin)Ind ications:B12 deficiency INJECT 1000 MCG INTO A LARGE MUSCLE EVERY 30 DAYS 3 mL 4 3 06/20/20 24 Lurasidone HCl 60 MG Oral Tablet (Latuda) take 2 tablets by mouth every day with 350 anamaria meal 60 Tablet 4 06/06/20 24 Discontinue d(External Source Cancellatio n) documented as of this encounter (statuses as of 06/23/2024) Active Problems Problem Noted Date Diagnosed Date [...] as of this encounter (statuses as of 06/23/2024) Resolved Problems Problem Noted Date Diagnosed Date [...] as of this encounter (statuses as of 06/23/2024) Immunizations Name Administration Dates Next Due Covid-19 [...] Sign Reading Time Taken Comments Blood Pressure 107/76 06/05/2024 10:46 AM EDT Pulse 71 06/05/2024 10:46 AM EDT Temperature 36.3 C (97.4 F) 06/05/2024 10:46 AM E DT Respiratory Rate 16 06/05/2024 10:46 AM EDT Oxygen Saturation 97% 06/05/2024 10:46 AM EDT Inhaled Oxygen Concentration - - Weight - - Height - - Body Mass Index - - documented in this encounter Nursing Notes * Lara Carrasquillo LPN - 06/05/2024 10:47 AM EDT Patient arrived Chair 5 for IV therapy Venofer 10/17. Vital signs are stable. IV access successful atthe left antecubital vein; IV line flushed with [...] potential mahoney while using the heat function. 1228 Patient completed IV therapy. IV access discontinued; site cleaned and bandaged. Patient discharged in stable condition and will return in 1 week. documented in this encounter Plan of Treatment Upcoming Encounters Date Type Department Care Team (Late st Contact Info) Description 06/26/2024 10:20 AM EST Telemedicine Hepatology, [facility] [address] [place] [address] Brooke Elliott DO [address] [place] [address] 07/10/2024 10:30 AM EST Laboratory Laboratory [facility] [place] [address] [place] [phone] Ruby Pettit [facility] [address] [place] [address] 10/02/2024 1:00 PM EST Laboratory Laboratory [facility] [place] [address] [place] [phone] Ruby Pettit [address] [place] [address] 10/02/2024 2:00 PM EST Office Visit Hematology/Oncology [facility] [place] [address] [place] [phone] Elliott Monique MD 200 [facility] [place], [place] [address] 03/02/2025 9:45 AM EDT Office Visit Dermatology [facility] [place] 200 [facility] [place] [address] Ajit Deshpande MD 200 [facility] [place], [place] [address] Health Maintenance Due Date Last Done Comments [...] mg, IV Piggyback, ONCE, 1 dose, On Wed06/05/24 at 1215, Administer over 90 Minutes Start Infusion 06/05/2024 10:44 AM EDT 300 mg 180 mL/hr NSS infusion 500 mL, Intravenous, at 50 mL/hr, CONTINUOUS, Starting on Wed06/05/24 at 1145, Until Wed06/05/24 at 1629 Start Infusion 06/05/2024 10:43 AM EDT 500 mL 50 mL/hr documented in this encounter Care Teams Simulation Developer Relationship Specialty Start Date End Date Sammie Valverde PA-C [address] [facility] [place] [address] PCP - General Physician Cloth Designer 08/27/23 documented as of this encounter
--- OUTSIDE RECORDS SUMMARY | 2024-09-13 20:35 | External Medical Summary ---
Author Name Unknown Address Unknown Organization : Laboratory Report Ordering Provider Test Date Status PRASHANTH HERNANDEZ 06/02/2024 08:24:48 Final Observation Date Value Abnormality Reference (Units ) Status Glucose Point of Care 06/02/2024 08:24:48 75 70-120 (mg/dL) Final Performing Location
--- OUTSIDE RECORDS SUMMARY | 2024-09-13 20:35 | External Medical Summary | Summary of Care ---
Author Name Unknown Organization [facility] Address [address] [facility] [place] [address] Phone [phone] Care Team Providers Care Acid Operator Name Role Phone Sammie Valverde PA-C Primary Care Provider [phone] Reason for Visit * Reason Onset Date Comments Test Results 06/16/2024 Encounter Details Date Type Department Care Team (Late st Contact Info) Description 06/16/2024 Telephone Hepatology, [facility] [address] [place] [address] Brooke Elliott DO [address] [place] [id number] Test Results Allergies Active Allergy Reactions Criticality [...] as of this encounter (statuses as of 06/19/2024) Medications Medication Sig Dispensed Refills Start Date [...] Oral Tablet (Provigil) 09/22/2022 Active Dexcom G7 Senior Media Planner Device Use as directed. 11/09/2022 Active Dexcom [...] 100 mcg) 90 mL 11 05/18/2023 Active Cyanocobalamin 1000 MCG/ML Injection Solution (Cyanocobalamin)[place] cations:B12 deficiency INJECT 1000 MCG INTO A LARGE MUSCLE EVERY 30 DAYS 3 mL 4 06/21/2023 4 Active LORazepam 0.5 MG Oral Tablet [...] as of this encounter (statuses as of 06/19/2024) Active Problems Problem Noted Date Diagnosed Date [...] as of this encounter (statuses as of 06/19/2024) Resolved Problems Problem Noted Date Diagnosed Date [...] as of this encounter (statuses as of 06/19/2024) Immunizations Name Administration Dates Next Due Covid-19 [...] No 12/13/2023 Does the household have [facility]? (Household - [...] on file documented as of this encounter Miscellaneous Notes * Telephone Encounter - Linda Nichols CMA - 06/19/2024 8:52 AM EST STEVIE for pt to call back RE: test [...] Description 06/26/2024 10:20 AM EST Telemedicine Hepatology, [facility] [address] [facility] [place] [address] Brooke Elliott DO [address] [place] [address] 07/10/2024 10:30 AM EST Laboratory Laboratory [facility] [place] [address] [place] [phone] [facility] [address] [place] [address] 10/02/2024 1:00 PM EST Laboratory Laboratory [facility] [place] [address] [place] [id number] [facility] [address] [facility] [place] [address] 10/02/2024 2:00 PM EST Office Visit Hematology/Oncology [facility] [place] [address] [place] [phone] Elliott Monique MD [address] [place] [address] 03/02/2025 9:45 AM EDT Office Visit Dermatology [facility] [place] [address] [place] [id number] Ajit Deshpande MD [address] [place] [id number] Scheduled Orders Name Type Priority Associated Diagnoses [...] COVID-19 Vaccine (2 - season) 2024 10/27/2020 Influenza Vaccine (FLU shot) (#1) 2024 06/07/2023, 06/18/2022, 06/12/2021, Additional history exists HbA1c 07/09/2024 01/07/2024, 04/17, 12/21/2022, Additional history [...] (Not indicated) Hepatitis C Screening Completed 01/07/2024 HPV (Gardasil) Vaccine Aged Out No lo nger eligible based on patient's age to complete this topic MENINGOCOCCAL (MENACTRA/MENVEO) Aged Out No longer eligible based on patient's age to complete this topic documented as of this encounter Medical Devices Not on filedocumented as of this encounter Visit Diagnoses Diagnosis Abnormal LFTs- Primary Other abnormal blood chemistry documented in this encounter Care Teams Acid Operator Relationship Specialty Start Date End Date Sammie Valverde PA-C [address] [facility] [place] [address] PCP - General Physician Psychiatric Clinician 08/27/23 documented as of this encounter
--- OUTSIDE RECORDS SUMMARY | 2024-09-13 20:35 | External Medical Summary ---
Author Name Unknown Address Unknown Organization : Laboratory Report Ordering Provider Test Date Status PRASHANTH HERNANDEZ 06/02/2024 09:47:50 Final Observation Date Value Abnormality Reference (Units ) Status Glucose Point of Care 06/02/2024 09:47:50 77 70-120 (mg/dL) Final Performing Location
--- OUTSIDE RECORDS SUMMARY | 2024-09-13 20:35 | External Medical Summary | Summary of Care ---
Author Name Unknown Organization [facility] Address [address] [place] [address] Phone [phone] Care Team Providers Care Textile Dyer Name Role Phone Sammie Valverde PA-C Primary Care Provider [phone] Reason for Visit * Auth/Cert Specialty Diagnoses / Procedures Referred By Gerardo cano Referred To Contact Diagnoses Elevated LFTs Elevated LFTs [R79.89] Procedures EGD, W/ENDOSCOPIC US ESOPHAGOGASTRODUODENOSCOPY (EGD), FLEXIBLE, TRANSORAL, ENDOSCOPIC ULTRASOUND Alvarez Choi DO [address] [place] [address] [facility] [address] [place] [phone] Referral ID Status Reason Start Date Expiration Date Visits Re quested Visits Authorized [id number] [phone] Encounter Details Date Type Department Care Team (Latest Contact Info) Description 06/02/2024 7:56 AM EDT - 06/02/2024 11:50 AM EDT Hospital Encounter [facility], Endoscopy Room [facility] [address] [place] [phone] Alvarez Choi DO [address] [place] [address] Various: UGI,UEUS Discharge Disposition: Home - Self Care Allergies Active Allergy Reactions Criticality Noted Date [...] as of this encounter (statuses as of 06/03/2024) Medications Medication Sig Dispensed Refills Start Date [...] Oral Tablet (Provigil) 3 Active Dexcom G7 Roller Maker Device Use as directed. 3 Active Dexcom [...] 100 mcg) 90 mL 11 3 Active Cyanocobalamin 1000 MCG/ML Injection Solution (Cyanocobalamin)Ind ications:B12 deficiency INJECT 1000 MCG INTO A LARGE MUSCLE EVERY 30 DAYS 3 mL 4 3 06/20/20 24 Active LORazepam 0.5 MG Oral Tablet [...] once weekly 2 mL 1 4 Active Lurasidone HCl 60 MG Oral Tablet (Latuda) take 2 tablets by mouth every day with 350 anamaria meal 60 Tablet 4 Active guanFACINE HCl 1 MG Oral Tablet (Tenex) take 1 tablet by mouth every night 90 Tablet 4 Active Additional Information Patient taking differently: 2 mg, Reported on 05/23/2024 Dexcom G7 SensorIndications:R eactive hypoglycemia USE DIRECTED, CHANGE EVERY 10 DAYS 9 Each 3 4 05/02/20 25 Active Magnesium Chloride 64 MG Oral Tablet Take 2 Tablets by mouth. Active HYDROcodone-Acetami nophen 5-325 MG Oral Tablet Take 1 Tablet by mouth every 8 hours as needed for moderate Pain 20 Tablet 3 05/23/20 24 Discontinu ed(Medicat ion List Clean Up) oxyCODONE HCl 5 MG Oral Tablet (Oxy IR) take 1 tablet (5 mg) orally every 8 hours As Needed for pain 7 Tablet 4 05/23/20 24 Discontinu ed(Medicat ion List Clean Up) Nortriptyline HCl 10 MG Oral Capsule (Pamelor)Indication s:Chronic tension-type headache, not intractable Take 2 Capsules by mouth at bedtime. 180 Capsule 1 4 10/08/20 24 Discontinu ed(Medicat ion List Clean Up) traMADol HCl 50 MG Oral Tablet (Ultram) take 1 tablet by mouth every 4-6 hours as needed. Not to exceed 5 tablets in a 24-hour period 10 Tablet 4 05/23/20 Discontinu ed(Medicat ion List Clean Up) Clindamycin HCl 300 MG Oral CapsuleIndications: Elevated CK Take 1 Capsule by mouth in the morning and 1 Capsule at noon and 1 Capsule before bedtime. 20 Capsule 4 05/23/20 Discontinu ed(Medicat ion List Clean Up) documented as of this encounter (statuses as of 06/03/2024) Active Problems Problem Noted Date Diagnosed Date [...] as of this encounter (statuses as of 06/03/2024) Resolved Problems Problem Noted Date Diagnosed Date [...] as of this encounter (statuses as of 06/03/2024) Immunizations Name Administration Dates Next Due Covid-19 [...] Sign Reading Time Taken Comments Blood Pressure 102/54 06/02/2024 11:35 AM EDT Pulse 95 06/02/2024 11:35 AM EDT Temperature 37 C (98.6 F) 06/02/2024 11:35 AM EDT Respiratory Rate 15 06/02/2024 11:35 AM EDT Oxygen Saturation 100% 06/02/2024 11:35 AM EDT Inhaled Oxygen Concentration - - Weight - - Height - - Body Mass Index - - documented in this encounter H&P Notes * Alvarez Choi DO - 06/02/2024 8:31 AM EDT Endoscopy Pre-Procedure Assessment Name: Margarita Cassidy Date: 06/02/2024 Time: 8:31 AM Procedure(s): Upper GI Endoscopy; with Indication(s) of evaluation and workup of portal hypertension (including varices) Endoscopic Ultrasound; with Indication(s) of FNA/FNB of lesions/tissue within or outside the GI tract Endoscopy Pre-Procedure Assessment: Prior to the procedure, the patient is identified. The patient's history, medications and allergieshave been reviewed. The patient is competent. The risks and benefits of the proposed procedure and the planned sedation have been discussed with the patient. All questions have been answered and informed consent for the procedure has been obtained. Prior to Admission medications Medication Sig Last Dose Discont. Magnesium Chloride 64 MG Oral Tablet Take 2 Tablets by mouth. 06/01/2024 guanFACINE HCl 1 MG Oral Tablet (Tenex) take 1 tablet by mouth every night Patient taking differently: 2 Tablets. 06/01/2024 Mounjaro 7.5 MG/0.5ML Subcutaneous Solution Pen-injector (Tirzepatide) inject 7.5mg under the skin once weekly Past Week LORazepam 0.5 MG Oral Tablet (Ativan) take 1 tablet by mouth up to three times a day as needed for anxiety/panic attack Past Month Lurasidone HCl 20 MG Oral Tablet (Latuda) Take one tablet by mouth daily with 350 calories in addition to 80mg tablet 06/01/2024 Cyanocobalamin 1000 MCG/ML Injection Solution (Cyanocobalamin) INJECT 1000 MCG INTO A LARGE MUSCLE EVERY 30 DAYS Past Month Tirosint-WILLIAM 100 MCG/ML Oral Solution (Levothyroxine Sodium) take 500 mcg by mouth daily (2 vials of 200 mcg +1 vial of 100 mcg) 06/01/2024 Tirosint-WILLIAM 200 MCG/ML Oral Solution (Levothyroxine Sodium) 500 mcg daily (2 vials of 200 mcg +1 vial of 100 mcg) 06/01/2024 Modafinil 100 MG Oral Tablet (Provigil) Take 1.5 tablets by mouth daily for excessive daytime sleepiness Past Week LORazepam 0.5 MG Oral Tablet (Ativan) Past Month Latuda 80 MG Oral Tablet 100 mg. Per pt, now taking 100mg daily. 06/01/2024 [employer] G7 Sensor USE DIRECTED, CHANGE EVERY 10 DAYS Lurasidone HCl 60 MG Oral Tablet (Latuda) take 2 tablets by mouth every day with 350 anamaria meal Lurasidone HCl 20 MG Oral Tablet (Latuda) take 1 tablet by mouth daily with 350 calories in addition to 80mg Mounjaro 2.5 MG/0.5ML Subcutaneous Solution Pen-injector (Tirzepatide) Inject 2.5 mg under the skinonce a week Chlorhexidine Gluconate 4 % External Solution (Hibiclens) wash 2-3 times a week and have on the skin for 3-5 minutes prior to rinse Nitrofurantoin Monohyd Macro 100 MG Oral Capsule (Macrobid) Take 1 Capsule by mouth in the morning and 1 Capsule before bedtime. Do all this for 7 days. With food until gone. Ondansetron 4 MG Oral Tablet Disintegrating (Zofran) Dissolve 1 Tablet on tongue every 8 hours as needed for Nausea. Over 30 Days Lurasidone HCl 20 MG Oral Tablet (Latuda) Take 1 tablet by mouth daily with 350 calories in addition to 80mg Famotidine 20 MG Oral Tablet (Pepcid) take 1 tablet by mouth with antibiotic twice daily for 10 days Patient not taking: Reported on 02/04/2024 Not Taking Saccharomyces boulardii 250 MG Oral Capsule (Florastor) Take 1 Capsule by mouth in the morning and 1 Capsule before bedtime. Patient not taking: Reported on 02/04/2024 Not Taking Vitamin D3 50 MCG (2000 UT) Oral Capsule Take 2 Capsules by mouth daily for 30 days, THEN 1 Capsuledaily. Over 30 Days Methocarbamol 500 MG Oral Tablet (Robamol) take 1 to 2 tablets orally at bedtime; Over 30 Days Clobetasol Propionate 0.05 % External Solution Apply several drops to scalp as needed for itch Ketoconazole 2 % External Shampoo (Nizoral) Shampoo to scalp two to three times a week Cyclobenzaprine HCl 10 MG Oral Tablet (Flexeril) Take 1 Tablet by mouth 2 times a day as needed (headache). Over 30 Days Lurasidone HCl 80 MG Oral Tablet (Latuda) Take one tablet by mouth every day with 350 calorie meal Linzess 72 MCG Oral Capsule (linaCLOtide) Take 1 Capsule by mouth daily before breakfast. Patient not taking: Reported on 02/04/2024 Not Taking LORazepam 0.5 MG Oral Tablet (Ativan) take 1 tablet by mouth twice daily as needed for anxiety or panic attack (max 15 tablets per month) OneTouch [employer] Plus [id number] USE TO TEST BLOOD SUGAR TWO TIMES A DAY OneTouch Ultra In Vitro Strip (Glucose Blood) USE TO TEST BLOOD SUGAR TWO TIMES A DAY Dexcom G7 Roller Maker Device Use as directed. Dexcom G7 Sensor Use as directed. Modafinil 100 MG Oral Tablet (Provigil) OneTouch Delica Lancets 30G To test blood sugars twice a day. Glucose 15 GM/32ML GEL Use as needed for hypoglycemia Over 30 Days Review of patient's allergies indicates: Allergen Reactions Amoxicillin Anaphylaxis Fentanyl Psych complications Very Mean Penicillin G Anaphylaxis Aspirin Other reaction(s): Gastric bypass Ciprofloxacin Hcl Rash PO Only Can do the IV form Diphenhydramine Hcl Hives Erythromycin Hives Ketorolac Tromethamine Latex Rash Sulfa Antibiotics Rash Tramadol Rash Voltaren [Diclofenac Sodium] Rash BP 93/56 | Pulse 71 | Temp 36.4 C (97.6 F) (Tympanic) | Resp 16 | SpO2 98% Physical Exam: Mental Status Examination: alert and oriented. Airway Examination: normal oropharyngeal airway and neck mobility. Respiratory Examination: clear to auscultation. CV Examination: regular rate and rhythm. ASA Grade: III - A patient with severe systemic disease. Abdomen: soft Latest Reference Range & Units 03/27/24 09:16 WBC 4.00 - 10.80 K/uL 5.05 RBC 3.85 - 5.15 M/uL 3.53 HGB 12.0 - 15.3 g/dL 11.6 (L) HCT 36.0 - 45.2 % 36.0 MCV 81.5 - 97.5 fL 102.0 MCH 27.0 - 34.0 pg 32.9 MCHC 32.0 - 36.0 g/dL 32.2 RDW 11.5 - 15.5 % 13.1 PLT 140 - 400 K/uL 245 MPV 6.6 - 11.1 fL 9.5 (L): Data is abnormally low Latest Reference Range & Units 05/24/23 14:40 INR 0.8 - 1.2 1.0 Prothrombin Time 11.6 - 15.2 seconds 13.0 aPTT 21 - 38 seconds 29 Latest Reference Range & Units 12/10/23 12:54 01/07/24 10:11 03/27/24 09:16 Albumin 3.8 - 5.0 g/dL 4.5 4.2 4.1 AST 10 - 35 U/L 75 (H) 31 57 (H) ALT 10 - 35 U/L 108 (H) 30 36 (H) Alkaline Phosphatase 35 - 130 U/L 65 65 55 Bilirubin, Total <=1.2 mg/dL 0.9 0.7 0.7 Bilirubin, Direct 0.0 - 0.3 mg/dL <0.2 <0.2 (H): Data is abnormally high This patient has undergone a preprocedural evaluation. A determination has been made to proceed with the planned procedure under [facility] procedural guidelines and the [facility] Non-Emergent, Elective Medical Services and Treatment Recommendations (published on 11-21-19). The community and hospital prevalence of COVID-19 has been discussed as well as this patient's specific risks associated with SARS-CoV-19 infection. Based upon the clinical acuity and patient-specific care considerations, this procedure is deemed a Tier II - Intermediate acuity treatment or service with either progression or the threat of progressive disease related to the delay in treatment. Not providing the service has the potential for increasing morbidity or mortality. After reviewing the risks and benefits, the patient is deemed in satisfactory condition to undergo the procedure. The anesthesia plan is to use general anesthesia. We have discussed the risks and benefits of upper endoscopy to include bleeding, infection, perforation, discomfort, aspiration and need for follow-up studies. I have discussed the risks and benefits of EUS to include (not limited to) bleeding, infection, perforation, pain, aspiration, cardiac complications, pancreatitis and insufficient cellularity. Alvarez Choi DO 06/02/2024 documented in this encounter Procedure Notes * Sammie Valverde PA-C - 06/02/2024 8:50 AM EDTAssociated Order(s): UPPER ENDOSCOPIC U/S [facility] Patient Name: Margarita Cassidy Procedure Date: 06/02/2024 8:50 AM Date of : 1980 Admit Type: Outpatient Note Status: Finalized Date of : 1980 Admit Type: Outpatient Age: 43 Room: [facility] Gender: Female Note Status: Finalized Procedure: Upper EUS Indications: Elevated liver enzymes Providers: Alvarez Choi DO (Doctor) Referring MD: [place] Crain (Referring MD), Brooke Elliott DO (Referring MD) Medicines: General Anesthesia Complications: No immediate complications. Estimated blood loss: Minimal. Procedure: Pre-Anesthesia Assessment: - Prior to the procedure, a History and Physical was performed, and patient medications, allergies and sensitivities were reviewed. The patient's tolerance of previous anesthesia was reviewed. - The risks and benefits of the procedure and the sedation options and risks were discussed with the patient. All questions were answered and informed consent was obtained. - Patient identification and proposed procedure were verified prior to the procedure by the physician, the nurse and the paper cone machine operator. The procedure was verified in the procedure room. - Pre-procedure physical examination revealed no contraindications to sedation. - ASA Grade Assessment: III - A patient with severe systemic disease. - After reviewing the risks and benefits, the patient was deemed in satisfactory condition to undergo the procedure. - The anesthesia plan was to use general anesthesia. - Immediately prior to administration of medications, the patient was re- assessed for adequacy to receive sedatives. - The heart rate, respiratory rate, oxygen saturations, blood pressure, adequacy of pulmonary ventilation, and response to care were monitored throughout the procedure. - The physical status of the patient was re-assessed after the procedure. After obtaining informed consent, the endoscope was passed under direct vision. All instruments were visually inspected immediately before and after removal from the patient to ensure they are fully intact. Throughout the procedure, the patient's blood pressure, pulse, and oxygen saturations were monitored continuously.The upper EUS was accomplished without difficulty. The patient tolerated the procedure well. The Endosonoscope was introduced through the mouth, and advanced to the jejunum. Only a limited EUS could be performed due to the patients history of a Gastric Bypass. Findings & Specimens: ENDOSONOGRAPHIC FINDING: : There was no sign of significant endosonographic abnormality in the pancreatic body and pancreatic tail. The pancreatic duct measured up to 1 mm in diameter. No masses, no cysts, no calcifications. No lymphadenopathy seen. There was no sign of significant endosonographic abnormality in the left adrenal gland. No adrenal gland enlargement was identified. There was abnormal echogenicity in the visualized portion of the liver. This area was hyperechoic. Fine needle biopsy was performed. Color Doppler imaging was utilized prior to needle puncture to confirma lack of significant vascular structures within the needle path. Two passes were made with the 19 gauge ultrasound core biopsy needle (MediSens) using a transgastric approach. A visible core of tissue was obtained. The pathology specimen was placed into Bottle Number 2. Estimated blood loss was minimal. Impression: - There was no sign of significant pathology in the pancreatic body and pancreatic tail. - Endosonographic images of the left adrenal gland were unremarkable. - There was abnormal echogenicity in the visualized portion of the liver. This was hyperechoic and could suggest underlying fatty infiltration of the liver. Fine needle biopsy performed. Recommendation: - The patient will be observed post-procedure, until all discharge criteria are met. - Advance diet as tolerated today. - Await path results. Alvarez Choi DO 06/02/2024 9:19:14 AM This report has been signed electronically. * Sammie Valverde PA-C - 06/02/2024 8:48 AM EDTAssociated Order(s): UPPER GI ENDOSCOPY [facility] Patient Name: Margarita Cassidy Procedure Date: 06/02/2024 8:48 AM Date of : 1980 Admit Type: Outpatient Note Status: Finalized Date of : 1980 Admit Type: Outpatient Age: 43 Room: [facility] Gender: Female Note Status: Finalized Procedure: Upper GI endoscopy Indications: Hepatitis with suspected esophageal varices Providers: Alvarez Choi DO (Doctor) Referring MD: [place] Dooley (Referring MD), Brooke Elliott DO (Referring MD) Medicines: General Anesthesia Complications: No immediate complications. Estimated blood loss: Minimal. Procedure: Pre-Anesthesia Assessment: - Prior to the procedure, a History and Physical was performed, and patient medications, allergies and sensitivities were reviewed. The patient's tolerance of previous anesthesia was reviewed. - The risks and benefits of the procedure and the sedation options and risks were discussed with the patient. All questions were answered and informed consent was obtained. - Patient identification and proposed procedure were verified prior to the procedure by the physician, the nurse and the paper cone machine operator. The procedure was verified in the procedure room. - Pre-procedure physical examination revealed no contraindications to sedation. - ASA Grade Assessment: III - A patient with severe systemic disease. - After reviewing the risks and benefits, the patient was deemed in satisfactory condition to undergo the procedure. - The anesthesia plan was to use general anesthesia. - Immediately prior to administration of medications, the patient was re- assessed for adequacy to receive sedatives. - The heart rate, respiratory rate, oxygen saturations, blood pressure, adequacy of pulmonary ventilation, and response to care were monitored throughout the procedure. - The physical status of the patient was re-assessed after the procedure. After obtaining informed consent, the endoscope was passed under direct vision. All instruments were visually inspected immediately before and after removal from the patient to ensure they are fully intact. Throughout the procedure, the patient's blood pressure, pulse, and oxygen saturations were monitored continuously. The [id number]-[id number] Endoscope([id number]) was introduced through the mouth, and advanced to the jejunum. The upper GI endoscopy was accomplished without difficulty. The patient tolerated the procedure well. Findings & Specimens: The examined esophagus was normal. The Z-line was regular and was found 35 cm from the incisors. Evidence of a gastric bypass was found. A gastric pouch with a 4 cm length from the GE junction to the gastrojejunal anastomosis was found. The staple line appeared intact. The gastrojejunal anastomosiswas characterized by healthy appearing mucosa. This was traversed. The fahts-oe-xeiabne limb was characterized by healthy appearing mucosa. The mvrnkdbw-je-inrwuyb limb was not examined as it could not be reached. The examined jejunum was normal. Biopsies for histology were taken with a cold forceps for evaluation of celiac disease. The pathology specimen was placed into Bottle Number 1. Estimated blood loss was minimal. Impression: - Normal esophagus. - Z-line regular, 35 cm from the incisors. - Gastric bypass with a pouch 4 cm in length and intact staple line. Gastrojejunal anastomosis characterized by healthy appearing mucosa. - Normal examined jejunum. Biopsied. Recommendation: - Perform an upper endoscopic ultrasound (UEUS) today. - Await pathology results. Alvarez Choi DO 06/02/2024 9:04:12 AM This report has been signed electronically. documented in this encounter Nursing Notes * Shelly Wei RN - 06/02/2024 11:50 AM EDT Patient is alert, passing flatus and tolerating po fluids prior to discharge. Patient reports that pain has significantly gone down since dose of IV Dilaudid- reports pain has decreased to 4/10 on the pain scale. Patient and her , Isha have been visited by Dr. Alvarez Choi. Patient and her have received and demonstrate understanding of discharge instructions. Patient has verbalized readiness for discharge. Patient ambulates to private auto accompanied by endo staff. * Shelly Wei RN - 06/02/2024 11:20 AM EDT Patient's blood pressures have improved and returned to approximately patient's baseline- see VS flowsheet for details. Dr. Christy Beckwith back in to assess patient at this time. Patient still complains of pain 04/25, stating that the dose of IV morphine only brought her pain down a small amount. Dr. Beckwith administered dose of IV Dilaudid at this time- see MAR for details. * Shelly Wei RN - 06/02/2024 11:[address] Christy Beckwith in to see patient at this time. Patient's blood pressure has been running 80s/40s despite 1.5L of IV fluids. Pt still c/o pain 9/10 to her abdomen. Patient having dizziness with position change. Dr. Beckwith administered IV ephedrine at this time to help with blood pressure. * Shelly Wei RN - 06/02/2024 10:30 AM EDT Patient continues to cry out in pain and demand something further for pain. Wheat Grower explained to patient that her blood pressures have been running low which is why we have not been able to give something else for pain. After infusing over 1 liter of IV fluids patient's blood pressure has returned to approximately baseline- 90s/50s. Wheat Grower received order from Dr. Choi to administer 1mg of morphine IV. Medication pulled and administered by Satinder Larose RN at 1024 am- see MAR for details. * Shelly Wei RN - 06/02/2024 9:50 AM EDT Patient woke up whimpering and complaining of pain 05/25 to upper epigastric area. Wheat Grower educated patient that it is expected to have some epigastric pain and discomfort s/p liver biopsy and assisted patient in repositioning and placing a warm blanket over area of discomfort. Patient's abdomen is soft and non-distended at this time. Patient crying out that she is having pain and demanding pain medication. Wheat Grower notified both Dr. Choi and Dr. Rivera that patient is having pain and blood pressures are running soft- 70s/80s over 30s/40s, though patient denies dizziness at this time. Dr. Rivera referred conventional underwriter to Dr. Choi who placed and order at this time for PO dose of Levsin. Wheat Grower administered medication per MD order. Pt IV fluids running wide open. * Shelly Wei RN - 06/02/2024 9:17 AM EDT Patient transferred to post endo s/p EGD/EUS with liver biopsy. Patient sleeping comfortably Respirations are even and unlabored on room air. HR in the 70s on the monitor. Abdomen soft and non distended. Vital signs stable. * Ramin Diaz RN - 06/02/2024 9:13 AM EDT FNB of left liver lobe performed by Dr. Choi using [employer] Ac[employer] 19 gauge needle. 2 passes made. Pt tolerated well Specimen(s) and location(s) verified with physician post procedure 9:14 AM Ramin Diaz RN See anesthesia record for medication administered during procedure. Ramin Diaz RN Pre cleaning of scope at the bedside started by biomass plant technician. * Rhiannon Isaac RN - 06/02/2024 8:29 AM EDT The following pt discharge instructions reviewed with pt prior to prodedure: No driving today. No alcohol today. No signing of legal documents. Rest as much as possible today and can return to normal activities tomorrow. No operating any heavy equipment today. Diet as tolerated. Pt verbalized understanding. documented in this encounter Plan of Treatment Upcoming Encounters Date Type Department Care Team (Late st Contact Info) Description 06/05/2024 10:30 AM EDT Hem/Onc Treatment Hematology/Oncology Treatment[address] [place] [id number] Hodan, Chair [address] Hem On[address] [place] [address] 06/09/2024 10:45 AM EDT Office Visit Dermatology [address] [place] [address] Ajit Deshpande MD [address] [facility] [place] [address] 06/12/2024 10:30 AM EDT [facility] [phone] Hodan, Chair 3 Hem Onc [address] [place] [address] 07/10/2024 10:30 AM EST Laboratory Laboratory [facility] [address] [place], [place] [phone] [place], Lab Scenery [address] [place], [place] [address] 10/02/2024 1:00 PM EST Laboratory Laboratory [facility] [place] [address] [place] [phone] [place], Lab [facility] [address] [place] [address] 10/02/2024 2:00 PM EST Office Visit Hematology/Oncology [facility] [place] [address] [place] [phone] [place] Monique MD [address] [place] [address] Pending Results Name Type Priority Associated Diagnoses Date /Time SURGICAL PATHOLOGY Pathology Routine Elevated LFTs 06/02/2024 9:13 AM EDT Scheduled Orders Name Type Priority Associated Diagnoses Order Schedule GLUCOSE METER, POINT OF CARE (COMMUNICATION ORDER) Point of Care Testing Routine Perform Now for 1 Occurrences starting 06/02/2024 until 06/02/2024 SURGICAL PATHOLOGY Pathology Routine Elevated LFTs Release Upon Ordering for 1 Occurrences starting 06/02/2024, 1 completed Health Maintenance Due Date Last Done Comments Pneumococcal Vaccine: Pediatrics (0 to 5 Years) and At-Risk Patients (6 to 64 Years) (1 of 2 - PCV) 1985 HIV Screening 1994 Albumin/Creatinine Ratio 1997 Diabetic Eye Exam 1997 Hepatitis B Vaccine (1 of 3 - 19+ 3-dose series) 1998 Depression Monitoring 12/09/2021 12/09/2020 COVID-19 Vaccine ( - 2023- season) 2024 10/27/2020 Influenza Vaccine (FLU shot) [...] Procedure Name Priority Date/Time Associated Diagnosis Comments GLUCOSE METER, POINT OF CARE [facility] 06/02/2024 9:47 AM EDT UPPER ENDOSCOPIC U/S 06/02/2024 8:50 AM EDT UPPER GI ENDOSCOPY 06/02/2024 8: 48 AM EDT GLUCOSE METER, POINT OF CARE [facility] 06/02/2024 8:24 AM EDT documented in this encounter Results * GLUCOSE METER, POINT OF CARE (06/02/2024 9:47 AM EDT) GLUCOSE - POCT 77 70 - 120 mg/dL 06/02/2024 9:50 AM EDT [facility] 57-00 Blood Whole blood specimen / Unknown 06/02/2024 9:47 AM EDT 06/02/2024 9:50 AM EDT Alvarez Choi DO LAB POINT OF CARE TE ST DOCKED DEVICE UNSOLICITED RESULTS [facility]AT[facility] 57-00 [address] [facility] [place] [address] * UPPER ENDOSCOPIC U/S (06/02/2024 8:50 AM EDT) 06/02/2024 8:50 AM EDT Narrative Procedure Note Sammie Valverde PA-C - 06/02/2024 8:50 AM EDT [facility] Patient Name: Margarita Cassidy Procedure Date: 06/02/2024 8:50 AMMRN: [id number] Date of : 1980 Admit Type: Outpatient Note Status:Finalized Date of : 1980 Admit Type: Outpatient Age: 43 Room: Advanced Endo Gender: Female Note Status: Finalized Procedure: Upper EUS Indications: Elevated liver enzymes Providers: Alvarez Choi DO (Doctor) Referring MD: [place] Crain (Referring MD), DO Kevin (Referring MD) Medicines: General Anesthesia Complications: No immediate complications. Estimated blood loss:Minimal. Procedure: Pre-Anesthesia Assessment: - Prior to the procedure, a History and Physicalwas performed, and patient medications, allergies and sensitivities werereviewed. The patient's tolerance of previous anesthesia was reviewed. - The risks and benefits of the procedure and thesedation options and risks were discussed with the patient. All questions wereanswered and informed consent was obtained. - Patient identification and proposed procedurewere verified prior to the procedure by the physician, the nurse and the paper cone machine operator.The procedure was verified in the procedure room. - Pre-procedure physical examination revealed nocontraindications to sedation. - ASA Grade Assessment: III - A patient with severesystemic disease. - After reviewing the risks and benefits, thepatient was deemed in satisfactory condition to undergo the procedure. - The anesthesia plan was to use generalanesthesia. - Immediately prior to administration ofmedications, the patient was re-assessed for adequacy to receive sedatives. - The heart rate, respiratory rate, oxygensaturations, blood pressure, adequacy of pulmonary ventilation, and response to care weremonitored throughout the procedure. - The physical status of the patient wasre-assessed after the procedure. After obtaining informed consent, the endoscope waspassed under direct vision. All instruments were visually inspected immediatelybefore and after removal from the patient to ensure they are fully intact. Throughout the procedure, the patient's bloodpressure, pulse, and oxygen saturations were monitored continuously.The upper EUS wasaccomplished without difficulty. The patient tolerated the procedure well. TheEndosonoscope was introduced through the mouth, and advanced to the jejunum. Only a limitedEUS could be performed due to the patients history of a Gastric Bypass. Findings & Specimens: ENDOSONOGRAPHIC FINDING: : There was no sign of significant endosonographic abnormality in thepancreatic body and pancreatic tail. The pancreatic duct measured up to 1 mm in diameter. No masses,no cysts, no calcifications. No lymphadenopathy seen. There was no sign of significant endosonographic abnormality in theleft adrenal gland. No adrenal gland enlargement was identified. There was abnormal echogenicity in the visualized portion of theliver. This area was hyperechoic. Fine needle biopsy was performed. Color Doppler imaging was utilized priorto needle puncture to confirm a lack of significant vascular structures within the needle path. Twopasses were made with the 19 gauge ultrasound core biopsy needle (MediSens) using atransgastric approach. A visible core of tissue was obtained. The pathology specimen was placed into BottleNumber 2. Estimated blood loss was minimal. Impression: - There was no sign of significant pathology in thepancreatic body and pancreatic tail. - Endosonographic images of the left adrenal glandwere unremarkable. - There was abnormal echogenicity in the visualizedportion of the liver. This was hyperechoic and could suggest underlying fattyinfiltration of the liver. Fine needle biopsy performed. Recommendation: - The patient will be observed post-procedure,until all discharge criteria are met. - Advance diet as tolerated today. - Await path results. Alvarez Choi DO 06/02/2024 9:19:14 AM This report has been signed electronically. Sammie Valverde PA-C GASTRO UPPER * UPPER GI ENDOSCOPY (06/02/2024 8:48 AM EDT) 06/02/2024 8:48 AM EDT Narrative Procedure Note Sammie Valverde PA-C - 06/02/2024 8:48 AM EDT [facility] Patient Name: Margarita Cassidy Procedure Date: 06/02/2024 8:48 AMMRN: [id number] Date of : 1980 Admit Type: Outpatient Note Status:Finalized Date of : 1980 Admit Type: Outpatient Age: 43 Room: Advanced Endo Gender: Female Note Status: Finalized Procedure: Upper GI endoscopy Indications: Hepatitis with suspected esophageal varices Providers: Alvarez Choi DO (Doctor) Referring MD: [place] Dooley (Referring MD), DO Kevin (Referring MD) Medicines: General Anesthesia Complications: No immediate complications. Estimated blood loss:Minimal. Procedure: Pre-Anesthesia Assessment: - Prior to the procedure, a History and Physicalwas performed, and patient medications, allergies and sensitivities werereviewed. The patient's tolerance of previous anesthesia was reviewed. - The risks and benefits of the procedure and thesedation options and risks were discussed with the patient. All questions wereanswered and informed consent was obtained. - Patient identification and proposed procedurewere verified prior to the procedure by the physician, the nurse and the paper cone machine operator.The procedure was verified in the procedure room. - Pre-procedure physical examination revealed nocontraindications to sedation. - ASA Grade Assessment: III - A patient with severesystemic disease. - After reviewing the risks and benefits, thepatient was deemed in satisfactory condition to undergo the procedure. - The anesthesia plan was to use generalanesthesia. - Immediately prior to administration ofmedications, the patient was re-assessed for adequacy to receive sedatives. - The heart rate, respiratory rate, oxygensaturations, blood pressure, adequacy of pulmonary ventilation, and response to care weremonitored throughout the procedure. - The physical status of the patient wasre-assessed after the procedure. After obtaining informed consent, the endoscope waspassed under direct vision. All instruments were visually inspected immediatelybefore and after removal from the patient to ensure they are fully intact. Throughout the procedure, the patient's bloodpressure, pulse, and oxygen saturations were monitored continuously. The [id number]) was introduced through the mouth, and advanced to the jejunum. The upperGI endoscopy was accomplished without difficulty. The patient tolerated theprocedure well. Findings & Specimens: The examined esophagus was normal. The Z-line was regular and was found 35 cm from the incisors. Evidence of a gastric bypass was found. A gastric pouch with a 4 cmlength from the GE junction to the gastrojejunal anastomosis was found. The staple line appeared intact.The gastrojejunal anastomosis was characterized by healthy appearing mucosa. This was traversed. Rtqbcfkj-oc-alxtnhf limb was characterized by healthy appearing mucosa. The xbfchqwo-os-aiyabexgjdl was not examined as it could not be reached. The examined jejunum was normal. Biopsies for histology were takenwith a cold forceps for evaluation of celiac disease. The pathology specimen was placed into BottleNumber 1. Estimated blood loss was minimal. Impression: - Normal esophagus. - Z-line regular, 35 cm from the incisors. - Gastric bypass with a pouch 4 cm in length andintact staple line. Gastrojejunal anastomosis characterized by healthy appearingmucosa. - Normal examined jejunum. Biopsied. Recommendation: - Perform an upper endoscopic ultrasound (UEUS)today. - Await pathology results. Alvarez Choi DO 06/02/2024 9:04:12 AM This report has been signed electronically. Sammie Valverde PA-C GASTRO UPPER * GLUCOSE METER, POINT OF CARE (06/02/2024 8:24 AM EDT) GLUCOSE - POCT 75 70 - 120 mg/dL 06/02/2024 8:30 AM EDT [facility] 57-00 Blood Whole blood specimen / Unknown 06/02/2024 8:24 AM EDT 06/02/2024 8:30 AM EDT Alvarez Choi DO LAB POINT OF CARE TE ST DOCKED DEVICE UNSOLICITED RESULTS [facility] 57-00 [address] [place] [address] documented in this encounter Visit Diagnoses Diagnosis Elevated LFTs Other abnormal blood chemistry documented in this encounter Administered Medications Inactive Administered Medications - up to 3 most recent administrations Medication Order MAR Action Action Date Dose Rate Site hyoscyamine (Levsin) tab 0.125 mg 0.125 mg, Sublingual, ONCE, On Wed06/02/24 at 1000, For 1 dose Given 06/02/2024 9:46 AM EDT 0.125 mg isolyte-S pH 7.4 infusion Intravenous, at 100 mL/hr, Plasma-LYTE 148, isolyte-S, and isolyte-S pH 7.4 are considered equivalent - including for MAR barcode scanning., CONTINUOUS, Starting on Wed06/02/24 at 0845, Until Wed06/02/24 at 1817, Pre-Op Continue from Pre-Op 06/02/2024 8:52 AM EDT 100 mL/hr New Bag 06/02/2024 8:42 AM EDT 100 mL/hr morphine sulfate inj 1 mg 1 mg, IV Push, ONCE, On Wed06/02/24 at 1015, For 1 dose Given 06/02/2024 10:24 AM EDT 1 mg documented in this encounter Active and Recently Administered Medications Times are shown in EDT. Scheduled Medication Order 05/31/2024 06/01/2024 06/02/2024 hyoscyamine (Levsin) tab 0.125 mg (COMPLETED) 0.125 mg, Sublingual, ONCE, On Wed06/02/24 at 1000, For 1 dose 0946 (Given - Provid er: Shelly Wei RN) morphine sulfate inj 1 mg (COMPLETED) 1 mg, IV Push, ONCE, On Wed06/02/24 at 1015, For 1 dose 1024 (Given - Provid er: Sujey Larose RN) oxyCODONE-acetaminophen 5-325 mg per tab (Percocet) 2 Tablet 2 Tablet, Oral, ONCE, On Wed06/02/24 at 1130, For 1 dose, Maximum of 4 grams (4000 mg) of acetaminophen per day 1130 (Due) Continuous Medication Order 05/31/2024 06/01/202406/0206/02/2024 isolyte-S pH 7.4 infusion Intravenous, at 100 mL/hr, Plasma-LYTE 148, isolyte-S, and isolyte-S pH 7.4 are considered equivalent - including for MAR barcode scanning., CONTINUOUS, Starting on Wed06/02/24 at 0845, Until Wed06/02/24 at 1817, Pre-Op 0842 (New Bag - Prov ider: Rhiannon Isaac RN)0852 (Continue from Pre-Op - Provider: Greg Rivero CRNA)0914 (Anes Intra-Op Fluid - Provider: Greg Rivero CRNA) documented in this encounter Care Teams Textile Dyer Relationship Specialty Start Date End Date Sammie Valverde PA-C [address] [facility] [place] [id number] PCP - General Physician Gaming Host 08/27/23 documented as of this encounter"
--- OUTSIDE RECORDS SUMMARY | 2024-09-13 20:35 | External Medical Summary | Summary of Care ---
Author Name Unknown Organization [facility] Address [address] [facility] [place] [address] Phone [phone] Care Team Providers Care Matching Machine Operator Name Role Phone Sammie Valverde PA-C Primary Care Provider [phone] Reason for Visit * Reason Comments IV Therapy Venofer 11/17 Encounter Details Date Type Department Care Team (Latest Contact Info) Description 06/12/2024 10:30 AM EDT Hem/Onc Treatment Hematology/Oncology Treatment, [address] [phone] [place], Chair [address] [phone] Restless leg syndrome*; Other iron deficiency anemia [...] as of this encounter (statuses as of 06/12/2024) Medications Medication Sig Dispensed Refills Start Date [...] Oral Tablet (Provigil) 09/22/2022 Active Dexcom G7 Inspector [employer] Device Use as directed. 11/09/2022 Active Dexcom [...] EVERY 30 DAYS 3 mL 4 06/21/2023 Active LORazepam 0.5 MG Oral Tablet (Ativan) [...] as of this encounter (statuses as of 06/12/2024) Active Problems Problem Noted Date Diagnosed Date [...] as of this encounter (statuses as of 06/12/2024) Resolved Problems Problem Noted Date Diagnosed Date [...] as of this encounter (statuses as of 06/12/2024) Immunizations Name Administration Dates Next Due Covid-19 [...] Description 07/10/2024 10:30 AM EST Laboratory Laboratory [facility] [place] [address] [place] [phone] Ruby Pettit [address] [place] [address] 10/02/2024 1:00 PM EST Laboratory Laboratory [place] Theodore [address] [place] [phone] [facility] [place] [address] [place] [address] 10/02/2024 2:00 PM EST Office Visit Hematology/Oncology [facility] [place] Jorge Pettit [address] [place] [phone] Elliott Monique MD [address] [place] [address] 03/02/2025 9:45 AM EDT Office Visit Dermatology [place] [address] [place] [address] Ajti Deshpande MD [address] [place] [address] Health Maintenance Due Date Last Done Comments Pneumococcal Vaccine: Pediatrics (0 to 5 Years) and At-Risk Patients (6 to 64 Years) (1 of 2 - PCV) 1985 HIV Screening 1994 Albumin/Creatinine Ratio 1997 Diabetic Eye Exam 1997 Hepatitis B Vaccine (1 of 3 - 19+ 3-dose series) 1998 Depression Monitoring 12/09/2021 12/09/2020 COVID-19 Vaccine ( - season) 2024 10/27/2020 Influenza Vaccine (FLU [...] anemia documented in this encounter Administered Medications Active Administered Medications - up to 3 most recent administrations Medication Order MAR Action Action Date Dose Rate Site diphenhydrAMINE (Benadryl) inj 50 mg 50 mg, IV Push, ONCE PRN Other, Hypersensitivity Reaction, Starting on Wed06/12/24 at 1037, Until Wed06/13/24 at 1036, For 24 hours EPINEPHrine 1 MG/ML inj 0.3 mg 0.3 mg, Intramuscular, ONCE PRN Other, Hypersensitivity Reaction or Anaphylaxis, Starting on Wed06/12/24 at 1037, Until Wed06/13/24 at 1036, For 24 hours hEParin 100 UNIT/ML Lock Flush inj 500 Units 500 Units (5 mL), IV Lock, PRN Other, IV Flush, Starting on Wed06/12/24 at 1037, Until Wed06/13/24 at 1036, For 24 hours, Do not flush if lock, PICC, or central line not in place; IV infusing or unable to flush. Hydrocortisone Sod Suc (PF) (Solu-Cortef) inj 100 mg 100 mg, IV Push, ONCE PRN Other, Hypersensitivity Reaction, Starting on Wed06/12/24 at 1037, Until Wed06/13/24 at 1036, For 24 hours NSS infusion 500 mL, Intravenous, at 50 mL/hr, CONTINUOUS, Starting on Wed06/12/24 at 1145, Until Wed06/12/24 at 2144 Start Infusion 06/12/2024 10:50 AM EDT 500 mL 50 mL/hr oxygen GAS Inhalation, OXYGEN, First dose on Wed06/12/24 at 1115, Until Discontinued, Device/Managed by: Low Flow Device, Goal SPO2 (%): 91-95, Starting Device: Nasal Cannula, Initial Flow Rate (LPM): 2, Lowest Support: Nasal Cannula: Flow 0-6 LPM. Titrate up/down by 1 LPM., Higher Support: Non-Rebreather (NRB) Mask: Minimum of 10 LPM. Titrate to maintain bag inflation., Titration Interval: Q2 minutes and as needed., Notify Provider: For sudden DECREASE in resting SPO2 to less than 85% and when escalating delivery device., Wean patient off Oxygen when the oxygen saturation is greater than or equal to 93% sodium chloride 0.9 % flush central line 10 mL 10 mL, IV Push, PRN Other, IV Flush, Starting on Wed06/12/24 at 1037, Until Wed06/13/24 at 1036, For 24 hours, Do not flush if lock, PICC, or central line not in place; IV infusing or unable to flush. Inactive Administered Medications - up to 3 most recent administrations Medication Order MAR Action Action Date Dose Rate Site Iron Sucrose (Venofer) 300 mg in NSS 250 mL ivpb 300 mg, IV Piggyback, ONCE, 1 dose, On Wed06/12/24 at 1215, Administer over 90 Minutes Start Infusion 06/12/2024 10:52 AM EDT 300 mg 180 mL/hr documented in this encounter Care Teams Matching Machine Operator Relationship Specialty Start Date End Date Sammie Valverde PA-C [address] [facility] [place] [address] PCP - General Physician Research Engineer 08/27/23 documented as of this encounter
--- OUTSIDE RECORDS SUMMARY | 2024-09-13 20:35 | External Medical Summary | Summary of Care ---
Author Name Unknown Organization [facility] Address [address] [facility] [place] [address] Phone [phone] Care Team Providers Care Cryptanalyst Name Role Phone Sammie Valverde PA-C Primary Care Provider [phone] Reason for Visit * Reason Onset Date Comments Appointment 05/23/2024 Encounter Details Date Type Department Care Team (Late st Contact Info) Description 05/23/2024 Telephone Hematology/Oncology Treatment, [place] [address] [place] [phone] Services, Scheduling [address] [place] [address] Appointment Allergies Active Allergy Reactions Criticality Noted Date [...] as of this encounter (statuses as of 05/24/2024) Medications Medication Sig Dispensed Refills Start Date [...] Oral Tablet (Provigil) 09/22/2022 Active Dexcom G7 Oracle Programmer Analyst Device Use as directed. 11/09/2022 Active Dexcom [...] once weekly 2 mL 1 04/19/2024 Active Lurasidone HCl 60 MG Oral Tablet (Latuda) take 2 tablets by mouth every day with 350 anamaria meal 60 Tablet 04/28/2024 Active guanFACINE HCl 1 MG Oral Tablet (Tenex) take 1 tablet by mouth every night 90 Tablet 04/28/2024 Active Additional Information Patient taking differently: 2 mg, Reported on 05/23/2024 Dexcom G7 SensorIndications:Re active hypoglycemia USE DIRECTED, CHANGE EVERY 10 DAYS 9 Each 3 05/02/2024 Active documented as of this encounter (statuses as of 05/24/2024) Active Problems Problem Noted Date Diagnosed Date [...] as of this encounter (statuses as of 05/24/2024) Resolved Problems Problem Noted Date Diagnosed Date [...] as of this encounter (statuses as of 05/24/2024) Immunizations Name Administration Dates Next Due Covid-19 [...] encounter Miscellaneous Notes * Telephone Encounter - Sherin Serra OSA - 05/23/2024 9:21 AM EDT Patient calling in- she states she received a voicemail of treatment appt on 05/29 being r/s- she states this time is not going to work; it has to be 10:30 am as it was because that's what she arranged with her employer. With the help of Brooke Lewis, pt was r/s to 10:45 am on 05/29. documented in this encounter Plan of Treatment Upcoming Encounters Date Type Department Care Team (Latest Contact Info) Description 05/29/2024 10:45 AM EDT [facility] [address] [facility], [place] [phone] [place], Chair 9 Hem Onc [address] [place] [address] 06/02/2024 8:45 AM EDT Hospital Encounter ENDO [facility], Endoscopy Room [facility] [address] [place] [phone] Alvarez Choi, DO [address] [place] [address] 06/02/2024 8:45 AM EDT - 06/02/2024 9:30 AM EDT Surgery ENDO [facility], Endoscopy Room [facility] [address] [place], [place] [phone] Alvarez Choi, DO [address] [place], [place] [address] ESOPHAGOGASTRODUODENOSCOPY (EGD), FLEXIBLE, TRANSORAL, ENDOSCOPIC ULTRASOUND 06/05/2024 10:30 AM EDT Hem/Onc Treatment Hematology/Onco logy Treatment, [place] [address] [facility], [place] [phone] [place], Chair 4 Hem Onc [address] [facility] [address] [place], [place] [address] 06/09/2024 10:45 AM EDT Office Visit Dermatology [facility] [place] [address] [facility] [place], [place] [address] Ajit Deshpande MD [address] [place], [place] [address] 06/12/2024 10:30 AM EDT Hem/Onc Treatment Hematology/Onco logy Treatment, [place] [address] [facility], [place] [phone] Hod[place], Chair 3 Hem Onc [address] [place], [place] [address] 10/02/2024 1:00 PM EST Laboratory Laboratory [facility] [place] [address] [place] [phone] Ruby Pettit [facility] [address] [place] [address] 10/02/2024 2:00 PM EST Office Visit [facility] [place] [address] [place] [phone] Elliott Monique MD [address] [place] [address] Scheduled Procedures Name Priority Associated Diagnoses Date/Ti me ESOPHAGOGASTRODUODENOSCOPY ( EGD), FLEXIBLE, TRANSORAL, ENDOSCOPIC ULTRASOUND Elevated LFTs 06/02/2024 8:45 AM EDT Health Maintenance Due Date Last Done Comments [...] filedocumented as of this encounter Care Teams Cryptanalyst Relationship Specialty Start Date End Date Sammie Valverde PA-C [address] [facility] [place] [address] PCP - General Physician Account Services Representative 08/27/23 documented as of this encounter
--- OUTSIDE RECORDS SUMMARY | 2024-09-13 20:35 | External Medical Summary | Summary of Care ---
Author Name Unknown Organization [facility] Address [address] [facility] [place] [address] Phone [phone] Care Team Providers Care Steamboat Pilot Name Role Phone Sammie Valverde PA-C Primary Care Provider [phone] [phone] Reason for Visit * Reason Comments IV Therapy Venofer Encounter Details Date Type Department Care Team (Latest Contact Info) Description 05/29/2024 10:45 AM EDT Hem/Onc Treatment Hematology/Oncology Treatment, [address] [phone] Hodan, Chair 9 Hem On[address] [phone] Restless leg syndrome*; Other iron deficiency anemia [...] as of this encounter (statuses as of 05/29/2024) Medications Medication Sig Dispensed Refills Start Date [...] Tablet (Provigil) 09/22/2022 Active Dexcom G7 Senior Software Project Manager Device Use as directed. 11/09/2022 Active Dexcom [...] as of this encounter (statuses as of 05/29/2024) Active Problems Problem Noted Date Diagnosed Date [...] as of this encounter (statuses as of 05/29/2024) Resolved Problems Problem Noted Date Diagnosed Date [...] as of this encounter (statuses as of 05/29/2024) Immunizations Name Administration Dates Next Due Covid-19 [...] No 12/13/2023 Does the household have a [facility] source of income? (Household - for ages [...] Care Team (Latest Contact Info) Description 06/02/2024 8:45 AM EDT Hospital Encounter ENDO [facility], Endoscopy Room [facility] [address] [address] [place] [phone] Alvarez Choi DO [address] [place] [address] 06/02/2024 8:45 AM EDT - 06/02/2024 9:30 AM EDT Surgery ENDO [facility], Endoscopy Room [facility] [address] [address] [place] [phone] Alvarez Choi DO [address] [place] [address] ESOPHAGOGASTRODUODENOSCOPY (EGD), FLEXIBLE, TRANSORAL, ENDOSCOPIC ULTRASOUND 06/05/2024 10:30 AM EDT Hem/Onc Treatment Hematology/Onco logy Treatment, [place] [address] [place] [address] Hodan, Chair 4 Hem Onc Scenery [address] [place] [address] 06/09/2024 10:45 AM EDT Office Visit Dermatology [facility] [place] [address] [place], [place] [address] Ajit Deshpande MD [address] [place] [address] 06/12/2024 10:30 AM EDT Hem/Onc Treatment Hematology/Onco logy Treatment, [place] 200 [place] [address] Hodan, Chair 3 Hem Onc Scenery [address] [place], [place] [address] 07/10/2024 10:30 AM EST Laboratory Laboratory [facility] Hodan [place] [address] [place], [place] [address] Hodan, Lab Scenery [address] [place] [address] 10/02/2024 1:00 PM EST Laboratory Laboratory [facility] Hodan [place] [address] [place], [place] [address] [place], Lab Scenery [address] [facility] [address] 10/02/2024 2:00 PM EST Office Visit Hematology/Onco logy [facility] [place] [address] [place] [address] Elliott Monique MD [address] [place] [address] Scheduled Procedures Name Priority Associated Diagnoses Date/Ti [...] legs syndrome (RLS) Other iron deficiency anemia Elevated LFTs Other abnormal blood chemistry documented in this encounter Administered Medications Active Administered Medications - up to 3 most recent administrations Medication Order MAR Action Action Date Dose Rate Site diphenhydrAMINE (Benadryl) inj 50 mg 50 mg, IV Push, ONCE PRN Other, Hypersensitivity Reaction, Starting on Wed05/29/24 at 1053, Until Wed05/30/24 at 1052, For 24 hours EPINEPHrine 1 MG/ML inj 0.3 mg 0.3 mg, Intramuscular, ONCE PRN Other, Hypersensitivity Reaction or Anaphylaxis, Starting on Wed05/29/24 at 1053, Until Wed05/30/24 at 1052, For 24 hours hEParin 100 UNIT/ML Lock Flush inj 500 Units 500 Units (5 mL), IV Lock, PRN Other, IV Flush, Starting on Wed05/29/24 at 1053, Until Wed05/30/24 at 1052, For 24 hours, Do not flush if lock, PICC, or central line not in place; IV infusing or unable to flush. Hydrocortisone Sod Suc (PF) (Solu-Cortef) inj 100 mg 100 mg, IV Push, ONCE PRN Other, Hypersensitivity Reaction, Starting on Wed05/29/24 at 1053, Until Wed05/30/24 at 1052, For 24 hours NSS infusion 500 mL, Intravenous, at 50 mL/hr, CONTINUOUS, Starting on Wed05/29/24 at 1200, Until Wed05/29/24 at 2159 Start Infusion 05/29/2024 11:02 AM EDT 500 mL 50 mL/hr oxygen GAS Inhalation, OXYGEN, First dose on Wed05/29/24 at 1130, Until Discontinued, Device/Managed by: Low Flow Device, [...] Push, PRN Other, IV Flush, Starting on Wed05/29/24 at 1053, Until Wed05/30/24 at 1052, For 24 hours, Do not flush if [...] On Wed05/29/24 at 1230, Administer over 90 Minutes Start Infusion 05/29/2024 11:03 AM EDT 300 mg 180 mL/hr documented in this encounter Care Teams Steamboat Pilot Relationship Specialty Start Date End Date Sammie Valverde PA-C [address] [facility] [place] [address] PCP - General Physician Electrical Systems Design Engineer 08/27/23 documented as of this encounter
--- OUTSIDE RECORDS SUMMARY | 2024-09-13 20:35 | External Medical Summary | Summary of Care ---
Author Name Unknown Organization [facility] Address [address] [facility] [place] [address] Phone [phone] Care Team Providers Care Creative Services Coordinator Name Role Phone Sammie Valverde PA-C Primary Care Provider [phone] Encounter Details Date Type Department Care Team (Late st Contact Info) Description 06/16/2024 Telephone Hepatology, [facility] [address] [place] [address] Brooke Elliott DO [address] [place] [address] Allergies Active Allergy Reactions Criticality Noted Date [...] as of this encounter (statuses as of 06/16/2024) Medications Medication Sig Dispensed Refills Start Date [...] Oral Tablet (Provigil) 09/22/2022 Active Dexcom G7 Water Supply Engineer Device Use as directed. 11/09/2022 Active Dexcom [...] as of this encounter (statuses as of 06/16/2024) Active Problems Problem Noted Date Diagnosed Date [...] as of this encounter (statuses as of 06/16/2024) Resolved Problems Problem Noted Date Diagnosed Date [...] as of this encounter (statuses as of 06/16/2024) Immunizations Name Administration Dates Next Due Covid-19 [...] encounter Miscellaneous Notes * Telephone Encounter - Brooke Elliott DO [...] Description 06/26/2024 10:20 AM EST Telemedicine Hepatology, [facility] [address] [place] [address] Brooke Elliott DO [address] [place] [address] 07/10/2024 10:30 AM EST Laboratory Laboratory [facility] [address] [place] [phone] [facility] 200 [facility] [place] [address] 10/02/2024 1:00 PM EST Laboratory Laboratory [facility] [place] [address] [place] [phone] [place]an, Lab Scenery [address] [place] [place] [address] 10/02/2024 2:00 PM EST Office Visit Hematology/Oncology [facility] [place] [address] [place] [phone] Elliott Monique MD 200 [facility] [place] [address] 03/02/2025 9:45 AM EDT Office Visit Dermatology [facility] [address] [place] [address] Ajit Deshpande MD 200 [facility] [place] [address] Scheduled Orders Name Type Priority Associated Diagnoses [...] chemistry documented in this encounter Care Teams Creative Services Coordinator Relationship Specialty Start Date End Date Sammie Valverde PA-C [address] [place] [facility] [address] PCP - General Physician Licensed Social Worker 08/27/23 documented as of this encounter
--- OUTSIDE RECORDS SUMMARY | 2024-09-13 20:35 | External Medical Summary | Summary of Care ---
Author Name Unknown Organization [facility] Address [address] [facility] [place] [address] Phone [phone] Care Team Providers Care Methods Analyst Data Processing Name Role Phone Sammie Valverde PA-C Primary Care Provider [phone] Reason for Visit * Reason Comments IV Therapy Venofer 3/4 Encounter Details Date Type Department Care Team (Latest Contact Info) Description 06/05/2024 10:30 AM EDT Hem/Onc Treatment Hematology/Oncology Treatment, [address] [phone] Hodan, Chair [address] Hem On[address] [phone] Restless leg syndrome*; Other iron deficiency anemia [...] as of this encounter (statuses as of 06/05/2024) Medications Medication Sig Dispensed Refills Start Date [...] Oral Tablet (Provigil) 09/22/2022 Active Dexcom G7 Assistant Business Manager Device Use as directed. 11/09/2022 Active [...] Tablet Take 2 Tablets by mouth. Active documented as of this encounter (statuses as of 06/05/2024) Active Problems Problem Noted Date Diagnosed Date [...] as of this encounter (statuses as of 06/05/2024) Resolved Problems Problem Noted Date Diagnosed Date [...] as of this encounter (statuses as of 06/05/2024) Immunizations Name Administration Dates Next Due Covid-19 [...] No 12/13/2023 Does the household [facility] source [facility]? (Household - for ages [...] arrived Chair 5 for IV therapy Venofer 3. Vital signs are stable. IV access successful [...] Care Team (Late st Contact Info) Description 06/09/2024 10:45 AM EDT [facility] [place] [address] [place] [address] Ajit Deshpande MD [address] [place] [address] 06/12/2024 10:30 AM EDT Hem/Onc Treatment Hematology/Oncology Treatment, [place] [address] [place] [phone] Hodan, Chair 3 Hem Onc Scenery [address] [place] [address] 07/10/2024 10:30 AM EST Laboratory Laboratory [facility] [place] Jorge Pettit [address] [place] [phone] Hodan Lab Scenery [address] [place] [address] 10/02/2024 1:00 PM EST Laboratory Laboratory [facility] [place] Jorge Pettit [address] [place] [address] Hodan, Lab Scenery [address] [place] [address] 10/02/2024 2:00 PM EST Office Visit Hematology/Oncology [place] Pettit [place] 200 [facility] [place], [place] [address] Elliott Monique MD 200 [facility] [place], [place] [address] Health Maintenance Due Date Last Done Comments [...] ONCE PRN Other, Hypersensitivity Reaction, Starting on Wed06/05/24 at 1031, Until Wed06/06/24 at 1030, For 24 hours EPINEPHrine 1 MG/ML inj 0.3 mg 0.3 mg, Intramuscular, ONCE PRN Other, Hypersensitivity Reaction or Anaphylaxis, Starting on Wed06/05/24 at 1031, Until Wed06/06/24 at 1030, For 24 hours hEParin 100 UNIT/ML Lock Flush inj 500 Units 500 Units (5 mL), IV Lock, PRN Other, IV Flush, Starting on Wed06/05/24 at 1031, Until Wed06/06/24 at 1030, For 24 hours, Do not flush if lock, PICC, or central line not in place; IV infusing or unable to flush. Hydrocortisone Sod Suc (PF) (Solu-Cortef) inj 100 mg 100 mg, IV Push, ONCE PRN Other, Hypersensitivity Reaction, Starting on Wed06/05/24 at 1031, Until Wed06/06/24 at 1030, For 24 hours NSS infusion 500 mL, Intravenous, at 50 mL/hr, CONTINUOUS, Starting on Wed06/05/24 at 1145, Until Wed06/05/24 at 2144 Start Infusion 06/05/2024 10:43 AM EDT 500 mL 50 mL/hr oxygen GAS Inhalation, OXYGEN, First dose on Wed06/05/24 at 1115, Until Discontinued, Device/Managed by: Low [...] Push, PRN Other, IV Flush, Starting on Wed06/05/24 at 1031, Until Wed06/06/24 at 1030, For 24 hours, Do not flush if [...] 10:44 AM EDT 300 mg 180 mL/hr documented in this encounter Care Teams Methods Analyst Data Processing Relationship Specialty Start Date End Date Sammie Valverde PA-C [address] [facility] [id number] PCP - General Physician Plant Technician/Control Room Operator 08/27/23 documented as of this encounter
--- OUTSIDE RECORDS SUMMARY | 2024-09-13 20:35 | External Medical Summary | Summary of Care ---
Author Name Unknown Organization [facility] Address [address] [facility] [place] [address] Phone [phone] Care Team Providers Care Sales Representative Wire Rope Name Role Phone Sammie Valverde PA-C Primary Care Provider [phone] Reason for Visit * Reason Comments IV Therapy Venofer Encounter Details Date Type Department Care Team (Latest Contact Info) Description 05/22/2024 10:30 AM EDT Hem/Onc Treatment Hematology/Oncology Treatment, [address] [phone] Hodan, Chair 11 Hem On[address] [phone] Restless leg syndrome*; Other iron deficiency anemia [...] as of this encounter (statuses as of 05/22/2024) Medications Medication Sig Dispensed Refills Start Date [...] Oral Tablet (Provigil) 09/22/2022 Active Dexcom G7 Wooden Furniture Polisher Device Use as directed. 11/09/2022 Active Dexcom [...] 100 mcg) 90 mL 11 05/18/2023 Active HYDROcodone-Acetamin ophen 5-325 MG Oral Tablet Take 1 Tablet by mouth every 8 hours as needed for moderate Pain 20 Tablet 06/14/2023 Active Additional Information Patient not taking.Reported on 02/04/2024 Cyanocobalamin 1000 MCG/ML Injection Solution (Cyanocobalamin)[place]yenne cations:B12 [...] 350 calorie meal 90 Tablet 09/15/2023 Active oxyCODONE HCl 5 MG Oral Tablet (Oxy IR) take 1 tablet (5 mg) orally every 8 hours As Needed for pain 7 Tablet 09/27/2023 Active Additional Information Patient not taking.Reported on 05/11/2024 Cyclobenzaprine HCl 10 MG Oral Tablet (Flexeril)Indication s:Chronic tension-type headache, not intractable Take 1 Tablet by mouth 2 times a day as needed (headache). 30 Tablet 3 10/01/2023 Active Nortriptyline HCl 10 MG Oral Capsule (Pamelor)Indications :Chronic tension-type headache, not intractable Take 2 Capsules by mouth at bedtime. 180 Capsule 1 10/01/2023 Active Additional Information Patient not taking.Reported on 02/04/2024 traMADol HCl 50 MG Oral Tablet (Ultram) take 1 tablet by mouth every 4-6 hours as needed. Not to exceed 5 tablets in a 24-hour period 10 Tablet 10/12/2023 Active Additional Information Patient not taking.Reported on 02/04/2024 Ketoconazole 2 % External Shampoo (Nizoral)Indications :Seborrheic [...] Tablet 11/19/2023 Active Vitamin D3 50 MCG (1999 UT) Oral Capsule Take 2 Capsules by mouth daily for 30 days, THEN 1 Capsule daily. 120 Capsule 3 12/13/2023 Active Saccharomyces boulardii 250 MG Oral Capsule (Florastor)Indicatio ns:Elevated CK Take 1 Capsule by mouth in the morning and 1 Capsule before bedtime. 60 Capsule 1 12/13/2023 Active Additional Information Patient not taking.Reported on 02/04/2024 Clindamycin HCl 300 MG Oral CapsuleIndications:E levated CK Take 1 Capsule by mouth in the morning and 1 Capsule at noon and 1 Capsule before bedtime. 20 Capsule 12/13/2023 Active Additional Information Patient not taking.Reported [...] mouth every night 90 Tablet 04/28/2024 Active Dexcom G7 SensorIndications:Re active hypoglycemia USE DIRECTED, CHANGE EVERY 10 DAYS 9 Each 3 05/02/2024 Active documented as of this encounter (statuses as of 05/22/2024) Active Problems Problem Noted Date Diagnosed Date [...] as of this encounter (statuses as of 05/22/2024) Resolved Problems Problem Noted Date Diagnosed Date [...] as of this encounter (statuses as of 05/22/2024) Immunizations Name Administration Dates Next Due Covid-19 [...] Care Team (Latest Contact Info) Description 05/29/2024 10:30 AM EDT Hem/Onc Treatment Hematology/Onco logy Treatment, [place] [address] [place] [address] Hodan Chair 7 Hem Onc Scenery [address] [place] [address] 06/02/2024 8:45 AM EDT Hospital Encounter ENDO [facility], Endoscopy Room [facility] [address] [place] [address], [place] [phone] Alvarez Choi, DO [address] [place], [place] [address] 06/02/2024 8:45 AM EDT - 06/02/2024 9:30 AM EDT Surgery ENDO [facility], Endoscopy Room [facility] [address] [place] [address] Alvarez Choi, DO [address] [place] [address] ESOPHAGOGASTRODUODENOSCOPY (EGD), FLEXIBLE, TRANSORAL, ENDOSCOPIC ULTRASOUND 06/05/2024 10:30 AM EDT [facility], [place] [phone] Hodan, Chair 4 Hem Onc Scenery 200 [facility] [place] [address] 06/09/2024 10:45 AM EDT Office Visit Dermatology [facility] Hodan [place] [address] [place] [address] Ajit Deshpande MD [address] [place] [address] 06/12/2024 10:30 AM EDT [facility] 200 [facility], [place] [phone] Hodan, Chair 3 Hem Onc Scenery [address] [place] [address] 10/02/2024 1:00 PM EST Laboratory Laboratory [facility] Hodan [place] [address] [place] [phone] Hodan, Lab [facility] [address] [facility] [place] [address] 10/02/2024 2:00 PM EST Office Visit Hematology/Onco logy [place] [facility] [place] [address] Elliott Monique MD 200 [facility] [place] [address] Scheduled Procedures Name Priority Associated Diagnoses Date/Ti [...] ONCE PRN Other, Hypersensitivity Reaction, Starting on Wed05/22/24 at 1036, Until Wed05/23/24 at 1035, For 24 hours EPINEPHrine 1 MG/ML inj 0.3 mg 0.3 mg, Intramuscular, ONCE PRN Other, Hypersensitivity Reaction or Anaphylaxis, Starting on Wed05/22/24 at 1036, Until Wed05/23/24 at 1035, For 24 hours hEParin 100 UNIT/ML Lock Flush inj 500 Units 500 Units (5 mL), IV Lock, PRN Other, IV Flush, Starting on Wed05/22/24 at 1036, Until Wed05/23/24 at 1035, For 24 hours, Do not flush if lock, PICC, or central line not in place; IV infusing or unable to flush. Hydrocortisone Sod Suc (PF) (Solu-Cortef) inj 100 mg 100 mg, IV Push, ONCE PRN Other, Hypersensitivity Reaction, Starting on Wed05/22/24 at 1036, Until Wed05/23/24 at 1035, For 24 hours NSS infusion 500 mL, Intravenous, at 50 mL/hr, CONTINUOUS, Starting on Wed05/22/24 at 1145, Until Wed05/22/24 at 2144 Start Infusion 05/22/2024 10:46 AM EDT 500 mL 50 mL/hr oxygen GAS Inhalation, OXYGEN, First dose on Wed05/22/24 at 1115, Until Discontinued, Device/Managed by: Low [...] Push, PRN Other, IV Flush, Starting on Wed05/22/24 at 1036, Until Wed05/23/24 at 1035, For 24 hours, Do not flush if [...] On Wed05/22/24 at 1215, Administer over 90 Minutes Start Infusion 05/22/2024 10:47 AM EDT 300 mg 180 mL/hr documented in this encounter Care Teams Sales Representative Wire Rope Relationship Specialty Start Date End Date Sammie Valverde PA-C [address] [place] [address] PCP - General Physician Cpr Ambulance Driver 08/27/23 documented as of this encounter
--- OUTSIDE RECORDS SUMMARY | 2024-09-13 20:35 | External Medical Summary | Summary of Care ---
Author Name Unknown Organization [facility] Address [address] [facility] [address] Phone [phone] Care Team Providers Care Patient Accounts Coordinator Name Role Phone Sammie Valverde PA-C Primary Care Provider [phone] [phone] Reason for Visit * Reason Onset Date Comments Med Request 05/17/2024 IV / Iron Encounter Details Date Type Department Care Team (Late st Contact Info) Description 05/17/2024 Telephone Hematology/Oncology, [facility] [address] [facility] [place] [address] Elliott Monique MD 200 [place] [address] Med Request (IV / Iron ) Allergies Active Allergy Reactions Criticality Noted Date [...] as of this encounter (statuses as of 05/23/2024) Medications Medication Sig Dispensed Refills Start Date [...] Oral Tablet (Provigil) 3 Active Dexcom G7 Assurance Associate Device Use as directed. 3 Active [...] mouth every night 90 Tablet 4 Active Dexcom G7 SensorIndications:R eactive hypoglycemia USE DIRECTED, CHANGE EVERY 10 DAYS 9 Each 3 4 05/02/20 25 Active HYDROcodone-Acetami nophen 5-325 MG Oral Tablet Take 1 Tablet by mouth every 8 hours as needed for moderate Pain 20 Tablet 3 05/23/20 Discontinu ed(Medicat ion List Clean Up) oxyCODONE HCl 5 MG Oral Tablet (Oxy IR) take 1 tablet (5 mg) orally every 8 hours As Needed for pain 7 Tablet 4 05/23/20 Discontinu ed(Medicat ion List Clean Up) Nortriptyline HCl 10 MG Oral Capsule (Pamelor)Indication s:Chronic tension-type headache, not intractable Take 2 Capsules by mouth at bedtime. 180 Capsule 1 4 05/23/20 Discontinu ed(Medicat ion List Clean Up) traMADol [...] as of this encounter (statuses as of 05/23/2024) Active Problems Problem Noted Date Diagnosed Date [...] as of this encounter (statuses as of 05/23/2024) Resolved Problems Problem Noted Date Diagnosed Date [...] as of this encounter (statuses as of 05/23/2024) Immunizations Name Administration Dates Next Due Covid-19 [...] encounter Miscellaneous Notes * Telephone Encounter - Jewel Bravo OSA - 05/18/2024 8:20 AM EDT Patient scheduled and is aware * Telephone Encounter - Yakelin Mendez LPN - 05/17/2024 4:23 PM EDT Scheduling: Please call patient to schedule patient for "Venofer /" (Christoph), 2 hour treatment time. Venofer infusions, once a week x 4 * Telephone Encounter - Yakelin Mendez LPN - 05/17/2024 4:17 PM EDT Order received for Venofer [place] plan built and routed to provider No prior authorization needed * Addendum Note - Russell Hawthorne MD - 05/17/2024 3:54 PM EDTAddended by: RUSSELL HAWTHORNE on: 05/17/2024 03:54 PM Modules accepted: Orders * Telephone Encounter - Russell Hawthorne MD - 05/17/2024 3:54 PM EDT I reviewed her blood workup, Ferritin level 34, hemoglobin level 11.6, she had IV iron in the form of Venofer in 2020 Would like to proceed with IV iron Venofer every weekly x4. She should have CBCD, Ferritin, iron profile about 1 month after the IV iron therapy. * Telephone Encounter - Isaura Lord RN - 05/17/2024 1:[address] Monique/ covering providers: please advise on 03/27/24 lab work. Is IV iron indicated or should patient repeat lab work? Thanks! * Telephone Encounter - Isaura Lord RN - 05/17/2024 1:28 PM EDT Last lab work in chart 03/27/24., ferritin was 34. MyG sent to patient to clarify lab work from 03/27/24 is what she is referring to. * Telephone Encounter - Coco Mendosa continuous still operator - 05/17/2024 1:13 PM EDT PT requesting IV Iron. PT states recent labwork was low for restless legs, sitting at 32. PT statesshe has had this in the past. Please advise. Thank you, Coco Mendosa Director Of Loss Prevention [facility] 05/17/2024,1:15 PM documented in this encounter Plan of Treatment Upcoming Encounters Date Type Department Care Team (Latest Contact Info) Description 05/29/2024 1:00 PM EDT Hem/Onc Treatment Hematology/Onco logy Treatment, [place] [address] [place] [phone] Hodan, Chair 5 Hem Onc Scenery [address] [place] [address] 06/02/2024 8:45 AM EDT Hospital Encounter ENDO [facility], Endoscopy Room [facility] [address] [place] [phone] Alvarez Choi, DO [address] [place], [place] [address] 06/02/2024 8:45 AM EDT - 06/02/2024 9:30 AM EDT Surgery ENDO [facility], Endoscopy Room [facility] [address] [place] [address] Alvarez Choi, DO [address] [place] [address] ESOPHAGOGASTRODUODENOSCOPY (EGD), FLEXIBLE, TRANSORAL, ENDOSCOPIC ULTRASOUND 06/05/2024 10:30 AM EDT Hem/Onc Treatment Hematology/Onco logy [facility], [place] [address] [facility] [phone] Hodan, Chair 4 Hem Onc Scenery 200 [facility] [place] [address] 06/09/2024 10:45 AM EDT Office Visit Dermatology [facility] [place] [address] [place] [address] Ajit Deshpande MD [address] [place] [address] 06/12/2024 10:30 AM EDT Hem/Onc Treatment Hematology/Onco logy Treatment, [place] [address] [facility] [phone] Hodan, Chair 3 Hem Onc Scenery [address] [place] [address] 10/02/2024 1:00 PM EST Laboratory Laboratory [facility] Hodan [place] [address] [place] [phone] Ruby Pettit [facility] [address] [place] [address] 10/02/2024 2:00 PM EST Office Visit Hematology/Onco logy Zion Pettit [place] 200 [facility] [place] [phone] Elliott Monique MD 200 [facility] [place] [address] Scheduled Procedures Name Priority Associated Diagnoses Date/Ti [...] Vaccine (2 - 2023- season) 2024 10/27/2020 Influenza Vaccine [...] as of this encounter Visit Diagnoses Diagnosis Other iron deficiency anemia- Primary Restless leg Restless legs syndrome (RLS) Elevated LFTs Other abnormal blood chemistry documented in this encounter Care Teams Patient Accounts Coordinator Relationship Specialty Start Date End Date Sammie Valverde PA-C [address] [facility] [place] [address] PCP - General Physician Commercial Food Instructor 08/27/23 documented as of this encounter
--- OUTSIDE RECORDS SUMMARY | 2024-09-13 20:36 | External Medical Summary | Summary of Care ---
Author Name Unknown Organization [facility] Address [address] [place] [address] Phone [phone] Care Team Providers Care Container Finishing Inspector Name Role Phone Sammie Valverde PA-C Primary Care Provider [phone] [phone] Encounter Details Date Type Department Care Team (Late st Contact Info) Description 05/03/2024 10:30 AM EDT Telemedicine Endocrinology [address] [place] [address] Madhu Parra CRNP [address] [place] [address] Acquired hypothyroidism*; Reactive hypoglycemia; Body mass [...] as of this encounter (statuses as of 05/03/2024) Medications Medication Sig Dispensed Refills Start Date [...] 100 MG Oral Tablet (Provigil) 09/22/2022 Active Semaglutide (2 MG/DOSE) 8 MG/3ML Subcutaneous Solution Pen-injector (Ozempic) Inject 2 mg once a week. 11/09/2022 Active Dexcom G7 Portable Router Operator Device Use as directed. 11/09/2022 Active Dexcom G7 Sensor Use as directed. 11/09/2022 Ac tive Ozempic (2 MG/DOSE) 8 MG/3ML Subcutaneous Solution Pen-injector (Semaglutide (2 MG/DOSE)) inject 2mg subcutaneous injection every 7 days 9 mL 1 12/17/2022 Active Modafinil 100 MG Oral Tablet (Provigil) [...] Needed for pain 7 Tablet 09/27/2023 Active Cyclobenzaprine HCl 10 MG Oral Tablet [...] as of this encounter (statuses as of 05/03/2024) Active Problems Problem Noted Date Diagnosed Date [...] as of this encounter (statuses as of 05/03/2024) Resolved Problems Problem Noted Date Diagnosed Date [...] as of this encounter (statuses as of 05/03/2024) Immunizations Name Administration Dates Next Due Covid-19 [...] on file documented as of this encounter Progress Notes * Madhu Parra CRNP - 05/03/2024 10:28 AM EDT Images from the original note were not included. Patient location: HOME. I was in a hospital or clinic location. After connecting through [employer],patient was verified with two unique identifiers. Patient (or authorized legal architectural representative) was then informed that this was [...] in 02/[address] Quinton Celestin in [facility] surgical associates and bariatrics. Lost 200 [...] 2 mg once a week. Dexcom G7 Portable Router Operator Device Use as directed. Dexcom G7 Sensor [...] services. ZAINAB Hernandez Endocrinology [address] [place]. [place] [phone] documented in this encounter Plan of Treatment Upcoming Encounters Date Type Department Care Team (Latest Contact Info) Description 06/02/2024 8:45 AM EDT Hospital Encounter ENDO [facility], Endoscopy Room [facility] [address] [place], [place] [phone] Alvarez Choi, DO [address] [place], [place] [address] 06/02/2024 8:45 AM EDT - 06/02/2024 9:30 AM EDT Surgery ENDO [facility], Endoscopy Room [facility] [address] [place], [place] [phone] Alvarez Choi, DO [address] [place], [place] [address] ESOPHAGOGASTRODUODENOSCOPY (EGD), FLEXIBLE, TRANSORAL, ENDOSCOPIC ULTRASOUND 06/09/2024 10:45 AM EDT Office Visit Dermatology [facility] [place] [address] [place] [address] Ajit Deshpande MD 200 [facility] [place] [address] 10/02/2024 1:00 PM EST Laboratory Laboratory [facility] [address] [place] [phone] [facility] [address] [facility] [place] [address] 10/02/2024 2:00 PM EST Office Visit Hematology/Onco logy [facility] [place] [address] [place] [phone] Elliott Monique MD [address] [place] [address] Scheduled Procedures Name Priority Associated Diagnoses Date/Ti [...] of 40.0 to 44.9 in adult (HCC) Elevated LFTs Other abnormal blood chemistry documented in this encounter Care Teams Container Finishing Inspector Relationship Specialty Start Date End Date Sammie Valverde PA-C [address] [facility] [place] [address] PCP - General Physician Plant Guide 08/27/23 documented as of this encounter
--- OUTSIDE RECORDS SUMMARY | 2024-09-13 20:36 | External Medical Summary | Summary of Care ---
Author Name Unknown Organization [facility] Address [address] [facility] [address] Phone [phone] Care Team Providers Care Handbell Choir Director Name Role Phone Sammie Valverde PA-C Primary Care Provider [phone] [phone] Reason for Visit * Reason Onset Date Comments Med Request 05/17/2024 IV / Iron Encounter Details Date Type Department Care Team (Late st Contact Info) Description 05/17/2024 Telephone Hematology/Oncology, [facility] [address] [facility] [place] [address] Elliott Monique MD 200 [place] [address] Med Request (IV / Iron ) Allergies [...] as of this encounter (statuses as of 05/18/2024) Medications Medication Sig Dispensed Refills Start Date [...] Oral Tablet (Provigil) 09/22/2022 Active Dexcom G7 Engagement Executive Device Use as directed. 11/09/2022 Active Dexcom [...] as of this encounter (statuses as of 05/18/2024) Active Problems Problem Noted Date Diagnosed Date Restless leg syndrome 05/17/2024 Myelopathy 01/18/2024 Type 2 diabetes mellitus without complication 06 /11/2023 Numbness and tingling in both hands 03/26/2023 [...] as of this encounter (statuses as of 05/18/2024) Resolved Problems Problem Noted Date Diagnosed Date [...] as of this encounter (statuses as of 05/18/2024) Immunizations Name Administration Dates Next Due Covid-19 [...] 4:17 PM EDT Order received for Venofer [place] plan built and routed to provider No [...] to. * Telephone Encounter - Coco Mendosa department secretary - 05/17/2024 1:13 PM EDT PT requesting IV Iron. PT states recent labwork was low for restless legs, sitting at 32. PT statesshe has had this in the past. Please advise. Thank you, Coco Mendosa Keno Manager [facility] 05/17/2024,1:15 PM documented in this encounter Plan of Treatment Upcoming Encounters Date Type Department Care Team (Latest Contact Info) Description 05/22/2024 10:30 AM EDT Hem/Onc Treatment Hematology/Onco logy Treatment, [place] [address] [place] [phone] Hodan, Chair 11 Hem Onc Scenery [address] [place] [address] 05/29/2024 10:30 AM EDT Hem/Onc Treatment Hematology/Onco logy Treatment, [place] 200 [place] [phone] Hodan, Chair 7 Hem Onc Scenery [address] [facility] [address] [place], [place] [address] 06/02/2024 8:45 AM EDT Hospital Encounter ENDO [facility], Endoscopy Room [facility] [address] [place] [phone] Alvarez Choi, DO [address] [place] [address] 06/02/2024 8:45 AM EDT - 06/02/2024 9:30 AM EDT Surgery ENDO [facility], Endoscopy Room [facility] [address] [place] [phone] Alvarez Choi, DO [address] [place] [address] ESOPHAGOGASTRODUODENOSCOPY (EGD), FLEXIBLE, TRANSORAL, ENDOSCOPIC ULTRASOUND 06/05/2024 10:30 AM EDT Hem/Onc Treatment Hematology/Onco logy Treatment, [place] [address] [place] [phone] Hodan, Chair 4 Hem Onc Scenery [address] [facility] [address] [place], [place] [address] 06/09/2024 10:45 AM EDT Office Visit Dermatology [facility] [place] [address] [facility] [place], [place] [address] Ajit Deshpande MD [address] [facility] [address] [place], [place] [address] 06/12/2024 10:30 AM EDT Hem/Onc Treatment Hematology/Onco logy Treatment, [place] [address] [facility], [place] [phone] Hodan, Chair 3 Hem Onc Scenery [address] [facility] [place] [address] 10/02/2024 1:00 PM EST Laboratory Laboratory [facility] [place] [address] [place] [phone] Hodan [facility] Scenery [address] [place] [address] 10/02/2024 2:00 PM EST [facility] [address] [place] [phone] Elliott Monique MD [address] [place] [address] Scheduled Procedures Name Priority Associated Diagnoses Date/Ti [...] chemistry documented in this encounter Care Teams Handbell Choir Director Relationship Specialty Start Date End Date Sammie Valverde PA-C [address] [place] [address] PCP - General Physician Vice President Of Marketing 08/27/23 documented as of this encounter
--- OUTSIDE RECORDS SUMMARY | 2024-09-13 20:36 | External Medical Summary | Summary of Care ---
Author Name Unknown Organization [facility] Address [address] [facility] [place] [address] Phone [phone] Care Team Providers Care Radiological Health Specialist Name Role Phone Sammie Valverde PA-C Primary Care Provider [phone] [phone] Reason for Visit * Reason Onset Date Comments Appointment 05/11/2024 Encounter Details Date Type Department Care Team (Late st Contact Info) Description 05/11/2024 Telephone Family Practice [facility] [address] [place] [address] Gerardo Galindo CRNP [address] [place] [address] Appointment Allergies Active Allergy Reactions Criticality Noted [...] as of this encounter (statuses as of 05/11/2024) Medications Medication Sig Dispensed Refills Start Date [...] Oral Tablet (Provigil) 09/22/2022 Active Dexcom G7 Roofer Applicator Device Use as directed. 11/09/2022 Active Dexcom [...] as of this encounter (statuses as of 05/11/2024) Active Problems Problem Noted Date Diagnosed Date [...] as of this encounter (statuses as of 05/11/2024) Resolved Problems Problem Noted Date Diagnosed Date [...] as of this encounter (statuses as of 05/11/2024) Immunizations Name Administration Dates Next Due Covid-19 [...] encounter Miscellaneous Notes * Telephone Encounter - Shayy Carrasquillo OSA - 05/11/2024 10:31 AM EDT STAT DVT scan ordered and pt declined an appt till Wednesday, she has another appt today and could notstay to get it done and can not come back later today, she is leaving town tomorrow to travel to [place], she is aware that if this is to look for a DVT it should be done gu[place]ako, pt still declined as she's going to see her sick grandmother. documented in this encounter Plan of Treatment Upcoming Encounters Date Type Department Care Team (Latest Contact Info) Description 05/15/2024 1:00 PM EDT Imaging Radiology [facility] [address] [place] [address] 06/02/2024 8:45 AM EDT Hospital Encounter ENDO [facility], Endoscopy Room [facility] [address] [place] [phone] Alvarez Choi, [address] [place] [address] 06/02/2024 8:45 AM EDT - 06/02/2024 9:30 AM EDT Surgery ENDO [facility], Endoscopy Room [facility] [address] [place] [phone] Alvarez Choi, [address] [place] [address] ESOPHAGOGASTRODUODENOSCOPY (EGD), FLEXIBLE, TRANSORAL, ENDOSCOPIC ULTRASOUND 06/09/2024 10:45 AM EDT Office Visit Dermatology [facility] [place] [address] [place] [address] Ajit Deshpande MD [address] [place], [place] [address] 10/02/2024 1:00 PM EST Laboratory Laboratory [facility] [place] [address] [place] [phone] [facility] [address] [facility] [address] [place], [place] [address] 10/02/2024 2:00 PM EST Office Visit Hematology/Onco logy [facility] [place] [address] [place], [place] [phone] Elliott Monique MD [address] [place], [place] [address] Scheduled Procedures Name Priority Associated Diagnoses Date/Ti [...] filedocumented as of this encounter Care Teams Radiological Health Specialist Relationship Specialty Start Date End Date Sammie Valverde PA-C [address] [facility] [place] [address] PCP - General Physician Wire Bender 08/27/23 documented as of this encounter
--- OUTSIDE RECORDS SUMMARY | 2024-09-13 20:36 | External Medical Summary | Summary of Care ---
Author Name Unknown Organization [facility] Address [address] [facility] [place] [address] Phone [phone] Care Team Providers Care Reprographics Associate Name Role Phone Sammie Valverde PA-C Primary Care Provider [phone] Reason for Visit * Reason Comments Acute Pt being seen for Lt leg pain and has bruise in area of pain and a lump as well. Has had for 2 months off and on. Encounter Details Date Type Department Care Team (Late st Contact Info) Description 05/11/2024 9:40 AM EDT Office Visit Family Practice [facility] [address] [place] [address] Gerardo Galindo CRNP [address] [place] [address] Pain of left lower leg* Allergies Active Allergy Reactions Criticality Noted Date [...] MG Oral Tablet (Ativan) 1 Active OneTouch DelAppVault Lancets 30G To test blood sugars twice a day. 100 Each 5 2 Active Modafinil 100 MG Oral Tablet (Provigil) 3 Active Dexcom G7 Advertising Sales Associate Device Use as directed. 3 Active [...] 100 mcg) 90 mL 11 3 Active HYDROcodone-Acetami nophen 5-325 MG Oral Tablet Take 1 Tablet by mouth every 8 hours as needed for moderate Pain 20 Tablet 3 Active Additional Information Patient not taking.Reported on 02/04/2024 Cyanocobalamin 1000 MCG/ML Injection Solution (Cyanocobalamin)Ind ications:B12 [...] 350 calorie meal 90 Tablet 4 Active oxyCODONE HCl 5 MG Oral Tablet (Oxy IR) take 1 tablet (5 mg) orally every 8 hours As Needed for pain 7 Tablet 4 Active Additional Information Patient not taking.Reported on 05/11/2024 Cyclobenzaprine HCl 10 MG Oral Tablet (Flexeril)Indicatio ns:Chronic tension-type headache, not intractable Take 1 Tablet by mouth 2 times a day as needed (headache). 30 Tablet 3 4 Active Nortriptyline HCl 10 MG Oral Capsule (Pamelor)Indication s:Chronic tension-type headache, not intractable Take 2 Capsules by mouth at bedtime. 180 Capsule 1 4 Active Additional Information Patient not taking.Reported on 02/04/2024 traMADol HCl 50 MG Oral Tablet (Ultram) take 1 tablet by mouth every 4-6 hours as needed. Not to exceed 5 tablets in a 24-hour period 10 Tablet 4 Active Additional Information Patient not taking.Reported on 02/04/2024 Ketoconazole 2 % External Shampoo (Nizoral)Indication s:Seborrheic [...] Tablet 4 Active Vitamin D3 50 MCG (1999 [...] on 02/04/2024 Clindamycin HCl 300 MG Oral CapsuleIndications: Elevated CK Take 1 Capsule by mouth in the morning and 1 Capsule at noon and 1 Capsule before bedtime. 20 Capsule 4 Active Additional Information Patient not taking.Reported [...] 9 Each 3 4 05/02/20 25 Active Semaglutide (2 MG/DOSE) 8 MG/3ML Subcutaneous Solution Pen-injector (Ozempic) Inject 2 mg once a week. 3 05/11/20 24 Discontinu ed(Medicat ion List Clean Up) Ozempic (2 MG/DOSE) 8 MG/3ML Subcutaneous Solution Pen-injector (Semaglutide (2 MG/DOSE)) inject 2mg subcutaneous injection every 7 days 9 mL 1 3 05/11/20 24 Discontinu ed(Medicat ion List Clean Up) documented [...] Sign Reading Time Taken Comments Blood Pressure 102/66 05/11/2024 10:04 AM EDT Pulse 75 05/11/2024 10:04 AM EDT Temperature 37.1 C (98.7 F) 05/11/2024 10:04 AM E DT Respiratory Rate 16 05/11/2024 10:04 AM EDT Oxygen Saturation - - Inhaled Oxygen Concentration - - Weight 91.2 kg (201 lb) 05/11/2024 10:04 AM EDT Height - - Body Mass Index 33.45 01/27/2024 10:58 AM EDT documented in this encounter Progress Notes * Gerardo Galindo CRNP - 05/11/2024 10:08 AM EDT Images from the original note were not included. Follow up Family Medicine Visit History of Present Illness Margarita Puga Pablo is a very pleasant 43 year old female with PMH listed below presenting with acute. Intermittent left leg pain past 2 months Denies chest pain or SOB Easy to bruise due to ITP/anemia Her is concerning for blood clot No recent travel, no hx of blood clot, former smoker quitted 2003, s/p hysterectomy not on any hormone Social History Socioeconomic History Marital status: Spouse [...] Social History Narrative Not on file Social Determinants of Health Financial Resource Strain: Low Risk (12/13/2023) Financial [...] Stability Do you currently live in a intermediate or have no steady place to sleep [...] - for ages0-17 years): Not on file PMH: Past Medical History: Diagnosis Date Anemia Bipolar 2 disorder (HCC) Hypothyroidism (acquired) Restless legs syndrome 04/22/2021 Seborrheic dermatitis Subclavian vein obstruction, 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 Past Surgical History: Procedure Laterality Date COLONOSCOPY, DIAGNOSTIC (RECTUM) N/A 01/29/2023 COLONOSCOPY FLEXIBLE PROXIMAL DIAGNOSTIC performed by Zeus Carrasquillo MD at ENDOSCOPY [facility]GD, FLEXIBLE, DIAGNOSTIC N/A 11/24/2021 ESOPHAGOGASTRODUODENOSCOPY (EGD), FLEXIBLE, TRANSORAL, DIAGNOSTIC performed by Mono Ceron MD at ENDOSCOPY [facility]GD, FLEXIBLE, DIAGNOSTIC 01/29/2023 ESOPHAGOGASTRODUODENOSCOPY (EGD), FLEXIBLE, TRANSORAL, DIAGNOSTIC performed by Zeus Carrasquillo MD at ENDOSCOPY [facility] GASTRIC BYPASS FOR OBESITY INJECT DX/THER SUBSTANCE INTERLAMINAR LUMBAR/SACRAL W IMAGE GUIDE 03/24/2018 INJECTION SPINE LUMBAR OR SACRAL performed by Vijay Garcia DO at OR [facility] INJECT DX/THER SUBSTANCE INTERLAMINAR LUMBAR/SACRAL W IMAGE GUIDE 04/21/2018 INJECTION SPINE LUMBAR OR SACRAL performed by Vijay Garcia, DO at OR [facility] PARTIAL HYSTERECTOMY Ovaries remain REMOVE GALLBLADDER Current Outpatient Medications Medication Sig Dispense Refill Dexcom G7 Sensor USE DIRECTED, CHANGE EVERY 10 DAYS 9 Each 3 guanFACINE HCl 1 MG Oral Tablet (Tenex) take 1 tablet by mouth every night 90 Tablet 0 Mounjaro 7.5 MG/0.5ML Subcutaneous Solution Pen-injector (Tirzepatide) inject 7.5mg under the skin once weekly 2 mL 1 Chlorhexidine Gluconate 4 % External Solution (Hibiclens) wash 2-3 times a week and have on the skin for 3-5 minutes prior to rinse 237 mL 0 Lurasidone HCl 20 MG Oral Tablet (Latuda) Take 1 tablet by mouth daily with 350 calories in addition to 80mg 90 Tablet 0 Vitamin D3 50 MCG (2000 UT) Oral Capsule Take 2 Capsules by mouth daily for 30 days, THEN 1 Capsuledaily. 120 Capsule 3 Methocarbamol 500 MG Oral Tablet (Robamol) take 1 to 2 tablets orally at bedtime; 30 Tablet 0 Clobetasol Propionate 0.05 % External Solution Apply several drops to scalp as needed for itch 50 mL 5 Ketoconazole 2 % External Shampoo (Nizoral) Shampoo to scalp two to three times a week 120 mL 11 Cyclobenzaprine HCl 10 MG Oral Tablet (Flexeril) Take 1 Tablet by mouth 2 times a day as needed (headache). 30 Tablet 3 Lurasidone HCl 20 MG Oral Tablet (Latuda) Take one tablet by mouth daily with 350 calories in addition to 80mg tablet 90 Tablet 0 Lurasidone HCl 80 MG Oral Tablet (Latuda) Take one tablet by mouth every day with 350 calorie meal 90 Tablet 0 Cyanocobalamin 1000 MCG/ML Injection Solution (Cyanocobalamin) INJECT 1000 MCG INTO A LARGE MUSCLE EVERY 30 DAYS 3 mL 4 Tirosint-WILLIAM 100 MCG/ML Oral Solution (Levothyroxine Sodium) take 500 mcg by mouth daily (2 vials of 200 mcg +1 vial of 100 mcg) 90 mL 11 Tirosint-WILLIAM 200 MCG/ML Oral Solution (Levothyroxine Sodium) 500 mcg daily (2 vials of 200 mcg +1 vial of 100 mcg) 180 mL 11 Modafinil 100 MG Oral Tablet (Provigil) Take 1.5 tablets by mouth daily for excessive daytime sleepiness 135 Tablet 0 Dexcom G7 Advertising Sales Associate Device Use as directed. Dexcom G7 Sensor Use as directed. Haute App Lancets 30G To test blood sugars twice a day. 100 Each 5 Latuda 80 MG Oral Tablet 100 mg. Per pt, now taking 100mg daily. Glucose 15 GM/32ML GEL Use as needed for hypoglycemia 32 mL 5 Lurasidone HCl 60 MG Oral Tablet (Latuda) take 2 tablets by mouth every day with 350 anamaria meal 60 Tablet 0 LORazepam 0.5 MG Oral Tablet (Ativan) take 1 tablet by mouth up to three times a day as needed for anxiety/panic attack 30 Tablet 0 Lurasidone HCl 20 MG Oral Tablet (Latuda) take 1 tablet by mouth daily with 350 calories in addition to 80mg 90 Tablet 0 Mounjaro 2.5 MG/0.5ML Subcutaneous Solution Pen-injector (Tirzepatide) Inject 2.5 mg under the skinonce a week 2 mL 0 Ondansetron 4 MG Oral Tablet Disintegrating (Zofran) Dissolve 1 Tablet on tongue every 8 hours as needed for Nausea. 20 Tablet 1 Clindamycin HCl 300 MG Oral Capsule Take 1 Capsule by mouth in the morning and 1 Capsule at noon and 1 Capsule before bedtime. (Patient not taking: Reported on 02/04/2024) 20 Capsule 0 Famotidine 20 MG Oral Tablet (Pepcid) take 1 tablet by mouth with antibiotic twice daily for 10 days (Patient not taking: Reported on 02/04/2024) 30 Tablet 0 Saccharomyces boulardii 250 MG Oral Capsule (Florastor) Take 1 Capsule by mouth in the morning and 1 Capsule before bedtime. (Patient not taking: Reported on 02/04/2024) 60 Capsule 1 traMADol HCl 50 MG Oral Tablet (Ultram) take 1 tablet by mouth every 4-6 hours as needed. Not to exceed 5 tablets in a 24-hour period (Patient not taking: Reported on 02/04/2024) 10 Tablet 0 Nortriptyline HCl 10 MG Oral Capsule (Pamelor) Take 2 Capsules by mouth at bedtime. (Patient not taking: Reported on 02/04/2024) 180 Capsule 1 oxyCODONE HCl 5 MG Oral Tablet (Oxy IR) take 1 tablet (5 mg) orally every 8 hours As Needed for pain (Patient not taking: Reported on 05/11/2024) 7 Tablet 0 Linzess 72 MCG Oral Capsule (linaCLOtide) Take 1 Capsule by mouth daily before breakfast. (Patient not taking: Reported on 02/04/2024) LORazepam 0.5 MG Oral Tablet (Ativan) take 1 tablet by mouth twice daily as needed for anxiety or panic attack (max 15 tablets per month) 15 Tablet 0 HYDROcodone-Acetaminophen 5-325 MG Oral Tablet Take 1 Tablet by mouth every 8 hours as needed for moderate Pain (Patient not taking: Reported on 02/04/2024) 20 Tablet 0 Modafinil 100 MG Oral Tablet (Provigil) LORazepam 0.5 MG Oral Tablet (Ativan) No current facility-administered medications for this visit. Review of patient's allergies indicates: Allergen Reactions Amoxicillin Anaphylaxis Fentanyl Psych complications Very Mean Penicillin G Anaphylaxis Aspirin Other reaction(s): Gastric bypass Ciprofloxacin Hcl Rash PO Only Can do the IV form Diphenhydramine Hcl Hives Erythromycin Hives Ketorolac Tromethamine Latex Rash Sulfa Antibiotics Rash Tramadol Rash Voltaren [Diclofenac Sodium] Rash Most Recent Immunizations Administered Date(s) Administered Covid-19 Ad26, Single Dose (Sae/J&J) 10/27/2020 PPD 09/03/2020 Seasonal Influenza, PF, 6 M & above, IM , (FluLaval or Fluzone) 06/07/2023 Seasonal Influenza, Quadrivalent, No Preserve, IM 06/12/2021 TDAP (age 10 and older)(Boostrix) 07/20/2017 Review of Systems: Physical Exam BP 102/66 | Pulse 75 | Temp 37.1 C (98.7 F) (Tympanic) | Resp 16 | Wt 91.2 kg (201 lb) | BMI 33.45 kg/m | BSA 2.05 m Physical Exam Pulmonary: Effort: No respiratory distress. Musculoskeletal: Left lower leg: Tenderness present. No swelling. No edema. Comments: Calf circumferences 45 cm bilaterally, no redness or warmth. Posterior tibial pulse 2/2. Calf tenderness with dorsiflexion in left leg. Assessment and Plan 1. Pain of left lower leg Tenderness with dorsiflexion Doppler to r/o dvt - VASC DUPLEX VENOUS LE UNILAT Wrap-Up I have advised the patient to call our office with any worsening or new symptoms. I spent a total of 20-29 minutes (exact time 20 mins) on the date of service in preparation, delivery, and documentation of the care provided to Margarita Shah excluding any time spent in the performance of separately billed services. Gerardo Galindo, MSN, DIRECTOR ORACLE DATABASE [facility] documented in this encounter Plan of Treatment Upcoming Encounters Date Type Department Care Team (Latest Contact Info) Description 05/15/2024 1:00 PM EDT Imaging Radiology [address] [place] [address] 06/02/2024 8:45 AM EDT Hospital Encounter ENDO [facility], Endoscopy Room [facility] [address] [place], [place] [phone] Alvarez Choi, DO [address] [place] [address] 06/02/2024 8:45 AM EDT - 06/02/2024 9:30 AM EDT Surgery [facility], End[facility] Room [facility] [address] [place], [place] [address] Alvarez Choi, DO [address] [place] [address] ESOPHAGOGASTRODUODENOSCOPY (EGD), FLEXIBLE, TRANSORAL, ENDOSCOPIC ULTRASOUND 06/09/2024 10:45 AM EDT Office Visit Dermatology [facility] [address] [place] [address] Ajit Deshpande MD [address] [facility] [place] [address] 10/02/2024 1:00 PM EST Laboratory [facility] [address] [place] [phone] [place] [address] [place] [address] 10/02/2024 2:00 PM EST Office Visit Hematology/Onco logy [facility] [address] [place] [phone] Elliott Monique MD [address] [place] [address] Scheduled Orders Name Type Priority Associated Diagnoses Orde r Schedule VASC DUPLEX VENOUS LE UNILAT Medical Imaging STAT Pain of left lower leg Ordered: 05/11/2024 Scheduled Procedures Name Priority Associated Diagnoses Date/Ti [...] as of this encounter Visit Diagnoses Diagnosis Pain of left lower leg- Primary Pain in limb Elevated LFTs Other abnormal blood chemistry documented in this encounter Care Teams Reprographics Associate Relationship Specialty Start Date End Date Sammie Valverde PA-C [address] [place] [address] PCP - General Physician Surgical Manager 08/27/23 documented as of this encounter"
--- OUTSIDE RECORDS SUMMARY | 2024-09-13 20:36 | External Medical Summary | Summary of Care ---
Author Name Unknown Organization [facility] Address [address] [place] [address] Phone [phone] Care Team Providers Care Transit Planner Name Role Phone Sammie Valverde PA-C Primary Care Provider [phone] Reason for Visit * Reason Comments Medication Refill Encounter Details Date Type Department Care Team (Late st Contact Info) Description 05/02/2024 Refill [facility] [address] [place], [place] [id number] Sammie Valverde PA-C [address] [place] [address] Reactive hypoglycemia Allergies Active Allergy Reactions Criticality Noted Date [...] as of this encounter (statuses as of 05/02/2024) Medications Medication Sig Dispensed Refills Start Date [...] 100 MG Oral Tablet (Provigil) 3 Active Semaglutide (2 MG/DOSE) 8 MG/3ML Subcutaneous Solution Pen-injector (Ozempic) Inject 2 mg once a week. 3 Active Dexcom G7 Director Of Physical Security Device Use as directed. 3 Active Dexcom G7 Sensor Use as directed. 3 Active Ozempic (2 MG/DOSE) 8 MG/3ML Subcutaneous Solution Pen-injector (Semaglutide (2 MG/DOSE)) inject 2mg subcutaneous injection every 7 days 9 mL 1 3 Active Modafinil 100 MG Oral Tablet [...] Needed for pain 7 Tablet 4 Active Cyclobenzaprine HCl 10 MG [...] 9 Each 3 4 05/02/20 25 Active Dexcom G7 SensorIndications:R eactive hypoglycemia USE DIRECTED, CHANGE EVERY 10 DAYS 9 Each 3 3 05/02/20 24 Discontinu ed(Refill) documented as of this encounter (statuses as of 05/02/2024) Active Problems Problem Noted Date Diagnosed Date [...] as of this encounter (statuses as of 05/02/2024) Resolved Problems Problem Noted Date Diagnosed Date [...] as of this encounter (statuses as of 05/02/2024) Immunizations Name Administration Dates Next Due Covid-19 [...] encounter Miscellaneous Notes * Telephone Encounter - Sammie Valverde PA-C - 05/02/2024 10:35 AM EDTSigned Prescriptions: Disp Refills Dexcom G7 Sensor 9 Each 3 Sig: USE DIRECTED, CHANGE EVERY 10 DAYSAuthorizing Provider: SAMMIE VALVERDE documented in this encounter Plan of Treatment Upcoming Encounters Date Type Department Care Team (Latest Contact Info) Description 4 10:30 AM EDT Telemedicine Endocrinology [address] [place] [phone] Madhu Parra CRNP [address] [facility] [place] [id number] 4 8:45 AM EDT Hospital Encounter ENDO [facility], Endoscopy Room [facility] [address] [facility] [place] [phone] Alvarez Choi, DO [address] [place] [address] 4 8:45 AM EDT - 4 9:30 AM EDT Surgery ENDO [facility], Endoscopy Room [facility] [address] [place], [place] [phone] Alvarez Choi, DO [address] [place] [address] ESOPHAGOGASTRODUODENOSCOPY (EGD), FLEXIBLE, TRANSORAL, ENDOSCOPIC ULTRASOUND 4 10:45 AM EDT Office Visit Dermatology [facility] [address] [place] [address] Ajit Deshpande MD [address] [place] [address] 5 1:00 PM EST Laboratory Laboratory [facility] [address] [place] [phone] [facility] [address] [facility] [place] [address] 5 2:00 PM EST Office Visit Hematology/Onco logy [facility] [address] [place] [phone] Elliott Monique MD [address] [place] [address] Scheduled Procedures Name Priority Associated Diagnoses Date/Ti [...] of this encounter Visit Diagnoses Diagnosis Reactive hypoglycemia Hypoglycemia, unspecified Elevated LFTs Other abnormal blood chemistry documented in this encounter Care Teams Transit Planner Relationship Specialty Start Date End Date Sammie Valverde PA-C [address] [place] [facility] [place] [address] PCP - General Physician Lamination Assembler 08/27/23 documented as of this encounter
--- OUTSIDE RECORDS SUMMARY | 2024-09-13 20:36 | External Medical Summary | Summary of Care ---
Author Name Unknown Organization [facility] Address [address] [facility] [place] [address] Phone [phone] Care Team Providers Care Servicenow Administrator Developer Name Role Phone Sammie Valverde PA-C Primary Care Provider [phone] Encounter Details Date Type Department Care Team (Late st Contact Info) Description 05/10/2024 Telephone Gastroenterology, [facility] [address] [place] [address] Alvarez Choi DO [address] [place] [address] Allergies Active Allergy Reactions Criticality Noted Date [...] as of this encounter (statuses as of 05/10/2024) Medications Medication Sig Dispensed Refills Start Date [...] once a week. 11/09/2022 Active Dexcom G7 Pewter Finisher Device Use as directed. 11/09/2022 Active Dexcom [...] as of this encounter (statuses as of 05/10/2024) Active Problems Problem Noted Date Diagnosed Date [...] as of this encounter (statuses as of 05/10/2024) Resolved Problems Problem Noted Date Diagnosed Date [...] as of this encounter (statuses as of 05/10/2024) Immunizations Name Administration Dates Next Due Covid-19 [...] on file documented as of this encounter Plan of Treatment Upcoming Encounters Date Type Department Care Team (Latest Contact Info) Description 05/11/2024 9:40 AM EDT Office Visit Family Practice [facility] [address] [place] [address] Gerardo Galindo CRNP [address] [place] [address] 06/02/2024 8:45 AM EDT Hospital Encounter ENDO [facility], Endoscopy Room [facility] [address] [place] [phone] Alvarez Choi, DO [address] [place] [address] 06/02/2024 8:45 AM EDT - 06/02/2024 9:30 AM EDT Surgery ENDO [facility], Endoscopy Room [facility] [address] [place] [phone] Alvarez Choi, DO [address] [place] [address] ESOPHAGOGASTRODUODENOSCOPY (EGD), FLEXIBLE, TRANSORAL, ENDOSCOPIC ULTRASOUND 06/09/2024 10:45 AM EDT Office Visit Dermatology [facility] [place] [address] [place] [address] Ajit Deshpande MD [address] [place] [address] 10/02/2024 1:00 PM EST Laboratory Laboratory [facility] [employer] [address] [place] [phone] [facility] [address] [place] [address] 10/02/2024 2:00 PM EST Office Visit Hematology/[facility] [address] [place] [phone] Elliott Monique MD [address] [place] [address] Scheduled Procedures Name Priority Associated Diagnoses Date/Ti [...] filedocumented as of this encounter Care Teams Servicenow Administrator Developer Relationship Specialty Start Date End Date Sammie Valverde PA-C [address] [facility] [place] [address] PCP - General Physician Microstrategy Reports Developer 08/27/23 documented as of this encounter
--- OUTSIDE RECORDS SUMMARY | 2024-09-13 20:36 | External Medical Summary | Summary of Care ---
Author Name Unknown Organization [facility] Address [address] [place] [address] Phone [phone] Care Team Providers Care Carpentry Specialist Name Role Phone Sammie Valverde PA-C Primary Care Provider [phone] Reason for Visit * Reason Onset Date Comments Appointment 05/03/2024 Encounter Details Date Type Department Care Team (Late st Contact Info) Description 05/03/2024 Telephone Endocrinology, [place] [address] [place] [address] Madhu Parra CRNP [address] [place] [address] Appointment Allergies Active Allergy Reactions Criticality Noted [...] once a week. 11/09/2022 Active Dexcom G7 Automation Qtp Tester Device Use as directed. 11/09/2022 Active Dexcom [...] Dates Next Due Covid-19 Ad26, Single Dose ([facility]/J&J) 021 PPD 09/03/2020,07/29/2017 Seasonal Influenza, PF, 6 [...] encounter Miscellaneous Notes * Telephone Encounter - Nati Arnold OSA - 05/03/2024 11:30 AM EDT LMAM for pt to scheduled 6 month f/u; included number for Scheduling documented in this encounter Plan of Treatment Upcoming Encounters Date Type Department Care Team (Latest Contact Info) Description 06/02/2024 8:45 AM EDT Hospital Encounter ENDO [facility], Endoscopy Room [facility] [address] [place] [phone] Alvarez Choi, [address] [place] [address] 06/02/2024 8:45 AM EDT - 06/02/2024 9:30 AM EDT Surgery ENDO [facility], Endoscopy Room [facility] [address] [place] [phone] Alvarez Choi, [address] [place] [address] ESOPHAGOGASTRODUODENOSCOPY (EGD), FLEXIBLE, TRANSORAL, ENDOSCOPIC ULTRASOUND 06/09/2024 10:45 AM EDT Office Visit Dermatology [facility] [place] [address] [place] [address] Ajit Deshpande MD [address] [place] [address] 10/02/2024 1:00 PM EST Laboratory Laboratory [facility] [place] [address] [place] [phone] [facility] [address] [facility] [address] [place], [place] [address] 10/02/2024 2:00 PM EST Office Visit Hematology/Onco logy [facility] [place] [address] [place], [place] [phone] Elliott Monique MD [address] [place], [place] [address] Scheduled Procedures Name Priority Associated Diagnoses Date/Ti [...] filedocumented as of this encounter Care Teams Carpentry Specialist Relationship Specialty Start Date End Date Sammie Valverde PA-C [address] [facility] [place] [address] PCP - General Physician Hr Coordinator 08/27/23 documented as of this encounter
--- OUTSIDE RECORDS SUMMARY | 2024-09-13 20:36 | External Medical Summary | Summary of Care ---
Author Name Unknown Organization [facility] Address [address] [address] Phone [phone] Care Team Providers Care Dynamite Reclaimer Name Role Phone Sammie Valverde PA-C Primary Care Provider +1 [phone] Reason for Visit * Reason Onset Date Comments Med Request 05/17/2024 IV / Iron Encounter Details Date Type Department Care Team (Late st Contact Info) Description 05/17/2024 Telephone Hematology/Oncology, [facility] [address] [facility] [place] [address] Elliott Monique MD 200 [place] [address] Med Request (IV / Iron ) Allergies [...] as of this encounter (statuses as of 05/17/2024) Medications Medication Sig Dispensed Refills Start Date [...] Oral Tablet (Provigil) 09/22/2022 Active Dexcom G7 Doctor Of Medicine Device Use as directed. 11/09/2022 Active Dexcom [...] as of this encounter (statuses as of 05/17/2024) Active Problems Problem Noted Date Diagnosed Date [...] as of this encounter (statuses as of 05/17/2024) Resolved Problems Problem Noted Date Diagnosed Date [...] as of this encounter (statuses as of 05/17/2024) Immunizations Name Administration Dates Next Due Covid-19 [...] encounter Miscellaneous Notes * Telephone Encounter - Yakelin Mendez LPN - 05/17/2024 4:23 PM EDT Scheduling: Please call patient to schedule patient for "Venofer 11/17" (Christoph), 2 hour treatment time. Venofer infusions, once a week x 4 * Telephone Encounter - Yakelin Mendez LPN - 05/17/2024 4:17 PM EDT Order received for Venofer [place] plan built and routed to provider No [...] to. * Telephone Encounter - Coco Mendosa low vision therapist - 05/17/2024 1:13 PM EDT PT requesting IV Iron. PT states recent labwork was low for restless legs, sitting at 32. PT statesshe has had this in the past. Please advise. Thank you, Coco Mendosa Family Services Worker [facility] 05/17/2024,1:15 PM documented in this encounter Plan of Treatment Upcoming Encounters Date Type Department Care Team (Latest Contact Info) Description 06/02/2024 8:45 AM EDT Hospital Encounter ENDO OSSC, Endoscopy Room [facility] [address] [place] [phone] Alvarez Choi, DO [address] [place] [address] 06/02/2024 8:45 AM EDT - 06/02/2024 9:30 AM EDT Surgery ENDO OSSC, Endoscopy Room [facility] [address] [place] [address] Alvarez Choi, DO [address] [place] [address] ESOPHAGOGASTRODUODENOSCOPY (EGD), FLEXIBLE, TRANSORAL, ENDOSCOPIC ULTRASOUND 06/09/2024 10:45 AM EDT Office Visit Dermatology [facility] [place] [address] [place] [address] Ajit Deshpande MD [address] [place] [address] 10/02/2024 1:00 PM EST Laboratory Laboratory [facility] [place] [address] [place] [phone] [facility] 200 [facility] [place] [address] 10/02/2024 2:00 PM EST Office Visit Hematology/Onco logy [facility] [place] [address] [place] [phone] Elliott Monique MD [address] [place] [address] Scheduled Procedures Name Priority Associated Diagnoses Date/Ti [...] chemistry documented in this encounter Care Teams Dynamite Reclaimer Relationship Specialty Start Date End Date Sammie Valverde PA-C [address] [facility] [place] [address] PCP - General Physician Shearer Helper 08/27/23 documented as of this encounter
--- OUTSIDE RECORDS SUMMARY | 2024-09-13 20:36 | External Medical Summary | Summary of Care ---
Author Name Unknown Organization [facility] Address [address] [address] Phone [phone] Care Team Providers Care Chlorobutadiene Scrubber Operator Name Role Phone Sammie Valverde PA-C Primary Care Provider [phone] [phone] Reason for Visit * Reason Onset Date Comments Med Request 05/17/2024 IV / Iron Encounter Details Date Type Department Care Team (Late st Contact Info) Description 05/17/2024 Telephone Hematology/Oncology, [facility] 400 [facility] [place] [address] Elliott Monique MD 200 [place] [address] Med Request (IV / Iron ) Allergies [...] Oral Tablet (Provigil) 09/22/2022 Active Dexcom G7 Shingle Cutter Device Use as directed. 11/09/2022 Active Dexcom [...] encounter Miscellaneous Notes * Addendum Note - Russell Hawthorne MD [...] to. * Telephone Encounter - Coco Mendosa tag machine operator - 05/17/2024 1:13 PM EDT PT requesting IV Iron. PT states recent labwork was low for restless legs, sitting at 32. PT statesshe has had this in the past. Please advise. Thank you, Coco Mendosa Senior Catering Sales Manager [facility] 05/17/2024,1:15 PM documented in this encounter Plan of Treatment Upcoming Encounters Date Type Department Care Team (Latest Contact Info) Description 06/02/2024 8:45 AM EDT Hospital Encounter ENDO OSSC, Endoscopy Room [facility] [address] [place] [phone] Alvarez Choi, DO [address] [place] [address] 06/02/2024 8:45 AM EDT - 06/02/2024 9:30 AM EDT Surgery ENDO OSSC, Endoscopy Room [facility] [address] [place] [phone] Alvarez Choi, [address] [place] [address] ESOPHAGOGASTRODUODENOSCOPY (EGD), FLEXIBLE, TRANSORAL, ENDOSCOPIC ULTRASOUND 06/09/2024 10:45 AM EDT Office Visit Dermatology [facility] [place] [address] [place] [address] Ajit Deshpande MD [address] [place] [address] 10/02/2024 1:00 PM EST Laboratory Laboratory [facility] [place] [address] [place] [phone] [facility] [address] [place] [address] 10/02/2024 2:00 PM EST Office Visit Hematology/Onco logy [place] 200 [facility] [place] [address] Elliott Monique MD [address] [place] [address] Scheduled Procedures Name Priority Associated Diagnoses Date/Ti [...] chemistry documented in this encounter Care Teams Chlorobutadiene Scrubber Operator Relationship Specialty Start Date End Date Sammie aVlverde PA-C [address] [facility] [place] [address] PCP - General Physician Central Supply Tech 08/27/23 documented as of this encounter
--- OUTSIDE RECORDS SUMMARY | 2024-09-13 20:36 | External Medical Summary | Summary of Care ---
Author Name Unknown Organization [facility] Address [address] [facility] [address] Phone [phone] Care Team Providers Care Mud Jack Nozzleman Name Role Phone Sammie Valverde PA-C Primary Care Provider [phone] [phone] Reason for Visit * Reason Onset Date Comments Med Request 05/17/2024 IV / Iron Encounter Details Date Type Department Care Team (Late st Contact Info) Description 05/17/2024 Telephone Hematology/Oncology, [facility] 400 [facility] [place] [address] Elliott Monique MD 200 [facility] [address] Med Request (IV / Iron ) Allergies [...] Oral Tablet (Provigil) 09/22/2022 Active Dexcom G7 Welding Machine Assembler Device Use as directed. 11/09/2022 Active Dexcom [...] encounter Miscellaneous Notes * Telephone Encounter - Isaura Lord RN [...] to. * Telephone Encounter - Coco Mendosa petrophysical engineer - 05/17/2024 1:13 PM EDT PT requesting IV Iron. PT states recent labwork was low for restless legs, sitting at 32. PT statesshe has had this in the past. Please advise. Thank you, Coco Mendosa Commercial Front Load Operator [facility] 05/17/2024,1:15 PM documented in this encounter Plan of Treatment Upcoming Encounters Date Type Department Care Team (Latest Contact Info) Description 06/02/2024 8:45 AM EDT Hospital Encounter ENDO OSSC, Endoscopy Room [facility] [address] [facility] [place] [phone] Alvarez Choi, DO [address] [place] [address] 06/02/2024 8:45 AM EDT - 06/02/2024 9:30 AM EDT Surgery ENDO OSSC, Endoscopy Room [facility] [address] [place], [place] [phone] Alvarez Choi, DO [address] [place] [address] ESOPHAGOGASTRODUODENOSCOPY (EGD), FLEXIBLE, TRANSORAL, ENDOSCOPIC ULTRASOUND 06/09/2024 10:45 AM EDT Office Visit Dermatology [facility] [address] [place] [address] Ajit Deshpande MD [address] [place] [address] 10/02/2024 1:00 PM EST Laboratory Laboratory [facility] [address] [place] [phone] [facility] [address] [place] [address] 10/02/2024 2:00 PM EST Office Visit Hematology/Onco logy [facility] [address] [place] [phone] Elliott Monique MD [address] [place] [address] Scheduled Procedures Name Priority Associated Diagnoses Date/Ti [...] filedocumented as of this encounter Care Teams Mud Jack Nozzleman Relationship Specialty Start Date End Date Sammie Valverde PA-C [address] [facility] [place] [address] PCP - General Physician Industrial Cleaning Technician 08/27/23 documented as of this encounter
--- OUTSIDE RECORDS SUMMARY | 2024-09-13 20:37 | External Medical Summary | Summary of Care ---
Author Name Unknown Organization [facility] Address [address] [place] [address] Phone [phone] Care Team Providers Care Hospitality Coordinator Name Role Phone Sammie Valverde PA-C Primary Care Provider [phone] [phone] Reason for Visit * Reason Onset Date Comments Test Results 03/28/2024 Encounter Details Date Type Department Care Team (Late st Contact Info) Description 03/28/[address] [place] [phone] Madhu Parra CRNP [address] [place] [address] Test Results Allergies Active Allergy Reactions Criticality [...] as of this encounter (statuses as of 04/04/2024) Medications Medication Sig Dispensed Refills Start Date [...] once a week. 11/09/2022 Active Dexcom G7 Anthropology Lecturer Device Use as directed. 11/09/2022 Active Dexcom [...] 100 mcg) 90 mL 11 05/18/2023 Active HYDROcodone-Acetami nophen 5-325 MG Oral Tablet [...] to rinse 237 mL 02/23/2024 Active Mounjaro 5 MG/0.5ML Subcutaneous Solution Pen-injector (Tirzepatide) inject 5 mg under the skin once weekly 2 mL 1 02/23/2024 Active Mounjaro 2.5 MG/0.5ML Subcutaneous Solution [...] addition to 80mg 90 Tablet 03/13/2024 Active Lurasidone HCl 80 MG Oral Tablet (Latuda) take 1 tablet by mouth every day with 350 calorie meal 90 Tablet 03/13/2024 Active Dexcom G7 SensorIndications:R eactive hypoglycemia USE DIRECTED, CHANGE EVERY 10 DAYS 9 Each 3 04/02/2023 4 documented as of this encounter (statuses as of 04/04/2024) Active Problems Problem Noted Date Diagnosed Date [...] as of this encounter (statuses as of 04/04/2024) Resolved Problems Problem Noted Date Diagnosed Date [...] as of this encounter (statuses as of 04/04/2024) Immunizations Name Administration Dates Next Due Covid-19 [...] 6:22 PM EDT Sexual Orientation Lesbian 05/12/2021 9 :21 PM EDT Job Start Date Occupation Industry Not on file Not on file Not on file documented as of this encounter Miscellaneous Notes * Telephone Encounter - Martine Kelley LPN - 03/28/2024 10:30 AM EDT Spoke to patient. Stated she is taking 500mcg of liquid Tirosint-william oral solution appropriately. No recent illness, no missed doses, taking on an empty stomach. Patient stated she is available through [facility] additionally. Martine Kelley LPN 03/28/2024 10:31 AM * Telephone Encounter - Madhu Parra CRNP - 03/28/2024 10:21 AM EDT Please contact patient to review is she has been able to take the 500mcg of liquid Tirosint-william oral solution for her thyroid daily. Any recent missed doses? Recent illness? Taking on empty stomach? Results for orders placed or performed in visit on 03/27/24 TSH WITH FREE T4 IF INDICATED Result Value Ref Range TSH >100.00 (H) 0.27 - 4.20 uIU/mL T4, FREE Result Value Ref Range T4, Free <0.1 (L) 0.9 - 1.7 ng/dL documented in this encounter Plan of Treatment Upcoming Encounters Date Type Department Care Team (Late st Contact Info) Description 05/03/2024 10:30 AM EDT Telemedicine Endocrinology [address] [place] [phone] Madhu Parra CRNP 100 [place] [address] 06/09/2024 10:45 AM EDT Office Visit Dermatology [facility] [address] [facility] [place] [address] Ajit Deshpande MD [address] [facility] [place] [address] 10/02/2024 1:00 PM EST Laboratory Laboratory [facility] [address] [facility] [place] [phone] [address] [place] [address] 10/02/2024 2:00 PM EST Office Visit Hematology/Oncology [facility] [address] [facility] [place] [phone] Elliott Monique MD 200 [facility] [place] [address] Health Maintenance Due Date Last Done Comments Pneumococcal Vaccine: Pediatrics (0 to 5 Years) and At-Risk Patients (6 to 64 Years) (1 of 2 - PCV) 1985 HIV Screening 1994 Albumin/Creatinine Ratio 1997 Diabetic Eye Exam 1997 Hepatitis B Vaccine (1 of 3 - 19+ 3-dose series) 1998 Depression Monitoring 12/09/2021 12/09/2020 COVID-19 Vaccine (2 - 2022- season) 2023 10/27/2020 Influenza Vaccine (FLU shot) (#1) 2024 06/07/2023, 06/18/2022, 06/12/2021, Additional history exists HbA1c 07/09/2024 01/07/2024, 04/17, 12/21/2022, Additional history exists Mammogram 01/06/2025 01/07/2024, 12/15, 01/04/2023, Additional history exists Diabetic Foot Exam 02/03/2025 02/04/2024 GFR 03/27/2025 03/27/2024, 11/14, 11/19/2023, Additional history exists TSH 03/27/2025 03/27/2024, 11/15, 05/10/2023, Additional history exists DTaP,Tdap,and Td Vaccines (3 - Td or Tdap) 07/20/2027 [...] filedocumented as of this encounter Care Teams Hospitality Coordinator Relationship Specialty Start Date End Date Sammie Valverde PA-C [address] [facility] [address] PCP - General Physician Delivery Analyst 08/27/23 documented as of this encounter
--- OUTSIDE RECORDS SUMMARY | 2024-09-13 20:37 | External Medical Summary | Summary of Care ---
Author Name Unknown Organization [facility] Address [address] [facility] [place] [address] Phone [phone] Care Team Providers Care Ed Educational Aide Name Role Phone Sammie Valverde PA-C Primary Care Provider [phone] [phone] Reason for Visit * Reason Onset Date Comments TRIAGE 04/12/2024 Diabetes Management 04/12/2024 Non-CE DM Encounter Details Date Type Department Care Team (Late st Contact Info) Description 04/12/2024 Telephone [facility], Josie Ramey [address] [place] [address] [place] [address] Juliette Thomason CPhT TRIAGE; Diabetes Management (Non-CE DM) Allergies Active Allergy Reactions Criticality Noted Date [...] as of this encounter (statuses as of 04/12/2024) Medications Medication Sig Dispensed Refills Start Date [...] once a week. 11/09/2022 Active Dexcom G7 Slate Picker Device Use as directed. 11/09/2022 Active Dexcom [...] 350 calorie meal 90 Tablet 03/13/2024 Active guanFACINE HCl 1 MG Oral Tablet (Tenex) take 1/2 (one-half) tablet by mouth every night for 4 days then increase to 1 tablet daily 8 Tablet 04/07/2024 Active documented as of this encounter (statuses as of 04/12/2024) Active Problems Problem Noted Date Diagnosed Date [...] as of this encounter (statuses as of 04/12/2024) Resolved Problems Problem Noted Date Diagnosed Date [...] as of this encounter (statuses as of 04/12/2024) Immunizations Name Administration Dates Next Due Covid-19 [...] encounter Miscellaneous Notes * Telephone Encounter - Juliette Thomason CPhT - 04/12/2024 12:59 PM EDT [facility] NonClinical [place] [facility] - Senior Graphic Designer Triage Patient was identified to be a candidate for the Non-CE telephonic program based on the following criteria: Not high cost / A1c < 9 / PDC < 80% Is patient in SNF/hospital? No What is this patients most recent A1c? 5.2 (Result Date: 01/07/2024). Is this A1c above 9? No Patient managed by [facility] provider: Yes; [facility] PCP Needs Language Line: No Medication Claims Data (To verify during call): Med: MOUNJARO 5 Fill date: 02/25/2024 Day Supply: 28 Quantity: 2 || Was any potentially duplicate therapy identified in claims data? Yes. Consulted with Sharlene Fernández whoadvised pt's last dose of Ozempic was 01/23/2024-pt no longer taking. Filling as a 90 day supply: no Using [facility]: yes Additional Notes: None After chart review the following opportunities were identified: Non-adherence (jackelin) and confirm pt stopped taking Ozempic as of 01/23/2024 Juliette Thomason CPhT 04/12/2024, 1:00 PM documented in this encounter Plan of Treatment Upcoming Encounters Date Type Department Care Team (Late st Contact Info) Description 05/03/2024 10:30 AM EDT Telemedicine Endocrinology [address] [place] [phone] Madhu Parra CRNP [address] [facility] [place] [id number] 06/09/2024 10:45 AM EDT Office Visit Dermatology [facility] [address] [place] [address] Ajit Deshpande MD [address] [facility] [address] [place] [address] 10/02/2024 1:00 PM EST Laboratory Laboratory [facility] [place] [address] [place] [address] [facility] [address] [facility] [place] [address] 10/02/2024 2:00 PM EST Office Visit Hematology/Oncology [facility] [place] [address] [place] [address] Elliott Monique MD 200 [facility] [place] [address] Health Maintenance Due Date Last Done Comments [...] filedocumented as of this encounter Care Teams Ed Educational Aide Relationship Specialty Start Date End Date Sammie Valverde PA-C [address] [facility] [address] PCP - General Physician City Attorney 08/27/23 documented as of this encounter"
--- OUTSIDE RECORDS SUMMARY | 2024-09-13 20:37 | External Medical Summary | Summary of Care ---
Author Name Unknown Organization [facility] Address [address] [facility] [place] [address] Phone [phone] Care Team Providers Care Clerk Of Scales Name Role Phone Sammie Valverde PA-C Primary Care Provider +1 [phone] Encounter Details Date Type Department Care Team (Late st Contact Info) Description 04/14/2024 Telephone Hepatology, [facility] [address] [place] [address] Brooke Elliott DO [address] [place] [address] Allergies Active Allergy Reactions Criticality Noted Date [...] as of this encounter (statuses as of 04/14/2024) Medications Medication Sig Dispensed Refills Start Date [...] once a week. 11/09/2022 Active Dexcom G7 Plant Tour Guide Device Use as directed. 11/09/2022 Active Dexcom [...] take 1 tablet by mouth every night 15 Tablet 04/13/2024 Active documented as of this encounter (statuses as of 04/14/2024) Active Problems Problem Noted Date Diagnosed Date [...] as of this encounter (statuses as of 04/14/2024) Resolved Problems Problem Noted Date Diagnosed Date [...] as of this encounter (statuses as of 04/14/2024) Immunizations Name Administration Dates Next Due Covid-19 [...] Dr. [phone] Madhu Parra CRNP [address] [facility] [place] [id number] 4 8:45 AM EDT Hospital Encounter ENDO OSS, Endoscopy Room [facility] [address] [place] [phone] Alvarez Choi, DO [address] [place] [address] 4 8:45 AM EDT - 4 9:30 AM EDT Surgery ENDO [facility], Endoscopy Room [facility] [address] [place] [phone] Alvarez Choi, DO [address] [place] [address] ESOPHAGOGASTRODUODENOSCOPY (EGD), FLEXIBLE, TRANSORAL, ENDOSCOPIC ULTRASOUND 4 10:45 AM EDT Office Visit Dermatology [facility] [address] [place] [address] Ajit Deshpande MD [address] [place] [address] 5 1:00 PM EST [facility] [address] [place] [phone] [facility] [address] [place] [address] 2:00 PM EST Office Visit Hematology/Onco logy [facility] [address] [place] [phone] Elliott Monique MD [address] [place] [address] Scheduled Orders Name Type Priority Associated Diagnoses Orde r Schedule US ENDOSCOPIC Medical Imaging Routine Abnormal LFTs Expected: 04/14/2024, Expires: 05/15/2025 Scheduled Procedures Name Priority Associated Diagnoses Date/Ti pr ESOPHAGOGASTRODUODENOSCOPY ( EGD), FLEXIBLE, TRANSORAL, ENDOSCOPIC ULTRASOUND [...] 12/09/2021 12/09/2020 COVID-19 Vaccine (2 - season) 2023 10/27/2020 Influenza Vaccine (FLU shot) [...] Abnormal LFTs- Primary Other abnormal blood chemistry Elevated LFTs Other abnormal blood chemistry documented in this encounter Care Teams Clerk Of Scales Relationship Specialty Start Date End Date Sammie Valverde PA-C [address] [facility] [address] PCP - General Physician Focuser 08/27/23 documented as of this encounter
--- OUTSIDE RECORDS SUMMARY | 2024-09-13 20:37 | External Medical Summary | Summary of Care ---
Author Name Unknown Organization [facility] Address [address] [facility] [place] [address] Phone [phone] Care Team Providers Care Instrument Engineer Name Role Phone Sammie Valverde PA-C Primary Care Provider +1 -[phone] Reason for Visit * Reason Onset Date Comments TRIAGE 04/12/2024 Diabetes Management 04/12/2024 Non-CE DM Encounter Details Date Type Department Care Team (Late st Contact Info) Description 04/12/2024 Telephone Centralized Clinical Pharmacy Services, Josie Ramey [address] [place] [address] [place] [address] Juliette Thomason CPhT TRIAGE; Diabetes Management [...] once a week. 3 Active Dexcom G7 Geophysical Prospecting Surveyor Device Use as directed. 3 Active Dexcom [...] to rinse 237 mL 4 Active Mounjaro 5 MG/0.5ML Subcutaneous Solution Pen-injector (Tirzepatide) inject 5 mg under the skin once weekly 2 mL 1 4 Active Mounjaro 2.5 MG/0.5ML Subcutaneous Solution [...] addition to 80mg 90 Tablet 4 Active Lurasidone HCl 80 MG Oral Tablet (Latuda) take 1 tablet by mouth every day with 350 calorie meal 90 Tablet 4 Active guanFACINE HCl 1 MG Oral Tablet (Tenex) take 1/2 (one-half) tablet by mouth every night for 4 days then increase to 1 tablet daily 8 Tablet 4 04/13/20 24 Discontinu ed(Refill) documented as of this [...] Thomason CPhT - 04/12/2024 12:59 PM EDT [facility] Non-Clinical [place] Diabetes Initiative - Supervisor Tank House Triage Patient was identified to be a candidate for the Non-CE telephonic program based on the following criteria: Not high cost / A1c < 9 / PDC < 80% Is patient in SNF/hospital? No What is this patients most recent A1c? 5.2 (Result Date: 01/07/2024). Is this A1c above 9? No Patient managed by [facility] provider: Yes; [facility] PCP Needs Language Line: No Medication Claims Data (To verify during call): Med: MOUNJARO 5 Fill date: 02/25/2024 Day Supply: 28 Quantity: 2 || Was any potentially duplicate therapy identified in claims data? Yes. Consulted with Sharlene Fernández whoadvised pt's last dose of Ozempic was 01/23/2024-pt no longer taking. Filling as a 90 day supply: no Using [facility] Mail Order Pharmacy: yes Additional Notes: None After chart review the following opportunities were identified: Non-adherence (jackelin) and confirm pt stopped taking Ozempic as of 01/23/2024 Juliette Thomason CPhT 04/12/2024, 1:00 PM documented in this encounter Plan of Treatment Upcoming Encounters Date Type Department Care Team (Latest Contact Info) Description 4 10:30 AM EDT Telemedicine Endocrinology [address] [place] [id number] Madhu Parra CRNP [address] [place] [address] 4 8:45 AM EDT Hospital Encounter ENDO [facility], Endoscopy Room [facility] [address] [place] [phone] Alvarez Choi, DO [address] [place] [address] 4 8:45 AM EDT - 4 9:30 AM EDT Surgery ENDO [facility], Endoscopy Room [facility] [address] [place] [phone] Alvarez Choi, DO [address] [place] [address] ESOPHAGOGASTRODUODENOSCOPY (EGD), FLEXIBLE, TRANSORAL, ENDOSCOPIC ULTRASOUND 4 10:45 AM EDT [facility] [address] [place] [address] Ajit Deshpande MD [address] [place] [address] 5 1:00 PM EST [facility] [employer] [address] [place] [address] [phone] Ruby Pettit [address] [place] [address] [address] 5 2:00 PM EST Office Visit Hematology/Onco logy [facility] [place] [place] [address] [place] [address] [phone] Elliott Monique MD 200 [facility] [place] [address] Scheduled Procedures Name Priority Associated Diagnoses Date/Ti [...] filedocumented as of this encounter Care Teams Instrument Engineer Relationship Specialty Start Date End Date Sammie Valverde PA-C [address] [facility] [place] [address] PCP - General Physician Application Software Engineer 08/27/23 documented as of this encounter"
--- OUTSIDE RECORDS SUMMARY | 2024-09-13 20:37 | External Medical Summary | Summary of Care ---
Author Name Unknown Organization [facility] Address [address] [facility] [place] [address] Phone [phone] Care Team Providers Care Research Geneticist Name Role Phone Sammie Valverde PA-C Primary Care Provider +1 [phone] Encounter Details Date Type Department Care Team (Late st Contact Info) Description 04/13/2024 Telephone Hepatology, [facility] [address] [place] [address] Brooke Elliott DO [address] [place] [address] Allergies Active Allergy Reactions Criticality Noted Date [...] as of this encounter (statuses as of 04/13/2024) Medications Medication Sig Dispensed Refills Start Date [...] once a week. 11/09/2022 Active Dexcom G7 Political Advisor Device Use as directed. 11/09/2022 Active Dexcom [...] as of this encounter (statuses as of 04/13/2024) Active Problems Problem Noted Date Diagnosed Date [...] as of this encounter (statuses as of 04/13/2024) Resolved Problems Problem Noted Date Diagnosed Date [...] as of this encounter (statuses as of 04/13/2024) Immunizations Name Administration Dates Next Due Covid-19 [...] Telephone Encounter - Brooke Elliott DO - 04/13/2024 2:15 PM EDT Please let patient know work up for causes of abnormal LFTs all negative and no fatty liver on imaging. Possibly abnormal LFTs medication related but recommend EUS guided liver biopsy for further evaluation. If she is agreeable let me know and I will place the order. Brooke Elliott DO documented in this encounter Plan of Treatment Upcoming Encounters Date Type Department Care Team (Late st Contact Info) Description 05/03/2024 10:30 AM EDT Telemedicine Endocrinology [address] [place] [phone] Madhu Parra CRNP [address] [facility] [place] [address] 06/09/2024 10:45 AM EDT Office Visit Dermatology [facility] [place] [address] [place] [address] Ajit Deshpande MD [address] [place] [address] 10/02/2024 1:00 PM EST Laboratory Laboratory [facility] [place] [address] [place] [address] [phone] Ruby Pettit [facility] [address] [facility] [place] [address] 10/02/2024 2:00 PM EST Office Visit Hematology/Oncology [place] [address] [facility] [place] [address] Elliott Monique MD 200 [facility] [place] [address] Health Maintenance Due Date Last Done Comments Pneumococcal Vaccine: Pediatrics (0 to 5 Years) and At-Risk Patients (6 to 64 Years) (1 of 2 - PCV) 1985 HIV Screening 1994 Albumin/Creatinine Ratio 1997 Diabetic Eye Exam 1997 Hepatitis B Vaccine (1 of 3 - 19+ 3-dose series) 1998 Depression Monitoring 12/09/2021 12/09/2020 COVID-19 Vaccine ( - 2022- season) 2023 10/27/2020 Influenza Vaccine [...] filedocumented as of this encounter Care Teams Research Geneticist Relationship Specialty Start Date End Date Sammie Valverde PA-C [address] [facility] [place] [address] PCP - General Physician Roll Forming Machine Operator 08/27/23 documented as of this encounter
--- OUTSIDE RECORDS SUMMARY | 2024-09-13 20:37 | External Medical Summary | Summary of Care ---
Author Name Unknown Organization [facility] Address [address] [facility] [place] [address] Phone [phone] Care Team Providers Care Tow Picker Name Role Phone Sammie Valverde PA-C Primary Care Provider +1 -[phone] Reason for Visit * Reason Onset Date Comments TRIAGE 04/12/2024 Diabetes Management 04/12/2024 Non-CE DM Encounter Details Date Type Department Care Team (Late st Contact Info) Description 04/12/2024 Telephone Centralized Clinical Pharmacy Services, Josie Ramey [address] [place] [address] [place] [address] Juliette Thomason CPhT TRIAGE; [...] as of this encounter (statuses as of 04/18/2024) Medications Medication Sig Dispensed Refills Start Date [...] once a week. 3 Active Dexcom G7 Jet Dyeing Machine Tender Device Use as directed. 3 Active Dexcom [...] as of this encounter (statuses as of 04/18/2024) Active Problems Problem Noted Date Diagnosed Date [...] as of this encounter (statuses as of 04/18/2024) Resolved Problems Problem Noted Date Diagnosed Date [...] as of this encounter (statuses as of 04/18/2024) Immunizations Name Administration Dates Next Due Covid-19 [...] Thomason CPhT - 04/12/2024 12:59 PM EDT [facility] Non-Clinical [place] Diabetes Initiative - Cable Placer Triage Patient was identified to be a candidate for the Non-CE telephonic program based on the following criteria: Not high cost / A1c < 9 / PDC < 80% Is patient in SNF/hospital? No What is this patients most recent A1c? 5.2 (Result Date: 01/07/2024). Is this A1c above 9? No Patient managed by [facility] provider: Yes; [facility] PCP Needs Language Line: No Medication Claims Data (To verify during call): Med: MOUNJARO 5 Fill date: 02/25/2024 Day Supply: 28 Quantity: 2 || Was any potentially duplicate therapy identified in claims data? Yes. Consulted with Sharlene Fernández whoadvised pt's last dose of Ozempic was 01/23/2024-pt no longer taking. Filling as a 90 day supply: no Using [facility] Mail [facility]: yes Additional Notes: None After chart review the following opportunities were identified: Non-adherence (jackelin) and confirm pt stopped taking Ozempic as of 01/23/2024 Juliette Thomason CPhT 04/12/2024, 1:00 PM documented in this encounter Plan of Treatment Upcoming Encounters Date Type Department Care Team (Latest Contact Info) Description 4 10:30 AM EDT Telemedicine Endocrinology [address] [place] [phone] Madhu Parra CRNP [address] [place] [address] 4 8:45 AM EDT Hospital Encounter ENDO [facility], Endoscopy Room [facility] [address] [place] [phone] Alvarez Choi, DO [address] [place] [address] 4 8:45 AM EDT - 4 9:30 AM EDT Surgery ENDO [facility], Endoscopy Room [facility] [address] [place] [phone] Alvarez Choi, DO [address] [place] [address] ESOPHAGOGASTRODUODENOSCOPY (EGD), FLEXIBLE, TRANSORAL, ENDOSCOPIC ULTRASOUND 4 10:45 AM EDT Office [facility] [place] [address] [place] [address] Ajit Deshpande MD [address] [place] [address] 5 1:00 PM EST Laboratory [facility] [employer] [address] [place] [address] [place] [phone] Ruby Pettit [address] [place] [address] 5 2:00 PM EST Office Visit Hematology/Onco logy [facility] [place] [address] [place] [address] [phone] Elliott Monique MD 200 [facility] [place] [address] Scheduled Procedures Name Priority Associated Diagnoses Date/Ti [...] filedocumented as of this encounter Care Teams Tow Picker Relationship Specialty Start Date End Date Sammie Valverde PA-C [address] [facility] [place] [address] PCP - General Physician Diesel Engine Mechanic 08/27/23 documented as of this encounter"
--- OUTSIDE RECORDS SUMMARY | 2024-09-13 20:37 | External Medical Summary | Summary of Care ---
Author Name Unknown Organization [facility] Address [address] [facility] [place] [address] Phone [phone] Care Team Providers Care French Tutor Name Role Phone Sammie Valvrede PA-C Primary Care Provider +1 -[phone] Reason for Visit * Reason Onset Date Comments Test Results 04/13/2024 Encounter Details Date Type Department Care Team (Late st Contact Info) Description 04/13/2024 Telephone Hepatology, [facility] [address] [place] [address] Brooke Elliott DO [address] [place] [address] Test Results Allergies Active Allergy Reactions Criticality [...] once a week. 11/09/2022 Active Dexcom G7 Farm Machinery Mechanic Device Use as directed. 11/09/2022 Active Dexcom [...] encounter Miscellaneous Notes * Telephone Encounter - Pennie Coronel RN - 04/13/2024 2:45 PM EDT Pt is agreeable. Please place order. Call transferred to schedulers. * Telephone Encounter - Brooke Elliott DO [...] Dr. [phone] Madhu Parra CRNP [address] [facility] [place] [id number] 06/09/2024 10:45 AM EDT Office Visit Dermatology [place] [address] [place] [address] Ajit Deshpande MD [address] [place] [address] 10/02/2024 1:00 PM EST Laboratory Laboratory [facility] [place] [address] [place] [address] [facility] 200 [facility] [place] [address] 10/02/2024 2:00 PM EST Office Visit Hematology/Oncology [facility] [place] [address] [place] [address] Elliott Monique MD [address] [place] [address] Health Maintenance Due Date Last Done Comments [...] filedocumented as of this encounter Care Teams French Tutor Relationship Specialty Start Date End Date Sammie Valverde PA-C [address] [facility] [place] [address] PCP - General Physician Drywall Mechanic 08/27/23 documented as of this encounter
--- OUTSIDE RECORDS SUMMARY | 2024-09-13 20:37 | External Medical Summary | Summary of Care ---
Author Name Unknown Organization [facility] Address [address] [facility] [place] [address] Phone [phone] Care Team Providers Care Supervisor Fabrication Name Role Phone Sammie Valverde PA-C Primary Care Provider +1 -[phone] Reason for Visit * Reason Onset Date Comments Test Results 04/13/2024 Encounter Details Date Type Department Care Team (Late st Contact Info) Description 04/13/2024 Telephone Hepatology, [facility] [address] [place] [address] Brooke Elliott DO [address] [place] [address] Test Results Allergies Active Allergy Reactions Criticality [...] once a week. 11/09/2022 Active Dexcom G7 Counter Installer Device Use as directed. 11/09/2022 Active Dexcom [...] encounter Miscellaneous Notes * Telephone Encounter - Hortencia Valadez OSA - 04/13/2024 2:51 PM EDT Spoke to pt, gabby'nuria EUS 06/02/24. * Telephone Encounter - Pennie Coronel RN [...] Department Care Team (Latest Contact Info) Description 10:30 AM EDT Telemedicine Endocrinology [address] [place] [phone] Madhu Parra CRNP [address] [facility] [place] [id number] 4 8:45 AM EDT Hospital Encounter ENDO [facility], Endoscopy Room [facility] [address] [place] [phone] Alvarez Choi, DO [address] [place], [place] [address] 4 8:45 AM EDT - 4 9:30 AM EDT [facility] [address] [place], [place] [phone] Alvarez Choi, DO [address] [place], [place] [address] ESOPHAGOGASTRODUODENOSCOPY (EGD), FLEXIBLE, TRANSORAL, ENDOSCOPIC ULTRASOUND 4 10:45 AM EDT Office Visit Dermatology [facility] [place] [address] [place] [address] Ajit Deshpande MD [address] [place] [address] 5 1:00 PM EST Laboratory Laboratory [facility] [place] [address] [place] [phone] [facility] [address] [place] [address] 5 2:00 PM EST Office Visit Hematology/Onco logy [facility] [place] [address] [place] [phone] Elliott Monique MD [address] [place] [address] Scheduled Procedures Name Priority Associated Diagnoses Date/Ti [...] filedocumented as of this encounter Care Teams Supervisor Fabrication Relationship Specialty Start Date End Date Sammie Valverde PA-C [address] [facility] [address] PCP - General Physician Road Engineer 08/27/23 documented as of this encounter
--- OUTSIDE RECORDS SUMMARY | 2024-09-13 20:37 | External Medical Summary | Summary of Care ---
Author Name Unknown Organization [facility] Address [address] [facility] [place] [address] Phone [phone] Care Team Providers Care Crusher Foreman Name Role Phone Sammie Valverde PA-C Primary Care Provider +1 -[phone] Reason for Visit * Reason Onset Date Comments Test Results 04/13/2024 Encounter Details Date Type Department Care Team (Late st Contact Info) Description 04/13/2024 Telephone Hepatology, [facility] [address] [place] [address] Brooke Elliott DO [address] [place] [address] Test Results Allergies Active Allergy Reactions Criticality [...] once a week. 11/09/2022 Active Dexcom G7 Jig Bore Operator Device Use as directed. 11/09/2022 Active [...] Dr. [phone] Madhu Parra CRNP [address] [facility] [place] [id number] 06/09/2024 10:45 AM EDT Office Visit Dermatology [place] [address] [place] [address] Ajit Deshpande MD [address] [place] [address] 10/02/2024 1:00 PM EST Laboratory Laboratory [facility] [place] [address] [place] [address] [facility] 200 [facility] [place] [address] 10/02/2024 2:00 PM EST Office Visit Hematology/Oncology [facility] [place] [address] [place] [address] Elliott Monique MD [address] [place] [address] Health Maintenance Due Date Last Done Comments [...] filedocumented as of this encounter Care Teams Crusher Foreman Relationship Specialty Start Date End Date Sammie Valverde PA-C [address] [facility] [place] [address] PCP - General Physician Criminalist 08/27/23 documented as of this encounter
--- OUTSIDE RECORDS SUMMARY | 2024-09-13 20:37 | External Medical Summary | Summary of Care ---
Author Name Unknown Organization [facility] Address [address] [facility] [place] [address] Phone [phone] Care Team Providers Care Fire Battalion Chief Name Role Phone Sammie Valverde PA-C Primary Care Provider +1 -[phone] Reason for Visit * Reason Onset Date Comments TRIAGE 04/12/2024 Diabetes Management 04/12/2024 Non-CE DM Encounter Details Date Type Department Care Team (Late st Contact Info) Description 04/12/2024 Telephone Centralized Clinical Pharmacy Services, Josie Ramey [address] [place] [address] [place] [address] Juliette Thomason CPhT TRIAGE; [...] as of this encounter (statuses as of 04/19/2024) Medications Medication Sig Dispensed Refills Start Date [...] once a week. 3 Active Dexcom G7 Professional Skateboarder Device Use as directed. 3 Active Dexcom [...] as of this encounter (statuses as of 04/19/2024) Active Problems Problem Noted Date Diagnosed Date [...] as of this encounter (statuses as of 04/19/2024) Resolved Problems Problem Noted Date Diagnosed Date [...] as of this encounter (statuses as of 04/19/2024) Immunizations Name Administration Dates Next Due Covid-19 [...] Thomason CPhT - 04/12/2024 12:59 PM EDT [facility] Non-Clinical [place] Diabetes Initiative - Piece Goods Clerk Triage Patient was identified to be a candidate for the Non-CE telephonic program based on the following criteria: Not high cost / A1c < 9 / PDC < 80% Is patient in SNF/hospital? No What is this patients most recent A1c? 5.2 (Result Date: 01/07/2024). Is this A1c above 9? No Patient managed by [facility] provider: Yes; [facility] PCP Needs Language Line: No Medication Claims Data (To verify during call): Med: MOUNJARO 5 Fill date: 02/25/2024 Day Supply: 28 Quantity: 2 || Was any potentially duplicate therapy identified in claims data? Yes. Consulted with Sharlene Fernández whoadvised pt's last dose of Ozempic was 01/23/2024-pt no longer taking. Filling as a 90 day supply: no Using [facility] [employer] Mail Order Pharmacy: yes Additional Notes: None After chart review the following opportunities were identified: Non-adherence (jackelin) and confirm pt stopped taking Ozempic as of 01/23/2024 Juliette Thomason CPhT 04/12/2024, 1:00 PM documented in this encounter Plan of Treatment Upcoming Encounters Date Type Department Care Team (Latest Contact Info) Description 4 10:30 AM EDT Telemedicine Endocrinology [address] [place] [phone] Madhu Parra CRNP [address] [place] [address] 4 8:45 AM EDT Hospital Encounter ENDO [facility], Endoscopy Room [facility] [address] [place] [phone] Alvarez Choi, DO [address] [place] [address] 4 8:45 AM EDT - 4 9:30 AM EDT Surgery ENDO [facility], Endoscopy Room [facility] [address] [place] [phone] Alvarez Choi, DO [address] [place] [address] ESOPHAGOGASTRODUODENOSCOPY (EGD), FLEXIBLE, TRANSORAL, ENDOSCOPIC ULTRASOUND 4 10:45 AM EDT [facility] [place] [address] [place] [address] Ajit Deshpande MD [address] [place] [address] 5 1:00 PM EST Laboratory [facility] [employer] [address] [place] [phone] Ruby Pettit [address] [place] [address] [address] 5 2:00 PM EST Office Visit Hematology/Onco logy [facility] [place] [address] [place] [address] [phone] Elliott Monique MD 200 [facility] [place] [address] Scheduled Procedures Name Priority Associated Diagnoses Date/Ti [...] filedocumented as of this encounter Care Teams Fire Battalion Chief Relationship Specialty Start Date End Date Sammie Valverde PA-C [address] [facility] [place] [address] PCP - General Physician Digital Sales Representative 08/27/23 documented as of this encounter"
--- OUTSIDE RECORDS SUMMARY | 2024-09-13 20:37 | External Medical Summary | Summary of Care ---
Author Name Unknown Organization [facility] Address [address] [facility] [place] [address] Phone [phone] Care Team Providers Care Stranding Supervisor Name Role Phone Sammie Valverde PA-C Primary Care Provider [phone] Reason for Visit * Reason Onset Date Comments TRIAGE 04/12/2024 Diabetes Management 04/12/2024 Non-CE DM Encounter Details Date Type Department Care Team (Late st Contact Info) Description 04/12/2024 Telephone Centralized Clinical Pharmacy Services, Josie Ramey [address] [place] [address] [place] [address] Juliette Thomason CPhT TRIAGE; [...] once a week. 11/09/2022 Active Dexcom G7 Processing Manager Device Use as directed. 11/09/2022 Active [...] Thomason CPhT - 04/12/2024 12:59 PM EDT [facility] [address] NonClinical [facility] - Final Assembly Worker Triage Patient was identified to be a candidate for the Non-CE telephonic program based on the following criteria: Not high cost / A1c < 9 / PDC < 80% Is patient in SNF/hospital? No What is this patients most recent A1c? 5.2 (Result Date: 01/07/2024). Is this A1c above 9? No Patient managed by [facility] provider: Yes; [facility] PCP Needs Language Line: No Medication Claims Data (To verify during call): Med: MOUNJARO 5 Fill date: 02/25/2024 Day Supply: 28 Quantity: 2 || Was any potentially duplicate therapy identified in claims data? Yes. Consulted with Sharlene Fernández whoadvised pt's last dose of Ozempic was 01/23/2024-pt no longer taking. Filling as a 90 day supply: no Using [employer] Mail [facility] Pharm[facility]: yes Additional Notes: None [...] [address] [place] [phone] Madhu Parra CRNP [address] [facility] [place] [id number] 06/09/2024 10:45 AM EDT Office Visit Dermatology [facility] [address] [place] [address] Ajit Deshpande MD [address] [facility] [address] [place] [address] 10/02/2024 1:00 PM EST Laboratory Laboratory [facility] [place] [address] [place] [address] [facility] [address] [facility] [place] [address] 10/02/2024 2:00 PM EST Office Visit Hematology/Oncology [facility] [place] [address] [place] [address] Elliott Monique MD [address] [facility] [place] [address] Health Maintenance Due Date Last Done Comments [...] filedocumented as of this encounter Care Teams Stranding Supervisor Relationship Specialty Start Date End Date Sammie Valverde PA-C [address] [facility] [address] PCP - General Physician Visual Design Lead 08/27/23 documented as of this encounter"
--- OUTSIDE RECORDS SUMMARY | 2024-09-13 20:38 | External Medical Summary ---
Author Name Unknown Address Unknown Organization K01:LABORATORY [facility] [place] - [address] [place] [address] Laboratory Report Ordering Provider Test Date Status ROSLYN HORN 03/27/2024 09:16:19 Final Observation Date Value Abnormality Reference (Units ) Status Mitochondria M2 Ab [Presence] in Serum 03/27/2024 09:16:19 Negative Negative Final Mitochondria M2 Ab [Units/volume] in Serum by Immunoassay 03/27/2024 09:16:19 0.9 <4 (U/mL) Final Performing Location LABORATORY [facility] - [facility] [address] [place] [address]
--- OUTSIDE RECORDS SUMMARY | 2024-09-13 20:38 | External Medical Summary ---
Author Name Unknown Address Unknown Organization K01:LABORATORY [facility] [place] - [address] [place] [address] Laboratory Report Ordering Provider Test Date Status ALLY BANKS 03/27/2024 09:16:19 Final Observation Date Value Abnormality Reference (Units ) Status Retic, % (auto) 03/27/2024 09:16:19 1.15 0.80-1.90 (%) Final Reticulocytes, Absolute 03/27/2024 09:16:19 40.6 31.3-100.1 (K/uL) Final Reticulocyte fraction, immature 03/27/2024 09:16:19 9.6 2.5-20.6 (%) Final Reticulocyte HGB 03/27/2024 09:16:19 36.7 29.7-37.4 (pg) Final Performing Location LABORATORY [facility] - [address] [place] [address]
--- OUTSIDE RECORDS SUMMARY | 2024-09-13 20:38 | External Medical Summary ---
Author Name Unknown Address Unknown Organization K01:LABORATORY [facility] [place] - [address] [place] [address] Laboratory Report Ordering Provider Test Date Status JAY TINAJEROAZ 03/27/2024 09:16:19 Final Observation Date Value Abnormality Reference (Units ) Status TSH 03/27/2024 09:16:19 >100.00 Above high normal 0. 27-4.20 (uIU/mL) Final Performing Location LABORATORY [facility] [place] - [address] [place] [address]
--- OUTSIDE RECORDS SUMMARY | 2024-09-13 20:38 | External Medical Summary ---
Author Name Unknown Address Unknown Organization K01:LABORATORY [facility] [place] - [facility] [place] [address] [facility] [address] Laboratory Report Ordering Provider Test Date Status ROSLYN HORN 03/27/2024 09:16:19 Final Observation Date Value Abnormality Reference (Units) Status PARAPROTEIN NORMAL/ABNORMAL 03/27/2024 09:16:19 Normal Normal Final Protein 03/27/2024 09:16:19 6.4 6.0-8.3 (g/dL) Final Albumin/Protein.total [Pure mass fraction] in Serum or Plasma by Electrophoresis 03/27/2024 09:16:19 3.47 3.30-4.40 (g/dL) Final Alpha 1 globulin/Protein.tota l [Pure mass fraction] in Serum or Plasma by Electrophoresis 03/27/2024 09:16:19 0.17 0.10-0.30 (g/dL) Final Alpha 2 globulin/Protein.tota l [Pure mass fraction] in Serum or Plasma by Electrophoresis 03/27/2024 09:16:19 0.76 0.60-1.00 (g/dL) Final Beta globulin/Protein.tota l [Pure mass fraction] in Serum or Plasma by Electrophoresis 03/27/2024 09:16:19 0.91 0.80-1.30 (g/dL) Final Gamma globulin/Protein.tota l [Pure mass fraction] in Serum or Plasma by Electrophoresis 03/27/2024 09:16:19 1.09 0.70-1.70 (g/dL) Final Protein Fractions [Interpretation] in Serum or Plasma by Electrophoresis Narrative 03/27/2024 09:16:19 Normal serum protein electrophoretic pattern. Final Protein Fractions [Interpretation] in Serum or Plasma by Electrophoresis Narrative 03/27/2024 09:16:19 Final Performing Location LABORATORY [facility] - [facility] [place] [address] [facility] [address] [facility] [address]
--- OUTSIDE RECORDS SUMMARY | 2024-09-13 20:38 | External Medical Summary ---
Author Name Unknown Address Unknown Organization K01:[facility] [address] [place] [address] [place] [address] Laboratory Report Ordering Provider Test Date Status CAROLINA COFFMAN 03/27/2024 09:16:19 Final Observation Date Value Abnormality Reference (Units ) Status T4, Free 03/27/2024 09:16:19 <0.1 Below low normal 0.9 -1.7 (ng/dL) Final Performing Location LABORATORY [facility] - [address] [place] [address]
--- OUTSIDE RECORDS SUMMARY | 2024-09-13 20:38 | External Medical Summary ---
Author Name Unknown Address Unknown Organization : Laboratory Report Ordering Provider Test Date Status ROSLYN HORN 03/27/2024 09:16:19 Final Observation Date Value Abnormality Reference (Units ) Status Alpha-1 antitrypsin 03/27/2024 09:16:19 97 83-199 (mg/dL) Final
Test Performed at:
[facility]
[address]
[place] [address]
Dinh Bah M.D., Ph.D.,Director of Laboratories Performing Location
--- OUTSIDE RECORDS SUMMARY | 2024-09-13 20:38 | External Medical Summary ---
Author Name Unknown Address Unknown Organization K01:LABORATORY [facility] [place] - [address] [place] [address] Laboratory Report Ordering Provider Test Date Status ALLY BANKS 03/27/2024 09:16:19 Final Observation Date Value Abnormality Reference (Units ) Status Iron 03/27/2024 09:16:19 80 33-151 (ug /dL) Final Iron-binding capacity 03/27/2024 09:16:19 325 250-425 (ug/dL) Final Transferrin Sat % 03/27/2024 09:16:19 25 15 -55 (%) Final Performing Location LABORATORY [facility] [place] - [address] [place] [address]
--- OUTSIDE RECORDS SUMMARY | 2024-09-13 20:38 | External Medical Summary ---
Author Name Unknown Address Unknown Organization K09:LABORATORY [facility] - [address] [place] [address] Laboratory Report Ordering Provider Test Date Status ALLY BANKS 03/27/2024 09:16:19 Final Observation Date Value Abnormality Reference (Units ) Status BUN 03/27/2024 09:16:19 15 6-20 (mg/dL) Final Creatinine 03/27/2024 09:16:19 1.2 Above high normal 0.5-1.0 (mg/dL) Final Glomerular filtration rate/1.73 sq M.predicted [Volume Rate/Area] in Serum, Plasma or Blood by Creatinine-based formula (CKD-EPI) 03/27/2024 09:16:19 58 Below low normal >=60 (mL/min) Final eGFR is calculated based on the CKD-EPI 2020 equation. Sodium 03/27/2024 09:16:19 139 135-146 (m mol/L) Final Potassium 03/27/2024 09:16:19 3.8 3.5-5.1 (m mol/L) Final Cl 03/27/2024 09:16:19 104 98-107 (mm ol/L) Final CO2 03/27/2024 09:16:19 25 22-32 (mmo l/L) Final Anion gap 03/27/2024 09:16:19 10 7-15 (mmol /L) Final Glucose 03/27/2024 09:16:19 77 70-120 (mg /dL) Final Albumin 03/27/2024 09:16:19 4.1 3.8-5.0 (g /dL) Final AST (Aspartate aminotransferase) 03/27/2024 09:16:19 57 Above high normal 10-35 (U/L) Final Alk Phos 03/27/2024 09:16:19 55 35-130 (U/ L) Final Bilirubin, Total 03/27/2024 09:16:19 0.7 <=1 .2 (mg/dL) Final Calcium 03/27/2024 09:16:19 8.8 8.4-10.2 ( mg/dL) Final Protein 03/27/2024 09:16:19 6.4 6.0-8.3 (g /dL) Final ALT (Alanine aminotransferase) 03/27/2024 09:16:19 36 Above high normal 10-35 (U/L) Final Performing Location LABORATORY [facility] - [address] [place] [address]
--- OUTSIDE RECORDS SUMMARY | 2024-09-13 20:38 | External Medical Summary | Summary of Care ---
Author Name Unknown Organization [facility] Address [address] [place] [address] Phone [phone] Care Team Providers Care Program Manager Name Role Phone Sammie Valverde PA-C Primary Care Provider [phone] Reason for Visit * Evaluate & Treat - Unlimited Visits (Within 30 days (routine)) - Authorized Specialty Diagnoses / Procedures Referred By Gerardo cano Referred To Contact Gastroenterology Diagnoses Elevated LFTs Sammie Valverde PA-C [address] [place] [address] Referral ID Status Reason Start Date Expiration Date Visits Requested Visits Authorized [id number] Authorized Specialty Services Required 12/13/[phone] Encounter Details Date Type Department Care Team (Late st Contact Info) Description 03/27/2024 12:40 PM EDT Telemedicine Hepatology, [facility] [address] [place] [address] Brooke Elliott DO [address] [place] [address] Abnormal LFTs* Allergies Active Allergy Reactions Criticality Noted Date [...] as of this encounter (statuses as of 03/27/2024) Medications Medication Sig Dispensed Refills Start Date [...] once a week. 11/09/2022 Active Dexcom G7 Alliance Director Device Use as directed. 11/09/2022 Active Dexcom G7 Sensor Use as directed. 11/09/2022 Ac tive Ozempic (2 MG/DOSE) 8 MG/3ML Subcutaneous Solution Pen-injector (Semaglutide (2 MG/DOSE)) inject 2mg subcutaneous injection every 7 days 9 mL 1 12/17/2022 Active Modafinil 100 MG Oral Tablet (Provigil) Take 1.5 tablets by mouth daily for excessive daytime sleepiness 135 Tablet 03/18/2023 Active Dexcom G7 SensorIndications:Re active hypoglycemia USE DIRECTED, CHANGE EVERY 10 DAYS 9 Each 3 04/02/2023 Active Tirosint-WILLIAM 200 MCG/ML Oral Solution (Levothyroxine Sodium) 500 mcg daily (2 vials of 200 mcg +1 vial of 100 mcg) 180 mL 11 05/18/2023 Active Tirosint-WILLIMA 100 MCG/ML Oral Solution (Levothyroxine Sodium) take [...] 350 calorie meal 90 Tablet 03/13/2024 Active documented as of this encounter (statuses as of 03/27/2024) Active Problems Problem Noted Date Diagnosed Date [...] as of this encounter (statuses as of 03/27/2024) Resolved Problems Problem Noted Date Diagnosed Date [...] as of this encounter (statuses as of 03/27/2024) Immunizations Name Administration Dates Next Due Covid-19 [...] this encounter Progress Notes * Brooke Elliott, DO - 03/27/2024 12:42 PM EDT Images from the original note were not included. Patient location: HOME. I was in a hospital or clinic location. After connecting through televideo,patient was verified with two unique identifiers. Patient (or authorized legal patient care representative) was then informed that this was a Telemedicine visit and being conducted confidentially over secure lines. Methods to assure confidentiality were taken. Patient acknowledged consent and understanding of pr ivacy and security of the Telemedicine visit. The patient agreed to participate. CC: Abnormal LFTs HPI: Margarita Shah is a 43 year old female referred by Sammie Valverde PA-C for furtherevaluation of abnormal LFTs. She has PMH notable [...] with normal ALP and bilirubin since at [id number]. Most recently AST of 57 and ALT of 37. Previously AST 96 and ALT 102. Acute hepatitis panel negative. She states today she was not aware of any elevated LFTs until the past year. She was taking Ozempicbut just recently switched to Mounjaro. She denies any new medications in the past 2 years other than starting Ozempic last year. She denies any history of any alcohol abuse. She states she currentlydoes not drink any alcohol only very rarely. Denies any history of any drug use. Denies tobacco useshe quit in 2002. She denies any herbal supplement use. Takes excedrin OTC PRN for headaches. Denies any family history of liver disease, HCC, or GI malignancy. She is following with endocrinology for her hypothyrodisim. Her TSH was >100 and T4 <0.1. Past Medical History: Diagnosis Date Anemia Bipolar [...] 2 mg once a week. Dexcom G7 Alliance Director Device Use as directed. Dexcom G7 Sensor Use as directed. Ozempic (2 MG/DOSE) 8 MG/3ML Subcutaneous Solution Pen-injector (Semaglutide (2 MG/DOSE)) inject 2mg subcutaneous injection every 7 days 9 mL 1 Modafinil 100 MG Oral Tablet (Provigil) Take 1.5 tablets by mouth daily for excessive daytime sleepiness 135 Tablet 0 Dexcom G7 Sensor USE DIRECTED, CHANGE EVERY 10 DAYS 9 Each 3 Tirosint-WILLIAM 200 MCG/ML Oral Solution (Levothyroxine Sodium) [...] 30 Tablet 0 Vitamin D3 50 MCG (1999 [place]) Oral [...] prior to rinse 237 mL 0 Mounjaro 5 MG/0.5ML Subcutaneous Solution Pen-injector (Tirzepatide) inject 5 mg under the skin once weekly 2 mL 1 Mounjaro 2.5 MG/0.5ML Subcutaneous Solution Pen-injector (Tirzepatide) [...] to 80mg 90 Tablet 0 Lurasidone HCl 80 MG Oral Tablet (Latuda) take 1 tablet by mouth every day with 350 calorie meal 90Tablet 0 No current facility-administered medications for this [...] Stability Do you currently live in a long-term or have no steady place to sleep [...] AAOx3 Labs: Reviewed Component Latest Ref Rng 04/03/2022 05/10/2023 11/19/2023 11/24/2023 BUN 6 - 20 mg/dL 12 12 14 13 Creatinine 0.5 - 1.0 mg/dL 1.2 (H) 0.9 1.1 (H) 1.1 (H) Estimated Glomerular Filtration Rate >=60 mL/min 56 (L) 78 62 61 Sodium 135 - 146 mmol/L 139 141 140 140 Potassium 3.5 - 5.1 mmol/L 4.0 3.8 3.8 3.4 (L) Chloride 98 - 107 mmol/L 101 104 103 105 CO2 22 - 32 mmol/L 28 27 28 27 Anion Gap 7 - 15 mmol/L 10 10 9 8 Glucose 70 - 120 mg/dL 77 83 86 73 Albumin 3.8 - 5.0 g/dL 4.5 4.5 4.1 4.2 AST 10 - 35 U/L 57 (H) 24 81 (H) 96 (H) Alkaline Phosphatase 35 - 130 U/L 74 80 65 66 Bilirubin, Total <=1.2 mg/dL 0.5 0.6 0.5 0.4 Calcium 8.4 - 10.2 mg/dL 8.7 8.8 8.9 8.6 Protein 6.0 - 8.3 g/dL 6.8 6.8 6.5 6.9 ALT 10 - 35 U/L 47 (H) 19 91 (H) 102 (H) Component Latest Ref Rng 03/27/2024 BUN 6 - 20 mg/dL 15 Creatinine 0.5 - 1.0 mg/dL 1.2 (H) Estimated Glomerular Filtration Rate >=60 mL/min 58 (L) Sodium 135 - 146 mmol/L 139 Potassium 3.5 - 5.1 mmol/L 3.8 Chloride 98 - 107 mmol/L 104 CO2 22 - 32 mmol/L 25 Anion Gap 7 - 15 mmol/L 10 Glucose 70 - 120 mg/dL 77 Albumin 3.8 - 5.0 g/dL 4.1 AST 10 - 35 U/L 57 (H) Alkaline Phosphatase 35 - 130 U/L 55 Bilirubin, Total <=1.2 mg/dL 0.7 Calcium 8.4 - 10.2 mg/dL 8.8 Protein 6.0 - 8.3 g/dL 6.4 ALT 10 - 35 U/L 36 (H) Component Ref Range & Units 09:16 WBC 4.00 - 10.80 K/uL 5.05 RBC 3.85 - 5.15 M/uL 3.53 HGB 12.0 - 15.3 g/dL 11.6 Low HCT 36.0 - 45.2 % 36.0 MCV 81.5 - 97.5 fL 102.0 MCH 27.0 - 34.0 pg 32.9 MCHC 32.0 - 36.0 g/dL 32.2 RDW 11.5 - 15.5 % 13.1 PLT 140 - 400 K/uL 245 MPV 6.6 - 11.1 fL 9.5 Component Ref Range & Units 2 mo ago Hepatitis A Antibody IgM Negative Negative Hepatitis B Core Antibody IgM Negative Negative Hepatitis B Surface Antigen Negative Negative Hepatitis C Antibody Negative Negative Component Ref Range & Units 2 mo ago T4, Free 0.9 - 1.7 ng/dL 0.3 Low TSH 0.27 - 4.20 uIU/mL >100.00 High Imaging: Reviewed Abdominal US 12/03/2023: FINDINGS LIVER: Normal echogenicity. No focal lesion. BILE DUCTS: No intrahepatic or extrahepatic duct dilatation. The common bile duct measures 5 mm. GALLBLADDER: Cholecystectomy. PANCREAS: Visualized portions are unremarkable. RIGHT KIDNEY: 11.8 cm in length. No hydronephrosis, shadowing calculi, or focal lesion. OTHER: No ascites. IMPRESSION 1. No acute sonographic abnormality in the right upper quadrant. Procedures: Reviewed Colonoscopy 01/29/2023: Impression: - The examined portion [...] 34), hypothyroidism. Plan: 1. Elevated liver enzymes. Unclear etiology at this time. Abdominal ultrasound normal in November without any mention of steatosis. Acute hepatitis checked 2 months ago negative. Will complete remainderof serological work up. If negative would pursue an EUS guided liver biopsy for further evaluation of abnormal LFTs. Possibly related to her uncontrolled hypothyroidism but she is working with endocrinology to manage this. 2. Vaccination. After determining the immune status for HAV/HBV, will recommend appropriate vaccines. 3. Colorectal cancer screening. Colonoscopy in 2022 normal. Recommend repeat again in 5 years. 4. The health risks imposed by heavy alcohol intake were discussed in detail. 5. Dietary counseling. 6. Follow up in 6 months Brooke Elliott DO Gastroenterology and Hepatology I spent a total of 45 minutes on the date of service in [...] Dr. [phone] Madhu Parra CRNP [address] [place] [address] 06/09/2024 10:45 AM EDT Office Visit Dermatology [address] [place] [address] [place] [address] Ajit Deshpande MD [address] [place] [address] Pending Results Name Type Priority Associated Diagnoses Date /Time ACTIN (SMOOTH MUSCLE) ANTIBODY (IGG) Lab Routine Abnormal LFTs 03/27/2024 9:16 AM EDT [id number], QN Lab Routine Abnormal LFTs 03/27/2024 9:16 AM EDT IGA Lab Routine Abnormal LFTs 03/27/2024 9:16 AM EDT SERUM PROTEIN ELECTROPHORESI S REFLEX PROFILE Lab Routine Abnormal LFTs 03/27/2024 9:16 AM EDT TISSUE TRANSGLUTAMINASE IGA ANTIBODY Lab Routine Abnormal LFTs 03/27/2024 9:16 AM EDT MITOCHONDRIAL ANTIBODY Lab Routine Abnormal LFTs 03/27/2024 9:16 AM EDT Scheduled Orders Name Type Priority Associated Diagnoses Orde r Schedule ACTIN (SMOOTH MUSCLE) ANTIBODY (IGG) Lab Routine Abnormal LFTs Expected: 03/27/2024, Expires: 03/27/2025 [id number], QN Lab Routine Abnormal LFTs Expected: 03/27/2024, Expires: 03/27/2025 HEPATITIS A ANTIBODIES IGG AND IGM Lab Routine Abnormal LFTs Expected: 03/27/2024, Expires: 03/27/2025 HEPATITIS B SURFACE ANTIBODY Lab Routine Abnormal LFTs Expected: 03/27/2024, Expires: 03/27/2025 CERULOPLASMIN Lab Routine Abnormal LFTs Expected: 03/27/2024, Expires: 03/27/2025 IGA Lab Routine Abnormal LFTs Expected: 03/27/2024, Expires: 03/27/2025 PT INR Lab Routine Abnormal LFTs Expected: 03/27/2024, Expires: 03/27/2025 SERUM PROTEIN ELECTROPHORESI S REFLEX PROFILE Lab Routine Abnormal LFTs Expected: 03/27/2024, Expires: 03/27/2025 TISSUE TRANSGLUTAMINASE IGA ANTIBODY Lab Routine Abnormal LFTs Expected: 03/27/2024, Expires: 03/27/2025 MITOCHONDRIAL ANTIBODY Lab Routine Abnormal LFTs Expected: 03/27/2024, Expires: 03/27/2025 Health Maintenance Due Date Last Done Comments [...] 07/09/2024 01/07/2024, 04/17, 12/21/2022, Additional history exists TSH 12/09/2024 12/10/2023, 04/17, 01/27/2023, Additional history exists Mammogram 01/06/2025 01/07/2024, 12/15, 01/04/2023, Additional history exists Diabetic Foot Exam 02/03/2025 02/04/2024 GFR 03/27/2025 03/27/2024, 11/14, 11/19/2023, Additional history exists DTaP,Tdap,and Td Vaccines (3 [...] chemistry documented in this encounter Care Teams Program Manager Relationship Specialty Start Date End Date Sammie Valverde PA-C [address] [facility] [place] [address] PCP - General Physician Damage Inside Adjuster 08/27/23 documented as of this encounter
--- OUTSIDE RECORDS SUMMARY | 2024-09-13 20:38 | External Medical Summary | Summary of Care ---
Author Name Unknown Organization [facility] Address [address] [place] [address] Phone [phone] Care Team Providers Care Retail Brand Ambassador Name Role Phone Sammie Valverde PA-C Primary Care Provider [phone] Reason for Visit * Reason Onset Date Comments Test Results 03/28/2024 Encounter Details Date Type Department Care Team (Late st Contact Info) Description 03/28/2024 Telephone [address] [place] [phone] Madhu Parra CRNP [address] [place] [address] Test Results Allergies Active Allergy [...] as of this encounter (statuses as of 03/28/2024) Medications Medication Sig Dispensed Refills Start Date [...] once a week. 11/09/2022 Active Dexcom G7 Votator Machine Operator Device Use as directed. 11/09/2022 Active [...] 10 DAYS 9 Each 3 04/02/2023 4 Active Tirosint-WILLIAM 200 MCG/ML Oral Solution (Levothyroxine [...] as of this encounter (statuses as of 03/28/2024) Active Problems Problem Noted Date Diagnosed Date [...] as of this encounter (statuses as of 03/28/2024) Resolved Problems Problem Noted Date Diagnosed Date [...] as of this encounter (statuses as of 03/28/2024) Immunizations Name Administration Dates Next Due Covid-19 [...] stomach. Patient stated [place] [facility] [place] Martine Kelley LPN [...] [place] [phone] Madhu Parra CRNP [address] [place] [address] 06/09/2024 10:45 AM EDT Office Visit Dermatology [place] [address] [facility] [place] [address] Ajit Deshpande MD [address] [facility] [place] [address] Health Maintenance Due Date Last Done Comments Pneumococcal Vaccine: Pediatrics (0 to 5 Years) and At-Risk Patients (6 to 64 Years) (1 of 2 - PCV) 1985 HIV Screening 1994 Albumin/Creatinine Ratio 1997 Diabetic Eye Exam 1997 Hepatitis B Vaccine (1 of 3 - 19+ 3-dose series) 1998 Depression Monitoring 12/09/2021 12/09/2020 COVID-19 Vaccine ( - season) 2023 10/27/2020 Influenza Vaccine (FLU [...] filedocumented as of this encounter Care Teams Retail Brand Ambassador Relationship Specialty Start Date End Date Sammie Valverde PA-C [address] [facility] [place] [address] PCP - General Physician Hand Stone Polisher 08/27/23 documented as of this encounter
--- OUTSIDE RECORDS SUMMARY | 2024-09-13 20:38 | External Medical Summary | Summary of Care ---
Author Name Unknown Organization [facility] Address [address] [place] [address] Phone [phone] Care Team Providers Care Tube Mill Operator Name Role Phone Sammie Valverde PA-C Primary Care Provider +1 [phone] Reason for Visit * Reason Onset Date Comments Test Results 03/28/2024 Encounter Details Date Type Department Care Team (Late st Contact Info) Description 03/28/[address] [place] [phone] Madhu Parra CRNP [address] [place] [address] Test Results Allergies Active Allergy [...] as of this encounter (statuses as of 03/29/2024) Medications Medication Sig Dispensed Refills Start Date [...] once a week. 11/09/2022 Active Dexcom G7 Alteration Worker Device Use as directed. 11/09/2022 Active Dexcom [...] as of this encounter (statuses as of 03/29/2024) Active Problems Problem Noted Date Diagnosed Date [...] as of this encounter (statuses as of 03/29/2024) Resolved Problems Problem Noted Date Diagnosed Date [...] as of this encounter (statuses as of 03/29/2024) Immunizations Name Administration Dates Next Due Covid-19 [...] stomach. Patient stated she is available through [facility]. Martine Kelley LPN 03/28/2024 10:31 AM [...] [place] [phone] Madhu Parra CRNP [address] [place] [address] 06/09/2024 10:45 AM EDT Office Visit Dermatology [facility] [place] [address] [facility] [place] [address] Ajit Deshpande MD [address] [facility] [place] [address] 10/02/2024 1:00 PM EST Laboratory Laboratory [facility] [place] [address] [facility] [place] [phone] [address] [place] [address] 10/02/2024 2:00 PM EST Office Visit Hematology/Oncology [facility] [place] [address] [facility] [place] [phone] Elliott Monique MD [address] [facility] [place] [address] Health Maintenance Due Date Last Done Comments [...] filedocumented as of this encounter Care Teams Tube Mill Operator Relationship Specialty Start Date End Date Sammie Valverde PA-C [address] [facility] [address] PCP - General Physician Call Center Recruiter 08/27/23 documented as of this encounter
--- OUTSIDE RECORDS SUMMARY | 2024-09-13 20:38 | External Medical Summary | Summary of Care ---
Author Name Unknown Organization [facility] Address [address] [facility] [place] [address] Phone [phone] Care Team Providers Care Equipment Operat0R Name Role Phone Sammie Valverde PA-C Primary Care Provider [phone] [phone] Reason for Visit * Reason Comments Outpatient Testing Encounter Details Date Type Department Care Team (Late st Contact Info) Description 03/27/2024 9:20 AM EDT Laboratory Laboratory [place] [address] [place] [phone] [place], [facility] [address] [place] [address] Acquired hypothyroidism; Other iron deficiency anemia Allergies Active Allergy [...] once a week. 11/09/2022 Active Dexcom G7 Child Welfare Social Worker Device Use as directed. 11/09/2022 Active [...] Team (Late st Contact Info) Description 03/27/2024 11:00 AM EDT Telemedicine Hematology/Oncology [facility] [place] [address] [place] [phone] Elliott Monique MD [address] [place] [address] 03/27/2024 12:40 PM EDT Telemedicine Hepatology, [facility] [address] [facility] [address] Brooke Elliott DO [address] [facility] [place] [address] 05/03/2024 10:30 AM EDT Telemedicine Endocrinology [address] [place] [phone] Madhu Parra CRNP [address] [facility] [place] [address] 06/09/2024 10:45 AM EDT Office Visit Dermatology [facility] [place] [address] [place] [address] Ajit Deshpande MD [address] [place] [address] Pending Results Name Type Priority Associated Diagnoses Date /Time TSH WITH FREE T4 IF INDICATED Lab Routine Acquired hypothyroidism 03/27/2024 9:16 AM EDT COMPREHENSIVE METABOLIC PANEL Lab Routine Other iron deficiency anemia 03/27/2024 9:16 AM EDT FERRITIN Lab Routine Other iron deficiency anemia 03/27/2024 9:16 AM EDT IRON SCREEN, INCLUDING TIBC Lab Routine Other iron deficiency anemia 03/27/2024 9:16 AM EDT RETICULOCYTE PANEL Lab Routine Other iron deficiency anemia 03/27/2024 9:16 AM EDT T4, FREE Lab Routine Acquired hypothyroidism 03/27/2024 9:16 AM EDT Health Maintenance Due Date Last [...] 07/09/2024 01/07/2024, 04/17, 12/21/2022, Additional history exists GFR 11/23/2024 11/24/2023, 04/0 12/2023, 05/10/2023, Additional history exists TSH 12/09/2024 12/10/2023, 04/17, 01/27/2023, Additional history exists Mammogram 01/06/2025 01/07/2024, 12/15, 01/04/2023, Additional history exists Diabetic Foot Exam 02/03/2025 02/04/2024 DTaP,Tdap,and Td Vaccines (3 - Td or [...] Procedure Name Priority Date/Time Associated Diagnosis Comments DIFFERENTIAL, AUTOMATED Routine 03/27/2024 9:16 AM EDT Other iron deficiency anemia CBC Routine 03/27/2024 9:16 AM EDT Other iron deficiency anemia CBC Routine 03/27/2024 9:16 AM EDT Other iron deficiency anemia documented in this encounter Results * DIFFERENTIAL, AUTOMATED (03/27/2024 9:16 AM EDT) WBC 5.05 4.00 - 10.80 K/uL 03/27/2024 9:27 AM EDT [facility] 56-02 Neutrophils % 57.6 40.0 - 75.0 % 03/27/2024 9:27 AM EDT [facility] 56-02 Lymphocytes % 33.9 18.0 - 42.0 % 03/27/2024 9:27 AM EDT [facility] 56-02 Monocytes % 6.1 1.0 - 11.0 % 03/27/2024 9:27 AM EDT [facility] 56-02 Eosinophils % 1.8 0.0 - 6.0 % 03/27/2024 9:27 AM EDT [facility] 56-02 Basophils % 0.6 0.0 - 2.0 % 03/27/2024 9:27 AM EDT [facility] 56-02 Absolute Neutrophils 2.91 1.80 - 7.70 K/uL 03/27/2024 9:27 AM EDT [facility] 56-02 Absolute Lymphocytes 1.71 1.00 - 4.80 K/ul 03/27/2024 9:27 AM EDT [facility] 56-02 Absolute Monocytes 0.31 0.00 - 1.10 K/uL 03/27/2024 9:27 AM EDT [facility] 56-02 Absolute Eosinophils 0.09 0.00 - 0.70 K/uL 03/27/2024 9:27 AM EDT [facility] 56 Absolute Basophils 0.03 0.00 - 0.20 K/uL 03/27/2024 9:27 AM EDT [facility] 56 Blood Venous blood specimen / Unknown Venipuncture / Unknown 03/27/2024 9:16 AM EDT 03/27/2024 9:16 AM EDT Elliott Monique MD LAB BLOOD [facility] [address] [place] [address] * (ABNORMAL) CBC (03/27/2024 9:16 AM EDT) WBC 5.05 4.00 - 10.80 K/uL 03/27/2024 9:[address]T [address] RBC 3.53 3.85 - 5.15 M/uL 03/27/2024 9:27 AM EDT [address] HGB 11.6(L) 12.0 - 15.3 g/dL 03/27/2024 9:27 [address] EDT [address] HCT 36.0 36.0 - 45.2 % 03/27/2024 9:27 [address] EDT [address] MCV 102.0 81.5 - 97.5 fL 03/27/2024 9:27 AM EDT [address] MCH 32.9 27.0 - 34.0 pg 03/27/2024 9:27 AM EDT [address] MCHC 32.2 32.0 - 36.0 g/dL 03/27/2024 9:27 AM EDT [facility] 56 RDW 13.1 11.5 - 15.5 % 03/27/2024 9:27 AM EDT [facility] 56 PLT 245 140 - 400 K/uL 03/27/2024 9:27 AM EDT [facility] 56 MPV 9.5 6.6 - 11.1 fL 03/27/2024 9:27 AM EDT [facility] 56-02 Blood Venous blood specimen / Unknown Venipuncture / Unknown 03/27/2024 9:16 AM EDT 03/27/2024 9:16 AM EDT Elliott Monique MD LAB BLOOD ORDERA BLES [facility] 56- [address] [place] [address] documented in this encounter Visit Diagnoses Diagnosis Acquired hypothyroidism Unspecified hypothyroidism Other iron deficiency anemia documented in this encounter Care Teams Equipment Operat0R Relationship Specialty Start Date End Date Sammie Valverde PA-C [address] [facility] [address] PCP - General Physician Investment Banking Manager 08/27/23 documented as of this encounter
--- OUTSIDE RECORDS SUMMARY | 2024-09-13 20:38 | External Medical Summary ---
Author Name Unknown Address Unknown Organization : Laboratory Report Ordering Provider Test Date Status ROSLYN HORN 03/27/2024 09:16:19 Final Observation Date Value Abnormality Reference (Units ) Status Smooth muscle IgG 03/27/2024 09:16:19 <20 <2 0 (U) Final Reference Range:
<20 U: Negative
>or=20 U: Positive
Antibodies recognizing actin are the main component
of smooth muscle antibodies associated with auto-
immune liver disease. Actin antibodies are found in
approximately 75% of patients with autoimmune
hepatitis (AIH) type 1, approximately 65% of patients
with autoimmune cholangitis, approximately 30% of
patients with primary biliary cirrhosis and
approximately 2% of healthy controls. High values are
closely correlated with AIH type 1.

Test Performed at:
[facility]
[address] [facility]
[place], [place] [address]
Dinh Bah M.D., Ph.D.,Director of Laboratories Performing Location
--- OUTSIDE RECORDS SUMMARY | 2024-09-13 20:38 | External Medical Summary | Summary of Care ---
Author Name Unknown Organization [facility] Address [address] [place] [address] Phone [phone] Care Team Providers Care Signal Apprentice Name Role Phone Sammie Valverde PA-C Primary Care Provider [phone] [phone] Reason for Visit * Reason Onset Date Comments Test Results 03/28/2024 Encounter Details Date Type Department Care Team (Late st Contact Info) Description 03/28/[address] [place] [phone] Madhu Parra CRNP [address] [place] [address] Test Results Allergies Active Allergy [...] once a week. 11/09/2022 Active Dexcom G7 Business Technology Teacher Device Use as directed. 11/09/2022 Active Dexcom [...] stomach. Patient stated she is available through [facility] additionally. Martine Kelley LPN 03/28/2024 10:31 AM [...] [place] [phone] Madhu Parra CRNP [address] [place] [address] 06/09/2024 10:45 AM EDT Office Visit Dermatology [facility] [address] [facility] [place] [address] Ajit Deshpande MD [address] [facility] [place] [address] 10/02/2024 1:00 PM EST Laboratory Laboratory [facility] [address] [facility] [place] [phone] [address] [place] [address] 10/02/2024 2:00 PM EST Office Visit Hematology/Oncology [facility] [address] [facility] [place] [phone] Elliott Monique MD [address] [facility] [place] [address] Health Maintenance Due Date Last Done Comments [...] filedocumented as of this encounter Care Teams Signal Apprentice Relationship Specialty Start Date End Date Sammie Valverde PA-C [address] [facility] [address] PCP - General Physician Wastewater Treatment Supervisor 08/27/23 documented as of this encounter
--- OUTSIDE RECORDS SUMMARY | 2024-09-13 20:38 | External Medical Summary | Summary of Care ---
Author Name Unknown Organization [facility] Address [address] [place] [address] Phone [phone] Care Team Providers Care School Psychologist Name Role Phone Sammie Valverde PA-C Primary Care Provider [phone] [phone] Reason for Visit * Reason Onset Date Comments Test Results 03/28/2024 Encounter Details Date Type Department Care Team (Late st Contact Info) Description 03/28/[address] [place] [phone] Madhu Parra CRNP [address] [place] [address] Test Results Allergies Active Allergy [...] once a week. 11/09/2022 Active Dexcom G7 Motorcycle Mechanic Device Use as directed. 11/09/2022 Active [...] stomach. Patient stated she is available through [facility] additionally. Martine Kelley LPN 03/28/2024 10:31 AM [...] [place] [phone] Madhu Parra CRNP [address] [place] [address] 06/09/2024 10:45 AM EDT Office Visit [facility] [place] [address] [facility] [place] [address] Ajit Deshpande MD 200 [facility] [place] [address] Health Maintenance Due Date Last Done Comments [...] filedocumented as of this encounter Care Teams School Psychologist Relationship Specialty Start Date End Date Sammie Valverde PA-C [address] [facility] [place] [address] PCP - General Physician Residential Mortgage Manager 08/27/23 documented as of this encounter
--- OUTSIDE RECORDS SUMMARY | 2024-09-13 20:38 | External Medical Summary | Summary of Care ---
Author Name Unknown Organization [facility] Address [address] [facility] [place] [address] Phone [phone] Care Team Providers Care Flight Nurse Name Role Phone Sammie Valverde PA-C Primary Care Provider [phone] [phone] Encounter Details Date Type Department Care Team (Late st Contact Info) Description 03/27/2024 11:00 AM EDT Telemedicine Hematology/Oncology [facility] [place] [address] [facility] [place] [address] Elliott Monique MD [address] [place] [address] Other iron deficiency anemia*; Restless leg syndrome Allergies Active Allergy Reactions Criticality Noted Date [...] once a week. 11/09/2022 Active Dexcom G7 Tunnel Form Placing Supervisor Device Use as directed. 11/09/2022 Active Dexcom [...] as of this encounter Progress Notes * Elliott Monique MD - 03/27/2024 11:14 AM EDT Outpatient Consult Note Data Source: Patient, Epic record. Data Source: Patient, Epic record. 03/27/2024 11:14 AM Margarita Shah [id number] 43 year old Patient Encounter: HEMATOLOGY/ONCOLOGY [facility] Diagnosis: Patient transferred from Dr. Padilla Follow-up for iron deficiency anemia. Restless leg syndrome. Current Treatment: Observation Previous Treatment: She received last dose of Venofer on 07/03/2021 History : 43-year-old female is here for follow-up of history of iron deficiency anemia due to prior gastric bypass surgery.She denies any melena or hematochezia or any bleeding symptoms.She states that she received IV iron infusions in the past. She was previously seen by Dr West when she moved to this area. She has fatigue but states it has been for a long time. She had a CBC on 08/05/17 - WBC 5.88 hemoglobin 10.8 hematocrit 32.7 platelet count 312,000 Ferritin was 40.1 Iron was 53 tibc 282 and trans sat 19% Interval History: Overall clinically she is stable without any new symptoms complain. Restless legs syndrome and discomfort feeling has improved with no new symptoms. Denies any bleeding, nausea, vomiting, chest pain,palpitation, abdominal pain or discomfort. LABS/IMAGING: Results for orders placed or performed in visit on 03/27/24 CBC Result Value Ref Range WBC 5.05 4.00 - 10.80 K/uL RBC 3.53 3.85 - 5.15 M/uL HGB 11.6 (L) 12.0 - 15.3 g/dL HCT 36.0 36.0 - 45.2 % MCV 102.0 81.5 - 97.5 fL MCH 32.9 27.0 - 34.0 pg MCHC 32.2 32.0 - 36.0 g/dL RDW 13.1 11.5 - 15.5 % PLT 245 140 - 400 K/uL MPV 9.5 6.6 - 11.1 fL DIFFERENTIAL, AUTOMATED Result Value Ref Range WBC 5.05 4.00 - 10.80 K/uL Neutrophils % 57.6 40.0 - 75.0 % Lymphocytes % 33.9 18.0 - 42.0 % Monocytes % 6.1 1.0 - 11.0 % Eosinophils % 1.8 0.0 - 6.0 % Basophils % 0.6 0.0 - 2.0 % Absolute Neutrophils 2.91 1.80 - 7.70 K/uL Absolute Lymphocytes 1.71 1.00 - 4.80 K/ul Absolute Monocytes 0.31 0.00 - 1.10 K/uL Absolute Eosinophils 0.09 0.00 - 0.70 K/uL Absolute Basophils 0.03 0.00 - 0.20 K/uL *Note: Due to a large number of results and/or encounters for the requested time period, some results have not been displayed. A complete set of results can be found in Results Review. She had blood test done today shows WBC count 5.05, hemoglobin 11.6 and platelet count 245. Hemoglobin is stable. The result of the rest of the blood tests including iron studies are pending. REVIEW OF SYSTEMS: General: No Fever, chills, night sweats, or weight loss. HEENT: No change in visual acuity, blurred or double vision. No epistaxis, facial pain, nasal discharge or change in hearing. Denies dysphagia, no muscosal ulceration, or sores noted. Cardiovascular: No chest pain, CRANE, or palpitations Respiratory: No shortness of breath, cough, hemoptysis, or pleuritic chest pain Gastrointestinal: No abdominal pain, nausea, vomiting, diarrhea, rectal pain or bleeding Genitourinary: Denies Hematuria or dysuria Musculoskeletal: No bone pain Psychiatric: No vegetative signs of depression Endocrine: No symptoms of hypothyroidism or hyperglycemia Hematologic: No bleeding or lymph nodes noted As mentioned above, all of the systems were reviewed in full and are unremarkable. 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 Per pt, now taking 100mg daily. LORazepam 0.5 MG Oral Tablet (Ativan) [email or web address] Lancets 30G To test blood sugars twice a day. 100 Each 5 Modafinil 100 MG Oral Tablet (Provigil) Semaglutide (2 MG/DOSE) 8 MG/3ML Subcutaneous Solution Pen-injector (Ozempic) Inject 2 mg once a week. Dexcom G7 Tunnel Form Placing Supervisor Device Use as directed. Dexcom G7 Sensor [...] No current facility-administered medications for this visit. Social History Tobacco Use Smoking status: Former Smokeless tobacco: Former Quit date: 2002 Vaping Use Vaping status: Never Used Substance Use Topics Alcohol use: No Comment: Rare-twice yearly Drug use: No Review of patient's allergies indicates: Allergen Reactions Amoxicillin Anaphylaxis Fentanyl Psych complications Very Mean Penicillin G Anaphylaxis Aspirin Other reaction(s): Gastric bypass Ciprofloxacin Hcl Rash PO Only Can do the IV form Diphenhydramine Hcl Hives Erythromycin Hives Ketorolac Tromethamine Latex Rash Sulfa Antibiotics Rash Tramadol Rash Voltaren [Diclofenac Sodium] Rash ASSESSMENT: 43-year-old female with history of iron deficiency anemia and rest less leg syndrome was treated with IV Venofer. Clinically she is doing well without any new symptoms complain. Hemoglobin is stable. Discussed with the patient about diagnosis reviewed all the available blood test result with her. If her iron studies are in acceptable range, we will continue to monitor the patient clinically. PLAN: As above. She will return clinic for follow-up in 6 months with CBC, CMP, ferritin iron screen. The patient voiced understanding of all of the above. All questions and concerns were addressed in an apparently satisfactory manner. Elliott Monique MD (This note was completed using the dictation program Fluency Direct. As such, there may be misspellings, word substitutions, or other variations that should not change the essence of the clinical content of this encounter note. If there is need for further clarification, please direct questions to me.) documented in this encounter Plan of Treatment Upcoming Encounters Date Type Department Care Team (Late st Contact Info) Description 03/27/2024 12:40 PM EDT Telemedicine Hepatology, [facility] [address] [facility] [place] [address] Brooke Elliott DO [address] [place] [address] 05/03/2024 10:30 AM EDT Telemedicine Endocrinology [address] [place] [phone] Madhu Parra CRNP [address] [place] [facility] [place] [address] 06/09/2024 10:45 AM EDT Office Visit Dermatology [facility] 200 [facility] [place] [address] Ajit Deshpande MD 200 [facility] [place] [address] Scheduled Orders Name Type Priority Associated Diagnoses Orde r Schedule CBC WITH WBC DIFFERENTIAL Lab Routine Other iron deficiency anemia Restless leg syndrome Expected: 09/25/2024, Expires: 04/27/2025 COMPREHENSIVE METABOLIC PANEL Lab Routine Other iron deficiency anemia Restless leg syndrome Expected: 09/25/2024, Expires: 04/27/2025 FERRITIN Lab Routine Other iron deficiency anemia Restless leg syndrome Expected: 09/25/2024, Expires: 04/27/2025 IRON SCREEN, INCLUDING TIBC Lab Routine Other iron deficiency anemia Restless leg syndrome Expected: 09/25/2024, Expires: 04/27/2025 Health Maintenance Due Date Last Done Comments [...] Other iron deficiency anemia- Primary Restless leg syndrome Restless legs syndrome (RLS) documented in this encounter Care Teams Flight Nurse Relationship Specialty Start Date End Date Sammie Valverde PA-C [address] [facility] [place] [address] PCP - General Physician Technical Planner 08/27/23 documented as of this encounter
--- OUTSIDE RECORDS SUMMARY | 2024-09-13 20:38 | External Medical Summary ---
Author Name Unknown Address Unknown Organization K09:[facility] [place] [address] Laboratory Report Ordering Provider Test Date Status ALLY BANKS 03/27/2024 09:16:19 Final Observation Date Value Abnormality Reference (Units ) Status SYNC LEUKOCYTES IN BLOOD BY AUTOMATED COUNT 03/27/2024 09:16:19 5.05 4.00-10.80 (K/uL) Final Segs 03/27/2024 09:16:19 57.6 40.0-75.0 (%) Final Lymphs % 03/27/2024 09:16:19 33.9 18.0-42.0 (%) Final Monos 03/27/2024 09:16:19 6.1 1.0-11.0 (%) Final Eosinophils 03/27/2024 09:16:19 1.8 0.0-6.0 (%) Final Basos 03/27/2024 09:16:19 0.6 0.0-2.0 (%) Final Absolute Segs 03/27/2024 09:16:19 2.91 1.80-7.70 (K/uL) Final Lymphs, absolute 03/27/2024 09:16:19 1.71 1.00-4.80 (K/ul) Final Monos, Abs 03/27/2024 09:16:19 0.31 0.00-1.10 (K/uL) Final Eos, Abs 03/27/2024 09:16:19 0.09 0.00-0.70 (K/uL) Final Basos, Abs 03/27/2024 09:16:19 0.03 0.00-0.20 (K/uL) Final Performing Location [facility] [address]
--- OUTSIDE RECORDS SUMMARY | 2024-09-13 20:38 | External Medical Summary ---
Author Name Unknown Address Unknown Organization [id number]:LABORATORY [facility] - [address] [facility] [place] [facility] [address] Laboratory Report Ordering Provider Test Date Status ALLY BANKS 03/27/2024 09:16:19 Final Observation Date Value Abnormality Reference (Units ) Status Ferritin 03/27/2024 09:16:19 34 13-150 (ng /mL) Final Postmenopausal women have hi gher ferritin levels than pre-menopausal women. The above reference interval is based on pre-menopausal women. Performing Location [facility] - [address] [facility] [address]
--- OUTSIDE RECORDS SUMMARY | 2024-09-13 20:38 | External Medical Summary ---
Author Name Unknown Address Unknown Organization [id number]:[facility] - [address] [place] [address] Laboratory Report Ordering Provider Test Date Status ROSLYN HORN 03/27/2024 09:16:19 Final Observation Date Value Abnormality Reference (Units ) Status IgA 03/27/2024 09:16:19 221 70-400 (mg /dL) Final Performing Location [facility] - [address] [place] [address]
--- OUTSIDE RECORDS SUMMARY | 2024-09-13 20:38 | External Medical Summary ---
Author Name Unknown Address Unknown Organization K09:[facility] [place] [address] Laboratory Report Ordering Provider Test Date Status ALLY BANKS 03/27/2024 09:16:19 Final Observation Date Value Abnormality Reference (Units ) Status WBC, Total 03/27/2024 09:16:19 5.05 4.00-10.8 0 (K/uL) Final RBC 03/27/2024 09:16:19 3.53 3.85-5.15 (M/uL) Final Hemoglobin 03/27/2024 09:16:19 11.6 Below low normal 12 .0-15.3 (g/dL) Final HCT 03/27/2024 09:16:19 36.0 36.0-45.2 (%) Final MCV 03/27/2024 09:16:19 102.0 81.5-97.5 (fL) Final MCH 03/27/2024 09:16:19 32.9 27.0-34.0 (pg) Final MCHC 03/27/2024 09:16:19 32.2 32.0-36.0 (g/dL) Final RDW 03/27/2024 09:16:19 13.1 11.5-15.5 (%) Final Platelets 03/27/2024 09:16:19 245 140-400 (K /uL) Final MPV 03/27/2024 09:16:19 9.5 6.6-11.1 ( fL) Final Performing Location [facility] [place] [address]
[2024-09-13] MEDS ORDERED: Nursing to Pharmacy Communication SCH (21:00)
[2024-09-13] MEDS: LURASIDONE HCL 20 MG TAB PO SCH (23:09)
[2024-09-14] MEDS: NSS + 20MEQ KCL 20 MEQ/1,000 ML BAG IV ONE (04:09)
[2024-09-14 04:20] LABS: Mean Corpuscular Hemoglobin 32.9 pg (25.0-34.0); Mean Corpuscular Hgb Conc 33.3 g/dL (32.0-36.0); Mean Corpuscular Volume 98.7 fL (80.0-100.0); Mean Platelet Volume 9.9 fL (9.4-12.4); Platelet Count 188 K/uL (130-400); RDW Coefficient of Variation 13.2 % (11.5-14.5); RDW Standard Deviation 47.1 fL (36.4-46.3); Red Blood Count 3.04 M/uL (4.20-5.40); White Blood Count 4.51 K/ul (4.8-10.8)
[2024-09-14 04:35] LABS: Alanine Aminotransferase 43 U/L (7-52); Albumin Globulin Ratio 1.5 (0.9-2); Albumin Level 3.5 gm/dl (3.4-5.0); Alkaline Phosphatase 47 U/L (34-104); Anion Gap 3 (3-11); Aspartate Aminotransferase 28 U/L (13-39); BUN Creatinine Ratio 13.2 (10-20); Bilirubin,Total 0.7 mg/dl (0.2-1.0); Blood Urea Nitrogen 15 mg/dl (6-23); Calcium 7.7 mg/dl (8.6-10.3); Carbon Dioxide 28 mmol/L (21-32); Chloride 107 mmol/L (98-107); Chol HDL Ratio 2.3 (0-5); Cholesterol 170 mg/dl (0-200); Creatinine Clr Calc Pharmacy 71.7 ml/min; Globulin 2.3 gm/dl (2.5-4.0); Glucose 80 mg/dl (70-99(Fasting)); HDL Cholesterol 74 mg/dl; LDL Cholesterol Calculated 79 mg/dl; Sodium 138 mmol/L (136-145); Total Protein 5.8 gm/dl (6.0-8.3); Triglycerides 86 mg/dl (0-150); VLDL Cholesterol 17 mg/dl (0-30)
[2024-09-14 04:41] LABS: Troponin I High Sensitivity < 2.3 pg/ml (0-14)
[2024-09-14 05:23] LABS: Thyroid Stimulating Hormone 404.218 uIu/ml (0.300-4.500)
[2024-09-14 06:02] LABS: T4 Free Thyroxine < 0.32 ng/dl (0.61-1.60)
[2024-09-14] MEDS: TIROSINT PO SCH (06:07)
--- NOTE | 2024-09-14 07:40 | Hospitalist Progress Note ---
Date of Service September 14, 2024 Assessment & Plan (1) Chest pain: Plan: Patient is 44 year old male with PMH bipolar disorder, anxiety, RLS, hypothyroidism, chronic left hip pain, obesity, history gastric bypass, chronic anemia, presented to ER with c/o intermittent CP and abnormal outpatient troponin lab. Outpatient 09/12/24 Troponin T HS: 19 (<14 reference) Today in ER Troponin is negative. EKG sinus rhythm, nonspecific T wave changes per my interpretation CXR: no acute findings Vitals stable Denies current CP R/O ACS Repeat EKG in am Will trend troponin Echo Lipid panel in am NPO [facility] consult, pt prefers [place] team (2) Bipolar disorder: Plan: Follows with Psychiatry Continue home medications (3) Hypothyroidism: Plan: Follows with endocrinology Continue home levothyroxine solution TSH in am (4) Chronic pain: Plan: Continue hydrocodone prn (5) Elevated LFTs: Plan: Patient with history of chronic elevation LFTs and chronic elevation, chronic CPK 09/12/24 CPK: 442 (has been elevated since 11/2023) Today T. bili: 0.9, AST: 33, ALT: 53, alk phos: 58, (improved from AST 40, ALT: 71 in 07/24/2024) Following with GI/hepatology DVT Prophylaxis SCDs for now Admit med tele Follows with Sammie Valverde PA-C for routine care Pt was seen and care coordinated with Dr Malik. See addendum I spent a total of 65 minutes reviewing notes, outpatient records, labs, m edication, coordinating, documenting and providing care for this patient excluding time spent in the performance of separately billed services and excluding time spent by another provider/QHP. Admission and Anticipated Discharge Date Admission Date: September 13, 2024 Review of Systems Review of Systems: At least ten systems reviewed and negative, except as noted in the subjective section. Results & Data Results & Data Vital Signs (Past 12 Hours) Vital Signs Temp Pulse Pulse Pulse Resp BP Pulse Ox 09/14/24 07:34 36.6 C 77 20 80/47 L 95 09/14/24 07:20 69 09/14/24 04:54 66 88/60 L 09/14/24 03:30 36.3 C L 68 14 73/46 L 96 09/14/24 00:12 36.8 C 64 16 89/58 L 97 01/29/25 21:45 72 O2 Del Method 09/14/24 07:34 Room Air 09/14/24 07:20 09/14/24 04:54 09/14/24 03:30 Room Air 09/14/24 00:12 Room Air 09/13/24 21:45 (1) Chest pain Chest pain type: unspecified Qualified Code(s): R07.9 - Chest pain, unspecified (2) Bipolar disorder Active/Remission status: remission status unspecified Qualified Code(s): F31.9 - Bipolar disorder, unspecified (3) Hypothyroidism Hypothyroidism type: unspecified Qualified Code(s): E03.9 - Hypothyroidism, unspecified
[2024-09-14] MEDS: guanFACINE HCL 1 MG TAB PO SCH (07:49)
[2024-09-14] MEDS: CALCIUM POLYCARBOPHIL 625MG TAB PO SCH (07:49)
[2024-09-14] MEDS: SODIUM CHLORIDE 0.9% 1,000 ML IV SCH (08:40)
[2024-09-14] MEDS ORDERED: LURASIDONE HCL 20 MG TAB PO SCH (09:00)
--- NOTE | 2024-09-14 09:26 | XCELERA ---
[id number] [id number]
--- OUTSIDE RECORDS SUMMARY | 2024-09-14 09:41 | External Medical Summary | Summary of Care ---
Author Name Unknown Organization [facility] Address [address] [facility] [place] [address] Phone [phone] Care Team Providers Care Tare Weigher Name Role Phone Sammie Valverde PA-C Primary Care Provider [phone] Reason for Visit * Reason Onset Date Comments Advice 09/08/2024 Encounter Details Date Type Department Care Team (Late st Contact Info) Description 09/08/2024 [facility] [address] [place] [phone] Sammie Valverde PA-C [address] [facility] [place] [address] Advice Allergies Active Allergy [...] as of this encounter (statuses as of 09/11/2024) Medications Glucose 15 GM/32ML GELIndications:H ypoglycemia Use as needed for hypoglycemia 32 mL 5 0 Active LORazepam 0.5 MG Oral Tablet (Ativan) 1 Active OneTouch Delica Lancets 30G To test blood sugars twice a day. 100 Each 5 2 Active Dexcom G7 Ssrs Report Developer Device Use as directed. 11/10/19 2 [...] as of this encounter (statuses as of 09/11/2024) Active Problems Problem Noted Date Diagnosed Date [...] as of this encounter (statuses as of 09/11/2024) Resolved Problems Problem Noted Date Diagnosed Date [...] as of this encounter (statuses as of 09/11/2024) Immunizations Name Administration Dates Next Due Covid-19 [...] 09/08/2024 9:23 AM EST Transferred pt to [facility] Thank you, Yanni Llanos CPhT Zoology Professor II [facility]) 09/08/2024,9:24 AM documented in this encounter Plan of Treatment Upcoming Encounters Date Type Department Care Team (Late st Contact Info) Description 09/29/2024 8:45 AM EST Cardiac Studies Cardiac Studies, [address] [place] [address] 10/02/2024 1:00 PM EST Laboratory Laboratory [facility] [place] [address] [facility] [place], [place] [phone] [facility] [address] [facility] [place] [address] 10/02/2024 2:00 PM EST Office Visit Hematology/Oncology [facility] [place] [address] [facility] [place] [phone] Elliott Monique MD [address] [facility] [place] [address] 11/08/2024 8:40 AM EDT Office Visit [facility] [address] [place] [phone] Sammie Valverde PA-C [address] [place] [address] 03/02/2025 9:45 AM EDT Office Visit Dermatology [facility] [place] [address] [facility] [place] [address] Ajit Deshpande MD [address] [facility] [place], [place] [address] Health Maintenance Due Date Last Done Comments [...] filedocumented as of this encounter Care Teams Tare Weigher Relationship Specialty Start Date End Date Sammie Valverde PA-C PCP - General Physician Traffic Rate Clerk 08/27/23 documented as of this encounter
--- OUTSIDE RECORDS SUMMARY | 2024-09-14 09:41 | External Medical Summary ---
Author Name Unknown Address Unknown Organization [id number]:[facility] [place] [address] [facility] [place] [address] Laboratory Report Ordering Provider Test Date Status JODY BARLOW 09/12/2024 13:47:38 Final Observation Date Value Abnormality Reference (Units ) Status BUN 09/12/2024 13:47:38 14 6-20 (mg/dL) Final Creatinine 09/12/2024 13:47:38 1.5 Above high normal 0.5-1.0 (mg/dL) Final Glomerular filtration rate/1.73 sq M.predicted [Volume Rate/Area] in Serum, Plasma or Blood by Creatinine-based formula (CKD-EPI) 09/12/2024 13:47:38 44 Below low normal >=60 (mL/min) Final eGFR is calculated based on the CKD-EPI 2020 equation. Sodium 09/12/2024 13:47:38 138 135-146 (m mol/L) Final Potassium 09/12/2024 13:47:38 4.0 3.5-5.1 (m mol/L) Final Cl 09/12/2024 13:47:38 104 98-107 (mm ol/L) Final CO2 09/12/2024 13:47:38 27 22-32 (mmo l/L) Final Anion gap 09/12/2024 13:47:38 7 7-15 (mmol /L) Final Glucose 09/12/2024 13:47:38 85 70-120 (mg /dL) Final Albumin 09/12/2024 13:47:38 4.0 3.8-5.0 (g /dL) Final AST (Aspartate aminotransferase) 09/12/2024 13:47:38 38 Above high normal 10-35 (U/L) Final Alk Phos 09/12/2024 13:47:38 63 35-130 (U/ L) Final Bilirubin, Total 09/12/2024 13:47:38 0.6 <=1 .2 (mg/dL) Final Calcium 09/12/2024 13:47:38 8.4 8.4-10.2 ( mg/dL) Final Protein 09/12/2024 13:47:38 6.2 6.0-8.3 (g /dL) Final ALT (Alanine aminotransferase) 09/12/2024 13:47:38 78 Above high normal 10-35 (U/L) Final Performing Location [facility] [place] [address] [facility] [address]
--- OUTSIDE RECORDS SUMMARY | 2024-09-14 09:41 | External Medical Summary | Summary of Care ---
Author Name Unknown Organization [facility] Address [address] [facility] [place] [address] Phone [phone] Care Team Providers Care Claim Trainee Name Role Phone Sammie Valverde PA-C Primary Care Provider [phone] Reason for Visit * Reason Onset Date Comments Advice 09/08/2024 Encounter Details Date Type Department Care Team (Late st Contact Info) Description 09/08/2024 [facility] [address] [place] [phone] Sammie Valverde PA-C 226 [facility] [place] [address] Advice Allergies Active [...] 100 Each 5 2 Active Dexcom G7 Keg Inspector Device Use as directed. 11/10/19 2 3 [...] 09/08/2024 9:23 AM EST Transferred pt to [facility] Thank you, Yanni Llanos CPhT Liquefied Natural Gas Operator II [facility]) 09/08/2024,9:24 AM documented in this encounter Plan of Treatment Upcoming Encounters Date Type Department Care Team (Late st Contact Info) Description 09/29/2024 8:45 AM EST Cardiac Studies Cardiac Studies, [address] [place] [address] 10/02/2024 1:00 PM EST Laboratory Laboratory [facility] [place] [address] [facility] [place], [place] [phone] [facility] 200 [facility] [place] [address] 10/02/2024 2:00 PM EST Office Visit Hematology/Oncology [facility] [place] [address] [facility] [place] [phone] Elliott Monique MD 200 [facility] [place] [address] 11/08/2024 8:40 AM EDT Office Visit [facility] [address] [place] [phone] Sammie Valverde PA-C [address] [place] [address] 03/02/2025 9:45 AM EDT Office Visit Dermatology [facility] [place] [address] [facility] [place] [address] Ajit Deshpande MD 200 [facility] [place], [place] [address] Health Maintenance Due Date Last Done Comments [...] filedocumented as of this encounter Care Teams Claim Trainee Relationship Specialty Start Date End Date Sammie Valverde PA-C PCP - General Physician Graphic Design Assistant 08/27/23 documented as of this encounter
--- OUTSIDE RECORDS SUMMARY | 2024-09-14 09:41 | External Medical Summary ---
Author Name Unknown Address Unknown Organization K01:[facility]ATORY [facility] [place] - [address] [place] [address] Laboratory Report Ordering Provider Test Date Status JODY BARLOW 09/12/2024 13:47:38 Final Observation Date Value Abnormality Reference (Units ) Status CRP, low-sensitivity 09/12/2024 13:47:38 <3 <=5 (mg/L) Final Performing Location [facility] - [address] [facility] [address]
--- OUTSIDE RECORDS SUMMARY | 2024-09-14 09:41 | External Medical Summary ---
Author Name Unknown Address Unknown Organization K01:[facility] [place] [address] [place] [address] Laboratory Report Ordering Provider Test Date Status JODY BARLOW 09/12/2024 13:47:38 Final Cardiovascular Disease Risk Assessment
(Relative Risk)
<1.0 mg/L Low
1.0-3.0 mg/L Average
>3.0 mg/L High

*This table may not apply in certain inflammatory conditions. Observation Date Value Abnormality Reference (Units ) Status CRP, High-sensitivity 09/12/2024 13:47:38 0.33 <=3.00 (mg/L) Final Performing Location [facility] [place] [address] [place] [address]
--- OUTSIDE RECORDS SUMMARY | 2024-09-14 09:41 | External Medical Summary ---
Author Name Unknown Address Unknown Organization K01:[facility]AT[facility] - [address] [place] [address] Laboratory Report Ordering Provider Test Date Status JODY BARLOW 09/12/2024 13:47:38 Final Observation Date Value Abnormality Reference (Units ) Status CK 09/12/2024 13:47:38 442 Above high normal 26 -192 (U/L) Final Performing Location LAB[facility]ATORY [facility] - [address] [place] [address]
--- OUTSIDE RECORDS SUMMARY | 2024-09-14 09:41 | External Medical Summary ---
Author Name Unknown Address Unknown Organization K01:[facility] [place] [address] [place] [address] Laboratory Report Ordering Provider Test Date Status JODY BARLOW 09/12/2024 13:47:38 Final Observation Date Value Abnormality Reference (Units ) Status Erythrocyte sedimentation rate by Photometric method 09/12/2024 13:47:38 2 <20 (mm/hour) Final Performing Location [facility] [place] [address] [place] [address]
--- OUTSIDE RECORDS SUMMARY | 2024-09-14 09:41 | External Medical Summary ---
Author Name Unknown Address Unknown Organization K01:LAB[facility]ATORY [facility] [place] - [address] [facility] [address] Laboratory Report Ordering Provider Test Date Status CAINSHAWMOON 09/12/2024 13:47:38 Final Observation Date Value Abnormality Reference (Units ) Status Troponin T 09/12/2024 13:47:38 19 Above high normal < =14 (ng/L) Final Performing Location [facility] - [address] [facility] [address]
--- NOTE | 2024-09-14 10:10 | Electrocardiogram Report ---
Test Reason : Blood Pressure : */* mmHG Vent. Rate : 75 BPM Atrial Rate : 75 BPM P-R Int : 232 ms QRS Dur : 78 ms QT Int : 404 ms P-R-T Axes : 32 29 33 degrees QTcB Int : 451 ms Sinus rhythm with 1st degree A-V block Low voltage QRS Borderline ECG When compared with ECG of 14-Sep-2024 06:02, (unconfirmed) Sinus rhythm has replaced Junctional rhythm Confirmed by Devonte Verdin ([id number]) on 09/14/2024 10:09:41 AM Referred By: Sammie Valverde Confirmed By: Devonte Verdin
--- NOTE | 2024-09-14 11:33 | Cardiology Consultation ---
Date of Consultation September 14, 2024 Assessment & Plan (1) Chest pain syndrome: -History is not consistent with typical angina pectoris. -3 separate high-sensitivity troponins are undetectable. -No acute changes on her EKG. -Echocardiogram notes normal left ventricular systolic function. -No further cardiac evaluation necessary at this time. (2) Pericardial effusion: -Trivial to small effusion on current echocardiogram without signs of ta mponade. -She did have a COVID infection 1 month ago. -We will repeat an echocardiogram in approximately 2 to 3 months as an outpatient. -Stable for hospital discharge. History of Present Illness Attending Physician: Roe Borjas DO History of Present Illness Mrs. Shah is a 44-year-old female admitted yesterday with a chest pain syndrome. This consultation was ordered to assist in her management. The patient was in usual state of health until the day of presentation when she was being seen by her primary care team. She has had extensive workup for an elevated CPK which has been present since last November. Yesterday, her CPK was 44 2 and a high-sensitivity troponin was very mildly elevated at 19 (normal is less than 14). Because of this, she was sent to the emergency room for further care. Over the last 1 to 2 years, she has noted a chest pain syndrome. She notes a "small and quick tightness" in the upper sternal region which lasts for seconds up to several minutes. There have never been associated symptoms such as short ness of breath, nausea, vomiting, or diaphoresis. Her discomfort occurs on a daily basis and has never been associated with physical activity. If she is experiencing the discomfort, and gets up to ambulate, there is no change in her symptoms. She has been attributing this to her high level of anxiety. She has never experienced exertional angina pectoris or limiting dyspnea. She further denies syncope, presyncope, PND, orthopnea, palpitations, lower extremity edema, and claudication. Currently, patient is resting comfortably in bed and without complaints. Past medical and surgical history 1. Hypothyroidism 2. Chronic anemia 3. Chronic pain syndrome 4. Bipolar disorder 5. Restless leg syndrome 6. Elevated CPK 7. Chronically elevated liver transaminases 8. Obesity 9. Vitamin D deficiency 10. [id number] 11. Gastric bypass 12. Cholecystectomy 13. Hysterectomy Social history and lives with her Quit tobacco use in 2002 Occasional alcohol Family history Mother 65 with diabetes Father's history is unknown No siblings Review of system A 10 point review of systems was undertaken and negative except that described above. Allergies Allergy/AdvReac Type Severity Reaction Status Date / Time amoxicillin Allergy Severe ANAPHYLAXIS Verified 03/16/24 10:00 azithromycin Allergy Severe Anaphylaxis Verified 03/16/24 10:00 Penicillins Allergy Severe ANAPHYLAXIS Verified 03/16/24 10:00 diphenhydramine Allergy Intermediate HIVES Verified 03/16/24 10:00 Sulfa (Sulfonamide Allergy Intermediate HIVES Verified 03/16/24 10:00 Antibiotics) tramadol Allergy Intermediate HIVES/RASH Verified 03/16/24 10:00 ciprofloxacin Allergy Mild RASH WITH Verified 03/16/24 10:00 ORAL CIPRO ONLY latex Allergy Mild RASH Verified 03/16/24 10:00 capsaicin AdvReac Intermediate ALTERED Verified 03/16/24 10:00 MENTAL STATUS diclofenac AdvReac Intermediate ALTERED Verified 03/16/24 10:00 MENTAL STATUS fentanyl AdvReac Intermediate ALTERED Verified 03/16/24 10:00 MENTAL STATUS - ANGRY ketorolac AdvReac Intermediate ALTERED Verified 03/16/24 10:00 MENTAL STATUS Home Medications Medication Instructions Recorded Confirmed Type cyanocobalamin (vitamin B-12) 1,000 mcg IM .[id number] 10/29/22 09/13/24 History 1,000 mcg/mL injection solution ergocalciferol (vitamin D2) 1,250 1,250 mcg PO WK 10/29/22 09/13/24 History mcg (50,000 unit) capsule (Vitamin D2) ketoconazole 2 % shampoo 1 applic topical 3XWK 10/29/22 09/13/24 History lorazepam 0.5 mg tablet 0.5 mg PO DAILY PRN Anxiety 10/29/22 09/13/24 History modafinil 100 mg tablet 150 mg PO DAILY PRN excessive 10/29/22 09/13/24 History daytime sleepiness calcium polycarbophil 625 mg tablet 1,250 mg PO DAILY 06/04/23 09/13/24 History levothyroxine 200 mcg/mL oral 500 mcg PO UD 06/04/23 09/13/24 History solution fluticasone propionate 50 2 spray intranasal BID PRN Other 09/13/24 09/13/24 History mcg/actuation nasal spray,suspension guanfacine 1 mg tablet 1 mg PO DAILY 09/13/24 09/13/24 History guanfacine 2 mg tablet 2 mg PO UD 09/13/24 09/13/24 History hydrocodone 10 mg-acetaminophen 1 tab PO Q6H PRN Pain 09/13/24 09/13/24 History 325 mg tablet lurasidone 120 mg tablet 120 mg PO DAILY 09/13/24 09/13/24 History tirzepatide 7.5 mg/0.5 mL 7.5 mg subcut WK 09/13/24 09/13/24 History subcutaneous pen injector (Mounjaro) Patient History Medical History GERD (gastroesophageal reflux disease) Idiopathic thrombocytopenia Sleep apnea hx of prior to gastric bypass Morbid obesity BMI 41 Thyroid disease Anemia Menorrhagia Bipolar affect, depressed Leukemia diagnosed 1986 Surgical History History of arthroscopy of left knee History of wisdom tooth extraction History of removal of Port-a-Cath Hx of cholecystectomy H/O: hysterectomy History of gastric bypass Family History Grandfather (Maternal) Coronary heart disease CAD, initially dx age 60 Other No family history of adverse response to anesthesia Social History Smoking Status: Former smoker Second Hand Exposure: No; Do You Dip or Chew Tobacco: No; Hx Alcohol Use: Yes Alcohol type: beer, wine and hard liquor Hx Substance Use: No Preferred Language: [place] Communication Ability: Effective Textile Screen Printer Required: No Beliefs That Will Affect Care: None marital status: Current Living Situation: Spouse Current Living Situation Comment: lives at home with current occupational status: employed Other Information That Helps Us Care for You: No Feels Safe at Home: Yes Safety Concerns: Feels Safe At This Time Assistive Devices: None Physical Exam Physical Exam: In general this is a well-developed well-nourished white female in no acute distress. HEENT exam is negative. Neck reveals normal carotid upstrokes without bruits. Jugular venous pressure is flat at 90. There is no thyromegaly. Cardiovascular exam reveals a regular rhythm with a normal S1 and S2. No S3, S4, or murmurs are noted. Lungs are clear without rales, rhonchi, or wheezes. Abdomen is soft without bruits. Extremities reveal intact radial artery and posterior tibial pulses bilaterally. There is no peripheral edema. Results & Data Vital Signs (Past 12 Hours) Vital Signs Temp Pulse Pulse Pulse Resp BP Pulse Ox 09/14/24 07:34 36.6 C 77 20 80/47 L 95 09/14/24 07:20 69 09/14/24 04:54 66 88/60 L 09/14/24 03:30 36.3 C L 68 14 73/46 L 96 09/14/24 00:12 36.8 C 64 16 89/58 L 97 O2 Del Method 09/14/24 07:34 Room Air 09/14/24 07:20 09/14/24 04:54 09/14/24 03:30 Room Air 09/14/24 00:12 Room Air Laboratory Results CBC notes hemoglobin of 10.0, hematocrit 30.0, white count 4.5, and platelet count of 188,000. Electrolytes noted sodium 130, potassium 4.0, chloride 107, bicarb 20, BUN 15, creatinine 1.24, and a glucose of 80. 3 high-sensitivity troponins are undetectable at less than 2.3. LDL cholesterol 79 with an HDL of 74. TSH level was significantly elevated at 404.2 with a T4 less than 0.32. Diagnostic Findings Echocardiogram notes normal left ventricular systolic function without wall motion abnormalities. An estimated left ventricular ejection fraction is 50 to 55%. There is mild tricuspid regurgitation. There is a trivial to mild pericardial effusion without signs of tamponade. EKG notes normal sinus rhythm with a first-degree AV block and low voltage throughout. Chest x-ray shows no acute disease. PG Care Time/CCT Total # of Minutes Spent Total Time Spent with Patient: Total time spent is greater than 50% in coordination of care (as documented) at patient's floor/unit and/or counseling patient: Coding Level of Care Code 09000 INT INP/OBS CARE 3/75MIN Diagnoses Chest pain syndrome R07.9 Pericardial effusion I31.39
[2024-09-14 11:39] VITALS: BP 90/58; RESP 16; TEMP 97.7; O2SAT 96
--- NOTE | 2024-09-14 14:18 | Discharge Summary ---
<Statement entered by Roe Borjas, DO - 09/14/24 15:53> I have seen and examined the patient and have discussed the case with the advance practice provider. I have reviewed the advanced practitioner's documentation, and I agree with, and take responsibility for that plan of care. Patient denied any further chest pains. Understands need for follow-up on echocardiogram outpatient. Pericardial effusion trace, no evidence of tamponade. In addition to recent COVID as a cause for pericardial effusion, could consider it due to her thyroid disease. Reviewed TSH and free T4. Patient follows regularly with endocrinology, adjusting her Synthroid dose outpatient will defer further management to endocrinology. Further discharge plan as outlined below I spent a total of 15 minutes coordinating, documenting, and providing care for this patient excluding time spent by another provider/QHP. Discharge Summary Date of Service September 14, 2024 Principal Dx & Hospital Course #1 = Principal Diagnosis (1) Chest tightness: (2) Pericardial effusion: Plan Margarita Fierro is a 44y/o F with PMHx significant for adrenal insufficiency, hypothyroidism, positional sleep apnea, MARIAM, intestinal edwin bsorption s/p gastric bypass surgery in 2012, RLS, migraines, chronic pain, abnormal LFTs, elevated CK, anxiety, ADHD and bipolar disorder who presented to the ED on 09/13/2024 evaluation of intermittent chest tightness x few months. Intermittent Chest Tightness Pericardial Effusion Likely 2/2 Recent COVID Infection: Patient presented with main complaint of episodes of intermittent chest tightness over the past few months, which last anywhere from a few seconds to minutes and are not associated with physical activity. These episodes became more prevalent as of recently however. Patient was ultimately referred to the ED for evaluation by her PCP as she was noted to have a very mildly elevated high- sensitivity troponin of 19 on outpatient lab work - which was completed to further evaluate her elevated CPK level (noted since last November). EKG in the ED was unremarkable; her repeat EKGs have been unremarkable at well. 3 separate high-sensitivity troponins came back undetectable. Telemetry monitoring was benign. Resting echocardiogram revealed LVEF of 55 to 55%, normal LV systolic function, mild tricuspid regurgitation and trivial to mild pericardial effusion (no indications of cardiac tamponade). Suspect pericardial effusion is likely related to her recent COVID infection back in July. [facility] cardiology saw and evaluated the patient. History not consistent with typical angina pectoris. No further inpatient cardiac evaluation warranted. Will need a repeat resting echocardiogram in about 2-3 months as an outpatient to monitor her pericardial effusion. Follow-up to be arranged with Dr. Verdin of [facility] cardiology - patient instructed to call for an appointment. Bipolar Disorder/ADHD: Stable on discharge. Follows with [facility] Psychiatry. Continue Latuda, guanfacine. H/O Abnormal LFTs: Chronically elevated LFTs since November 2023. Follows with [facility] GI/Hepatology. Prior hepatitis testing negative. Underwent an EUS guided liver biopsy last year which showed changes suggestive of drug effect/DILI. No fibrosis or inflammation seen. Suspect elevated LFTs likely secondary to her Latuda. ALT elevated at 53 on admission; otherwise LFTs have been unremarkable. LFTs remain under close observation as an outpatient with routine labs. H/O Elevated CPK, Hypothyroidism: CPK 387 in July. CPK noted to be 442 a few days prior to admission. Currently being evaluated for this as an outpatient. 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 Patient follows with [facility] Endocrinology. She is only able to absorb levothyroxine as liquid form. TSH 404.218, free T4 < 0.32 this admission. Patient reports that her levels are "always off." Continue current levothyroxine dosing. This can be readdressed by her PCP and production tester. Other Chronic Medical Conditions: Chronic Pain - Continue PRN hydrocodone- acetaminophen. H/O Prediabetes - Hgb A1c 4.7% ~1 month ago. Can resume Mounjaro. PCP: Sammie Valverde PA-C Disposition: Patient is being discharged home in good condition with PCP and cardiology follow-up appointments. Patient seen in collaboration with Dr. Borjas. Please see addendum. I spent a total of 55 minutes coordinating, documenting, and providing care for this patient excluding time spent in the performance of separately billed services or time spent by another provider/QHP. This included personally reviewing all current laboratories and imaging studies, medical reconciliation, outpatient chart review and discussion with specialists. This chart was completed in part utilizing Speech Voice Recognition Software. Grammatical errors, random word insertions, pronoun errors, and incomplete sentences are an occasional consequence of this system due to software limitations, ambient noise, and hardware issues. Any formal questions or concerns about the content, text, or information contained within the body of this dictation should be directly addressed to the provider for clarification. Notes For Next Care Provider Patient will need a repeat resting echocardiogram in 2-3 months. Needs a follow- up appointment scheduled with Dr. Devonte Verdin of [facility] Cardiology. Medication Changes From Visit No medication changes were made during this admission. Admission HPI Per Admitting Provider Patient is 44 year old male with PMH bipolar disorder, anxiety, RLS, hypothyroidism, chronic left hip pain, obesity, history gastric bypass, chronic anemia, presented to ER with c/o intermittent CP and abnormal outpatient troponin lab. Patient reports intermittent chest tightness x months and seems to be occurring more frequently past couple of weeks and occurs on almost daily bas is. Can occur at rest or ambulation. States seems to resolve within a couple of minutes. Describes as chest tightness and sometimes has dizziness with it. Denies arm pain, neck pain, palpitations, diaphoresis, nausea or vomiting. She initially thought was anxiety. Has anxiety and states wasn't feeling overly anxious at times of chest tightness so she never took her as needed Ativan. Per outpatient PCP note on 09/07/24 and had reported some intermittent CP and CPK and troponin was ordered. Patient had labs on 09/12/24 and Troponin T HS: 19 (<14 reference), CPK: 442. She has chronically elevated CPK and LFTs and has followed with GI/hepatology and has history liver biopsy which was suggestive of drug effects. She reports also follows with rheumatology. Denies fever/chills, diaphoresis, N/V/D/C, DEE, syncope, vision changes, neck pain, SOB, orthopnea, palpitations, cough, rhinorrhea, abdominal pain, paresthesias, weakness, extremity edema, rashes, urinary symptoms. Admission Exam Per Admitting Provider General: no distress, overweight female Head: normocephalic, atraumatic Eyes: conjunctiva non-injected, anicteric ENT: normal inspection external ears, nose, mucous membranes moist Neck: supple, trachea midline Lungs: clear, no respiratory distress, no wheezing/rhonchi/rales CV: RRR, no murmur, no pretibial edema. Chest wall without tenderness to palpation Abd: normal BS, soft, non-tender Ext: no cyanosis, no calf tenderness Neuro: A&O x 3, no focal deficits noted, normal affect Skin: warm, dry Discharge Exam General: NAD, sitting up in chair at bedside, pleasant, conversing appropriately. A+Ox3, normal affect. Respiratory: Normal respiratory effort, lungs clear to auscultation bilaterally. No accessory muscle use. Cardiovascular: Regular rate, rhythm, normal peripheral pulses, no BLE edema. Vessels: No JVD. Abdomen/GI: Normal bowel sounds, soft, nontender to palpation in all quadrants. Extremities/Musculoskeletal: No cyanosis or clubbing, extremities motor strength intact, moves all extremities. Neurologic: No overt focal deficits, CN's II-XI not formally tested but appear grossly intact bilaterally. Updated Medication List Medication Instructions Recorded Confirmed Type cyanocobalamin (vitamin B-12) 1,000 mcg IM .[id number] 10/29/22 09/13/24 History 1,000 mcg/mL injection solution ergocalciferol (vitamin D2) 1,250 1,250 mcg PO WK 10/29/22 09/13/24 History mcg (50,000 unit) capsule (Vitamin D2) ketoconazole 2 % shampoo 1 applic topical 3XWK 10/29/22 09/13/24 History lorazepam 0.5 mg tablet 0.5 mg PO DAILY PRN Anxiety 10/29/22 09/13/24 History modafinil 100 mg tablet 150 mg PO DAILY PRN excessive 10/29/22 09/13/24 History daytime sleepiness calcium polycarbophil 625 mg tablet 1,250 mg PO DAILY 06/04/23 09/13/24 History levothyroxine 200 mcg/mL oral 500 mcg PO UD 06/04/23 09/13/24 History solution fluticasone propionate 50 2 spray intranasal BID PRN Other 09/13/24 09/13/24 History mcg/actuation nasal spray,suspension guanfacine 1 mg tablet 1 mg PO DAILY 09/13/24 09/13/24 History guanfacine 2 mg tablet 2 mg PO UD 09/13/24 09/13/24 History hydrocodone 10 mg-acetaminophen 1 tab PO Q6H PRN Pain 09/13/24 09/13/24 History 325 mg tablet lurasidone 120 mg tablet 120 mg PO DAILY 09/13/24 09/13/24 History tirzepatide 7.5 mg/0.5 mL 7.5 mg subcut WK 09/13/24 09/13/24 History subcutaneous pen injector (Michael) Hospital Stay Data Consultations 09/13/24 16:01 ED Decision to Admit Stat 09/14/24 08:00 Consult Cardiology Routine Discharge Instructions Given to Patient (Per Discharging Provider) oseas Avila were admitted to [facility] for cardiac evaluation. You had an echocardiogram (ultrasound of the heart) done and that revealed a trivial to mild pericardial effusion, which is when theres extra fluid that builds up in the sac surrounding your heart (called the pericardium). Additional cardiac evaluation including cardiac enzyme monitoring, repeat EKGs and telemetry monitoring were all unremarkable otherwise. You were seen and evaluated by Dr. Devonte Verdin ([facility]). No further inpatient cardiac evaluation was warranted. You will, however, need a repeat echocardiogram in about 2-3 months to reassess your pericardial effusion. Please make sure to call Dr. Verdin's office to arrange this follow-up appointment like we had discussed. You have a PCP follow-up appointment scheduled for 09/20/2024 @ 9:00AM with Sammie Valverde PA-C at [facility] [address] in [place]. Please be sure to attend this follow-up appointment as scheduled. Seek medical attention if you have: * temperature above 101F * chest pain or trouble breathing * abdominal pain, nausea, vomiting * diarrhea, dark stools or bloody stools * any unanswered questions or concerns Call 911 if symptoms are severe. Please take good care of yourself! It has been a pleasure taking care of you. If you have any questions regarding your recent hospitalization please contact [facility] and request [facility] Hospitalist @ [phone]. Total Time Total Time Spent Total Time Spent (In Minutes): 55
[2024-09-14 15:33] VITALS: PULSE 66
[2024-09-15] MEDS ORDERED: TIROSINT PO SCH (06:30)
--- NOTE | 2024-09-15 14:26 | Electrocardiogram Report ---
Test Reason : Blood Pressure : */* mmHG Vent. Rate : 70 BPM Atrial Rate : 69 BPM P-R Int : * ms QRS Dur : 70 ms QT Int : 364 ms P-R-T Axes : * 43 55 degrees QTcB Int : 393 ms Probable Sinus rhythm Low voltage QRS Abnormal ECG When compared with ECG of 13-Sep-2024 13:24, Septal infarct is now Present Confirmed by Devonte Verdin ([id number]) on 09/15/2024 2:25:26 PM Referred By: Sammie Valverde Confirmed By: Devonte Verdin
== END 2024-09-14 16:17 | disposition home or self-care (01) ==
LOC: 2N 13:09 → ED 13:09 → SUATTDRO 16:40 → 2N 17:25